=== PATIENT | female | born 1945 | race Caucasian/White ===

== ENCOUNTER 2016-03-16 20:15 | Observation (INO) ==
--- NOTE | 2016-03-16 20:50 | Emergency Department Note ---
Disposition Clinical Impression: Non-ST elevated myocardial infarction Disposition: Admitted As Inpatient Condition: Fair Referrals: Wesley Ortiz MD [Non-Partnered Physician] - Forms: ED Satisfaction Letter Chest Pain HPI - General Chief Complaint: ED Chest Pain Stated Complaint: chest heaviness, anxiety Time Seen by Provider: 03/16/16 20:27 Source: patient, EMS Limitations: no limitations Vital Signs Reviewed: Yes Nursing Notes Reviewed: Yes - History of Present Illness Pt complaint: chest pain Onset (ago): day(s) (1) Duration: now resolved Onset: during rest Severity: none Severity scale (1-10): 0 Quality: tightness Improves with: nothing Worsens with: nothing Associated symptoms: Denies: nausea, vomiting, diaphoresis - Related Data Home Medications Medication Instructions Recorded Confirmed Aspirin 325 mg PO DAILY 02/28/16 03/16/16 Carbidopa/Levodopa 25/100 [Sinemet 2 each PO TID 02/28/16 03/16/16 25/100] Carbidopa/Levodopa ER 50/200 1 each PO HS 02/28/16 03/16/16 [Sinemet ER 50-200 Tab] DiphenhydraMINE [Benadryl] 25 - 50 mg PO Q8H PRN 02/28/16 03/16/16 Docusate [Colace] 100 mg PO DAILY PRN 02/28/16 03/16/16 Donepezil [Aricept] 10 mg PO HS 02/28/16 03/16/16 Gabapentin [Neurontin] 100 mg PO TID PRN 02/28/16 03/16/16 HydrOXYzine Pamoate [Hydroxyzine 25 mg PO HS 02/28/16 03/16/16 Pamoate] Lactose-Reduced Food [Ensure 1 bottle PO 5XD 02/28/16 03/16/16 Liquid] Omeprazole [PriLOSEC] 40 mg PO DAILY 02/28/16 03/16/16 Previous Rx's Medication Instructions Recorded Oxycodone HCl 10 mg PO Q4HR PRN #30 tablet 03/03/16 Allergies Allergy/AdvReac Type Severity Reaction Status Date / Time fentanyl Allergy Vomiting Verified 10/31/14 09:49 ondansetron Allergy Headache Verified 10/31/14 09:49 [From Zofran (as hydrochloride)] Constitutional: Denies: fever, chills, weakness, weight change Eyes: Denies: eye pain, eye discharge, vision change ENT ED: Denies: ear pain, throat pain, dental pain, hearing loss, epistaxis, congestion, dysphagia Cardiovascular: Reports: as per HPI Respiratory: Denies: cough, dyspnea, wheezes, hemoptysis, stridor Gastrointestinal: Denies: abdominal pain, nausea, vomiting, diarrhea, constipation, hematemesis, melena, hematochezia Genitourinary: Denies: dysuria, frequency, hematuria, discharge Musculoskeletal: Denies: back pain, neck pain, arthralgia, myalgia Integumentary: Denies: rash, abrasion, lesions Neurological: Denies: headache, weakness, numbness, paresthesias, confusion, abnormal gait, vertigo Psychiatric: Denies: anxiety, depression, suicidal thoughts, homicidal thoughts , auditory hallucinations, visual hallucinations Endocrine: Denies: fatigue Hematological/Lymphatic: Denies: easy bleeding, easy bruising Chest Pain PMH - Past Medical History Medical history: Reports: CHF, dementia, other Surgical history: Reports: Psychiatric history: Reports: no psych history - Social History Smoking Status: Former smoker Alcohol use: Reports: none Drug use: Reports: none Physical Exam - General Limitations: no limitations General appearance: alert, in no apparent distress - Head Head exam: atraumatic, normocephalic, normal inspection - Eye Eye exam: Present: normal appearance, PERRL, EOMI - ENT ENT exam: normal exam, normal oropharynx, mucous membranes moist - Neck Neck exam: Present: normal inspection, full ROM, trachea midline - Chest Chest inspection: Present: normal inspection, symmetric chest wall rise - Respiratory Respiratory exam: Present: normal lung sounds bilaterally - Cardiovascular Cardiovascular exam: Present: regular rate, normal rhythm, normal heart sounds - Abdominal Exam Abdominal exam: Present: soft, Non-Tender. Absent: tenderness, distention, guarding, rebound, rigidity - Extremities Exam Extremities exam: Present: normal inspection, full ROM. Absent: tenderness, pedal edema - Expanded Lower Extremity Exam Lower leg exam: Absent: swelling, erythema, palpable cord, Homans' sign - Back Exam Back exam: Present: normal inspection, full ROM. Absent: tenderness - Neurological Exam Neurological exam: Present: alert, oriented X3 - Psychiatric Psychiatric exam: Present: normal affect, normal mood Course Course Narrative: Patient stable during ED course. Troponin positive so given lovenox. - Consultations Consultation #1: Discussed with Dr. Saldaña at 22:37 agree with treatment plans ASA/Lovenox admit. Consultation #2: Discussed with Dr. Champion at 22:20 accepts admit. Vital Signs Temperature 98 F 03/16/16 20:18 Pulse Rate 90 03/16/16 20:18 Respiratory Rate 20 03/16/16 20:18 Blood Pressure 112/88 03/16/16 20:18 O2 Sat by Pulse Oximetry 94 L 03/16/16 20:18 Temperature 98 F 03/16/16 20:18 Pulse Rate 71 03/16/16 22:05 Respiratory Rate 18 03/16/16 22:05 Blood Pressure 114/66 03/16/16 22:05 O2 Sat by Pulse Oximetry 94 L 03/16/16 22:05 Oxygen Delivery Oxygen Delivery Nasal Cannula Chest Pain - Medical Records Medical records reviewed: Yes I reviewed the patient's medical records. - Lab Data Lab results reviewed: Yes I reviewed the patient's lab results. Result diagrams: 03/16/16 21:14 03/16/16 21:14 Lab Results 03/16/16 03/16/16 03/16/16 Range/Units 21:14 21:14 21:14 WBC 9.8 (4.3-11.1) K/mcL RBC 3.61 L (3.82-4.97) M/mcL Hgb 10.4 L (11.5-15.4) g/dL Hct 32.9 L (35.3-44.9) % MCV 91.1 (83.0-100.0) fL MCH 28.8 (28.0-33.3) pg MCHC 31.6 (31.6-35.5) g/dL RDW 15.0 H (11.5-14.5) % Plt Count 506 H (140-400) K/mcL MPV 10.1 (9.4-12.4) fL Immature Gran % 0.3 (0-4) % Seg Neutrophils % 75.9 % Lymphocytes % 14.4 % Monocytes % 6.1 % Eosinophils % 2.6 % Basophils % 0.7 % Neutrophils # 7.4 (1.6-8.9) K/mcL Lymphocytes # 1.4 (0.6-4.6) K/mcL Monocytes # 0.6 (0.0-1.3) K/mcL Eosinophils # 0.3 (0.0-0.6) K/mcL Basophils # 0.1 (0.0-0.2) K/mcL PT 12.1 (9.4-12.1) Seconds INR 1.1 APTT 30.1 (26.0-36.0) Seconds Sodium (136-145) mEq/L Potassium (3.5-4.5) mEq/L Chloride (98-109) mEq/L Carbon Dioxide (19-29) mEq/L BUN (7-20) mg/dL Creatinine (0.57-1.11) mg/dL Est GFR ( Amer) (> 60) Est GFR (Non-Af Amer) (> 60) BUN/Creatinine Ratio (6-26) Glucose (70-99) mg/dL Calculated Osmolality (280-300) Calcium (8.6-10.8) mg/dL Troponin I (0-0.03) ng/mL B-Natriuretic Peptide 259 H (0-100) pg/mL 03/16/16 03/16/16 Range/Units 21:14 21:14 WBC (4.3-11.1) K/mcL RBC (3.82-4.97) M/mcL Hgb (11.5-15.4) g/dL Hct (35.3-44.9) % MCV (83.0-100.0) fL MCH (28.0-33.3) pg MCHC (31.6-35.5) g/dL RDW (11.5-14.5) % Plt Count (140-400) K/mcL MPV (9.4-12.4) fL Immature Gran % (0-4) % Seg Neutrophils % % Lymphocytes % % Monocytes % % Eosinophils % % Basophils % % Neutrophils # (1.6-8.9) K/mcL Lymphocytes # (0.6-4.6) K/mcL Monocytes # (0.0-1.3) K/mcL Eosinophils # (0.0-0.6) K/mcL Basophils # (0.0-0.2) K/mcL PT (9.4-12.1) Seconds INR APTT (26.0-36.0) Seconds Sodium 140 (136-145) mEq/L Potassium 4.1 (3.5-4.5) mEq/L Chloride 107 (98-109) mEq/L Carbon Dioxide 25 (19-29) mEq/L BUN 15 (7-20) mg/dL Creatinine 0.71 (0.57-1.11) mg/dL Est GFR ( Amer) > 60 (> 60) Est GFR (Non-Af Amer) > 60 (> 60) BUN/Creatinine Ratio 21 (6-26) Glucose 108 H (70-99) mg/dL Calculated Osmolality 291 (280-300) Calcium 8.6 (8.6-10.8) mg/dL Troponin I 0.20 H* (0-0.03) ng/mL B-Natriuretic Peptide (0-100) pg/mL - Radiology Data Radiology results reviewed: Yes I reviewed the patient's radiology results. - EKG Data EKG attestation: Yes I reviewed and interpreted this EKG. EKG shows normal: sinus rhythm Rate: normal Rhythm: NSR When compared to previous EKG there are: no significant changes
[2016-03-16 21:37] LABS: Basophils # 0.1 K/mcL (0.0-0.2); Basophils % 0.7 %; Eosinophils # 0.3 K/mcL (0.0-0.6); Eosinophils % 2.6 %; Hematocrit 32.9 % (35.3-44.9); Hemoglobin 10.4 g/dL (11.5-15.4); Immature Granulocytes % 0.3 % (0-4); Lymphocytes # 1.4 K/mcL (0.6-4.6); Lymphocytes % 14.4 %; Mean Corpuscular HGB Conc 31.6 g/dL (31.6-35.5); Mean Corpuscular Hemoglobin 28.8 pg (28.0-33.3); Mean Corpuscular Volume 91.1 fL (83.0-100.0); Mean Platelet Volume 10.1 fL (9.4-12.4); Monocytes # 0.6 K/mcL (0.0-1.3); Monocytes % 6.1 %; Neutrophils # 7.4 K/mcL (1.6-8.9); Platelet Count 506 K/mcL (140-400); Red Blood Count 3.61 M/mcL (3.82-4.97); Segmented Neutrophils % 75.9 %
[2016-03-16 21:43] LABS: INR 1.1; Prothrombin Time 12.1 Seconds (9.4-12.1)
[2016-03-16 21:46] LABS: Activated Partial Thrombo Time 30.1 Seconds (26.0-36.0)
[2016-03-16 21:49] LABS: BUN/Creatinine Ratio 21 (6-26); Blood Urea Nitrogen 15 mg/dL (7-20); Calcium 8.6 mg/dL (8.6-10.8); Carbon Dioxide 25 mEq/L (19-29); Chloride 107 mEq/L (98-109); Glucose 108 mg/dL (70-99); Osmolality,Calculated 291 (280-300); Potassium 4.1 mEq/L (3.5-4.5); Sodium 140 mEq/L (136-145); eGFR For African Americans > 60 (> 60); eGFR For Non-African Americans > 60 (> 60)
[2016-03-16] MEDS ORDERED: *HR* Enoxaparin 60 MG/0.6 ML SYRINGE SQ STA (22:04)
[2016-03-16] MEDS ORDERED: Aspirin 81 MG TAB.CHEW PO ONE (22:04)
[2016-03-16] MEDS ORDERED: *HR* Promethazine 25 MG/ML VIAL IVP PRN (23:57)
[2016-03-16] MEDS ORDERED: Naloxone 0.4 MG/ML INJ IVP PRN (23:57)
[2016-03-16] MEDS ORDERED: Nitroglycerin 0.4 MG TAB.SUBL SL PRN (23:57)
[2016-03-16] MEDS ORDERED: *HR* Morphine 2 MG/ML SYRINGE IVP PRN (23:57)
[2016-03-16] MEDS ORDERED: *HR* Metoprolol 5 MG/5 ML VIAL IVP PRN (23:57)
[2016-03-16] MEDS ORDERED: Acetaminophen 325 MG TABLET PO PRN (23:57)
[2016-03-16] MEDS ORDERED: *HR* OxyCODONE Immed Rel 5 MG TABLET PO PRN (23:57)
[2016-03-17] MEDS ORDERED: Gabapentin 100 MG CAPSULE PO PRN (00:08)
[2016-03-17] MEDS ORDERED: *HR* OxyCODONE Immed Rel 5 MG TABLET PO PRN ×4 (00:08→15:24)
[2016-03-17] MEDS ORDERED: Ipratropium/Albuterol Neb 3 ML IH PRN (00:10)
[2016-03-17 00:38] LABS: VBG HCO3 29.1 mEq/L (21-27); VBG PH 7.47 pH Units (7.32-7.42)
[2016-03-17 00:50] LABS: Hemoglobin A1C 4.6 %
[2016-03-17 00:55] LABS: Alanine Aminotransferase < 6 Units/L (0-55); Albumin/Globulin Ratio 0.8 (1.1-2.2); Alkaline Phosphatase 181 Units/L (38-126); Aspartate Amino Transferase 13 Units/L (5-34); BUN/Creatinine Ratio 20 (6-26); Bilirubin,Total 0.5 mg/dL (0.2-1.2); Blood Urea Nitrogen 14 mg/dL (7-20); Calcium 8.7 mg/dL (8.6-10.8); Carbon Dioxide 23 mEq/L (19-29); Chloride 107 mEq/L (98-109); Chol/HDL Ratio 2.8 (0-4.9); Cholesterol 165 mg/dL (< 200); Globulin 3.7 g/dL (2.4-3.5); Glucose 106 mg/dL (70-99); HDL Cholesterol 58 mg/dL (40-59); LDL Cholesterol,Calculated 95 mg/dL (0-99); Magnesium 1.8 mg/dL (1.6-2.6); Osmolality,Calculated 291 (280-300); Phosphorous 3.4 mg/dL (2.3-4.7); Sodium 140 mEq/L (136-145); Total Protein 6.7 g/dL (6.0-8.3); Triglycerides 61 mg/dL (< 150); eGFR For African Americans > 60 (> 60); eGFR For Non-African Americans > 60 (> 60)
[2016-03-17 01:15] LABS: Thyroid Stimulating Hormone 0.854 mcIU/mL (0.350-4.840)
[2016-03-17] MEDS: Carbidopa/Levodopa ER 50/200 TABLET PO SCH ×2 (03:15→20:54)
--- NOTE | 2016-03-17 03:44 | Internal Med History&Physical ---
Date of Encounter: 03/16/16 Time of Encounter: 23:30 Assessment and Plan (1) Acute chest wall pain Current visit: Yes Status: Acute . (2) Chest pain, rule out acute myocardial infarction Current visit: Yes Status: Acute . (3) Chest pain with low risk of acute coronary syndrome Current visit: Yes Status: Acute . (4) Anxiety disorder Current visit: Yes Status: Chronic . Qualifiers: Anxiety disorder type: generalized anxiety disorder Qualified Code(s): F41.1 - Generalized anxiety disorder (5) Demand ischemia of myocardium Current visit: Yes Status: Acute . (6) Ischemia due to increased oxygen demand Current visit: Yes Status: Acute . (7) Elevated troponin I measurement Current visit: Yes Status: Acute . (8) Obesity (BMI 30-39.9) Current visit: Yes Status: Chronic . (9) Anemia Current visit: Yes Status: Chronic . Qualifiers: Anemia type: unspecified type Qualified Code(s): D64.9 - Anemia, unspecified (10) Thrombocytosis Current visit: Yes Status: Acute . (11) Paroxysmal atrial fibrillation Current visit: Yes Status: Chronic . (12) Diastolic CHF Current visit: Yes Status: Chronic . Qualifiers: Congestive heart failure chronicity: chronic Qualified Code(s): I50.32 - Chronic diastolic (congestive) heart failure (13) Dementia arising in the senium and presenium Current visit: Yes Status: Chronic . (14) Non-ST elevated myocardial infarction Current visit: Yes Status: Acute . (15) Hypokalemia Current visit: Yes Status: Acute . (16) Parkinson disease Current visit: Yes Status: Chronic . Internal Medicine - H&P: HPI Chief complaint: Chest pain Admitted From: Emergency Dept Plans for Post Hospital Care: Home History of present illness: Ms. Hicks is a 70 year old female with history significant for Parkinson's disease, dementia unspecified, diastolic CHF, GERD, chronic musculoskeletal pain , rheumatoid arthritis, paroxysmal atrial fibrillation, gait instability/ mechanical falls, osteoarthritis, osteoporosis, obesity, former smoker. The patient was visited and interviewed and examined. Patient is admitted to [facility] via the emergency department when she presents with EMS services from home with complaints of chest pain. The patient reports 1 day of chest heaviness beginning while at rest. Nothing seemed to worsen nothing seemed to lessen feeling of chest tightness when present. Patient acknowledged simultaneous anxiety. Symptoms resolved spontaneously without intervention prior to arrival to the ED. However the chest pain at acute onset was severe and consuming enough to warrant presentation to the ED via EMS services for evaluation. Patient denies any previous episodes of similar discomfort.. Findings in the ED: Temperature 98 pulse 70-90 respirations 18-20 BP 110-114/66-88 O2 saturation 94% at 2 L per nasal cannula. WBC 9.8 hemoglobin 10.4 platelets 506,000. Differential normal. PT 12.1 INR 1.1 PTT 30.1. Troponin 0.2 BNP 259. Metabolic panel normal. BUN 15 creatinine 0.71. Glucose 108 osmolality 291. EKG normal sinus rhythm. No acute ischemic changes. Chest x-ray no acute or active cardiopulmonary process. Stable cardiomegaly. No focal consolidation pleural effusion or edema. No pneumothorax. Levoconvex thoracolumbar scoliosis. No acute osseous lesions noted. Preliminary impression suggests ACS/coronary syndrome with troponin elevation and BNP elevations tested for significant myocardial demand and ischemia. Beyond resting hypoxemia the remainder of the screening studies were relatively benign. Patient is status post recent fracture and done nailing procedure February 2016. Non-ST elevation myocardial infarction Type I versus type II demand ischemia of the further investigated. The patient does present risk for further acute clinical decline and morbidity given her advanced age, frailty, clinical findings at presentation and comorbidities. Workup and treatment will progress comprehensively. Cumulative laboratory and radiographic data base was reviewed, considered and discussed. Pertinent ancillary medical records including ECW and PCI documentation, when available, was reviewed and considered. Given the patient's presenting concerns, past medical history, clinical findings and symptoms, she is admitted at this time will undergo further evaluation and disposition. Orders were written as per the computerized physician eating disorder psychologist system.......................................................................... .................... Consultative opinions will be sought as clinical circumstances justify. Initial consultative opinion has been requested of cardiology. Pain management needs will be addressed. Laboratory and radiographic data base will be updated as appropriate. Studies include: trending of cardiac injury panel, BNP, ck, metabolic and hematologic panel, magnesium, phosphorus, ionized calcium, thyroid panel, lipid profile, A1c , C-peptide, CRP, sedimentation rate, respiratory infection profile, respiratory virus panel, blood gas, UA, amylase, lipase, coagulation profile, lactic acid, serologies, etc. Precautions: Aspiration, fall, delirium protocol/surveillance initiated. Telemetry with continuous hemodynamic monitoring and pulse oximetry initiated. Orthostatic vital signs. Special studies: CT chest, chest x-ray, telemetry, EKG, echocardiogram. Pulmonary toilet: Incentive spirometry. When necessary aerosol bronchodilator, mucolytic, antitussive. Supplemental oxygen. When necessary corticosteroid therapy. CPAP/BiPAP supplemental oxygen delivery when necessary. Aerosol Mucomyst therapy when necessary. Fluid and electrolyte repletion efforts will proceed. Careful attention to fluid balance and renal recovery will be emphasized. Avoidance of nephrotoxic exposure and adverse drug drug interaction in the setting of impaired renal function will be monitored closely. Acute coronary syndrome protocol/surveillance initiated. Including: Aspirin and statin, beta megan and SHIRLENE inhibitor. Therapeutic Lovenox. As needed nitrates. As needed morphine. Supplemental oxygen. DVT and PUD prophylaxis initiated: PPI therapy, intermittent pneumatic cuffs. Subcutaneous heparin/Lovenox. Early ambulation will be encouraged. Immunization updates recommended. Influenza and pneumococcal vaccinations as part of ongoing preventative healthcare recommendations strongly recommended. Smoking cessation counseling briefly addressed. Patient is a former smoker. Advanced care directive discussion briefly addressed. Patient does not declare any healthcare restrictions at this time. Cardiovascular risk appraisal and cardiovascular risk reduction efforts will be emphasized. Physical and occupational therapy may be consulted to evaluate/assess patient's functional capacity and progress mobility if circumstances permit. Outpatient medication schedules will be reviewed confirmed and facilitated as appropriate. Reconciliation of home treatments including adjustments, substitutions and reintroduction into the treatment regimen will address necessary maintenance therapies for chronic pre-existing medical conditions. Plan of care has been reviewed and discussed in detail with the patient. Questions addressed. Hospital course is dependent on collective clinical findings, treatment response and potential consultative interventions. Patient is at risk for further acute clinical decline and morbidity due to her advanced age, frailty, presenting chief complaints and comorbidities. Condition is serious. Prognosis is guarded. CODE STATUS is full. Past Med Surg Social Fam HX - Past Medical History Source: old records reviewed Medical history: arthritis, atrial fibrillation, CHF (Diastolic cardiomyopathy.) , COPD, dementia, GERD (Symptomatic hiatal hernia.), osteoporosis, RA, other ( Parkinson's disease. Frequent mechanical fall secondary discoloration of gait due to Parkinson's disease). Chronic musculoskeletal pain syndrome.) Psychiatric history: anxiety, panic disorder, other - Past Surgical History Surgical History: , orthopedic, other, other - Social History Smoking Status: Unknown if ever smoked Smokeless Tobacco Status: No Alcohol use: unknown Drug use: unknown Occupational status: other Current living situation: With Family Activity Level: Independent ambulation, Mostly sedentary Recent Out of Country Travel Within the Last 8 Weeks: No Exposure or Possible Exposure to Illness During Travel: No - Family History Son History Unknown: Yes Living Status: Still Living Hx Family Cardiac Disorders: No Hx Family Respiratory Disorders: No Hx Family Cancer: No Hx Family GI Disorders: Yes Hx Family Endocrine Disorder: No Internal Medicine - H&P: Meds Aspirin 325 mg PO DAILY 02/28/16 [History] Carbidopa/Levodopa 25/100 [Sinemet 25/100] 2 each PO TID 02/28/16 [History] Carbidopa/Levodopa ER 50/200 [Sinemet ER 50-200 Tab] 1 each PO HS 02/28/16 [ History] DiphenhydraMINE [Benadryl] 25 - 50 mg PO Q8H PRN 02/28/16 [History] Docusate [Colace] 100 mg PO DAILY PRN 02/28/16 [History] Donepezil [Aricept] 10 mg PO HS 02/28/16 [History] Gabapentin [Neurontin] 100 mg PO TID PRN 02/28/16 [History] HydrOXYzine Pamoate [Hydroxyzine Pamoate] 25 mg PO HS 02/28/16 [History] Lactose-Reduced Food [Ensure Liquid] 1 bottle PO 5XD 02/28/16 [History] Omeprazole [PriLOSEC] 40 mg PO DAILY 02/28/16 [History] Oxycodone HCl 10 mg PO Q4HR PRN #30 tablet 03/03/16 [Rx] Allergies fentanyl Allergy (Verified 10/31/14 09:49) Vomiting ondansetron [From Zofran (as hydrochloride)] Allergy (Verified 10/31/14 09:49) Headache All Systems PM: A 10-system review of systems was performed and is negative for pertinent findings except as documented above in the HPI. - Constitutional Constitutional: as per HPI, falls, malaise, no chills, no fever(s), no night sweats - EENT Eyes: as per HPI, no change in vision, no discharge, no pain, no photophobia Ears: as per HPI, no ear discharge, no ear pain, no tinnitus Nose, mouth and throat: as per HPI, no dysphagia, no nasal discharge, no neck pain, no sore throat - Cardiovascular Cardiovascular ROS IM: as per HPI, chest pain, no diaphoresis, no dyspnea, no lightheadedness, no palpitations, no syncope - Respiratory Respiratory: as per HPI, no cough, no dyspnea, no wheezing, no excessive phlegm production - Gastrointestinal Gastrointestinal: as per HPI, no abdominal pain, no diarrhea, no hematemesis, no hematochezia, no melena, no nausea, no vomiting - Genitourinary Genitourinary: as per HPI, no change in urinary stream, no dysuria, no flank pain, no hematuria - Musculoskeletal Musculoskeletal ROS IM: as per HPI, no numbness, no tingling - Integumentary Integumentary IM: as per HPI, no rash, no unusual bruising - Neurological Neurological ROS: as per HPI, abnormal gait, abnormal movements, frequent falls , lack of coordination, weakness, other, no confusion, no convulsions, no focal weakness, no numbness, no tingling, no tremor(s) - Psychiatric Psychiatric: as per HPI, anxiety, panic attacks, other - Endocrine Endocrine IM: as per HPI - Hematologic/Lymphatic Hematologic/Lymphatic: as per HPI, no easy bruising - Allergic/Immunologic Allergic/Immunologic: as per HPI - Constitutional Vitals: Temp Pulse Resp BP Pulse Ox 98.6 F 80 18 147/81 94 L 03/17/16 01:48 03/17/16 01:48 03/17/16 01:48 03/17/16 01:48 03/17/16 01:48 General appearance: Present: A&O X 2, mild distress, answers questions appropriately - Head Head exam: Present: atraumatic, normocephalic - Eye Eye exam: Present: EOMI, PERRL, conjuntiva pink, sclera anicteric Pupils: Present: normal accommodation, PERRL - ENT ENT exam: Present: mucous membranes moist, normal external ear exam, normal oropharynx - Neck Neck exam general surgery: Present: full ROM, supple, trachea midline. Absent: lymphadenopathy, tenderness, nuchal rigidity - Respiratory Respiratory exam: Present: chest wall tenderness, decreased breath sounds, CTAB. Absent: accessory muscle use, rales, rhonchi, wheezes - Cardiovascular Cardiovascular exam: Present: distant heart sounds, RRR, +S1, +S2. Absent: diastolic murmur, gallop, rubs, systolic murmur - GI/Abdominal GI/Abdominal exam: Present: diminished bowel sounds, soft, no peritoneal signs. Absent: distended, tenderness - Extremities Exam Extremities exam: Present: full ROM, warm, radial pulses palpable and symetrical. Absent: calf tenderness, cyanotic, pedal edema - Neurological Exam Neurological exam: Present: alert, altered, CN II-XII intact, oriented X3, no focal deficits. Absent: pronater drift, facial droop, speech deficit - Expanded Neurological Exam Neurological exam expanded: Present: inattentive, protecting the airway. Absent : ataxia, expressive aphasia, receptive aphasia Patient oriented to: Present: person, place. Absent: time Coma Scale Eye Opening: Spontaneous Coma Scale Motor Response: Obeys Commands Coma Scale Verbal Response: Confused Coma Scale Total: 14 - Psychiatric Psychiatric exam: Present: anxious, normal affect - Skin Skin exam: Present: dry, intact, warm. Absent: petechiae, rash, urticaria, vesicles Internal Med - H&P Results - Labs CBC & Chem 7: 03/16/16 21:14 03/17/16 00:27 Labs: BMP 03/17/16 00:27 Sodium 140 Potassium 4.0 Chloride 107 Carbon Dioxide 23 BUN 14 Creatinine 0.69 Glucose 106 H Calcium 8.7 Cardiac Enzymes 03/17/16 Range/Units 00:27 Troponin I 0.23 H* (0-0.03) ng/mL Liver Function 03/17/16 Range/Units 00:27 Total Bilirubin 0.5 (0.2-1.2) mg/dL AST 13 (5-34) Units/L ALT < 6 (0-55) Units/L Alkaline Phosphatase 181 H (38-126) Units/L Albumin 3.0 L (3.5-5.0) g/dL - ABG Interpretation ABG results: 03/17/16 00:27 VBG pH 7.47 H VBG pCO2 40 L VBG pO2 137 H VBG HCO3 29.1 H - Impressions Vital Signs Temp Pulse Resp BP Pulse Ox 03/17/16 01:48 98.6 F 80 18 147/81 94 L 03/17/16 00:29 18 114/79 03/16/16 23:52 76 18 114/66 94 L 03/16/16 22:05 71 18 114/66 94 L 03/16/16 20:18 98 F 90 20 112/88 94 L Intake and Output 03/16/16 03/16/16 03/17/16 15:59 23:59 07:59 Other: # Urine Diapers 1 Weight 47.627 kg 69 kg Patient Weight 03/17/16 23:59 Weight 69 kg Short CBC 03/16/16 Range/Units 21:14 WBC 9.8 (4.3-11.1) K/mcL Hgb 10.4 L (11.5-15.4) g/dL Hct 32.9 L (35.3-44.9) % Plt Count 506 H (140-400) K/mcL Neutrophils # 7.4 (1.6-8.9) K/mcL BMP 03/17/16 03/16/16 Range/Units 00:27 21:14 Sodium 140 140 (136-145) mEq/L Potassium 4.0 4.1 (3.5-4.5) mEq/L Chloride 107 107 (98-109) mEq/L Carbon Dioxide 23 25 (19-29) mEq/L BUN 14 15 (7-20) mg/dL Creatinine 0.69 0.71 (0.57-1.11) mg/dL Glucose 106 H 108 H (70-99) mg/dL Calcium 8.7 8.6 (8.6-10.8) mg/dL Cardiac Enzymes 03/17/16 03/16/16 Range/Units 00:27 21:14 Troponin I 0.23 H* 0.20 H* (0-0.03) ng/mL Liver Function 03/17/16 Range/Units 00:27 Total Bilirubin 0.5 (0.2-1.2) mg/dL AST 13 (5-34) Units/L ALT < 6 (0-55) Units/L Alkaline Phosphatase 181 H (38-126) Units/L Albumin 3.0 L (3.5-5.0) g/dL 03/17/16 00:27 VBG pH 7.47 H VBG pCO2 40 L VBG pO2 137 H VBG HCO3 29.1 H Abnormal lab results RBC 3.61 M/mcL (3.82-4.97) L 03/16/16 21:14 Hgb 10.4 g/dL (11.5-15.4) L 03/16/16 21:14 Hct 32.9 % (35.3-44.9) L 03/16/16 21:14 RDW 15.0 % (11.5-14.5) H 03/16/16 21:14 Plt Count 506 K/mcL (140-400) H 03/16/16 21:14 VBG pH 7.47 pH Units (7.32-7.42) H 03/17/16 00:27 VBG pCO2 40 mmHg (41-51) L 03/17/16 00:27 VBG pO2 137 mmHg (25-40) H 03/17/16 00:27 VBG HCO3 29.1 mEq/L (21-27) H 03/17/16 00:27 Glucose 106 mg/dL (70-99) H 03/17/16 00:27 Ionized Calcium 1.08 mmol/L (1.15-1.35) L 03/17/16 00:27 Alkaline Phosphatase 181 Units/L (38-126) H 03/17/16 00:27 Troponin I 0.23 ng/mL (0-0.03) H* 03/17/16 00:27 C-Reactive Protein 14 mg/L (Less than 5) H 03/17/16 00:27 B-Natriuretic Peptide 259 pg/mL (0-100) H 03/16/16 21:14 Albumin 3.0 g/dL (3.5-5.0) L 03/17/16 00:27 Globulin 3.7 g/dL (2.4-3.5) H 03/17/16 00:27 Albumin/Globulin Ratio 0.8 (1.1-2.2) L 03/17/16 00:27 Allergies Allergy/AdvReac Type Severity Reaction Status Date / Time fentanyl Allergy Vomiting Verified 10/31/14 09:49 ondansetron Allergy Headache Verified 10/31/14 09:49 [From Zofran (as hydrochloride)] Laboratory Results WBC 9.8 K/mcL (4.3-11.1) 03/16/16 21:14 RBC 3.61 M/mcL (3.82-4.97) L 03/16/16 21:14 Hgb 10.4 g/dL (11.5-15.4) L 03/16/16 21:14 Hct 32.9 % (35.3-44.9) L 03/16/16 21:14 MCV 91.1 fL (83.0-100.0) 03/16/16 21:14 MCH 28.8 pg (28.0-33.3) 03/16/16 21:14 MCHC 31.6 g/dL (31.6-35.5) 03/16/16 21:14 RDW 15.0 % (11.5-14.5) H 03/16/16 21:14 Plt Count 506 K/mcL (140-400) H 03/16/16 21:14 MPV 10.1 fL (9.4-12.4) 03/16/16 21:14 Immature Gran % 0.3 % (0-4) 03/16/16 21:14 Seg Neutrophils % 75.9 % 03/16/16 21:14 Lymphocytes % 14.4 % 03/16/16 21:14 Monocytes % 6.1 % 03/16/16 21:14 Eosinophils % 2.6 % 03/16/16 21:14 Basophils % 0.7 % 03/16/16 21:14 Neutrophils # 7.4 K/mcL (1.6-8.9) 03/16/16 21:14 Lymphocytes # 1.4 K/mcL (0.6-4.6) 03/16/16 21:14 Monocytes # 0.6 K/mcL (0.0-1.3) 03/16/16 21:14 Eosinophils # 0.3 K/mcL (0.0-0.6) 03/16/16 21:14 Basophils # 0.1 K/mcL (0.0-0.2) 03/16/16 21:14 PT 12.1 Seconds (9.4-12.1) 03/16/16 21:14 INR 1.1 03/16/16 21:14 APTT 30.1 Seconds (26.0-36.0) 03/16/16 21:14 VBG pH 7.47 pH Units (7.32-7.42) H 03/17/16 00: VBG pCO2 40 mmHg (41-51) L 03/17/16 00: VBG pO2 137 mmHg (25-40) H 03/17/16 00: VBG HCO3 29.1 mEq/L (21-27) H 03/17/16 00: Sodium 140 mEq/L (136-145) 03/17/16: Potassium 4.0 mEq/L (3.5-4.5) 03/17/16: Chloride 107 mEq/L (98-109) 03/17/16 00 Carbon Dioxide 23 mEq/L (19-29) 03/17/16 00 BUN 14 mg/dL (7-20) 03/17/16 00 Creatinine 0.69 mg/dL (0.57-1.11) 03/17/16 00 Est GFR ( Amer) > 60 (> 60) 03/17/16 Est GFR (Non-Af Amer) > 60 (> 60) 03/17/16 00 BUN/Creatinine Ratio 20 (6-26) 03/17/16 00 Glucose 106 mg/dL (70-99) H 03/17/16 00: Est Mean Plasma Glucose 85 mg/dl 03/17/16 00 Hemoglobin A1c 4.6 % (-5.6) 03/17/16 Calculated Osmolality 291 (280-300) 03/17/16 Calcium 8.7 mg/dL (8.6-10.8) 03/17/16 Ionized Calcium 1.08 mmol/L (1.15-1.35) L 03/17/16 Phosphorus 3.4 mg/dL (2.3-4.7) 03/17/16 Magnesium 1.8 mg/dL (1.6-2.6) 03/17/16 Total Bilirubin 0.5 mg/dL (0.2-1.2) 03/17/16 AST 13 Units/L (5-34) 01/10/17 00:27 ALT < 6 Units/L (0-55) 03/17/16 00:27 Alkaline Phosphatase 181 Units/L (38-126) H 03/17/16 00:27 Troponin I 0.23 ng/mL (0-0.03) H* 03/17/16 00:27 C-Reactive Protein 14 mg/L (Less than 5) H 03/17/16 00:27 B-Natriuretic Peptide 259 pg/mL (0-100) H 03/16/16 21:14 Serum Total Protein 6.7 g/dL (6.0-8.3) 03/17/16 00:27 Albumin 3.0 g/dL (3.5-5.0) L 03/17/16 00:27 Globulin 3.7 g/dL (2.4-3.5) H 03/17/16 00:27 Albumin/Globulin Ratio 0.8 (1.1-2.2) L 03/17/16 00:27 Triglycerides 61 mg/dL (< 150) 03/17/16 00:27 Cholesterol 165 mg/dL (< 200) 03/17/16 00:27 LDL Cholesterol, Calc 95 mg/dL (0-99) 03/17/16 00:27 VLDL Cholesterol, Calc 12 mg/dL (< 31) 03/17/16 00:27 HDL Cholesterol 58 mg/dL (40-59) 03/17/16 00:27 Cholesterol/HDL Ratio 2.8 (0-4.9) 03/17/16 00:27 TSH 0.854 mcIU/mL (0.350-4.840) 03/17/16 00:27 Blood Type A POSITIVE 03/17/16 00:27 Antibody Screen NEGATIVE 03/17/16 00:27 Impressions Chest X-Ray 03/16/16 20:30 IMPRESSION: 1. No acute cardiopulmonary process identified. 2. Stable cardiomegaly. D/ / 03/16/2016 21:05:17 Michael Zapata MD / william Interpreting Provider: Michael Zapata MD
[2016-03-17 04:45] LABS: Bilirubin,Urine Negative (Negative); Blood,Urine Negative (Negative); Clarity,Urine Clear (Clear); Color,Urine Yellow (Yellow); Glucose,Urine (UA) 250 mg/dL (Normal); Ketones,Urine Negative (Negative); Leukocyte Esterase,Urine Negative (Negative); Nitrite,Urine Negative (Negative); Protein,Urine Negative (Neg-Trace); Urobilinogen,Urine Normal (Normal)
[2016-03-17] MEDS: 0.9 % Sodium Chloride 1,000 ML IVC SCH (05:06)
[2016-03-17] MEDS ORDERED: Calcium Gluconate 1,000 MG in D5% in Water 100 ML IVPB ONE (07:03)
[2016-03-17] MEDS ORDERED: Famotidine 20 MG TABLET PO SCH (09:00)
[2016-03-17] MEDS: LACTOSE REDUCED FOOD PO SCH ×2 (09:22→12:35)
[2016-03-17] MEDS: Carbidopa/Levodopa 25/100 TABLET PO SCH ×3 (09:55→20:53)
[2016-03-17] MEDS: Aspirin 81 MG TAB.CHEW PO SCH (09:56)
--- NOTE | 2016-03-17 10:21 | Cardiology Consult Note ---
Date of Encounter: 03/17/16 Time of Encounter: 10:00 Assessment and Plan (1) Elevated troponin Current Visit: Yes Status: Acute Adynamic troponin elevation. NSTEMI type I vs. II; recent right hip nailing s/p fall with fracture on 02/29/16. Chest pain free upon exam, no ischemic ECG change noted. Recommend conservative medical management. Patient is not a candidate for cardiac rehab. Check echocardigram. Continue asa, statin, and betablocker. (2) Paroxysmal atrial fibrillation Current Visit: Yes Status: Chronic Reported hx of PAF. ECG shows SR, apical regular upon exam. No evidence of PAF noted per telemetry review. Continue betablocker. Has not been on AC due to frequent falls. (3) Parkinson disease Current Visit: Yes Status: Chronic Discussion w patient/family: The assessment and plan as outlined above was discussed with the patient and/or family members who expressed understanding and agreement. All questions were answered. Thank you for involving us in the care of your patient. Please call with any questions. The patient will be discussed and reviewed with Dr. Araujo; changes to be made accordingly. History of Present Illness Consult date: 03/17/16 Requesting physician: Moses Doe Consult reason: Elevated troponin Chief complaint: Chest heaviness History of present illness: Ms. Hicks is a 70 year old female with PMH significant for Parkinson's disease , PAF, dementia, and recent right hip fracture who presents to the ED with complaints of chest heaviness. She is noted to be a poor historian and has difficulty describing symptoms. She reports episodes of chest heaviness that have occurred for "years." Discomfort occurs at rest and resolves without intervention, can last hours or minutes with each episode. Family not at bedside during exam. Past Med Surg Social Fam HX - Past Medical History Medical history: arthritis, atrial fibrillation, COPD, dementia, GERD ( Symptomatic hiatal hernia.), osteoporosis, RA, other (Parkinson's disease) Psychiatric history: anxiety, panic disorder, other - Past Surgical History Surgical History: , orthopedic, other, other - Social History Smoking Status: Unknown if ever smoked Smokeless Tobacco Status: No Alcohol use: unknown Drug use: unknown - Family History Son History Unknown: Yes Living Status: Still Living Hx Family Cardiac Disorders: No Hx Family Respiratory Disorders: No Hx Family Cancer: No Hx Family GI Disorders: Yes Hx Family Endocrine Disorder: No Medications and Allergies Aspirin 325 mg PO DAILY 02/28/16 [History] Carbidopa/Levodopa 25/100 [Sinemet 25/100] 2 each PO TID 02/28/16 [History] Carbidopa/Levodopa ER 50/200 [Sinemet ER 50-200 Tab] 1 each PO HS 02/28/16 [ History] DiphenhydraMINE [Benadryl] 25 - 50 mg PO Q8H PRN 02/28/16 [History] Docusate [Colace] 100 mg PO DAILY PRN 02/28/16 [History] Donepezil [Aricept] 10 mg PO HS 02/28/16 [History] Gabapentin [Neurontin] 100 mg PO TID PRN 02/28/16 [History] HydrOXYzine Pamoate [Hydroxyzine Pamoate] 25 mg PO HS 02/28/16 [History] Lactose-Reduced Food [Ensure Liquid] 1 bottle PO 5XD 02/28/16 [History] Omeprazole [PriLOSEC] 40 mg PO DAILY 02/28/16 [History] Oxycodone HCl 10 mg PO Q4HR PRN #30 tablet 03/03/16 [Rx] Allergies fentanyl Allergy (Verified 10/31/14 09:49) Vomiting ondansetron [From Zofran (as hydrochloride)] Allergy (Verified 10/31/14 09:49) Headache All Systems Review: A 10-system review of systems was performed and is negative for pertinent findings except as documented above in the HPI. - Cardiovascular Cardiovascular: as per HPI Physical Examination Vital Signs, Last 4 Hours Temp Pulse Resp BP Pulse Ox 03/17/16 07:34 98.0 F 75 15 149/75 97 General: Conversant, No Apparent Distress, Other (alert to self only. ) Cardiac: Reg Rate and Rhythm, Normal S1 and S2 Lungs: Normal Breath Sounds Neuro: Alert and responsive Musculoskeletal: Other (generalized weakness, poor muscle tone. ) Extremities: No Edema, Normal Pulses Results 03/16/16 21:14 03/17/16 00:27 Lab Results 03/17/16 03/17/16 03/17/16 00:27 00:27 06:29 Sodium 140 Potassium 4.0 Chloride 107 Carbon Dioxide 23 BUN 14 Creatinine 0.69 Glucose 106 H Calcium 8.7 Magnesium 1.8 Total Bilirubin 0.5 AST 13 ALT < 6 Alkaline Phosphatase 181 H Troponin I 0.23 H* 0.23 H* TSH 0.854 Impressions Chest X-Ray 03/16/16 20:30 IMPRESSION: 1. No acute cardiopulmonary process identified. 2. Stable cardiomegaly. D/ / 03/16/2016 21:05:17 Michael Zapata MD / william Interpreting Provider: Michael Zapata MD Active Medications Acetaminophen (Tylenol) 650 mg PO Q6HR PRN PRN Reason: Mild Pain (1-3) Stop: 09/15/16 23:58 Albuterol/Ipratropium (Duoneb) 3 ml IH [id number] PRN; Protocol PRN Reason: Shortness Of Breath/Wheezing Stop: 09/16/16 00:11 Aspirin (Aspirin) 81 mg PO DAILY [facility] Stop: 09/16/16 09:01 Last Admin: 03/17/16 09:56 Dose: 81 mg Atorvastatin Calcium (Lipitor) 40 mg PO HS [facility] Stop: 09/16/16 21:01 Carbidopa/Levodopa (Sinemet) 2 each PO TID [facility] Stop: 09/16/16 09:01 Last Admin: 03/17/16 09:55 Dose: 2 each Carbidopa/Levodopa (Sinemet Er 50-200 Tab) 1 each PO HS [facility] Stop: 09/16/16 00:16 Last Admin: 03/17/16 03:15 Dose: Not Given Docusate Sodium (Colace) 100 mg PO DAILY PRN; Protocol PRN Reason: Constipation Stop: 09/16/16 00:09 Donepezil HCl (Aricept) 10 mg PO HS [facility] Stop: 09/16/16 21:01 Gabapentin (Neurontin) 100 mg PO TID PRN PRN Reason: Pain Stop: 09/16/16 00:09 Hydroxyzine Pamoate (Hydroxyzine Pamoate) 25 mg PO HS [facility] Stop: 09/16/16 21:01 Sodium Chloride (0.9 % Sodium Chloride) 1,000 mls @ 50 mls/hr IVC .Q20H [facility] Stop: 09/15/16 23:46 Last Admin: 03/17/16 05:06 Dose: 50 mls/hr Lisinopril (Zestril) 2.5 mg PO DAILY [facility] Stop: 09/16/16 09:01 Last Admin: 03/17/16 09:56 Dose: 2.5 mg Melatonin (Melatonin) 3 mg PO HS [facility] Stop: 09/16/16 21:01 Metoprolol Tartrate (Lopressor) 12.5 mg PO BID [facility] Stop: 09/15/16 23:46 Last Admin: 03/17/16 09:55 Dose: 12.5 mg Metoprolol Tartrate (Lopressor) 5 mg IVP Q6HR PRN PRN Reason: SEE COMMENTS Stop: 09/15/16 23:58 Morphine Sulfate (Morphine Sulfate) 2 mg IVP Q4HR PRN PRN Reason: Severe Pain (7-10) Stop: 09/15/16 23:58 Naloxone HCl (Narcan) 0.4 mg IVP Q2MIN PRN PRN Reason: Opioid Reversal Stop: 09/15/16 23:58 Nitroglycerin (Nitroglycerin) 0.4 mg SL Q5MIN PRN PRN Reason: Chest Pain Stop: 09/15/16 23:58 Omeprazole (Prilosec) 40 mg PO DAILY [facility] Stop: 09/16/16 09:01 Last Admin: 03/17/16 09:54 Dose: 40 mg Oxycodone HCl (Roxicodone) 10 mg PO Q4HR PRN PRN Reason: Moderate Pain Pharmacy Profile Note (Patient Taking Own Medication) 1 each PO 5XD [facility] Stop: 09/16/16 08:01 Last Admin: 03/17/16 09:22 Dose: Not Given Promethazine HCl (Phenergan) 12.5 mg IVP Q6HR PRN PRN Reason: Nausea And Vomiting Stop: 09/15/16 23:58 - Imaging and Cardiology Echo: pending Other Results: Tele: avg HR=60 SR. No signficant event noted. - EKG Interpretation EKG results cardiology: personally reviewed Consult Discharge Plan - Plan Referrals: Frances Reilly MD [Primary Care Provider] -
[2016-03-17] MEDS ORDERED: hydrOXYzine pamoate 25 MG CAPSULE PO PRN (12:24)
[2016-03-17] MEDS: hydrOXYzine pamoate 25 MG CAPSULE PO SCH ×2 (12:30→20:54)
--- NOTE | 2016-03-17 14:47 | Electrocardiograph Report ---
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
[2016-03-17] MEDS ORDERED: *HR* OxyCODONE Immed Rel 5 MG TABLET PO SCH (16:00)
--- NOTE | 2016-03-17 18:13 | Internal Med Progress Note ---
Date of Encounter: 03/17/16 Time of Encounter: 12:00 - Assessment and plan (1) Acute chest wall pain Current Visit: Yes Status: Acute Assessment and plan: We will treated symptomatically. (2) Elevated troponin Current Visit: Yes Status: Acute (3) Anxiety disorder Current Visit: Yes Status: Chronic Assessment and plan: Resume hydroxyzine. We will start IV Ativan for severe anxiety. Qualifiers: Anxiety disorder type: generalized anxiety disorder Qualified Code(s): F41.1 - Generalized anxiety disorder (4) Dementia arising in the senium and presenium Current Visit: Yes Status: Chronic Assessment and plan: Frequent reorientation. Avoid strong sedative medication. (5) Parkinson disease Current Visit: Yes Status: Chronic Assessment and plan: Continue Sinemet. (6) Non-ST elevated myocardial infarction Current Visit: Yes Status: Acute Assessment and plan: We will continue medical management with aspirin and statin beta megan and SHIRLENE inhibitor. Appreciate cardiology input. Awaiting echocardiogram report. - Subjective Interval history: History was limited by the patient's severe dementia and confusion. She was brought in for chest pain. Also associated with severe anxiety. She becomes combative and agitated at times during the day per the nursing staff. - Constitutional Vitals: Temp Pulse Resp BP Pulse Ox 98.2 F 58 16 144/72 95 03/17/16 11:51 03/17/16 11:51 03/17/16 11:51 03/17/16 11:51 03/17/16 11:51 General appearance: Present: A&O X 1 - Eye Eye exam: Present: PERRL, conjuntiva pink, sclera anicteric Pupils: Present: PERRL - Neck Neck exam general surgery: Present: supple, trachea midline. Absent: lymphadenopathy - Respiratory Respiratory exam: Present: CTAB. Absent: accessory muscle use, rales, rhonchi, wheezes - Cardiovascular Cardiovascular exam: Present: RRR, +S1, +S2. Absent: diastolic murmur, gallop, rubs, systolic murmur - GI/Abdominal GI/Abdominal exam: Present: normal bowel sounds, soft, no peritoneal signs. Absent: distended, tenderness Internal Medicine: Result - Labs CBC & Chem 7: 03/16/16 21:14 03/17/16 00:27 Labs: BMP 03/17/16 00:27 Sodium 140 Potassium 4.0 Chloride 107 Carbon Dioxide 23 BUN 14 Creatinine 0.69 Glucose 106 H Calcium 8.7 Cardiac Enzymes 03/17/16 03/17/16 Range/Units 00:27 06:29 Troponin I 0.23 H* 0.23 H* (0-0.03) ng/mL Liver Function 03/17/16 Range/Units 00:27 Total Bilirubin 0.5 (0.2-1.2) mg/dL AST 13 (5-34) Units/L ALT < 6 (0-55) Units/L Alkaline Phosphatase 181 H (38-126) Units/L Albumin 3.0 L (3.5-5.0) g/dL Urine 03/17/16 Range/Units 04:30 Urine Color Yellow (Yellow) Urine Clarity Clear (Clear) Urine pH 6.0 (5.0-8.0) pH Units Ur Specific Hart 1.010 (1.010-1.025) Urine Protein Negative (Neg-Trace) mg/dL Urine Glucose (UA) 250 H (Normal) mg/dL - ABG Interpretation ABG results: PT/INR, D-dimer PT 12.1 Seconds (9.4-12.1) 03/16/16 21:14 Consult Discharge Plan - Plan Referrals: Frances Reilly MD [Primary Care Provider] - ([facility] Patient..)
[2016-03-17] MEDS ORDERED: Melatonin 3 MG TABLET PO SCH (21:00)
[2016-03-18] MEDS: 0.9 % Sodium Chloride 1,000 ML IVC SCH (02:06)
[2016-03-18 07:36] VITALS: BP 158/71
--- NOTE | 2016-03-18 09:24 | ECHO - Doppler Report ---
Echocardiogram Name: Lexi Hicks Date of Study: 03/17/2016 Date: 1945 Ht: 59.0 in Medical Record#: [id number] Age: 70 Wt: 102.0 lb Gender: Female BSA: 1.39 Order #: [id number] Location: [facility] Room #: 2A33 Reading Physician: Julieth Mendoza DO Disaster Director: Nancy Merino Ordering Physician: Moses Doe MD Primary Physician: Frances Reilly MD Indications: Acute coronary syndrome Impressions: LVEF 60-65%. Normal left ventricular size and systolic function. There is evidence of mild diastolic dysfunction of the left ventricle. Normal right ventricular size and function. Mild mitral regurgitation. No pulmonary hypertension. Left Ventricular Wall Motion: Rest Echo Findings All wall segments showed normal motion. Findings: Study Quality * Technically adequate exam. ECG Findings * Normal sinus rhythm. Left Ventricle * LVEF 60-65%. * Normal LV chamber size, wall thickness and function. * Moderate left ventricular diastolic dysfunction. Aortic Valve * No aortic regurgitation. * Aortic valve not well visualized. * No aortic stenosis. Mitral Valve * Normal mitral valve structure. * No mitral stenosis. * Mild mitral regurgitation. Tricuspid Valve * Trace tricuspid regurgitation. * Normal tricuspid valve structure. * Estimated RA pressure is 3 mmHg. * Estimated RVSP is 25 mmHg. * No pulmonary hypertension. Pulmonic Valve * Pulmonic valve is not well visualized. * No pulmonic stenosis. * No pulmonic regurgitation. Pulmonary Artery * Pulmonary artery not well visualized. Right Ventricle * Normal right ventricular structure and function. Left Atrium * Severely dilated left atrium. Right Atrium * Normal right atrial size. Interatrial Septum * No evidence of PFO by color Doppler. IVC * Normal IVC dimensions and inspiratory collapse. Pericardium * There is no pericardial effusion present. Aorta * Not well visualized. History Family History of CAD History of CAD/PTCA 05/04/2013 a Previous Echo was performed. Measurements: BP: 144/ 72 2D Normal Values IVSd: .80 cm 0.6 - 1.0 cm LVIDd: 4.40 cm 3.7 - 5.6 cm LVPWd: .90 cm 0.6 - 1.1 cm LVIDs: 2.80 cm 1.5 - 3.6 cm AO: 2.20 cm < 4.0 cm LA: 3.40 cm 2.0 - 4.0cm %FS: 36.40 cm >25 % LA volume: 86 Mitral Valve Peak E:.75 m/sec Peak A:.52 m/sec E/A Ratio:1.4 Peak E' Lat Alf:11.8 cm/s Peak E' Med Alf:5.17 cm/s E/E' Lat Ratio:6.3 E/E' Med Ratio:14.4 Tricuspid Valve TV Regurg Peak Grad: 22.00mmHg TV Regurg Peak Alf: 2.35m/sec Updated by Julieth Mendoza on 03/18/2016 9:18:07 AM electronically signed on 03/18/2016 9:19:59 AM with status of Final Wall Motion Cage: 1=Normal, 2=Hypokinesis, 3=Akinesis, 4=Dyskinesis, 5=Aneurysmal, 6=Hyperkinetic, X=Not Visualized (Blank)=Missing
--- NOTE | 2016-03-18 09:38 | Discharge Summary ---
Date of Encounter: 03/18/16 Time of Encounter: 09:35 - Discharge Diagnosis (1) Acute chest wall pain Priority: Secondary Status: Acute (2) Elevated troponin Priority: Secondary Status: Acute (3) Anxiety disorder Priority: Secondary Status: Chronic Qualifiers: Anxiety disorder type: generalized anxiety disorder Qualified Code(s): F41.1 - Generalized anxiety disorder (4) Dementia arising in the senium and presenium Priority: Secondary Status: Chronic (5) Parkinson disease Priority: Secondary Status: Chronic (6) Non-ST elevated myocardial infarction Priority: Primary Status: Acute - Discharge Medications Prescriptions: OxyCODONE Immed Rel [Roxicodone 5 MG] 10 mg PO Q4HR PRN #30 tablet PRN Reason: Severe Pain Oxycodone HCl 10 mg PO Q4HR PRN #30 tablet PRN Reason: Moderate Pain HydrOXYzine Pamoate 25 mg PO TID PRN #30 capsule PRN Reason: Agitation Home Medications: Aspirin 325 mg PO DAILY 02/28/16 [History] Carbidopa/Levodopa 25/100 [Sinemet 25/100] 2 each PO TID 02/28/16 [History] Carbidopa/Levodopa ER 50/200 [Sinemet ER 50-200 Tab] 1 each PO HS 02/28/16 [ History] DiphenhydraMINE [Benadryl] 25 - 50 mg PO Q8H PRN 02/28/16 [History] Docusate [Colace] 100 mg PO DAILY PRN 02/28/16 [History] Donepezil [Aricept] 10 mg PO HS 02/28/16 [History] Gabapentin [Neurontin] 100 mg PO TID PRN 02/28/16 [History] HydrOXYzine Pamoate [Hydroxyzine Pamoate] 25 mg PO HS 02/28/16 [History] Lactose-Reduced Food [Ensure Liquid] 1 bottle PO 5XD 02/28/16 [History] Omeprazole [PriLOSEC] 40 mg PO DAILY 02/28/16 [History] Acetaminophen [Tylenol] 650 mg PO Q6HR PRN #0 tablet 03/18/16 [Rx] Atorvastatin [Lipitor] 40 mg PO HS tablet 03/18/16 [Rx] HydrOXYzine Pamoate 25 mg PO TID PRN #30 capsule 03/18/16 [Rx] Ipratropium/Albuterol Neb [Duoneb] 3 ml IH [id number] PRN #0 inhsol 03/18/16 [Rx] Lisinopril [Zestril] 2.5 mg PO DAILY tablet 03/18/16 [Rx] Metoprolol [Lopressor] 12.5 mg PO BID tablet 03/18/16 [Rx] Nitroglycerin 0.4 mg SL Q5MIN PRN #0 tab.subl 03/18/16 [Rx] OxyCODONE Immed Rel [Roxicodone 5 MG] 10 mg PO Q4HR PRN #30 tablet 03/18/16 [Rx] Oxycodone HCl 10 mg PO Q4HR PRN #30 tablet 03/18/16 [Rx] Allergies/Adverse Reactions: Allergies fentanyl Allergy (Verified 10/31/14 09:49) Vomiting ondansetron [From Zofran (as hydrochloride)] Allergy (Verified 10/31/14 09:49) Headache Date of admission: 03/17/16 00:26 Primary care physician: Frances Reilly - Patient Status Disposition: Transfer SNF Condition: Fair Functional capacity at discharge: independent ambulation Overall status at discharge: patient is back to baseline - Discharge Instructions Follow Up With: Frances Reilly MD [Primary Care Provider] - ([facility] Patient..) - Diet and Activity Activity: ambulate only with your walker Diet: low fat, low cholesterol, low salt diet Interval History: Patient has been chest pain-free for the last 24 hours. Troponin trend revealed a mildly elevated but flat curve. Hand Tool Lapper recommended medical management. Echocardiogram reveals normal ejection fraction with mild diastolic dysfunction. She is medically stable for discharge back to the long term. Hospital course: Ms. Hicks is a 70 year old female with past medical history significant for dementia and Parkinson's disease who was brought to the hospital for chest pain. Troponin was elevated at 0.20. EKG revealed nonspecific changes. She was treated with aspirin and nitroglycerin and admitted to the medical service. Follow-up troponin revealed flat stable elevation at 0.23. Cardiology was consulted and recommended medical management. She was started on Lipitor metoprolol lisinopril and continued with aspirin 325 mg daily. Her chest pain had resolved. Echocardiogram revealed normal ejection fraction. She will be discharged back to the long term. - Time Spent with Patient Total time spent providing and/or coordinating discharge services: - Constitutional Vitals: Temp Pulse Resp BP Pulse Ox 98.3 F 92 17 158/71 96 03/18/16 07:35 03/18/16 07:35 03/18/16 07:35 03/18/16 07:35 03/18/16 07:35 General appearance: Present: A&O X 2, mild distress, answers questions appropriately - Respiratory Respiratory exam: Present: CTAB. Absent: accessory muscle use, rales, rhonchi, wheezes - Cardiovascular Cardiovascular exam: Present: RRR, +S1, +S2, systolic murmur. Absent: diastolic murmur, gallop, rubs - GI/Abdominal GI/Abdominal exam: Present: normal bowel sounds, soft, no peritoneal signs. Absent: distended, tenderness - Extremities Exam Extremities exam: Present: warm, radial pulses palpable and symetrical. Absent : calf tenderness, cyanotic, pedal edema - Neurological Exam Neurological exam: Present: CN II-XII intact, no focal deficits. Absent: facial droop - VTE Documentation of Mechanical Device: Intermittent pneumatic compression device
--- NOTE | 2016-03-18 09:53 | Physician Discharge Referral ---
ExtendedCare Referral Info Transfer To: [facility] Provider in Charge after Transfer: PCP Institutional Level of Care: Skilled - Diagnosis (1) Acute chest wall pain Status: Acute (2) Elevated troponin Status: Acute (3) Anxiety disorder Status: Chronic (4) Dementia arising in the senium and presenium Status: Chronic (5) Parkinson disease Status: Chronic (6) Non-ST elevated myocardial infarction Status: Acute - Transfer Medications Prescriptions: OxyCODONE Immed Rel [Roxicodone 5 MG] 10 mg PO Q4HR PRN #30 tablet PRN Reason: Severe Pain Oxycodone HCl 10 mg PO Q4HR PRN #30 tablet PRN Reason: Moderate Pain HydrOXYzine Pamoate 25 mg PO TID PRN #30 capsule PRN Reason: Agitation Home Medications: Aspirin 325 mg PO DAILY 02/28/16 [History] Carbidopa/Levodopa 25/100 [Sinemet 25/100] 2 each PO TID 02/28/16 [History] Carbidopa/Levodopa ER 50/200 [Sinemet ER 50-200 Tab] 1 each PO HS 02/28/16 [ History] DiphenhydraMINE [Benadryl] 25 - 50 mg PO Q8H PRN 02/28/16 [History] Docusate [Colace] 100 mg PO DAILY PRN 02/28/16 [History] Donepezil [Aricept] 10 mg PO HS 02/28/16 [History] Gabapentin [Neurontin] 100 mg PO TID PRN 02/28/16 [History] HydrOXYzine Pamoate [Hydroxyzine Pamoate] 25 mg PO HS 02/28/16 [History] Lactose-Reduced Food [Ensure Liquid] 1 bottle PO 5XD 02/28/16 [History] Omeprazole [PriLOSEC] 40 mg PO DAILY 02/28/16 [History] Acetaminophen [Tylenol] 650 mg PO Q6HR PRN #0 tablet 03/18/16 [Rx] Atorvastatin [Lipitor] 40 mg PO HS tablet 03/18/16 [Rx] HydrOXYzine Pamoate 25 mg PO TID PRN #30 capsule 03/18/16 [Rx] Ipratropium/Albuterol Neb [Duoneb] 3 ml IH [id number] PRN #0 inhsol 03/18/16 [Rx] Lisinopril [Zestril] 2.5 mg PO DAILY tablet 03/18/16 [Rx] Metoprolol [Lopressor] 12.5 mg PO BID tablet 03/18/16 [Rx] Nitroglycerin 0.4 mg SL Q5MIN PRN #0 tab.subl 03/18/16 [Rx] OxyCODONE Immed Rel [Roxicodone 5 MG] 10 mg PO Q4HR PRN #30 tablet 03/18/16 [Rx] Oxycodone HCl 10 mg PO Q4HR PRN #30 tablet 03/18/16 [Rx] Allergies/Adverse Reactions: Allergies fentanyl Allergy (Verified 10/31/14 09:49) Vomiting ondansetron [From Zofran (as hydrochloride)] Allergy (Verified 10/31/14 09:49) Headache - Respiratory Orders Smoking Cessation: Smoking cessation has been advised. For more information, call the [place] Tobacco Quit Line at 5-969-KSXZ-NOW. - Advance Directives Power of Trim Master Operator: Yes Code Status: Full Code - Rehabiliation Orders Rehab Potential: Good Rehab Orders: Evaluation for Physical Therapy - Diet Orders No Added Salt (MANOJ), Cardiac CERTIFICATION: I certify that the transfer of the above named patient to an Extended Care Facility is necessary for the continuing treatment of the diagnosis listed. The above information is true and accurate reflection of patient's current condition. Confidential - Redisclosure prohibited without a patient's written consent.
[2016-03-18] MEDS: Carbidopa/Levodopa 25/100 TABLET PO SCH (10:12)
[2016-03-18] MEDS: Aspirin 81 MG TAB.CHEW PO SCH (10:12)
--- NOTE | 2016-03-18 10:23 | Cardiology Progress Note ---
Date of Encounter: 03/18/16 Time of Encounter: 10:00 Assessment and Plan (1) Elevated troponin Current Visit: Yes Status: Acute Adynamic troponin elevation. NSTEMI type I vs. II; recent right hip nailing s/p fall with fracture on 02/29/16. Do not suspect ACS. Chest pain free upon exam, no ischemic ECG change noted. Recommend conservative medical management. Patient is not a candidate for cardiac rehab. Echocardigram shows preserved LV function, 60-65%, normal wall motion, no significant valvular dysfunction. Continue asa, statin, and betablocker. (2) Paroxysmal atrial fibrillation Current Visit: Yes Status: Chronic Reported hx of PAF. ECG shows SR, apical regular upon exam. No evidence of PAF noted per telemetry review. Continue betablocker. Has not been on AC due to frequent falls. (3) Parkinson disease Current Visit: Yes Status: Chronic . Discussion w patient/family: The assessment and plan as outlined above was discussed with the patient and/or family members who expressed understanding and agreement. All questions were answered. Thank you for involving us in the care of your patient. Please call with any questions. The patient was discussed and reviewed with Dr. Araujo; Cardiology will sign-off. Patient discharged to SNF. Subjective Principal diagnosis: Elevated troponin Interval history: Seen and examined. Alert to self. Denies recurrent chest pain or discomfort. Objective Vital Signs, Last 4 Hours Temp Pulse Resp BP Pulse Ox 03/18/16 07:35 98.3 F 92 17 158/71 96 General: Conversant (confused, alert to self only. Thin, frail) Cardiac: Reg Rate and Rhythm, Normal S1 and S2 Lungs: Normal Breath Sounds Neuro: Alert and responsive Abdomen: Soft Skin: No rashes noted on visualized skin Musculoskeletal: No Chest Wall Tenderness Extremities: No Edema, Normal Pulses Results 03/16/16 21:14 03/17/16 00:27 - Imaging and Cardiology Echo: report reviewed - EKG Interpretation EKG results cardiology: personally reviewed - VTE Documentation of Mechanical Device: Intermittent pneumatic compression device Consult Discharge Plan - Plan Referrals: Frances Reilly MD [Primary Care Provider] - ([facility] Patient..) Prescriptions: OxyCODONE Immed Rel [Roxicodone 5 MG] 10 mg PO Q4HR PRN #30 tablet PRN Reason: Severe Pain Oxycodone HCl 10 mg PO Q4HR PRN #30 tablet PRN Reason: Moderate Pain HydrOXYzine Pamoate 25 mg PO TID PRN #30 capsule PRN Reason: Agitation
== END 2016-03-18 11:00 ==
LOC: 2ANU 20:15 → EMEROO 20:15 → SUATTDRO 03-17 00:26 → 2ANU 03-17 01:12
PROVIDERS: ADMIT Family Medicine; ATTEND Internal Medicine

== ENCOUNTER 2016-04-07 14:55 | Inpatient (IN) ==
--- NOTE | 2016-04-07 15:38 | Emergency Department Note ---
Disposition Clinical Impression: Femur fracture, right, Pneumonia Disposition: Admitted As Inpatient Condition: Good Referrals: Frances Reilly MD [Primary Care Provider] - Forms: ED Satisfaction Letter Fall HPI - General Chief Complaint: ED Fall Stated Complaint: Fall-Right Hip Pain Time Seen by Provider: 04/07/16 15:01 Source: patient, family, EMS Nursing Notes Reviewed: Yes Vital Signs Reviewed: Yes - History of Present Illness HPI Narrative: Patient presents with right hip pain status post fall. Per report patient will fell out of bed and complains of pain in the hip. Patient had a hip replacement and February 2016. Patient was seen on 03/31/2016 for similar symptoms. Patient is unable to ambulate due to the pain. EMS reports that affected limb a shorter and externally rotated. - Related Data Home Medications Medication Instructions Recorded Confirmed Aspirin 325 mg PO DAILY 02/28/16 04/07/16 Carbidopa/Levodopa 25/100 [Sinemet 2 each PO TID 02/28/16 04/07/16 25/100] Carbidopa/Levodopa ER 50/200 1 each PO HS 02/28/16 04/07/16 [Sinemet ER 50-200 Tab] DiphenhydraMINE [Benadryl] 25 - 50 mg PO Q8H PRN 02/28/16 04/07/16 Docusate [Colace] 100 mg PO DAILY PRN 02/28/16 04/07/16 Donepezil [Aricept] 10 mg PO HS 02/28/16 04/07/16 Gabapentin [Neurontin] 100 mg PO TID PRN 02/28/16 04/07/16 HydrOXYzine Pamoate [Hydroxyzine 25 mg PO HS 02/28/16 04/07/16 Pamoate] Lactose-Reduced Food [Ensure 1 bottle PO 5XD 02/28/16 04/07/16 Liquid] Omeprazole [PriLOSEC] 40 mg PO DAILY 02/28/16 04/07/16 Previous Rx's Medication Instructions Recorded Acetaminophen [Tylenol] 650 mg PO Q6HR PRN #0 tablet 03/18/16 Atorvastatin [Lipitor] 40 mg PO HS tablet 03/18/16 HydrOXYzine Pamoate 25 mg PO TID PRN #30 capsule 03/18/16 Ipratropium/Albuterol Neb [Duoneb] 3 ml IH [id number] PRN #0 inhsol 03/18/16 Lisinopril [Zestril] 2.5 mg PO DAILY tablet 03/18/16 Metoprolol [Lopressor] 12.5 mg PO BID tablet 03/18/16 Nitroglycerin 0.4 mg SL Q5MIN PRN #0 tab.subl 03/18/16 OxyCODONE Immed Rel [Roxicodone 5 10 mg PO Q4HR PRN #30 tablet 03/18/16 MG] Oxycodone HCl 10 mg PO Q4HR PRN #30 tablet 03/18/16 Allergies Allergy/AdvReac Type Severity Reaction Status Date / Time fentanyl Allergy Vomiting Verified 10/31/14 09:49 ondansetron Allergy Headache Verified 10/31/14 09:49 [From Zofran (as hydrochloride)] All systems ED: reviewed and negative except as stated. Fall PMH - Past Medical History Medical history: Reports: arthritis, atrial fibrillation, CHF, COPD, dementia, GERD, osteoporosis, RA, other Reports: Parkinson's Disease Surgical history: Reports: , orthopedic, other, other Psychiatric history: Reports: anxiety, panic disorder, other [employer] history: Reports: no HOT KN[employer]ING [employer] history - Social History Smoking Status: Never smoker Alcohol use: Reports: none Drug use: Reports: none Physical Exam - General Limitations: altered mental status General appearance: alert - Head Head exam: atraumatic, normocephalic, normal inspection - Eye Eye exam: Present: normal appearance, PERRL, EOMI - ENT ENT exam: normal exam, normal oropharynx, mucous membranes moist - Neck Neck exam: Present: normal inspection, full ROM. Absent: tenderness - Chest Chest inspection: Present: normal inspection, symmetric chest wall rise - Respiratory Respiratory exam: Present: normal lung sounds bilaterally - Cardiovascular Cardiovascular exam: Present: regular rate, normal rhythm, normal heart sounds - Abdominal Exam Abdominal exam: Present: soft, Non-Tender. Absent: tenderness, distention, guarding, rebound, rigidity - Extremities Exam Extremities exam: Present: other (Deformity of the right hip with external rotation the right lower extremity) - Back Exam Back exam: Absent: tenderness, vertebral tenderness - Neurological Exam Neurological exam: Present: other (Speech is unintelligible but patient able to follow commands. Per family this is patient's baseline) - Psychiatric Psychiatric exam: Present: other - Skin Skin exam: Present: other (Limited secondary to patient mental status) Course Vital Signs Temperature 98.9 F 04/07/16 15:01 Pulse Rate 59 04/07/16 15:01 Respiratory Rate 12 04/07/16 15:01 Blood Pressure 71/47 04/07/16 15:01 O2 Sat by Pulse Oximetry 92 L 04/07/16 15:01 Temperature 98.9 F 04/07/16 15:01 Pulse Rate 102 04/07/16 16:19 Respiratory Rate 14 04/07/16 16:19 Blood Pressure 110/70 04/07/16 16:19 O2 Sat by Pulse Oximetry 92 L 04/07/16 16:19 Oxygen Delivery Oxygen Delivery Room Air Fall - Differential Diagnosis Likely: syncope, traumatic injury - Medical Records Medical records reviewed: Yes I reviewed the patient's medical records. - Lab Data Lab results reviewed: Yes I reviewed the patient's lab results. Result diagrams: 04/07/16 16:26 04/07/16 16:26 Lab Results 04/07/16 04/07/16 04/07/16 Range/Units 16:26 16:26 16:26 WBC 12.4 H (4.3-11.1) K/mcL RBC 3.86 (3.82-4.97) M/mcL Hgb 11.1 L (11.5-15.4) g/dL Hct 35.6 (35.3-44.9) % MCV 92.2 (83.0-100.0) fL MCH 28.8 (28.0-33.3) pg MCHC 31.2 L (31.6-35.5) g/dL RDW 14.8 H (11.5-14.5) % Plt Count 324 (140-400) K/mcL MPV 11.0 (9.4-12.4) fL Immature Gran % 0.5 (0-4) % Seg Neutrophils % 81.9 % Lymphocytes % 10.6 % Monocytes % 4.9 % Eosinophils % 1.5 % Basophils % 0.6 % Neutrophils # 10.1 H (1.6-8.9) K/mcL Lymphocytes # 1.3 (0.6-4.6) K/mcL Monocytes # 0.6 (0.0-1.3) K/mcL Eosinophils # 0.2 (0.0-0.6) K/mcL Basophils # 0.1 (0.0-0.2) K/mcL PT 12.7 H (9.4-12.1) Seconds INR 1.2 Sodium 137 (136-145) mEq/L Potassium 4.3 (3.5-4.5) mEq/L Chloride 103 (98-109) mEq/L Carbon Dioxide 20 (19-29) mEq/L BUN 22 H (7-20) mg/dL Creatinine 1.07 (0.57-1.11) mg/dL Est GFR ( Amer) > 60 (> 60) Est GFR (Non-Af Amer) 50 L (> 60) BUN/Creatinine Ratio 21 (6-26) Glucose 127 H (70-99) mg/dL Calculated Osmolality 289 (280-300) Calcium 8.9 (8.6-10.8) mg/dL Total Bilirubin 0.4 (0.2-1.2) mg/dL AST 19 (5-34) Units/L ALT < 6 (0-55) Units/L Alkaline Phosphatase 164 H (38-126) Units/L Troponin I (0-0.03) ng/mL Serum Total Protein 6.8 (6.0-8.3) g/dL Albumin 3.3 L (3.5-5.0) g/dL Globulin 3.5 (2.4-3.5) g/dL Albumin/Globulin Ratio 0.9 L (1.1-2.2) 04/07/16 Range/Units 16:26 WBC (4.3-11.1) K/mcL RBC (3.82-4.97) M/mcL Hgb (11.5-15.4) g/dL Hct (35.3-44.9) % MCV (83.0-100.0) fL MCH (28.0-33.3) pg MCHC (31.6-35.5) g/dL RDW (11.5-14.5) % Plt Count (140-400) K/mcL MPV (9.4-12.4) fL Immature Gran % (0-4) % Seg Neutrophils % % Lymphocytes % % Monocytes % % Eosinophils % % Basophils % % Neutrophils # (1.6-8.9) K/mcL Lymphocytes # (0.6-4.6) K/mcL Monocytes # (0.0-1.3) K/mcL Eosinophils # (0.0-0.6) K/mcL Basophils # (0.0-0.2) K/mcL PT (9.4-12.1) Seconds INR Sodium (136-145) mEq/L Potassium (3.5-4.5) mEq/L Chloride (98-109) mEq/L Carbon Dioxide (19-29) mEq/L BUN (7-20) mg/dL Creatinine (0.57-1.11) mg/dL Est GFR ( Amer) (> 60) Est GFR (Non-Af Amer) (> 60) BUN/Creatinine Ratio (6-26) Glucose (70-99) mg/dL Calculated Osmolality (280-300) Calcium (8.6-10.8) mg/dL Total Bilirubin (0.2-1.2) mg/dL AST (5-34) Units/L ALT (0-55) Units/L Alkaline Phosphatase (38-126) Units/L Troponin I 0.03 (0-0.03) ng/mL Serum Total Protein (6.0-8.3) g/dL Albumin (3.5-5.0) g/dL Globulin (2.4-3.5) g/dL Albumin/Globulin Ratio (1.1-2.2) - Radiology Data Radiology results reviewed: Yes I reviewed the patient's radiology results. Chest X-Ray 04/07/16 15:09 IMPRESSION: Bibasilar opacities, pulmonary edema favored over pneumonia. D/ / Jose Shankar MD / Jose Shankar MD Interpreting Provider: Jose Shankar MD Pelvis X-Ray 04/07/16 15:09 IMPRESSION: Acute right femur fracture as described D/ / Nima Brady MD / Nima Brady MD Interpreting Provider: Nima Brady MD Femur X-Ray 04/07/16 15:39 IMPRESSION: Acute right femur fracture as described D/ / Nima Brady MD / Nima Brady MD Interpreting Provider: Nima Brady MD Critical Care Time Total Critical Care Time: 45 Attestation: Critical care performed: Time is exclusive of separately billable procedures. Time includes: direct patient care, patient reassessment, coordination of patient care, interpretation of data (laboratory data, radiology data, and respiratory data), review of patient's medical records, medical consultation and documentation of patient care. Procedures included in critical care time: Procedures excluded from critical care time:
[2016-04-07] MEDS ORDERED: *HR* HYDROmorphone (PF) 1 MG/ML SYRINGE IVP ONE ×3 (16:11→17:26)
[2016-04-07] MEDS ORDERED: 0.9 % Sodium Chloride 500 ML IV ONE (16:12)
[2016-04-07 16:40] LABS: Basophils # 0.1 K/mcL (0.0-0.2); Basophils % 0.6 %; Eosinophils # 0.2 K/mcL (0.0-0.6); Eosinophils % 1.5 %; Hematocrit 35.6 % (35.3-44.9); Hemoglobin 11.1 g/dL (11.5-15.4); Immature Granulocytes % 0.5 % (0-4); Lymphocytes # 1.3 K/mcL (0.6-4.6); Lymphocytes % 10.6 %; Mean Corpuscular HGB Conc 31.2 g/dL (31.6-35.5); Mean Corpuscular Hemoglobin 28.8 pg (28.0-33.3); Mean Corpuscular Volume 92.2 fL (83.0-100.0); Monocytes # 0.6 K/mcL (0.0-1.3); Monocytes % 4.9 %; Neutrophils # 10.1 K/mcL (1.6-8.9); Platelet Count 324 K/mcL (140-400); Red Blood Count 3.86 M/mcL (3.82-4.97); Red Cell Distribution Width 14.8 % (11.5-14.5); Segmented Neutrophils % 81.9 %
--- NOTE | 2016-04-07 16:44 | Orthopedic Consult Note ---
Date of Encounter: 04/08/16 Time of Encounter: 16:42 Assessment and Plan (1) Periprosthetic fracture of shaft of femur Current Visit: Yes Status: Acute Plan to admit to hospitalist for medical management. Discussed with . Planned surgery for a revision Right hip IM nailing with removal of hardware and conversion to long stem for . NPO after midnight. Continue pain control. Long knee immobilzer place. No knee ROM History of Present Illness Chief complaint: New Fall - Right Femur Gianna-prosthetic fracture HPI: Ms. Hicks is a 70 year old female, reported to the ED after she fell getting out of bed today. Reported increase in Right hip/leg pain, inability to ambulate secondary to pain. She has a history of dyskinesia and multiple falls. She is POW#5 Right hip IM nailing 02/29/16 with . XRAYS from ED show a closed, angulated, displaced gianna-prosthetic right femur fracture. Denies LOC, dizziness or RAMOS Past Med Surg Social Fam HX - Past Medical History Medical history: arthritis, atrial fibrillation, CHF, COPD, dementia, GERD, osteoporosis, RA, other Psychiatric history: anxiety, panic disorder, other - Past Surgical History Surgical History: , orthopedic, other, other - Social History Smoking Status: Never smoker Smokeless Tobacco Status: No Alcohol use: none Drug use: none - Family History Son Living Status: Still Living Hx Family Cardiac Disorders: No Hx Family Respiratory Disorders: No Hx Family Cancer: No Hx Family GI Disorders: Yes Hx Family Endocrine Disorder: No Medications and Allergies Aspirin 325 mg PO DAILY 02/28/16 [History] Carbidopa/Levodopa 25/100 [Sinemet 25/100] 2 each PO TID 02/28/16 [History] Carbidopa/Levodopa ER 50/200 [Sinemet ER 50-200 Tab] 1 each PO HS 02/28/16 [ History] DiphenhydraMINE [Benadryl] 25 - 50 mg PO Q8H PRN 02/28/16 [History] Docusate [Colace] 100 mg PO DAILY PRN 02/28/16 [History] Donepezil [Aricept] 10 mg PO HS 02/28/16 [History] Gabapentin [Neurontin] 100 mg PO TID PRN 02/28/16 [History] HydrOXYzine Pamoate [Hydroxyzine Pamoate] 25 mg PO HS 02/28/16 [History] Lactose-Reduced Food [Ensure Liquid] 1 bottle PO 5XD 02/28/16 [History] Omeprazole [PriLOSEC] 40 mg PO DAILY 02/28/16 [History] Acetaminophen [Tylenol] 650 mg PO Q6HR PRN #0 tablet 03/18/16 [Rx] Atorvastatin [Lipitor] 40 mg PO HS tablet 03/18/16 [Rx] HydrOXYzine Pamoate 25 mg PO TID PRN #30 capsule 03/18/16 [Rx] Ipratropium/Albuterol Neb [Duoneb] 3 ml IH [id number] PRN #0 inhsol 03/18/16 [Rx] Lisinopril [Zestril] 2.5 mg PO DAILY tablet 03/18/16 [Rx] Metoprolol [Lopressor] 12.5 mg PO BID tablet 03/18/16 [Rx] Nitroglycerin 0.4 mg SL Q5MIN PRN #0 tab.subl 03/18/16 [Rx] OxyCODONE Immed Rel [Roxicodone 5 MG] 10 mg PO Q4HR PRN #30 tablet 03/18/16 [Rx] Oxycodone HCl 10 mg PO Q4HR PRN #30 tablet 03/18/16 [Rx] Allergies fentanyl Allergy (Verified 10/31/14 09:49) Vomiting ondansetron [From Zofran (as hydrochloride)] Allergy (Verified 10/31/14 09:49) Headache All Systems Reviewed: A 10-system review of systems was performed and is negative for pertinent findings except as documented above in the HPI. Physical Exam - Constitutional Vitals: Temp Pulse Resp BP Pulse Ox 98.9 F 102 14 110/70 92 L 04/07/16 15:01 04/07/16 16:19 04/07/16 16:19 04/07/16 16:19 04/07/16 16:19 Results - Labs Result Diagrams: 04/08/16 05:52 04/08/16 05:52 Labs: Abnormal lab results WBC 12.4 K/mcL (4.3-11.1) H 04/07/16 16:26 Hgb 11.1 g/dL (11.5-15.4) L 04/07/16 16:26 MCHC 31.2 g/dL (31.6-35.5) L 04/07/16 16:26 RDW 14.8 % (11.5-14.5) H 04/07/16 16:26 Neutrophils # 10.1 K/mcL (1.6-8.9) H 04/07/16 16:26 H & H 04/07/16 Range/Units 16:26 Hgb 11.1 L (11.5-15.4) g/dL Hct 35.6 (35.3-44.9) % All other labs normal. Consult Discharge Plan - Plan Referrals: Frances Reilly MD [Primary Care Provider] -
[2016-04-07 16:50] LABS: INR 1.2; Prothrombin Time 12.7 Seconds (9.4-12.1)
[2016-04-07 16:54] LABS: Albumin 3.3 g/dL (3.5-5.0); Albumin/Globulin Ratio 0.9 (1.1-2.2); Alkaline Phosphatase 164 Units/L (38-126); Aspartate Amino Transferase 19 Units/L (5-34); BUN/Creatinine Ratio 21 (6-26); Bilirubin,Total 0.4 mg/dL (0.2-1.2); Blood Urea Nitrogen 22 mg/dL (7-20); Calcium 8.9 mg/dL (8.6-10.8); Carbon Dioxide 20 mEq/L (19-29); Chloride 103 mEq/L (98-109); Globulin 3.5 g/dL (2.4-3.5); Glucose 127 mg/dL (70-99); Osmolality,Calculated 289 (280-300); Potassium 4.3 mEq/L (3.5-4.5); Sodium 137 mEq/L (136-145); Total Protein 6.8 g/dL (6.0-8.3); eGFR For African Americans > 60 (> 60); eGFR For Non-African Americans 50 (> 60)
[2016-04-07 16:55] LABS: Alanine Aminotransferase < 6 Units/L (0-55)
[2016-04-07] MEDS ORDERED: Piperacillin/Tazobactam 3.375 GM in D5% in Water (Mini-Bag+) 100 ML IVPB ONE (17:06)
[2016-04-07] MEDS ORDERED: Vancomycin 750 MG in D5% in Water 250 ML IVPB ONE (17:06)
[2016-04-07] MEDS ORDERED: *HR* LORazepam 2 MG/ML VIAL IVP ONE (17:26)
[2016-04-07] MEDS ORDERED: Ondansetron 4 MG/2 ML VIAL IVP PRN (20:35)
[2016-04-07] MEDS ORDERED: Naloxone 0.4 MG/ML INJ IVP PRN (20:35)
[2016-04-07] MEDS ORDERED: Acetaminophen 325 MG TABLET PO PRN (20:40)
[2016-04-07] MEDS ORDERED: Gabapentin 100 MG CAPSULE PO PRN (20:40)
[2016-04-07] MEDS ORDERED: Ipratropium/Albuterol Neb 3 ML IH PRN (20:40)
[2016-04-07] MEDS ORDERED: Nitroglycerin 0.4 MG TAB.SUBL SL PRN (20:40)
[2016-04-07] MEDS ORDERED: hydrOXYzine pamoate 25 MG CAPSULE PO PRN (20:40)
[2016-04-07] MEDS ORDERED: 0.9 % Sodium Chloride 1,000 ML IVC SCH (20:45)
--- NOTE | 2016-04-07 20:57 | Internal Med History&Physical ---
Date of Encounter: 04/07/16 Time of Encounter: 20:30 Assessment and Plan (1) Periprosthetic fracture of shaft of femur Current visit: Yes Status: Acute -XRAy consistent with displaced gianna-prosthetic right femur fracture -Orthopedic eval appreciated -Dr. Salcedo to take patient to the OR on -continue supportive care/pain management (2) Sepsis Current visit: Yes Status: Acute -of unknown etiology -CXR prelim concerning for pneumonia -Will obtain UA -elevated Lactate -will repeat LA -gentle IV hydration -continue empiric abx therapy -f/u blood cultures -Will treat for concern for HCAP at this time Qualifiers: Sepsis type: sepsis due to unspecified organism Qualified Code(s): A41.9 - Sepsis, unspecified organism (3) CHF (congestive heart failure) Current visit: Yes Status: Chronic Not in acute exacerbation at this time Will continue home medications Qualifiers: Congestive heart failure type: unspecified congestive heart failure type Congestive heart failure chronicity: chronic Qualified Code(s): I50.9 - Heart failure, unspecified (4) COPD (chronic obstructive pulmonary disease) Current visit: Yes Status: Chronic Not in acute exacerbation will continue home medications Qualifiers: COPD type: unspecified COPD Qualified Code(s): J44.9 - Chronic obstructive pulmonary disease, unspecified (5) Parkinson disease Current visit: Yes Status: Chronic continue home medications (6) Atrial fibrillation Current visit: Yes Status: Acute Rate controlled with Metoprolol 12.5mg PO BID Holding Metoprolol at this time due to the hypotensive episodes noted during admission Please restart Metoprolol once hypotension resolves Not on anticoagulation due to history of multiple falls Qualifiers: Atrial fibrillation type: chronic Qualified Code(s): I48.2 - Chronic atrial fibrillation (7) DVT prophylaxis Current visit: Yes Status: Acute Lovenox SQ (8) Hypertension Current visit: Yes Status: Chronic Noted to be hypotensive in the ER BP within acceptable range at this time, however will hold oral antihypertensives (Lisinopril and Metoprolol) at this time Resume home meds as needed Qualifiers: Hypertension type: essential hypertension Qualified Code(s): I10 - Essential (primary) hypertension Internal Medicine - H&P: HPI Chief complaint: s/p fall Plans for Post Hospital Care: Transfer Shelter Facility History of present illness: Ms. Hicks is a 70 year old female with PMH of Parkison's disease, severe dementia, hypertension, afib (not on anticoagulation), recent right hip fx s/p surgery who is brought to the ER from SNF s/p fall. Patient was noted to have a fall from bed and due to severe painful distress she was brought to the ER. Patient is somnolent but arousable. As per family ( Hadley Hicks) patient only communicates with family and has been communicating less over the last few months. In the ER patient was noted to a displaced right femur fracture and orthopedic surgery was called by the ER physician. Patient was also noted to be septic and was started on empiric IV abx. At this time she is resting in bed, somnolent but opens eyes, she is not communicating, however as per , patient has intermittent episodes of such behaviour. I had a detailed discussion with patient's (Hadley Hicks) and as per patient's wishes, they want her to be Full code at this time, however they do not want any assisted life support. They also wish to chose a different rehab facility after discharge. Past Med Surg Social Fam HX - Past Medical History Medical history: arthritis, atrial fibrillation, CHF, COPD, dementia, GERD, osteoporosis, RA, other Psychiatric history: anxiety, panic disorder, other - Past Surgical History Surgical History: , orthopedic, other, other - Social History Smoking Status: Never smoker Smokeless Tobacco Status: No Alcohol use: none Drug use: none - Family History Son History Unknown: Yes Living Status: Still Living Hx Family Cardiac Disorders: No Hx Family Respiratory Disorders: No Hx Family Cancer: No Hx Family GI Disorders: Yes Hx Family Endocrine Disorder: No Internal Medicine - H&P: Meds Aspirin 325 mg PO DAILY 02/28/16 [History] Carbidopa/Levodopa 25/100 [Sinemet 25/100] 2 each PO TID 02/28/16 [History] Carbidopa/Levodopa ER 50/200 [Sinemet ER 50-200 Tab] 1 each PO HS 02/28/16 [ History] DiphenhydraMINE [Benadryl] 25 - 50 mg PO Q8H PRN 02/28/16 [History] Docusate [Colace] 100 mg PO DAILY PRN 02/28/16 [History] Donepezil [Aricept] 10 mg PO HS 02/28/16 [History] Gabapentin [Neurontin] 100 mg PO TID PRN 02/28/16 [History] HydrOXYzine Pamoate [Hydroxyzine Pamoate] 25 mg PO HS 02/28/16 [History] Lactose-Reduced Food [Ensure Liquid] 1 bottle PO 5XD 02/28/16 [History] Omeprazole [PriLOSEC] 40 mg PO DAILY 02/28/16 [History] Acetaminophen [Tylenol] 650 mg PO Q6HR PRN #0 tablet 03/18/16 [Rx] Atorvastatin [Lipitor] 40 mg PO HS tablet 03/18/16 [Rx] HydrOXYzine Pamoate 25 mg PO TID PRN #30 capsule 03/18/16 [Rx] Ipratropium/Albuterol Neb [Duoneb] 3 ml IH [id number] PRN #0 inhsol 03/18/16 [Rx] Lisinopril [Zestril] 2.5 mg PO DAILY tablet 03/18/16 [Rx] Metoprolol [Lopressor] 12.5 mg PO BID tablet 03/18/16 [Rx] Nitroglycerin 0.4 mg SL Q5MIN PRN #0 tab.subl 03/18/16 [Rx] OxyCODONE Immed Rel [Roxicodone 5 MG] 10 mg PO Q4HR PRN #30 tablet 03/18/16 [Rx] Oxycodone HCl 10 mg PO Q4HR PRN #30 tablet 03/18/16 [Rx] Allergies fentanyl Allergy (Verified 10/31/14 09:49) Vomiting ondansetron [From Zofran (as hydrochloride)] Allergy (Verified 10/31/14 09:49) Headache ROS unobtainable: due to mental status All Systems PM: A 10-system review of systems was performed and is negative for pertinent findings except as documented above in the HPI. - Constitutional Vitals: Temp Pulse Resp BP Pulse Ox 98.9 F 67 18 111/71 98 04/07/16 19:20 04/07/16 19:20 04/07/16 19:20 04/07/16 19:20 04/07/16 19:20 General appearance: Present: A&O X 0, no acute distress (cachetic), underweight. Absent: answers questions appropriately - Head Head exam: Present: atraumatic, normocephalic - Eye Eye exam: Present: normal appearance, conjuntiva pink, sclera anicteric - Respiratory Respiratory exam: Present: CTAB. Absent: respiratory distress, wheezes - Cardiovascular Cardiovascular exam: Present: RRR, +S1, +S2 - GI/Abdominal GI/Abdominal exam: Present: normal bowel sounds, soft. Absent: distended, tenderness - Extremities Exam Extremities exam: Present: tenderness (RLE wrapped in dressing), warm, radial pulses palpable and symetrical. Absent: calf tenderness, pedal edema - Neurological Exam Neurological exam: Present: alert (somnolent but arousable) Internal Med - H&P Results - Labs CBC & Chem 7: 04/07/16 16:26 04/07/16 16:26
[2016-04-07] MEDS ORDERED: Carbidopa/Levodopa 25/100 TABLET PO SCH (21:00)
[2016-04-07 21:36] LABS: Bilirubin,Urine Negative (Negative); Blood,Urine Negative (Negative); Clarity,Urine Cloudy (Clear); Color,Urine Yellow (Yellow); Glucose,Urine (UA) Normal (Normal); Ketones,Urine Negative (Negative); Leukocyte Esterase,Urine Moderate (Negative); Nitrite,Urine Negative (Negative); PH,Urine 5.5 pH Units (5.0-8.0); Protein,Urine Trace mg/dL (Neg-Trace); Specific Gravity,Urine 1.021 (1.010-1.025); Urobilinogen,Urine Normal (Normal)
[2016-04-07 21:38] LABS: Bacteria,Urine None Seen per hpf (None-Few); Hyaline Casts,Urine None Seen per lpf (None-Few); RBC,Urine 0-3 per hpf (0-3); Squamous Epithelial Cell,Urine Many per lpf (None-Few); WBC,Urine 50-100 per hpf (0-3)
[2016-04-07] MEDS: hydrOXYzine pamoate 25 MG CAPSULE PO SCH (22:17)
[2016-04-07] MEDS: Carbidopa/Levodopa ER 50/200 TABLET PO SCH (22:17)
[2016-04-08] MEDS ORDERED: NON-FORMULARY MEDICATION 1 EACH EACH (Lactose-Reduced Food [Ensure Liquid] 1 BOTTLE) PO SCH
[2016-04-08] MEDS: *HR* OxyCODONE Immed Rel 5 MG TABLET PO PRN ×2 (01:04→13:41)
[2016-04-08] MEDS: *HR* Morphine 2 MG/ML SYRINGE IVP PRN ×3 (01:57→16:53)
[2016-04-08] MEDS ORDERED: Vancomycin 1,000 MG in D5% in Water 250 ML IVPB SCH (06:00)
[2016-04-08 06:39] LABS: Basophils % 0.5 %; Eosinophils % 0.3 %; Hematocrit 29.6 % (35.3-44.9); Immature Granulocytes % 0.5 % (0-4); Lymphocytes # 1.1 K/mcL (0.6-4.6); Lymphocytes % 14.8 %; Mean Corpuscular HGB Conc 31.8 g/dL (31.6-35.5); Mean Corpuscular Hemoglobin 28.6 pg (28.0-33.3); Monocytes # 0.5 K/mcL (0.0-1.3); Monocytes % 6.5 %; Neutrophils # 5.8 K/mcL (1.6-8.9); Platelet Count 271 K/mcL (140-400); Red Blood Count 3.29 M/mcL (3.82-4.97); Red Cell Distribution Width 14.6 % (11.5-14.5); Segmented Neutrophils % 77.4 %
[2016-04-08 06:45] LABS: Hemoglobin 9.4 g/dL (11.5-15.4)
[2016-04-08 06:53] LABS: BUN/Creatinine Ratio 19 (6-26); Blood Urea Nitrogen 14 mg/dL (7-20); Calcium 8.2 mg/dL (8.6-10.8); Carbon Dioxide 23 mEq/L (19-29); Chloride 106 mEq/L (98-109); Glucose 109 mg/dL (70-99); Magnesium 1.2 mg/dL (1.6-2.6); Osmolality,Calculated 287 (280-300); Phosphorous 2.5 mg/dL (2.3-4.7); Sodium 138 mEq/L (136-145); eGFR For African Americans > 60 (> 60); eGFR For Non-African Americans > 60 (> 60)
[2016-04-08] MEDS: Piperacillin/Tazobactam 3.375 GM in D5% in Water (Mini-Bag+) 100 ML IVPB SCH ×4 (06:55→20:13)
[2016-04-08] MEDS ORDERED: *HR* Enoxaparin 30 MG/0.3 ML SYRINGE SQ SCH (07:00)
--- NOTE | 2016-04-08 08:42 | Orthopedics Progress Note ---
Date of Encounter: 04/08/16 Time of Encounter: 08:42 Subjective Interval history: Patient seen this morning for right femur fracture below intramedullary nail. Plan is for nail exchange with a longer nail. Surgery scheduled for tomorrow. Objective Vital signs: Vital Signs Temp Pulse Resp BP Pulse Ox 04/08/16 06:47 98.4 F 87 16 142/79 96 04/08/16 00:35 98.6 F 93 18 144/85 95 Intake and Output 04/07/16 04/08/16 04/08/16 23:59 07:59 15:59 Intake Total 0 / 0 Output Total 350 / 350 Balance -350 / -350 Intake: Oral 0 / 0 Output: Catheter 350 / 350 - Labs CBC & BMP: 04/08/16 05:52 04/08/16 05:52 Labs: Abnormal lab results RBC 3.29 M/mcL (3.82-4.97) L 04/08/16 05:52 Hgb 9.4 g/dL (11.5-15.4) L D 04/08/16 05:52 Hct 29.6 % (35.3-44.9) L 04/08/16 05:52 RDW 14.6 % (11.5-14.5) H 04/08/16 05:52 PT 12.7 Seconds (9.4-12.1) H 04/07/16 16:26 Glucose 109 mg/dL (70-99) H 04/08/16 05:52 Calcium 8.2 mg/dL (8.6-10.8) L 04/08/16 05:52 Magnesium 1.2 mg/dL (1.6-2.6) L 04/08/16 05:52 Alkaline Phosphatase 164 Units/L (38-126) H 04/07/16 16:26 Albumin 3.3 g/dL (3.5-5.0) L 04/07/16 16:26 Albumin/Globulin Ratio 0.9 (1.1-2.2) L 04/07/16 16:26 Urine Clarity Cloudy (Clear) A 04/07/16 21:25 Ur Leukocyte Esterase Moderate (Negative) H 04/07/16 21:25 Urine Microscopic WBC 50-100 per hpf (0-3) H 04/07/16 21:25 Ur Squamous Epith Cells Many per lpf (None-Few) H 04/07/16 21:25 Ur Culture Indicated? YES (NO) A 04/07/16 21:25 Consult Discharge Plan - Plan Referrals: Frances Reilly MD [Primary Care Provider] -
[2016-04-08] MEDS: Aspirin 325 MG TABLET PO SCH (09:20)
[2016-04-08] MEDS: Carbidopa/Levodopa 25/100 TABLET PO SCH ×2 (09:21→13:41)
[2016-04-08] MEDS ORDERED: Magnesium Sulfate 2 GM in D5% in Water 100 ML IVPB ONE (09:40)
--- NOTE | 2016-04-08 09:43 | Internal Med Progress Note ---
<Dawood Head - Last Filed: 04/08/16 16:07> Date of Encounter: 04/08/16 Time of Encounter: 09:42 - Assessment and plan (1) Hypomagnesemia Current Visit: No Status: Acute Assessment and plan: Patient's magnesium was 1.2 this morning. She has received 2 g IV this morning. Will receive 2 g more this evening, prior to orthopedic surgery in the morning. (2) Femur fracture, right Current Visit: Yes Status: Acute Assessment and plan: Ms. penn suffered atraumatic fall from her bed resulting in a fracture of her right femur femur. She is recent status post right total hip. She has been seen by Dr. Maldonado with plans for orthopedic intervention tomorrow morning. Patient has been seen and evaluated patient bedside she is medically optimized for her orthopedic intervention tomorrow morning. Plan: - Nothing by mouth after midnight - Hold Lovenox or other anticoagulation - Repeat CBC in a.m. Qualifiers: Qualified Code(s): S72.91XA - Unspecified fracture of right femur, initial encounter for closed fracture (3) Parkinson disease Current Visit: Yes Status: Chronic Assessment and plan: Patient has known Parkinson's disease. Plan: - Continue Sinemet and Aricept (4) Anemia Current Visit: No Status: Chronic Assessment and plan: Patient's hemoglobin 9.4 down from 11.1 last evening. Likely secondary to long bone fracture of the right femur. Patient is currently stable, vitals are stable. We will draw hemoglobin with a.m. labs for reevaluation. Qualifiers: Anemia type: unspecified type Qualified Code(s): D64.9 - Anemia, unspecified (5) UTI (urinary tract infection) Current Visit: Yes Status: Acute Assessment and plan: Urinalysis is concerning for urinary tract infection. Patient on Zosyn. Vancomycin was discontinued. White blood cell count dropped from 12.4-7.5 though this may be elevated secondary to traumatic fall. Qualifiers: Qualified Code(s): N39.0 - Urinary tract infection, site not specified (6) DVT prophylaxis Current Visit: Yes Status: Acute Assessment and plan: Patient is on 30 mg subcutaneous Lovenox every morning. If hemoglobin continues to fall this may need to be discontinued. - Subjective Interval history: Ms. Penn 70-year-old female seen and evaluated patient bedside this morning. She is alert and interacting well. She complains of right hip pain but currently tolerable. She has no other complaints and understands that she has surgery in the morning. She is currently stable with no complaints or concerns. She understands that she will be nothing by mouth after midnight. - Constitutional Vitals: Temp Pulse Resp BP Pulse Ox 98.4 F 87 16 142/79 96 04/08/16 06:47 04/08/16 06:47 04/08/16 06:47 04/08/16 06:47 04/08/16 06:47 General appearance: Present: A&O X 0, no acute distress (cachetic), underweight. Absent: answers questions appropriately - Head Head exam: Present: atraumatic, normocephalic - Eye Eye exam: Present: PERRL, conjuntiva pink, sclera anicteric Pupils: Present: PERRL - Neck Neck exam general surgery: Present: supple, trachea midline. Absent: lymphadenopathy - Respiratory Respiratory exam: Present: CTAB. Absent: accessory muscle use, rales, rhonchi, wheezes - Cardiovascular Cardiovascular exam: Present: RRR, +S1, +S2. Absent: diastolic murmur, gallop, rubs, systolic murmur - GI/Abdominal GI/Abdominal exam: Present: normal bowel sounds, soft, no peritoneal signs. Absent: distended, tenderness - Extremities Exam Additional comments: Right lower extremity is shorter than the left and rotated externally. Patient has tenderness to light palpation. Right lower extremity is wrapped. - Neurological Exam Neurological exam: Present: alert Additional comments: Patient has abnormal arm movements likely secondary to Parkinson's. - Skin Skin exam: Present: dry, intact Internal Medicine: Result - Labs CBC & Chem 7: 04/08/16 05:52 04/08/16 05:52 Labs: Short CBC 04/08/16 Range/Units 05:52 WBC 7.5 (4.3-11.1) K/mcL Hgb 9.4 L D (11.5-15.4) g/dL Hct 29.6 L (35.3-44.9) % Plt Count 271 (140-400) K/mcL Neutrophils # 5.8 (1.6-8.9) K/mcL BMP 04/08/16 05:52 Sodium 138 Potassium 4.0 Chloride 106 Carbon Dioxide 23 BUN 14 Creatinine 0.74 Glucose 109 H Calcium 8.2 L - ABG Interpretation ABG results: PT/INR, D-dimer PT 12.7 Seconds (9.4-12.1) H 04/07/16 16:26 Consult Discharge Plan - Plan Referrals: Frances Reilly MD [Primary Care Provider] - <Edin Douglass - Last Filed: 04/08/16 18:10> Date of Encounter: 04/08/16 - Constitutional Vitals: Temp Pulse Resp BP Pulse Ox 97.6 F 73 16 103/68 94 L 04/08/16 14:23 04/08/16 14:23 04/08/16 14:23 04/08/16 14:23 04/08/16 14:23 Internal Medicine: Result - Labs CBC & Chem 7: 04/08/16 05:52 04/08/16 05:52 Labs: Short CBC 04/08/16 Range/Units 05:52 WBC 7.5 (4.3-11.1) K/mcL Hgb 9.4 L D (11.5-15.4) g/dL Hct 29.6 L (35.3-44.9) % Plt Count 271 (140-400) K/mcL Neutrophils # 5.8 (1.6-8.9) K/mcL BMP 04/08/16 05:52 Sodium 138 Potassium 4.0 Chloride 106 Carbon Dioxide 23 BUN 14 Creatinine 0.74 Glucose 109 H Calcium 8.2 L - ABG Interpretation ABG results: PT/INR, D-dimer PT 12.7 Seconds (9.4-12.1) H 04/07/16 16:26 - Attending Attestation I examined this patient and my medical decision-making was reviewed with the UTILITY SYSTEMS REPAIRER OPERATOR/PA/Advanced Practice Nurse/Resident Physician. I agree with the documented findings, disposition and treatment plan as described except to the extent set forth below. Continue with zosyn reevaluate with culture results. NPO after midnight. Ortho input.
--- NOTE | 2016-04-08 10:32 | Electrocardiograph Report ---
[address] [address] Test Date: 2016-04-07 Pat Name: Lexi Hicks Department: 104 Room: [facility] Gender: F Keysmith: : 1945 Requested By: Bobo Berumen Order Number: [id number] Reading MD: Jose G Araujo MD Measurements Intervals [place] Rate: 79 P: 91 VT: 195 QRS: 15 QRSD: 85 T: 47 QT: 387 QTc: 421 Interpretive Statements SINUS RHYTHM WITH OCCASIONAL VENTRICULAR PREMATURE COMPLEXES WITH OCCASIONAL SUPRAVENTRICULAR PREMATURE COMPLEXES Electronically Signed On 04-08-2016 10:31:29 EST by Jose G Araujo MD
[2016-04-08] MEDS ORDERED: Haloperidol Lactate 5 MG/ML VIAL IM ONE (17:11)
[2016-04-08] MEDS ORDERED: Vancomycin 750 MG in D5% in Water 250 ML IVPB SCH (18:00)
[2016-04-08] MEDS ORDERED: *HR* Enoxaparin 40 MG/0.4 ML SYRINGE SQ SCH (21:15)
[2016-04-08] MEDS: Carbidopa/Levodopa ER 50/200 TABLET PO SCH (22:33)
[2016-04-08] MEDS: hydrOXYzine pamoate 25 MG CAPSULE PO SCH (22:33)
[2016-04-09] MEDS: Carbidopa/Levodopa 25/100 TABLET PO SCH ×4 (01:07→18:58)
[2016-04-09] MEDS: *HR* Morphine 2 MG/ML SYRINGE IVP PRN (01:10)
[2016-04-09] MEDS: Piperacillin/Tazobactam 3.375 GM in D5% in Water (Mini-Bag+) 100 ML IVPB SCH ×3 (01:21→16:06)
--- NOTE | 2016-04-09 01:31 | Anesthesia Evaluation PreOp ---
<Danette Bob Sera - Last Filed: 04/09/16 01:29> Date of Encounter: 04/09/16 - Past History Planned Operation: R-femur hardware removal re:displaced fx Cardiac History: Denies any Significant Hx, CHF, HTN (maintained on Metoprolol, Lisinopril), Hyperlipidemia (maintained on Lipitor), Arrhythmia (AFib - not curently Anticoagulated), Other (ECHO 03/17/16 - LVEF 60-65%, mild diastolic dysfx. NO PulmHtn. 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 Severe Dementia. Anxiety/Depression/Panic disorder - maintaine don GAbapentin) Other Medical History: GERD (symptomatic Hiatal Hernia - maintained on Omeprazole), Other (Sepsis, RA) Anesthesia History: Past Anesthesia (, Orthopedic) Alcohol Use: none Drug use: none Medications and Allergies Aspirin 325 mg PO DAILY 02/28/16 [History] Carbidopa/Levodopa 25/100 [Sinemet 25/100] 2 each PO TID 02/28/16 [History] Carbidopa/Levodopa ER 50/200 [Sinemet ER 50-200 Tab] 1 each PO HS 02/28/16 [ History] DiphenhydraMINE [Benadryl] 25 - 50 mg PO Q8H PRN 02/28/16 [History] Docusate [Colace] 100 mg PO DAILY PRN 02/28/16 [History] Donepezil [Aricept] 10 mg PO HS 02/28/16 [History] Gabapentin [Neurontin] 100 mg PO TID PRN 02/28/16 [History] HydrOXYzine Pamoate [Hydroxyzine Pamoate] 25 mg PO HS 02/28/16 [History] Lactose-Reduced Food [Ensure Liquid] 1 bottle PO 5XD 02/28/16 [History] Omeprazole [PriLOSEC] 40 mg PO DAILY 02/28/16 [History] Acetaminophen [Tylenol] 650 mg PO Q6HR PRN #0 tablet 03/18/16 [Rx] Atorvastatin [Lipitor] 40 mg PO HS tablet 03/18/16 [Rx] HydrOXYzine Pamoate 25 mg PO TID PRN #30 capsule 03/18/16 [Rx] Ipratropium/Albuterol Neb [Duoneb] 3 ml IH [id number] PRN #0 inhsol 03/18/16 [Rx] Lisinopril [Zestril] 2.5 mg PO DAILY tablet 03/18/16 [Rx] Metoprolol [Lopressor] 12.5 mg PO BID tablet 03/18/16 [Rx] Nitroglycerin 0.4 mg SL Q5MIN PRN #0 tab.subl 03/18/16 [Rx] OxyCODONE Immed Rel [Roxicodone 5 MG] 10 mg PO Q4HR PRN #30 tablet 03/18/16 [Rx] Oxycodone HCl 10 mg PO Q4HR PRN #30 tablet 03/18/16 [Rx] Allergies fentanyl Allergy (Verified 10/31/14 09:49) Vomiting ondansetron [From Zofran (as hydrochloride)] Allergy (Verified 10/31/14 09:49) Headache - Meds/Allergy Pre-op Review Medications Reviewed: Yes Allergies Reviewed: Yes Beta Blockers on Current Med List: No Anesthesia Results - Labs 04/08/16 18:53 04/08/16 05:52 Vital Signs/O2 Sat/Glucose, Most Current Temp Pulse Resp BP Pulse Ox 04/09/16 00:00 98.5 F 92 19 157/79 95 - Imaging EKG: image reviewed (63bpm, SR) Anesthesia Exam Vital Signs Temp Pulse Resp BP Pulse Ox 04/09/16 00:00 98.5 F 92 19 157/79 95 04/08/16 20:00 98.4 F 95 18 163/81 94 L 04/08/16 14:23 97.6 F 73 16 103/68 94 L 04/08/16 10:51 97.9 F 70 14 98/64 95 04/08/16 06:47 98.4 F 87 16 142/79 96 Intake and Output 04/08/16 04/08/16 04/09/16 15:59 23:59 07:59 Intake Total 204 / 204 200 / 200 Output Total 650 / 650 400 / 400 Balance -446 / -446 -200 / -200 Intake: IV Fluids 204 / 204 100 / 100 Magnesium Sulfate 2 GM In 104 / 104 Dextrose 5% 100 ML @ 100 mls/hr IVPB ONCE ONE Rx# :[id number] Zosyn 3.375 GM In 100 / 100 100 / 100 Dextrose 5% (Minibag+) 100 ML 100 ML @ 25 mls/hr IVPB Q8HR COUNTS INCLUDE 234 BEDS AT THE [facility] Rx#: [id number] Oral 100 / 100 Output: Catheter 650 / 650 400 / 400 Anesthesia Assess/Plan ASA Score: 3 Modified [place] Scale for Level of Consciousness: Cooperative, oriented, and tranquil Anesthetic Plan: General Monitoring Plan: Standard Monitors Recovery Plan: PACU <Ivan Boyd - Last Filed: 04/09/16 15:12> Date of Encounter: 04/09/16 Time of Encounter: 15:09 - Past History : No Anesthesia Results - Labs 04/09/16 13:24 04/09/16 13:24 Anesthesia Exam Vital Signs/O2 Sat, Most Current Temp Pulse Resp BP Pulse Ox 98.4 F 98 18 119/57 94 L 04/09/16 13:13 04/09/16 13:13 04/09/16 11:02 04/09/16 13:13 04/09/16 11:02 Height: 4'10'' Weight: 96# NPO (# of Hours): > 8 hrs Pain Scale: 0 Pain Scale Used: Numeric (1 - 10) - HEENT Pupil (Motor): Pupils equal, EOMI Mallampati: II Teeth: Poor dentition Oral Opening: Greater than 3 - MATHEMATICS EDUCATION PROFESSOR LOC: Confused, Disoriented 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
--- NOTE | 2016-04-09 06:24 | Orthopedics Progress Note ---
Date of Encounter: 04/09/16 Time of Encounter: 06:23 Subjective Interval history: Patient seen this morning for right femur fracture below intramedullary nail. Plan is for nail exchange with a longer nail. Surgery scheduled for day. Patient diagnosed with DVT will consult JENI robertson prior to surgery. Patient has dementia will discuss with family. Objective Vital signs: Vital Signs Temp Pulse Resp BP Pulse Ox 04/09/16 00:00 98.5 F 92 19 157/79 95 04/08/16 20:00 98.4 F 95 18 163/81 94 L 04/08/16 14:23 97.6 F 73 16 103/68 94 L 04/08/16 10:51 97.9 F 70 14 98/64 95 04/08/16 06:47 98.4 F 87 16 142/79 96 Intake and Output 04/08/16 04/08/16 04/09/16 15:59 23:59 07:59 Intake Total 204 / 204 200 / 200 Output Total 650 / 650 400 / 400 Balance -446 / -446 -200 / -200 Intake: IV Fluids 204 / 204 100 / 100 Magnesium Sulfate 2 GM In 104 / 104 Dextrose 5% 100 ML @ 100 mls/hr IVPB ONCE ONE Rx# :[id number] Zosyn 3.375 GM In 100 / 100 100 / 100 Dextrose 5% (Minibag+) 100 ML 100 ML @ 25 mls/hr IVPB Q8HR [facility] Rx#: [id number] Oral 100 / 100 Output: Catheter 650 / 650 400 / 400 - Labs CBC & BMP: 04/08/16 18:53 04/08/16 05:52 Labs: Abnormal lab results RBC 3.29 M/mcL (3.82-4.97) L 04/08/16 05:52 Hgb 10.0 g/dL (11.5-15.4) L 04/08/16 18:53 Hct 31.0 % (35.3-44.9) L 04/08/16 18:53 RDW 14.6 % (11.5-14.5) H 04/08/16 05:52 PT 12.7 Seconds (9.4-12.1) H 04/07/16 16:26 Glucose 109 mg/dL (70-99) H 04/08/16 05:52 Calcium 8.2 mg/dL (8.6-10.8) L 04/08/16 05:52 Magnesium 1.2 mg/dL (1.6-2.6) L 04/08/16 05:52 Alkaline Phosphatase 164 Units/L (38-126) H 04/07/16 16:26 Albumin 3.3 g/dL (3.5-5.0) L 04/07/16 16:26 Albumin/Globulin Ratio 0.9 (1.1-2.2) L 04/07/16 16:26 Urine Clarity Cloudy (Clear) A 04/07/16 21:25 Ur Leukocyte Esterase Moderate (Negative) H 04/07/16 21:25 Urine Microscopic WBC 50-100 per hpf (0-3) H 04/07/16 21:25 Ur Squamous Epith Cells Many per lpf (None-Few) H 04/07/16 21:25 Ur Culture Indicated? YES (NO) A 04/07/16 21:25 Consult Discharge Plan - Plan Referrals: Frances Reilly MD [Primary Care Provider] -
[2016-04-09 06:30] LABS: Basophils % 0.6 %; Eosinophils # 0.1 K/mcL (0.0-0.6); Hematocrit 29.1 % (35.3-44.9); Hemoglobin 9.5 g/dL (11.5-15.4); Immature Granulocytes % 0.4 % (0-4); Lymphocytes # 1.4 K/mcL (0.6-4.6); Lymphocytes % 20.5 %; Mean Corpuscular HGB Conc 32.6 g/dL (31.6-35.5); Mean Corpuscular Hemoglobin 29.2 pg (28.0-33.3); Mean Corpuscular Volume 89.5 fL (83.0-100.0); Mean Platelet Volume 11.1 fL (9.4-12.4); Monocytes # 0.6 K/mcL (0.0-1.3); Monocytes % 8.9 %; Neutrophils # 4.7 K/mcL (1.6-8.9); Platelet Count 282 K/mcL (140-400); Red Blood Count 3.25 M/mcL (3.82-4.97); Red Cell Distribution Width 14.7 % (11.5-14.5); Segmented Neutrophils % 68.6 %
[2016-04-09] MEDS ORDERED: *HR* Metoprolol 5 MG/5 ML VIAL IVP PRN ×2 (07:54→18:44)
[2016-04-09] MEDS: Aspirin 325 MG TABLET PO SCH (08:57)
[2016-04-09] MEDS ORDERED: Magnesium Sulfate 2 GM in D5% in Water 100 ML IVPB ONE (09:32)
--- NOTE | 2016-04-09 11:16 | Vascular/Endovasc Consult Note ---
Date of Encounter: 04/09/16 Time of Encounter: 08:15 Assessment and Plan (1) DVT (deep venous thrombosis) Current Visit: Yes Status: Acute Acute DVT of right superficial femoral vein. Poor imaging of popliteal and tibial system. Due to the fact that the patient needs surgical revision of the right femur fracture later today I agree that she is an appropriate candidate for placement of an IVC filter. I discussed this briefly with the patient. I called the patient's son Francisco. I discussed with him the indications for the IVC filter placement. I also discussed with them the potential for IVC filter removal in the future ago in light of his mother's overall health this is unlikely. He agrees to proceed with the IVC filter placement today prior to the revision right hip surgery. He will provide consent for the IVC filter placement. Qualifiers: DVT location: lower extremity Affected thrombotic vein of extremity: femoral Laterality: right Chronicity: acute Qualified Code(s): I82.411 - Acute embolism and thrombosis of right femoral vein - History of Present Illness Consult date: 04/09/16 Requesting physician: Venkatesh Salcedo Consult reason: Acute right lower extremity deep venous thrombosis/pending right hip surg Chief complaint: Right leg pain History of present illness: Ms. Hicks is a 70 year old female Admitted via the emergency room on April 07. The patient had fallen at home. She had significant pain and swelling of the right thigh. She had undergone hip surgery on February 28. The patient has reinjured her femur and she is scheduled for right hip and femur surgery today. As part of her preoperative evaluation a venous duplex scan was performed late last night. This demonstrates an acute deep venous thrombosis of the right superficial femoral vein. The popliteal and tibial veins are not well seen. Vascular surgery was asked to see the patient to place an IVC filter in anticipation of surgery later today as anticoagulation is contraindicated. Past Med Surg Social Fam HX - Past Medical History Medical history: arthritis, atrial fibrillation, CHF, COPD, dementia, GERD, osteoporosis, RA, other Psychiatric history: anxiety, panic disorder, other - Past Surgical History Surgical History: , orthopedic, other, other - Social History Smoking Status: Never smoker Smokeless Tobacco Status: No Alcohol use: none Drug use: none - Family History Son History Unknown: Yes Living Status: Still Living Hx Family Cardiac Disorders: No Hx Family Respiratory Disorders: No Hx Family Cancer: No Hx Family GI Disorders: Yes Hx Family Endocrine Disorder: No Medications and Allergies Aspirin 325 mg PO DAILY 02/28/16 [History] Carbidopa/Levodopa 25/100 [Sinemet 25/100] 2 each PO TID 02/28/16 [History] Carbidopa/Levodopa ER 50/200 [Sinemet ER 50-200 Tab] 1 each PO HS 02/28/16 [ History] DiphenhydraMINE [Benadryl] 25 - 50 mg PO Q8H PRN 02/28/16 [History] Docusate [Colace] 100 mg PO DAILY PRN 02/28/16 [History] Donepezil [Aricept] 10 mg PO HS 02/28/16 [History] Gabapentin [Neurontin] 100 mg PO TID PRN 02/28/16 [History] HydrOXYzine Pamoate [Hydroxyzine Pamoate] 25 mg PO HS 02/28/16 [History] Lactose-Reduced Food [Ensure Liquid] 1 bottle PO 5XD 02/28/16 [History] Omeprazole [PriLOSEC] 40 mg PO DAILY 02/28/16 [History] Acetaminophen [Tylenol] 650 mg PO Q6HR PRN #0 tablet 03/18/16 [Rx] Atorvastatin [Lipitor] 40 mg PO HS tablet 03/18/16 [Rx] HydrOXYzine Pamoate 25 mg PO TID PRN #30 capsule 03/18/16 [Rx] Ipratropium/Albuterol Neb [Duoneb] 3 ml IH [id number] PRN #0 inhsol 03/18/16 [Rx] Lisinopril [Zestril] 2.5 mg PO DAILY tablet 03/18/16 [Rx] Metoprolol [Lopressor] 12.5 mg PO BID tablet 03/18/16 [Rx] Nitroglycerin 0.4 mg SL Q5MIN PRN #0 tab.subl 03/18/16 [Rx] OxyCODONE Immed Rel [Roxicodone 5 MG] 10 mg PO Q4HR PRN #30 tablet 03/18/16 [Rx] Oxycodone HCl 10 mg PO Q4HR PRN #30 tablet 03/18/16 [Rx] Allergies fentanyl Allergy (Verified 10/31/14 09:49) Vomiting ondansetron [From Zofran (as hydrochloride)] Allergy (Verified 10/31/14 09:49) Headache All Systems Review: A 10-system review of systems was performed and is negative for pertinent findings except as documented above in the HPI. - Neurological Neurological: other (The patient has Parkinson's disease and dementia. She has decreased overall functional capacity.) Exam Vital Signs, Last 4 Hours Temp Pulse Resp BP Pulse Ox 04/09/16 11:02 100.0 F H 80 18 107/67 94 L General: Present: Other (The patient is an elderly white female who looks older than her stated age. She is in a flexed position in bed. She offers little in regards to speech or spontaneous conversation.) HEENT: Present: Atraumatic, Normocephaly, Trachea midline Neck: Absent: Midline deformity, Tracheal deviation Cardiac: Present: Reg Rate and Rhythm, Normal S1 and S2 Lungs: Present: Normal Breath Sounds Neuro: Present: Other (Decreased mentation with lethargy of movement and speech) Abdomen: Present: Soft, Non-tender. Absent: Masses Vascular: Present: Edema (Swelling of right thigh. The patient has a long posterior splint and a full vascular examination of the right lower extremity is not possible. The left lower extremity demonstrates no edema or tenderness. The femoral pulse on the left is normal.) Consult Discharge Plan - Plan Referrals: Frances Reilly MD [Primary Care Provider] -
[2016-04-09] MEDS ORDERED: Acetaminophen IV 1,000 MG/100 ML INFUS..BTL IVPB PRN ×2 (11:26→18:44)
[2016-04-09] MEDS ORDERED: 0.9 % Sodium Chloride 1,000 ML IVC ONE (13:14)
[2016-04-09] MEDS ORDERED: 0.9 % Sodium Chloride 1,000 ML IVC SCH ×2 (13:15→18:44)
[2016-04-09] MEDS ORDERED: 0.9 % Sodium Chloride 2,000 ML ONE (13:16)
--- NOTE | 2016-04-09 13:23 | Internal Med Progress Note ---
<Dawood Head - Last Filed: 04/09/16 15:55> Date of Encounter: 04/09/16 Time of Encounter: 08:30 - Assessment and plan (1) Hypomagnesemia Current Visit: No Status: Acute Assessment and plan: Patient's magnesium from 1.2 to 1.6 after she received 2 g IV yesterday. Will receive 2 g more this evening, prior to orthopedic surgery. (2) Femur fracture, right Current Visit: Yes Status: Acute Assessment and plan: Ms. Hicks suffered a traumatic fall from her bed resulting in a fracture of her right femur. She is recent status post right total hip. She has been seen by Dr. Maldonado with plans for orthopedic intervention 04/09/2016. Patient has been seen and evaluated patient bedside she is medically optimized for her orthopedic intervention 04/09/2016. Plan: - Nothing by mouth after midnight - Hold Lovenox or other anticoagulation - Repeat CBC in a.m. Qualifiers: Qualified Code(s): S72.91XA - Unspecified fracture of right femur, initial encounter for closed fracture (3) Parkinson disease Current Visit: Yes Status: Chronic Assessment and plan: Patient has known Parkinson's disease. Plan: - Continue Sinemet and Aricept (4) Anemia Current Visit: No Status: Chronic Assessment and plan: Patient's hemoglobin has decreased secondary to right hip fracture and recent right hip repair. She was found to have right thigh intramuscular hemorrhage last evening. Hgb dropped slightly last evening. Repeat H&H this afternoon. Monitor renal function, H&H, BP and heart rate. Patient to have surgery today with Dr. Maldonado. Qualifiers: Anemia type: unspecified type Qualified Code(s): D64.9 - Anemia, unspecified (5) UTI (urinary tract infection) Current Visit: Yes Status: Acute Assessment and plan: Urinalysis is concerning for urinary tract infection. Patient on Zosyn. Vancomycin was discontinued. White blood cell count improved, though this may be elevated secondary to traumatic fall. Qualifiers: Qualified Code(s): N39.0 - Urinary tract infection, site not specified (6) DVT prophylaxis Current Visit: Yes Status: Acute Assessment and plan: Patient is on 30 mg subcutaneous Lovenox every morning. Held for orthopedic intervention. (7) DVT (deep venous thrombosis) Current Visit: Yes Status: Acute Assessment and plan: Patient was found to have a right superfical femoral thrombosis. She will require theraputic Lovenox for DVT coverage post operation. Qualifiers: DVT location: lower extremity Affected thrombotic vein of extremity: femoral Laterality: right Chronicity: acute Qualified Code(s): I82.411 - Acute embolism and thrombosis of right femoral vein - Subjective Interval history: Ms. Hicks 70-year-old female seen and evaluated patient bedside this morning. She is alert and interacting well. She has some discomfort in her right thigh but denies any concerns at this time. She has been NPO overnight and denies any CP, chest pressure, palpitations, SOB. Her son was at bedside and the current situation and plan were discussed. - Constitutional Vitals: Temp Pulse Resp BP Pulse Ox 98.4 F 98 18 119/57 94 L 04/09/16 13:13 04/09/16 13:13 04/09/16 11:02 04/09/16 13:13 04/09/16 11:02 General appearance: Present: A&O X 0, no acute distress (cachetic), underweight. Absent: answers questions appropriately - Head Head exam: Present: atraumatic, normocephalic - Neck Neck exam general surgery: Present: supple, trachea midline. Absent: lymphadenopathy - Respiratory Respiratory exam: Present: CTAB. Absent: accessory muscle use, rales, rhonchi, wheezes - Cardiovascular Cardiovascular exam: Present: RRR, +S1, +S2. Absent: diastolic murmur, gallop, rubs, systolic murmur - GI/Abdominal GI/Abdominal exam: Present: normal bowel sounds, soft, no peritoneal signs. Absent: distended, tenderness - Extremities Exam Additional comments: right thigh is swollen and tender to palpation. Skin is warm and pink, The majority of her leg is in an hernando-bandage. Her toes are warm, pink and skin is blanchable. She is able to wiggle her toes. Left leg is without acute findings. - Neurological Exam Neurological exam: Present: alert, no focal deficits. Absent: pronater drift, facial droop, speech deficit - Skin Skin exam: Present: dry, intact Internal Medicine: Result - Labs CBC & Chem 7: 04/09/16 13:24 04/09/16 13:24 Labs: Short CBC 04/08/16 04/09/16 Range/Units 18:53 05:35 WBC 6.9 (4.3-11.1) K/mcL Hgb 10.0 L 9.5 L (11.5-15.4) g/dL Hct 31.0 L 29.1 L (35.3-44.9) % Plt Count 282 (140-400) K/mcL Neutrophils # 4.7 (1.6-8.9) K/mcL - ABG Interpretation ABG results: PT/INR, D-dimer PT 12.7 Seconds (9.4-12.1) H 04/07/16 16:26 - Impressions Impressions Lower Extremity CT 04/08/16 18:35 IMPRESSION: 1. Redemonstration of an acute displaced angulated periprosthetic fracture adjacent to the tip of the right femoral intramedullary nail in the mid diaphysis. 2. Heterogeneously enlarged musculature of the right thigh compatible with edema and intramuscular hemorrhage. No well-defined drainable fluid collection. 3. Status post intramedullary nail fixation of a chronic ununited right intertrochanteric femoral fracture. D/ / Isaiah Guillory MD / Isaiah Guillory MD Interpreting Provider: Isaiah Guillory MD Consult Discharge Plan - Plan Referrals: Frances Reilly MD [Primary Care Provider] - <DouglassEdin R - Last Filed: 04/09/16 17:10> - Constitutional Vitals: Temp Pulse Resp BP Pulse Ox 98.4 F 98 18 119/57 94 L 04/09/16 13:13 04/09/16 13:13 04/09/16 11:02 04/09/16 13:13 04/09/16 11:02 Internal Medicine: Result - Labs CBC & Chem 7: 04/09/16 13:24 04/09/16 13:24 Labs: Short CBC 04/08/16 04/09/16 04/09/16 Range/Units 18:53 05:35 13:24 WBC 6.9 (4.3-11.1) K/mcL Hgb 10.0 L 9.5 L 9.6 L (11.5-15.4) g/dL Hct 31.0 L 29.1 L 29.9 L (35.3-44.9) % Plt Count 282 (140-400) K/mcL Neutrophils # 4.7 (1.6-8.9) K/mcL BMP 04/09/16 13:24 Sodium 137 Potassium 3.4 L Chloride 106 Carbon Dioxide 23 BUN 10 Creatinine 0.80 Glucose 117 H Calcium 8.0 L Liver Function 04/09/16 Range/Units 13:24 Total Bilirubin 0.6 (0.2-1.2) mg/dL AST 23 (5-34) Units/L ALT 10 (0-55) Units/L Alkaline Phosphatase 122 (38-126) Units/L Albumin 2.6 L D (3.5-5.0) g/dL - ABG Interpretation ABG results: PT/INR, D-dimer PT 12.7 Seconds (9.4-12.1) H 04/07/16 16:26 - Impressions Impressions Lower Extremity CT 04/08/16 18:35 IMPRESSION: 1. Redemonstration of an acute displaced angulated periprosthetic fracture adjacent to the tip of the right femoral intramedullary nail in the mid diaphysis. 2. Heterogeneously enlarged musculature of the right thigh compatible with edema and intramuscular hemorrhage. No well-defined drainable fluid collection. 3. Status post intramedullary nail fixation of a chronic ununited right intertrochanteric femoral fracture. D/ / Isaiah Guillory MD / Isaiah Guillory MD Interpreting Provider: Isaiah Guillory MD - Attending Attestation I examined this patient and my medical decision-making was reviewed with the [employer] SUPERVISOR/PA/Advanced Practice Nurse/Resident Physician. I agree with the documented findings, disposition and treatment plan as described except to the extent set forth below. DVT, for ivc filter placement today. Ortho following and for OR today. Continue with antibiotics.
[2016-04-09 13:45] LABS: Hematocrit 29.9 % (35.3-44.9); Hemoglobin 9.6 g/dL (11.5-15.4)
[2016-04-09 14:01] LABS: Alanine Aminotransferase 10 Units/L (0-55); Albumin/Globulin Ratio 0.8 (1.1-2.2); Alkaline Phosphatase 122 Units/L (38-126); Aspartate Amino Transferase 23 Units/L (5-34); BUN/Creatinine Ratio 13 (6-26); Bilirubin,Total 0.6 mg/dL (0.2-1.2); Blood Urea Nitrogen 10 mg/dL (7-20); Carbon Dioxide 23 mEq/L (19-29); Chloride 106 mEq/L (98-109); Globulin 3.2 g/dL (2.4-3.5); Glucose 117 mg/dL (70-99); Osmolality,Calculated 284 (280-300); Potassium 3.4 mEq/L (3.5-4.5); Sodium 137 mEq/L (136-145); Total Protein 5.8 g/dL (6.0-8.3); eGFR For African Americans > 60 (> 60); eGFR For Non-African Americans > 60 (> 60)
[2016-04-09 14:02] LABS: Albumin 2.6 g/dL (3.5-5.0)
[2016-04-09] MEDS ORDERED: *HR* Heparin 10,000 UNIT/10 ML VIAL ONE (14:28)
[2016-04-09] MEDS ORDERED: Heparin 1,000 UNITS/500 mL NS 500 ML ONE (14:28)
[2016-04-09] MEDS ORDERED: 0.9 % Sodium Chloride 1,000 ML ONE (14:28)
[2016-04-09] MEDS ORDERED: *HR* Midazolam HCl 2 MG/2 ML VIAL ONE (14:58)
--- NOTE | 2016-04-09 15:29 | Procedure Note ---
Date of procedure: 04/09/16 Pre-op diagnosis: dvt/left femur fracture Post-op diagnosis: same Procedure: inferior vena cavogram IVC filter placement(Cook Celect ) Anesthesia: MAC Surgeon: Garrick Rivera Condition: stable Disposition: other (patient to holding area for surgery)
--- NOTE | 2016-04-09 15:56 | Invasive Diagnostic Lab Proc ---
Name: Lexi Hicks Date of Study: 04/09/2016 Date: 1945 Ht: 147.0 in Medical Record#: [id number] Age: 70 Wt: 43 lb Gender: Female BSA: 1.32 Order #: [id number] BMI: 19.9 Physicians Performing MD: Garrick Rievra MD, FACS Referring MD: Referring MD: Staff Name Position Time In Shari Tomlinson RN Monitor [facility], Angela RT (R) RT Shari Tomlinson RN Senior Facilities Manager CanAngela RT (R) Scrub Indications DVT, Bilateral Procedures Performed IVC FILTER PLACEMENT Pre-Procedure Checklist Informed consent is complete signed and on chart. H\\T\\P is on chart. ID band is on and ID verified with patient. Patient NPO for procedure The procedure was described for the patient and questions were answered. Blood Pressure: 154/73 ECG is on chart. Rhythm: NSR Plan of Care Patient will tolerate the procedure without complications. Adequate level of comfort will be maintained. Hemodynamics will remain stable Patient will recover from procedure without complications. Respiratory function will be maintained. Cardiac rhythm will remain stable. Patient temperature will be maintained. Patient and/or family have verbalized understanding of the procedure. Patient Education Chief Complaint/Reason for Test: IVC filter Developmental Category: Geriatric (65+ years) Learning Barriers: None Education Needs: Procedure Education Method: Verbal Information Taught: IVC filter Educational Evaluation: Able to repeat information Intravenous Access Time IV Size Location DC'd Fluid/Drip Rate Units RN 13:52 20g 1 1/4" Patent On Arrival Lt Arm 0.9NaCl 25 ml/hr Shari Tomlinson RN Allergies fentanyl Zofran Procedure Medications Time Medication Dose Units Method Route 03:02 PM Oxygen 2 L/min nasal cannula 03:02 PM Versed 0.5 mg Intravenous 03:06 PM Lidocaine 2% 6 ml Subcutaneous 03:13 PM Lidocaine 2% 4 ml Subcutaneous ASA Classification: CLASS II- Mild systemic disease (i.e. well-controlled diabetes, hypertension, asthma, cigarette smoking) Dinah Score Preprocedure Postprocedure Activity 2- Moves 4 extremities sustained head lift Activity 2- Moves 4 extremities sustained head lift Circulation 2- SBP +/= 20 points of pre-anesthetic level Circulation 2- SBP +/= 20 points of pre-anesthetic level Consciousness 2- Awake and alert oriented x 3 Consciousness 2- Awake and alert oriented x 3 O2 Saturation 2- Able to maintain O2 satruation of 92% on room air O2 Saturation 2- Able to maintain O2 satruation of 92% on room air Respiratory 2- Able to deep breathe and cough well Respiratory 2- Able to deep breathe and cough well Total Score 10 Total Score 10 Contrast: Isovue 370- 200ml Contrast Amount: 9 ml Fluoro Dose: 1 mGy Procedure Log Time Note Entered By 02:50 PM 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 well-controlled diabetes, hypertension, asthma, cigarette smoking) ejohnson 02:51 PM Meet and greet completed ejohnson 02:51 PM Sign in performed according to hospital policy. ejohnson 02:51 PM Procedure start 15:01 ejohnson 03:04 PM Time out perfomed ejohnson 03:02 PM 15:02 Oxygen at 2 L/min per nasal cannula by Shari Tomlinson RN ejohnson 03:02 PM 15:02 Versed 0.5 mg Intravenous Given by Cherelle Ariza RN ejohnson 03:02 PM Cherelle Ariza RN Position: Monitor Time in: 15:02 ejohnson 03:02 PM Angela Brice RT (R) Position: RT Time in: 15:02 ejohnson 03:02 PM Shari Tomlinson RN Position: Senior Facilities Manager Time in: 15:02 ejohnson 03:02 PM Angela North RT (R) Position: Scrub Time in: 15:02 ejohnson 02:52 PM Patient brought down from [facility] for IVC filter insertion. ejohnson 03:08 PM 15:06 6 ml Lidocaine 2% to right groin Subcutaneous Given By Garrick Rivera MD, FACS ejohnson 03:10 PM Patient Charges- Cook Celect IVC Filter,Tray Pack and Pulse Oximetry. ejohnson 03:10 PM Access obtain and IVC Filter sheath inserted Rt Femoral vein. ejohnson 03:10 PM Inferiorvenacavagram performed.4cc of contrast ejohnson 03:14 PM 15:13 4 ml Lidocaine 2% to right groin Subcutaneous Given By Garrick Rivera MD, FACS ejohnson 03:17 PM IVC Filter inserted into the inferior vena cava ejohnson 03:18 PM IVC Filter deployed into the inferior vena cava ejohnson 03:18 PM 5cc of contrast injected into the ivc ejohnson 03:22 PM Procedure completed at 15:22 ejohnson 03:22 PM Sign Out completed: Radiation Dose 0.9 mGy Fluoro Time: 25.2 minutes. Isovue 370- 200ml contrast 9 ml given by Garrick Rivera MD, FACS. Complications:none . Confirmed administered medications:yes ejohnson 03:23 PM Venous sheath pulled using manual compression and 2X2 for 12 minutes by Shari Tomlinson RN ejohnson 03:23 PM Post Blood Pressure: 132/64 ejohnson 03:23 PM Post EKG: NSR ejohnson 03:24 PM 15:23 Post Pulses: Rt DP and PT 1+. ejohnson 03:24 PM Information taught: IVC filter ejohnson 03:24 PM Education needs: Procedure, Plan of Care, and Responsibilities of Patient in Care ejohnson 03:25 PM Learning barriers: Sedated and Cognitive ejohnson 03:25 PM Education methods: Verbal ejohnson 03:27 PM Education evaluation: Not ready to learn d/t sedation and dementia. Nurses and family will be educated ejohnson 03:27 PM Patient pain level 0/10 ejohnson 03:27 PM Delay to floor: No ejohnson 03:27 PM Pt taken to Surgery holding area Room# 1 ejohnson 03:27 PM will call the patients son and give an update ejohnson 03:28 PM Complications: None ejohnson 03:28 PM Fluoro Time: 0.9 minutes ejohnson 03:28 PM Isovue 370- 200ml contrast 9 ml given by Garrick Rivera MD, FACS ejohnson 03:29 PM Site status No bleeding/hematoma - Rt Groin as reported by Shari Tomlinson RN at 15:29 ejohnson 03:32 PM is speaking with the patients son on the telephone at this time ejohnson 03:34 PM Report given to Radha HAYWARD. Pt taken to [facility], Room # 15:34 ejohnson 03:34 PM patient will leave the cathlab and be taken to surgery department for femur surgery ejohnson 03:37 PM Report given to Giovanna the OR nurse [email or web address] 03:37 PM Patient out of room 15:37, patient taken to surgery holding area ejohnson Post Procedure Information Blood Pressure: 132/64 mmHg Rhythm: NSR Post procedure instructions given Report Given To: Yobani Site Checks Time Location Status Staff Sheath In? Note 3:29:00 PM Rt Groin No bleeding/ No Hematoma Shari Tomlinson RN Pulses Time Site Pre Procedure Post Procedure Note Lt DPand PT 2+ Rt DPand PT 1+ 3:23:00 PM Rt DP and PT 1+ Updated by Shari Tomlinson RN on 04/09/2016 3:43:26 PM Shari Tomlinson RN electronically signed on 04/09/2016 3:52:04 PM with status of Final
[2016-04-09] MEDS ORDERED: Lidocaine -MPF 2% 2 ML VIAL ONE (16:06)
[2016-04-09] MEDS ORDERED: *HR* FentaNYL (PF) 100 MCG/2 ML VIAL ONE (16:06)
[2016-04-09] MEDS ORDERED: Lidocaine -MPF 4% 5 ML AMPUL ONE (16:06)
[2016-04-09] MEDS ORDERED: *HR* Propofol 200 MG/20 ML VIAL IVP ONE (16:06)
--- NOTE | 2016-04-09 16:12 | Invasive Diagnostic Lab ---
Name: Lexi Hicks Date of Study: 04/09/2016 Date: 1945 Ht: 147.0 in Medical Record#: [id number] Age: 70 Wt: 43 lb Gender: Female BSA: 1.32 Order #: [id number] Fluoro: 1 mGy BMI: 19.9 Performing MD: Garrick Rivera MD, FACS Referring MD: Venkatesh Salcedo MD Referring MD: Frances Reilly MD Procedures Performed: IVC FILTER PLACEMENT Indications: DVT, Unilateral Impressions: The renal veins at the L1-L2 interspace and inferior vena cava was patent. There was no extravasation of contrast and no intraluminal filling defects. Implantation of an IVC filter with no adverse events. Recommendations: Patient will return for a follow-up visit p.r.n. History/ Risk Factors: Chronic Lung Disease DVT Hx CHF Technique After obtaining fully informed consent the patient was brought to the catheterization laboratory in the fasting state. The patient was prepped in the usual sterile fashion. Local anesthetic was infused subcutaneously in the right groin. The right femoral vein was punctured under ultrasound guidance. The vein was cannulated with an 18 gauge needle. A wire was advanced through the needle and the needle was exchanged for the filter sheath. The sheath was placed in the right Femoral vein. An inferior venocavogram was then performed. The filter sheath was then advanced to the L2-L3 interspace and the filter was deployed. A completion cavogram was then performed which revealed no extravasation of contrast, adequate infrarenal placement of the filter and no intraluminal filling defects. The sheath was removed. Manual pressure was applied to aid in hemostasis. The patient was then taken to the recovery room in stable condition. Total Contrast: Isovue 370- 200ml 9mls . Updated by Garrick Rivera MD, FACS on 04/09/2016 4:07:16 PM Garrick Rivera MD electronically signed on 04/09/2016 4:08:20 PM with status of Final
--- NOTE | 2016-04-09 16:16 | Invasive Diagnostic Lab Proc ---
Name: Lexi Hicks Date of Study: 04/09/2016 Date: 1945 Ht: 147.0 in Medical Record#: [id number] Age: 70 Wt: 43 lb Gender: Female BSA: 1.32 Order #: [id number] BMI: 19.9 Physicians Performing MD: Garrick Rivera MD, FACS Referring MD: Venkatesh Salcedo MD Referring MD: Frances Reilly MD Staff Name Position Time In Shari Tomlinson RN Monitor [facility], Angela RT (R) RT Shari Tomlinson RN Geographic Information System Surveyor CanAngela RT (R) Scrub Indications DVT, Unilateral Procedures Performed IVC FILTER PLACEMENT Pre-Procedure Checklist Informed consent is complete signed and on chart. H\\T\\P is on chart. ID band is on and ID verified with patient. Patient NPO for procedure The procedure was described for the patient and questions were answered. Blood Pressure: 154/73 ECG is on chart. Rhythm: NSR Plan of Care Patient will tolerate the procedure without complications. Adequate level of comfort will be maintained. Hemodynamics will remain stable Patient will recover from procedure without complications. Respiratory function will be maintained. Cardiac rhythm will remain stable. Patient temperature will be maintained. Patient and/or family have verbalized understanding of the procedure. Patient Education Chief Complaint/Reason for Test: IVC filter Developmental Category: Geriatric (65+ years) Learning Barriers: None Education Needs: Procedure Education Method: Verbal Information Taught: IVC filter Educational Evaluation: Able to repeat information Intravenous Access Time IV Size Location DC'd Fluid/Drip Rate Units RN 13:52 20g 1 /" Patent On Arrival Lt Arm 0.9NaCl 25 ml/hr Shari Tomlinson RN Allergies fentanyl Zofran Vital Signs Time BP Systolic BP Diastolic HR O2 Sats ASA 03:01 PM 137 68 76 100 03:06 PM 125 56 65 100 03:11 PM 123 53 62 100 03:16 PM 98 53 65 100 03:18 PM 135 58 62 100 03:21 PM 132 64 64 100 03:26 PM 125 64 63 100 03:31 PM 124 59 Procedure Medications Time Medication Dose Units Method Route 03:02 PM Oxygen 2 L/min nasal cannula 03:02 PM Versed 0.5 mg Intravenous 03:06 PM Lidocaine 2% 6 ml Subcutaneous 03:13 PM Lidocaine 2% 4 ml Subcutaneous ASA Classification: CLASS II- Mild systemic disease (i.e. well-controlled diabetes, hypertension, asthma, cigarette smoking) Dinah Score Preprocedure Postprocedure Activity 2- Moves 4 extremities sustained head lift Activity 2- Moves 4 extremities sustained head lift Circulation 2- SBP +/= 20 points of pre-anesthetic level Circulation 2- SBP +/= 20 points of pre-anesthetic level Consciousness 2- Awake and alert oriented x 3 Consciousness 2- Awake and alert oriented x 3 O2 Saturation 2- Able to maintain O2 satruation of 92% on room air O2 Saturation 2- Able to maintain O2 satruation of 92% on room air Respiratory 2- Able to deep breathe and cough well Respiratory 2- Able to deep breathe and cough well Total Score 10 Total Score 10 Contrast: Isovue 370- 200ml Contrast Amount: 9 ml Fluoro Dose: 1 mGy Procedure Log Time Note Entered By 02:50 PM 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 well-controlled diabetes, hypertension, asthma, cigarette smoking) ejohnson 02:51 PM Meet and greet completed ejohnson 02:51 PM Sign in performed according to hospital policy. ejohnson 02:51 PM Procedure start 15:01 ejohnson 03:04 PM Time out perfomed ejohnson 03:02 PM 15:02 Oxygen at 2 L/min per nasal cannula by Shari Tomlinson RN ejohnson 03:02 PM 15:02 Versed 0.5 mg Intravenous Given by Cherelle Ariza RN ejohnson 03:02 PM Cherelle Ariza RN Position: Monitor Time in: 15:02 ejohnson 03:02 PM Angela Brice RT (R) Position: RT Time in: 15:02 ejohnson 03:02 PM Shari Tomlinson RN Position: Geographic Information System Surveyor Time in: 15:02 ejohnson 03:02 PM Angela North RT (R) Position: Scrub Time in: 15:02 ejohnson 02:52 PM Patient brought down from [facility] for IVC filter insertion. ejohnson 03:08 PM 15:06 6 ml Lidocaine 2% to right groin Subcutaneous Given By Garrick Rivera MD, FACS ejohnson 03:10 PM Patient Charges- Cook Celect IVC Filter,Tray Pack and Pulse Oximetry. ejohnson 03:10 PM Access obtain and IVC Filter sheath inserted Rt Femoral vein. ejohnson 03:10 PM Inferiorvenacavagram performed.4cc of contrast ejohnson 03:14 PM 15:13 4 ml Lidocaine 2% to right groin Subcutaneous Given By Garrick Rivera MD, FACS ejohnson 03:17 PM IVC Filter inserted into the inferior vena cava ejohnson 03:18 PM IVC Filter deployed into the inferior vena cava ejohnson 03:18 PM 5cc of contrast injected into the ivc ejohnson 03:22 PM Procedure completed at 15:22 ejohnson 03:22 PM Sign Out completed: Radiation Dose 0.9 mGy Fluoro Time: 25.2 minutes. Isovue 370- 200ml contrast 9 ml given by Garrick Rivera MD, FACS. Complications:none . Confirmed administered medications:yes ejohnson 03:23 PM Venous sheath pulled using manual compression and 2X2 for 12 minutes by Shari Tomlinson RN ejohnson 03:23 PM Post Blood Pressure: 132/64 ejohnson 03:23 PM Post EKG: NSR ejohnson 03:24 PM 15:23 Post Pulses: Rt DP and PT 1+. ejohnson 03:24 PM Information taught: IVC filter ejohnson 03:24 PM Education needs: Procedure, Plan of Care, and Responsibilities of Patient in Care ejohnson 03:25 PM Learning barriers: Sedated and Cognitive ejohnson 03:25 PM Education methods: Verbal ejohnson 03:27 PM Education evaluation: Not ready to learn d/t sedation and dementia. Nurses and family will be educated ejohnson 03:27 PM Patient pain level 0/10 ejohnson 03:27 PM Delay to floor: No ejohnson 03:27 PM Pt taken to Surgery holding area Room# 1 ejohnson 03:27 PM will call the patients son and give an update ejohnson 03:28 PM Complications: None ejohnson 03:28 PM Fluoro Time: 0.9 minutes ejohnson 03:28 PM Isovue 370- 200ml contrast 9 ml given by Garrick Rivera MD, FACS ejohnson 03:29 PM Site status No bleeding/hematoma - Rt Groin as reported by Shari Tomlinson RN at 15:29 ejohnson 03:32 PM is speaking with the patients son on the telephone at this time ejohnson 03:34 PM Report given to Radha HAYWARD. Pt taken to [facility], Room # 15:34 ejohnson 03:34 PM patient will leave the cathlab and be taken to surgery department for femur surgery ejohnson 03:37 PM Report given to Giovanna the OR nurse ejohnson 03:37 PM Patient out of room 15:37, patient taken to surgery holding area ejohnson 03:00 PM Vitals capture started with the following parameters, Patient=Adult, Interval=5 min, Initial Jonyvdmz=840 mmHg, Deflation Rate=5 mmHg, Cuff placed on Left Leg 03:01 PM HR=76 bpm, IZEN=666/68 mmhg, StZ5=818.0 %, Resp=22 B/min, Comment=nsr 03:06 PM HR=65 bpm, PTIX=391/56 mmhg, GmE8=771.0 %, Resp=12 B/min, Comment=nsr 03:11 PM HR=62 bpm, IWMX=172/53 mmhg, IuE4=474.0 %, Resp=13 B/min, Comment=nsr 03:16 PM HR=65 bpm, NIBP=98/53 mmhg, UbN1=568.0 %, Resp=19 B/min 03:17 PM NIBP STAT measurement started. 03:18 PM HR=62 bpm, LBZL=465/58 mmhg, TlG4=347 %, Resp=18 B/min 03:21 PM HR=64 bpm, OKDR=601/64 mmhg, JsV2=764 %, Resp=17 B/min 03:26 PM HR=63 bpm, ZTLE=662/64 mmhg, CeN5=845 %, Resp=14 B/min 03:31 PM OWMK=231/59 mmhg 04:10 PM PVIStat Post Procedure Information Blood Pressure: 132/64 mmHg Rhythm: NSR Post procedure instructions given Report Given To: Yobani Site Checks Time Location Status Staff Sheath In? Note 3:29:00 PM Rt Groin No bleeding/ No Hematoma Shari Tomlinson RN Pulses Time Site Pre Procedure Post Procedure Note Lt DPand PT 2+ Rt DPand PT 1+ 3:23:00 PM Rt DP and PT 1+ Updated by Cherelle Hatch RN on 04/09/2016 4:11:44 PM electronically signed on 04/09/2016 4:12:30 PM with status of Final
[2016-04-09] MEDS ORDERED: Dexamethasone 4 MG/ML VIAL ONE (16:46)
--- NOTE | 2016-04-09 17:32 | Orthopedic Operative Note ---
Date of procedure: 04/09/16 Pre-op diagnosis: Right femoral shaft fracture below intramedullary trochanteric femoral nail Post-op diagnosis: same Procedure: Procedure: Right femur removal of hardware open reduction intramedullary nail fixation femoral shaft fracture Estimated blood loss: 100 mL Hardware: Synthes 12 x 340 1 helical blade 1 distal locking bolt 1 trochanteric femoral nail Procedure dictation: Patient brought to the operating room. After general anesthesia was administered the patient was placed on the fracture table. Left leg was placed in the well leg streeter right leg was placed in the leg streeter the right lower extremity was prepped and draped in sterile surgical fashion patient she divan box first incision. A standard approach is made through the old incision to the right greater trochanter incision made through skin subcutaneous tissue hemostasis was obtained using Bovie cautery using careful blunt dissection the fascia was identified and incised. The gluteus medius was split the nail was identified. The entry hole was cleaned of debris the proximal locking bolt was backed out. Attention was then turned to removal of the helical blade to the lateral incision the incision was made through skin and subcutaneous tissue hemostasis was obtained with Bovie cautery the vastus lateralis was split the helical blade was palpated and removed. The nail was removed. A guidepin was placed through the entry hole across the fracture site into the distal fragment of the femur. It was measured and a 12 x 340 mm Synthes trochanteric femoral nail was placed. Position of hardware as well as fracture reduction was found to be acceptable in the AP and lateral planes. Through the previous lateral incision the helical blade was placed through the nail over the guidewire into the femoral head was locked in place with the proximal locking bolt. Distal locking bolt was placed through a distal lateral incision utilizing fluoroscopic assistance from lateral to medial through the nail. Fluoroscopy confirmed position of hardware as well as fracture reduction. Wounds were irrigated fashion was closed with #1 PDS suture superficially with 0 PDS suture skin was closed with skin melissa patient was placed in sterile dressing postoperative brace extubated transferred to recovery in stable condition. Anesthesia: GETA Surgeon: Venkatesh Salcedo Condition: stable Disposition: PACU
[2016-04-09] MEDS ORDERED: Vancomycin 750 MG in D5% in Water 250 ML IVPB SCH ×2 (18:00→18:13)
[2016-04-09 18:03] LABS: Hematocrit 33.4 % (35.3-44.9); Hemoglobin 9.8 g/dL (11.5-15.4)
--- NOTE | 2016-04-09 18:35 | Anesthesia Evaluation Post Op ---
Date of Encounter: 04/09/16 Time of Encounter: 18:34 - Vital Signs Vital Signs: Vital Signs/O2 Sat, Most Current Temp Pulse Resp BP Pulse Ox 97.7 F 64 16 140/61 92 L 04/09/16 18:00 04/09/16 18:20 04/09/16 18:20 04/09/16 18:20 04/09/16 18:20 - Lungs Lungs: Clear Ascult./Percussion - Airway Airway: Non-obstructed - Cardiovascular Regular Rate - Mental Status Mental Status: Alert & Oriented, Answers Appropriately - Pain Pain Scale: 0 Pain Scale used: Numeric (1 - 10) - Nausea Vomiting Nausea Vomiting: Not Present - Hydration Hydration: NPO, Miller catheter - Discharge PostOp Status: Transfer Patient to floor
[2016-04-09] MEDS ORDERED: hydrOXYzine pamoate 25 MG CAPSULE PO PRN (18:44)
[2016-04-09] MEDS ORDERED: Ipratropium/Albuterol Neb 3 ML IH PRN (18:44)
[2016-04-09] MEDS ORDERED: *HR* OxyCODONE Immed Rel 5 MG TABLET PO PRN (18:44)
[2016-04-09] MEDS ORDERED: Nitroglycerin 0.4 MG TAB.SUBL SL PRN (18:44)
[2016-04-09] MEDS ORDERED: Naloxone 0.4 MG/ML INJ IVP PRN (18:44)
[2016-04-09] MEDS ORDERED: *HR* HYDROmorphone (PF) 1 MG/ML SYRINGE IVP PRN (18:44)
[2016-04-09] MEDS ORDERED: *HR* Morphine 2 MG/ML SYRINGE IVP PRN (18:44)
[2016-04-09] MEDS ORDERED: Ondansetron 4 MG/2 ML VIAL IVP PRN (18:44)
[2016-04-09] MEDS ORDERED: Acetaminophen 325 MG TABLET PO PRN (18:44)
[2016-04-09] MEDS ORDERED: Albuterol Neb 1.25 MG/3 ML VIAL IH ONE (18:44)
[2016-04-09] MEDS ORDERED: Potassium Chloride 20 MEQ, Lidocaine 1% 2 ML in D5% in Water 250 ML IVPB ONE (20:43)
[2016-04-09] MEDS: hydrOXYzine pamoate 25 MG CAPSULE PO SCH (23:15)
[2016-04-09] MEDS: Aspirin Enteric Coated 325 MG Tablet PO SCH (23:17)
[2016-04-09] MEDS: Carbidopa/Levodopa ER 50/200 TABLET PO SCH (23:17)
[2016-04-09] MEDS: ceFAZolin 2,000 MG in D5% in Water 100 ML IVPB SCH (23:33)
[2016-04-10] MEDS: Piperacillin/Tazobactam 3.375 GM in D5% in Water (Mini-Bag+) 100 ML IVPB SCH ×3 (00:14→16:21)
[2016-04-10 06:14] LABS: Hematocrit 27.3 % (35.3-44.9); Hemoglobin 8.8 g/dL (11.5-15.4)
[2016-04-10] MEDS: Carbidopa/Levodopa 25/100 TABLET PO SCH ×3 (06:23→21:27)
--- NOTE | 2016-04-10 06:43 | Orthopedics Progress Note ---
Date of Encounter: 04/10/16 Time of Encounter: 06:42 Subjective Interval history: Patient was seen this morning doing well without complaints. Afebrile vital signs stable. Operative extremity: Neurovascularly intact Dressing clean dry and intact Calves nontender Assessment and plan: Continue with postoperative care Hematocrit 27 transfuse 1 unit knee immobilizer right lower extremity nonweightbearing right lower extremity orthopedically stable for discharge in a.m. Objective Vital signs: Vital Signs Temp Pulse Resp BP Pulse Ox 04/10/16 06:29 98.1 F 82 18 121/70 96 04/10/16 04:00 99.2 F 84 18 148/66 96 04/10/16 00:00 99.9 F H 72 15 147/70 97 04/09/16 22:00 99.1 F 60 18 157/68 99 04/09/16 21:00 98.6 F 65 16 160/70 98 04/09/16 20:31 14 98 04/09/16 19:58 98.1 F 56 16 131/52 98 04/09/16 19:30 98.5 F 55 16 112/65 99 04/09/16 18:54 98.3 F 64 16 143/56 99 04/09/16 18:30 97.8 F 80 16 140/67 97 04/09/16 18:20 64 16 140/61 92 L 04/09/16 18:10 81 16 142/83 95 04/09/16 18:00 97.7 F 82 16 126/101 97 04/09/16 17:50 83 16 221/194 97 04/09/16 17:40 85 16 141/75 97 04/09/16 17:30 97.2 F L 80 18 143/72 100 04/09/16 13:13 98.4 F 98 119/57 04/09/16 11:02 100.0 F H 80 18 107/67 94 L Intake and Output 04/09/16 04/09/16 04/10/16 15:59 23:59 07:59 Intake Total 1300 / 1300 20 / 20 300 / 300 Output Total 550 / 550 400 / 400 Balance 1300 / 1300 -530 / -530 -100 / -100 Intake: IV Fluids 1300 / 1300 100 / 100 0.9 % Sodium Chloride 1, 1000 / 1000 000 ML @ 3750 mls/hr IVC .Q16M ONE Rx#:[id number] Ofirmev 1,000 mg In 100 100 / 100 ml @ 400 mls/hr IVPB Q6HR PRN Rx#:[id number] Ancef 2,000 MG In 100 / 100 Dextrose 5% 100 ML @ 200 mls/hr IVPB Q8HR [facility] Rx#: [id number] Zosyn 3.375 GM In 200 / 200 Dextrose 5% (Minibag+) 100 ML 100 ML @ 25 mls/hr IVPB Q8HR [facility] Rx#: [id number] Oral 20 / 20 200 / 200 Output: Estimated Blood Loss 200 / 200 Catheter 350 / 350 400 / 400 - Labs CBC & BMP: 04/10/16 05:11 04/09/16 13:24 Labs: Abnormal lab results RBC 3.25 M/mcL (3.82-4.97) L 04/09/16 05:35 Hgb 8.8 g/dL (11.5-15.4) L 04/10/16 05:11 Hct 27.3 % (35.3-44.9) L 04/10/16 05:11 RDW 14.7 % (11.5-14.5) H 04/09/16 05:35 PT 12.7 Seconds (9.4-12.1) H 04/07/16 16:26 Potassium 3.4 mEq/L (3.5-4.5) L 04/09/16 13:24 Glucose 117 mg/dL (70-99) H 04/09/16 13:24 Calcium 8.0 mg/dL (8.6-10.8) L 04/09/16 13:24 Serum Total Protein 5.8 g/dL (6.0-8.3) L 04/09/16 13:24 Albumin 2.6 g/dL (3.5-5.0) L D 04/09/16 13:24 Albumin/Globulin Ratio 0.8 (1.1-2.2) L 04/09/16 13:24 Urine Clarity Cloudy (Clear) A 04/07/16 21:25 Ur Leukocyte Esterase Moderate (Negative) H 04/07/16 21:25 Urine Microscopic WBC 50-100 per hpf (0-3) H 04/07/16 21:25 Ur Squamous Epith Cells Many per lpf (None-Few) H 04/07/16 21:25 Ur Culture Indicated? YES (NO) A 04/07/16 21:25 - VTE Documentation of Mechanical Device: Venous foot pump, device Consult Discharge Plan - Plan Referrals: Frances Reilly MD [Primary Care Provider] -
[2016-04-10] MEDS ORDERED: Furosemide 20 MG/2 ML VIAL IVP PRN (06:45)
[2016-04-10] MEDS ORDERED: 0.9 % Sodium Chloride 250 ML IVC PRN (06:45)
--- NOTE | 2016-04-10 06:53 | Venous Imaging Report ---
LE Venous Duplex Patient Name:Lexi Hicks Order Number:[id number] Procedure Date:04/08/2016 Date:4Age:70 yrs Gender:Female Location:[facility] Room #: 3NE18 Voice Over Artist:Adilene Curry RDCS Referring MD:Velasquez Tiwari DO collarette separator:Frances Reilly MD Reading MD:Walter Villegas MD Primary Indications:Swelling of limb Secondary Indications: Risk Factors Yes/No Hx of DVT Unknown Impressions: Lower extremity abnormal deep exam: right superficial femoral vein demonstrates acute thrombosis. Recommendations: Test completed on 04/08/2016 at 8:55:00 pm. Critical findings reported to YESY Wood in person at 8:56:00 pm on 04/08/2016 by Adilene Curry RDCS. Findings Venous Duplex Results: Right: Venous imaging of the lower extremity reveals full patency and normal vessel compressibility of the right distal iliac, right common femoral, right popliteal and right great saphenous. Doppler signals in the evaluated veins were normal. There is an acute partially occlusive thrombus seen in the right proximal superficial femoral. It demonstrates a partially compressible vein. Flow was phasic and it did augment. The right popliteal and right lesser saphenous veins were not well visualized. The right posterior tibial and right peroneal veins were not assessed. Prior Study: No prior study available for comparison. Lower Extremity Venous Duplex Side Vein Compress Spontaneous Flow Augment Diameter (cm) Depth (cm) Right Distal Iliac Normal yes Phasic yes Right Common Femoral Normal yes Phasic yes Right Superficial Femoral Partial yes Phasic yes Right Popliteal Normal yes Phasic yes Right Posterior Tibial Right Peroneal Right Great Saphenous Normal yes Phasic yes Right Lesser Saphenous Updated by Walter Villegas MD on 04/10/2016 6:47:43 AM electronically signed on 04/10/2016 6:47:57 AM with status of Final
[2016-04-10 08:45] LABS: Basophils % 0.1 %; Hematocrit 27.5 % (35.3-44.9); Hemoglobin 8.7 g/dL (11.5-15.4); Immature Granulocytes % 0.3 % (0-4); Lymphocytes # 0.6 K/mcL (0.6-4.6); Lymphocytes % 6.8 %; Mean Corpuscular HGB Conc 31.6 g/dL (31.6-35.5); Mean Corpuscular Hemoglobin 28.8 pg (28.0-33.3); Mean Corpuscular Volume 91.1 fL (83.0-100.0); Monocytes # 0.5 K/mcL (0.0-1.3); Monocytes % 5.3 %; Neutrophils # 8.2 K/mcL (1.6-8.9); Platelet Count 321 K/mcL (140-400); Red Blood Count 3.02 M/mcL (3.82-4.97); Red Cell Distribution Width 15.1 % (11.5-14.5); Segmented Neutrophils % 87.5 %
[2016-04-10 08:53] LABS: BUN/Creatinine Ratio 14 (6-26); Blood Urea Nitrogen 11 mg/dL (7-20); Calcium 7.9 mg/dL (8.6-10.8); Carbon Dioxide 21 mEq/L (19-29); Chloride 109 mEq/L (98-109); Glucose 127 mg/dL (70-99); Magnesium 1.6 mg/dL (1.6-2.6); Osmolality,Calculated 287 (280-300); Potassium 4.1 mEq/L (3.5-4.5); Sodium 138 mEq/L (136-145); eGFR For African Americans > 60 (> 60); eGFR For Non-African Americans > 60 (> 60)
[2016-04-10] MEDS ORDERED: Aspirin 325 MG TABLET PO SCH (09:00)
[2016-04-10] MEDS: Aspirin Enteric Coated 325 MG Tablet PO SCH ×2 (10:41→21:14)
[2016-04-10] MEDS: ceFAZolin 2,000 MG in D5% in Water 100 ML IVPB SCH (10:50)
--- NOTE | 2016-04-10 13:56 | Internal Med Progress Note ---
<Dawood Head - Last Filed: 04/10/16 13:51> Date of Encounter: 04/10/16 Time of Encounter: 08:30 - Assessment and plan (1) Hypomagnesemia Current Visit: No Status: Acute Assessment and plan: Patient's magnesium from 1.2 to 1.6 after she received 2 g IV yesterday. Will receive 2 g more this afternoon. (2) Femur fracture, right Current Visit: Yes Status: Acute Assessment and plan: Ms. Hicks suffered a traumatic fall from her bed resulting in a fracture of her right femur. She is recent status post right total hip. She underwent right hip repair on 04/09/2016. Patient is stable post right hip intervention. Pain controlled, lower extremities neurovascularly intact. Hemoglobin 8.7 after surgery and intramuscular hemorrhage. Plan: - Continue to hold Lovenox until hemoglobin stable. - Continue pain control per orthopedic recommendations. - Post surgical management per orthopedic service. Qualifiers: Qualified Code(s): S72.91XA - Unspecified fracture of right femur, initial encounter for closed fracture (3) Parkinson disease Current Visit: Yes Status: Chronic Assessment and plan: Patient has known Parkinson's disease. Plan: - Continue Sinemet and Aricept (4) Anemia Current Visit: No Status: Chronic Assessment and plan: Patient demonstrates anemia likely secondary to recent total hip surgery, current right hip fracture with secondary intramuscular hemorrhage, and now status post right femur repair. Patient is receiving a unit of PRBCs. Plan: - Monitor hemoglobin with labs this evening. - Repeat H&H with a.m. labs. - 1 labs are stable plan to restart Lovenox. Qualifiers: Anemia type: unspecified type Qualified Code(s): D64.9 - Anemia, unspecified (5) UTI (urinary tract infection) Current Visit: Yes Status: Acute Assessment and plan: Urinalysis is concerning for urinary tract infection. Urine culture demonstrates gram-positive cocci. Plan: -Continue Zosyn and vancomycin. Qualifiers: Qualified Code(s): N39.0 - Urinary tract infection, site not specified (6) DVT (deep venous thrombosis) Current Visit: Yes Status: Acute Assessment and plan: Patient was found to have a right superfical femoral thrombosis. She will require theraputic Lovenox for DVT coverage post operation. Qualifiers: DVT location: lower extremity Affected thrombotic vein of extremity: femoral Laterality: right Chronicity: acute Qualified Code(s): I82.411 - Acute embolism and thrombosis of right femoral vein (7) DVT prophylaxis Current Visit: Yes Status: Acute Assessment and plan: Patient is on 30 mg subcutaneous Lovenox every morning. Held with anemia secondary to blood loss. - Subjective Interval history: Ms. Hicks 70-year-old female seen and evaluated patient bedside this morning. She is alert and interacting well. She is sitting up at bedside in her chair with her feet up eating breakfast. She said that she is not a complainer but does have some discomfort in her right thigh. She said she tolerated her procedure well yesterday. She denies any bowel movements or gas today. She denies any chest pain, shortness of breath, chest pressure or palpitations during this visit. - Constitutional Vitals: Temp Pulse Resp BP Pulse Ox 97.8 F 62 16 94/54 100 04/10/16 12:03 04/10/16 12:03 04/10/16 12:03 04/10/16 12:03 04/10/16 12:03 General appearance: Present: A&O X 0, no acute distress (cachetic), underweight. Absent: answers questions appropriately - Head Head exam: Present: atraumatic, normocephalic - Eye Eye exam: Present: PERRL, conjuntiva pink, sclera anicteric Pupils: Present: PERRL - Neck Neck exam general surgery: Present: supple, trachea midline. Absent: lymphadenopathy - Cardiovascular Cardiovascular exam: Present: RRR, +S1, +S2. Absent: diastolic murmur, gallop, rubs, systolic murmur - GI/Abdominal Additional comments: Abdomen slightly distended, nontender to palpation, positive bowel sounds. - Extremities Exam Additional comments: Right lower extremity thigh is soft compared to yesterday postsurgical site is clean and nondraining. Lower extremities are symmetric bilateral, appropriate capillary refill in the toes bilaterally. Patient is able to wiggle her toes and feel touch to her toes bilaterally. Upper extremities she is moving spontaneously. - Neurological Exam Neurological exam: Present: alert - Psychiatric Psychiatric exam: Present: flat affect Internal Medicine: Result - Labs CBC & Chem 7: 04/10/16 07:37 04/10/16 07:37 Labs: Short CBC 0204/10/16 04/10/16 Range/Units 17:00 05:11 07:37 WBC 9.4 (4.3-11.1) K/mcL Hgb 9.8 L 8.8 L 8.7 L (11.5-15.4) g/dL Hct 33.4 L 27.3 L 27.5 L (35.3-44.9) % Plt Count 321 (140-400) K/mcL Neutrophils # 8.2 (1.6-8.9) K/mcL BMP 04/09/16 04/10/16 13:24 07:37 Sodium 137 138 Potassium 3.4 L 4.1 Chloride 106 109 Carbon Dioxide 23 21 BUN 10 11 Creatinine 0.80 0.76 Glucose 117 H 127 H Calcium 8.0 L 7.9 L Liver Function 04/09/16 Range/Units 13:24 Total Bilirubin 0.6 (0.2-1.2) mg/dL AST 23 (5-34) Units/L ALT 10 (0-55) Units/L Alkaline Phosphatase 122 (38-126) Units/L Albumin 2.6 L D (3.5-5.0) g/dL - ABG Interpretation ABG results: PT/INR, D-dimer PT 12.7 Seconds (9.4-12.1) H 04/07/16 16:26 - Impressions Impressions Femur X-Ray 04/09/16 16:09 IMPRESSION: Status post revision of right femur intramedullary nail. There is improved alignment of the periprosthetic fracture. D/ / Christopher Santos MD / Christopher Santos MD Interpreting Provider: Christopher Santos MD Fluoroscopy 04/09/16 16:28 IMPRESSION: Intraprocedural fluoroscopic spot images as above. See separate procedure report for more information. D/ / Nima Brady MD / Nima Brady MD Interpreting Provider: Nima Brady MD - VTE Documentation of Mechanical Device: Venous foot pump, device Consult Discharge Plan - Plan Referrals: Frances Reilly MD [Primary Care Provider] - <Edin Douglass - Last Filed: 04/10/16 15:00> - Constitutional Vitals: Temp Pulse Resp BP Pulse Ox 97.8 F 62 16 94/54 100 04/10/16 12:03 04/10/16 12:03 04/10/16 12:03 04/10/16 12:03 04/10/16 12:03 Internal Medicine: Result - Labs CBC & Chem 7: 04/10/16 07:37 04/10/16 07:37 Labs: Short CBC 04/09/16 04/10/16 04/10/16 Range/Units 17:00 05:11 07:37 WBC 9.4 (4.3-11.1) K/mcL Hgb 9.8 L 8.8 L 8.7 L (11.5-15.4) g/dL Hct 33.4 L 27.3 L 27.5 L (35.3-44.9) % Plt Count 321 (140-400) K/mcL Neutrophils # 8.2 (1.6-8.9) K/mcL BMP 04/10/16 07:37 Sodium 138 Potassium 4.1 Chloride 109 Carbon Dioxide 21 BUN 11 Creatinine 0.76 Glucose 127 H Calcium 7.9 L - ABG Interpretation ABG results: PT/INR, D-dimer PT 12.7 Seconds (9.4-12.1) H 04/07/16 16:26 - Impressions Impressions Femur X-Ray 04/09/16 16:09 IMPRESSION: Status post revision of right femur intramedullary nail. There is improved alignment of the periprosthetic fracture. D/ / Christopher Santos MD / Christopher Santos MD Interpreting Provider: Christopher Santos MD Fluoroscopy 04/09/16 16:28 IMPRESSION: Intraprocedural fluoroscopic spot images as above. See separate procedure report for more information. D/ / Nima Brady MD / Nima Brady MD Interpreting Provider: Nima Brady MD - Attending Attestation I examined this patient and my medical decision-making was reviewed with the TRAIN PLANNER/PA/Advanced Practice Nurse/Resident Physician. I agree with the documented findings, disposition and treatment plan as described except to the extent set forth below. Monitor HB tomorrow in am. Remove solis today.
--- NOTE | 2016-04-10 14:51 | Electrocardiograph Report ---
[place] [address] Test Date: 2016-04-10 Pat Name: Lexi Hicks Department: 114 Room: [facility] Gender: F Pc Support Specialist: : 1945 Requested By: Edin Douglass Order Number: [id number] Reading MD: Claudia Saldaña Measurements Intervals [place] Rate: 69 P: 67 WV: 186 QRS: 27 QRSD: 82 T: 30 QT: 404 QTc: 423 Interpretive Statements SINUS RHYTHM Electronically Signed On 04-10-2016 14:49:34 EST by Claudia Saldaña
[2016-04-10] MEDS ORDERED: Magnesium Sulfate 2 GM in D5% in Water 100 ML IVPB ONE (14:59)
[2016-04-10] MEDS ORDERED: Vancomycin 750 MG in D5% in Water 250 ML IVPB SCH (15:00)
--- NOTE | 2016-04-10 18:15 | Vascular/Endovas Progress Note ---
Date of Encounter: 04/10/16 Time of Encounter: 18:13 - Assessment and plan (1) DVT (deep venous thrombosis) Current Visit: Yes Status: Acute Acute right superficial femoral vein DVT. Patient had successful femur surgery yesterday. No complications associated with placement of IVC filter. The patient is invited to return to see me on a when necessary basis. The IVC filter is retrievable but due to her overall physical condition I suspect she is not an appropriate candidate for IVC filter removal. Qualifiers: DVT location: lower extremity Affected thrombotic vein of extremity: femoral Laterality: right Chronicity: acute Qualified Code(s): I82.411 - Acute embolism and thrombosis of right femoral vein - Subjective Interval history: The patient is a 70-year-old white female who is status post placement of an IVC filter yesterday prior to her right femur surgery. She has dementia and Parkinson's disease. She cannot give me an appropriate history. She has no obvious complaints. She appears to be in no distress. Vital Signs, Last 4 Hours Temp Pulse Resp BP Pulse Ox 04/10/16 15:39 99.1 F 100 16 100/65 100 Exam: On exam today the patient is in bed on [address] She is awake. She is eating. Evaluation of the right groin puncture site is without ecchymosis or hematoma. The dressing is still intact. The edema of the right thigh is diminished. The calf is soft and nontender and nonedematous. The abdomen is soft and nontender. - VTE Documentation of Mechanical Device: Venous foot pump, device Results 04/10/16 07:37 04/10/16 07:37 Lab Results, Last 24 hours 04/10/16 04/10/16 04/10/16 05:11 07:37 07:37 WBC 9.4 Hgb 8.8 L 8.7 L Hct 27.3 L 27.5 L Plt Count 321 Sodium 138 Potassium 4.1 Chloride 109 Carbon Dioxide 21 BUN 11 Creatinine 0.76 Glucose 127 H Calcium 7.9 L Magnesium 1.6 Consult Discharge Plan - Plan Referrals: Frances Reilly MD [Primary Care Provider] -
[2016-04-10] MEDS: hydrOXYzine pamoate 25 MG CAPSULE PO SCH (21:14)
[2016-04-10] MEDS: Carbidopa/Levodopa ER 50/200 TABLET PO SCH (21:14)
[2016-04-11] MEDS: Piperacillin/Tazobactam 3.375 GM in D5% in Water (Mini-Bag+) 100 ML IVPB SCH (01:10)
[2016-04-11 03:28] LABS: Basophils % 0.2 %; Eosinophils % 0.3 %; Hematocrit 32.3 % (35.3-44.9); Immature Granulocytes % 0.5 % (0-4); Lymphocytes # 1.3 K/mcL (0.6-4.6); Lymphocytes % 10.9 %; Mean Corpuscular HGB Conc 32.2 g/dL (31.6-35.5); Mean Corpuscular Hemoglobin 28.7 pg (28.0-33.3); Mean Platelet Volume 10.6 fL (9.4-12.4); Monocytes # 0.5 K/mcL (0.0-1.3); Monocytes % 4.3 %; Neutrophils # 10.2 K/mcL (1.6-8.9); Platelet Count 328 K/mcL (140-400); Red Blood Count 3.63 M/mcL (3.82-4.97); Red Cell Distribution Width 14.8 % (11.5-14.5); Segmented Neutrophils % 83.8 %
[2016-04-11 03:39] LABS: Hemoglobin 10.4 g/dL (11.5-15.4)
[2016-04-11 03:43] LABS: Albumin 2.6 g/dL (3.5-5.0); Albumin/Globulin Ratio 0.7 (1.1-2.2); Alkaline Phosphatase 108 Units/L (38-126); Aspartate Amino Transferase 24 Units/L (5-34); BUN/Creatinine Ratio 16 (6-26); Bilirubin,Total 0.8 mg/dL (0.2-1.2); Blood Urea Nitrogen 12 mg/dL (7-20); Calcium 8.3 mg/dL (8.6-10.8); Carbon Dioxide 20 mEq/L (19-29); Chloride 112 mEq/L (98-109); Globulin 3.6 g/dL (2.4-3.5); Glucose 111 mg/dL (70-99); Osmolality,Calculated 296 (280-300); Potassium 3.5 mEq/L (3.5-4.5); Sodium 143 mEq/L (136-145); Total Protein 6.2 g/dL (6.0-8.3); eGFR For African Americans > 60 (> 60); eGFR For Non-African Americans > 60 (> 60)
[2016-04-11 03:47] LABS: Alanine Aminotransferase < 6 Units/L (0-55)
--- NOTE | 2016-04-11 06:38 | Orthopedics Progress Note ---
Date of Encounter: 04/11/16 Time of Encounter: 06:38 Subjective Interval history: Patient was seen this morning doing well without complaints. Afebrile vital signs stable. Operative extremity: Neurovascularly intact Dressing clean dry and intact Calves nontender Assessment and plan: Continue with postoperative care Orthopedically stable for discharge today Objective Vital signs: Vital Signs Temp Pulse Resp BP Pulse Ox 04/11/16 04:38 98.9 F 71 21 117/73 95 04/11/16 00:28 98.0 F 73 26 129/65 98 04/10/16 21:57 117/68 04/10/16 19:56 98.2 F 79 19 79/49 97 04/10/16 15:39 99.1 F 100 16 100/65 100 04/10/16 12:03 97.8 F 62 16 94/54 100 04/10/16 11:48 97.8 F 68 16 102/59 88 L Intake and Output 04/10/16 04/10/16 04/11/16 15:59 23:59 07:59 Intake Total 300 / 300 2019 100 / 100 Output Total 900 / 900 Balance -600 / -600 2019 100 / 100 Intake: IV Fluids 2019 100 / 100 0.9 % Sodium Chloride 1, 1000 / 1000 000 ML @ 75 mls/hr IVC . [id number] [facility] Rx#: [id number] Ancef 2,000 MG In 100 / 100 Dextrose 5% 100 ML @ 200 mls/hr IVPB Q8HR [facility] Rx#: [id number] Magnesium Sulfate 2 GM In 208 / 208 Dextrose 5% 100 ML @ 100 mls/hr IVPB ONCE ONE Rx# :[id number] Zosyn 3.375 GM In 200 / 200 100 / 100 Dextrose 5% (Minibag+) 100 ML 100 ML @ 25 mls/hr IVPB Q8HR [facility] Rx#: [id number] KCl 20 MEQ Xylocaine 2 ML 262 / 262 In Dextrose 5% 250 ML @ 131 mls/hr IVPB ONCE ONE Rx#:[id number] Vancocin 750 MG In 250 / 250 Dextrose 5% 250 ML @ 167 mls/hr IVPB Q24H [facility] Rx#: [id number] Blood Product 300 / 300 Rbcs Leuko Poor As-1 300 / 300 Unit [id number] Output: Catheter 900 / 900 Other: Stool Size Small Small Stool Consistency formed soft Stool Color Brown Brown # Bowel Movements 1 - Labs CBC & BMP: 04/11/16 02:57 04/11/16 02:57 Labs: Abnormal lab results WBC 12.2 K/mcL (4.3-11.1) H 04/11/16 02:57 RBC 3.63 M/mcL (3.82-4.97) L 04/11/16 02:57 Hgb 10.4 g/dL (11.5-15.4) L D 04/11/16 02:57 Hct 32.3 % (35.3-44.9) L 04/11/16 02:57 RDW 14.8 % (11.5-14.5) H 04/11/16 02:57 Neutrophils # 10.2 K/mcL (1.6-8.9) H 04/11/16 02:57 PT 12.7 Seconds (9.4-12.1) H 04/07/16 16:26 Chloride 112 mEq/L (98-109) H 04/11/16 02:57 Glucose 111 mg/dL (70-99) H 04/11/16 02:57 Calcium 8.3 mg/dL (8.6-10.8) L 04/11/16 02:57 Albumin 2.6 g/dL (3.5-5.0) L 04/11/16 02:57 Globulin 3.6 g/dL (2.4-3.5) H 04/11/16 02:57 Albumin/Globulin Ratio 0.7 (1.1-2.2) L 04/11/16 02:57 Urine Clarity Cloudy (Clear) A 04/07/16 21:25 Ur Leukocyte Esterase Moderate (Negative) H 04/07/16 21:25 Urine Microscopic WBC 50-100 per hpf (0-3) H 04/07/16 21:25 Ur Squamous Epith Cells Many per lpf (None-Few) H 04/07/16 21:25 Ur Culture Indicated? YES (NO) A 04/07/16 21:25 - VTE Documentation of Mechanical Device: Venous foot pump, device Consult Discharge Plan - Plan Referrals: Frances Reilly MD [Primary Care Provider] -
[2016-04-11 06:40] VITALS: BP 138/92
--- NOTE | 2016-04-11 08:40 | Discharge Summary ---
Date of Encounter: 04/11/16 Time of Encounter: 08:38 - Discharge Diagnosis (1) Femur fracture, right Priority: Primary Status: Acute Qualifiers: Qualified Code(s): S72.91XA - Unspecified fracture of right femur, initial encounter for closed fracture (2) DVT (deep venous thrombosis) Priority: Secondary Status: Acute Qualifiers: DVT location: lower extremity Affected thrombotic vein of extremity: femoral Laterality: right Chronicity: acute Qualified Code(s): I82.411 - Acute embolism and thrombosis of right femoral vein (3) UTI (urinary tract infection) Priority: Secondary Status: Acute Qualifiers: Qualified Code(s): N39.0 - Urinary tract infection, site not specified (4) Atrial fibrillation Priority: Secondary Status: Acute Qualifiers: Atrial fibrillation type: chronic Qualified Code(s): I48.2 - Chronic atrial fibrillation (5) Parkinson disease Priority: Secondary Status: Chronic - Discharge Medications Prescriptions: Nitrofurantoin (BID) [Macrobid] 100 mg PO BID 10 Days OxyCODONE Immed Rel [Roxicodone 5 MG] 10 mg PO Q4HR PRN #30 tablet PRN Reason: Severe Pain Home Medications: Aspirin 325 mg PO DAILY 02/28/16 [History] Carbidopa/Levodopa 25/100 [Sinemet 25/100] 2 each PO TID 02/28/16 [History] Carbidopa/Levodopa ER 50/200 [Sinemet ER 50-200 Tab] 1 each PO HS 02/28/16 [ History] Docusate [Colace] 100 mg PO DAILY PRN 02/28/16 [History] Donepezil [Aricept] 10 mg PO HS 02/28/16 [History] Gabapentin [Neurontin] 100 mg PO TID PRN 02/28/16 [History] HydrOXYzine Pamoate [Hydroxyzine Pamoate] 25 mg PO HS 02/28/16 [History] Lactose-Reduced Food [Ensure Liquid] 1 bottle PO 5XD 02/28/16 [History] Omeprazole [PriLOSEC] 40 mg PO DAILY 02/28/16 [History] Acetaminophen [Tylenol] 650 mg PO Q6HR PRN #0 tablet 03/18/16 [Rx] Atorvastatin [Lipitor] 40 mg PO HS tablet 03/18/16 [Rx] HydrOXYzine Pamoate 25 mg PO TID PRN #30 capsule 03/18/16 [Rx] Ipratropium/Albuterol Neb [Duoneb] 3 ml IH [id number] PRN #0 inhsol 03/18/16 [Rx] Lisinopril [Zestril] 2.5 mg PO DAILY tablet 03/18/16 [Rx] Metoprolol [Lopressor] 12.5 mg PO BID tablet 03/18/16 [Rx] Nitroglycerin 0.4 mg SL Q5MIN PRN #0 tab.subl 03/18/16 [Rx] Oxycodone HCl 10 mg PO Q4HR PRN #30 tablet 03/18/16 [Rx] Nitrofurantoin (BID) [Macrobid] 100 mg PO BID 10 Days 04/11/16 [Rx] OxyCODONE Immed Rel [Roxicodone 5 MG] 10 mg PO Q4HR PRN #30 tablet 04/11/16 [Rx] Allergies/Adverse Reactions: Allergies fentanyl Allergy (Verified 10/31/14 09:49) Vomiting ondansetron [From Zofran (as hydrochloride)] Allergy (Verified 10/31/14 09:49) Headache Procedures/tests Complete & Pending: Procedures Performed prior 72 hours Category Date Time Status CT LE RT wo con [CT] Stat Cat Scan 04/08/16 18:35 Completed CL IVC Filter [CL] Routine Internal Affairs Commander 04/09/16 11:10 Completed ECG 12 lead ECG [ECG] Routine Y 04/10/16 11:46 Completed Venous Doppler [EV venous imaging LE RT] Routine Y 04/08/16 18:36 Completed Date of admission: 04/07/16 23:19 Primary care physician: Frances Reilly Consults: 04/09/16 18:44 Consult to Occupational Therapy [CONS] Routine Comment: Evaluate, develop and implement POC Consult to Orthopedic Navigator [CONS] [CONS] Routine Consult to Physical Therapy [CONS] Routine Comment: Nonweightbearing right lower extremity RT Post Op Consult [CONS] Routine Discharging clinician: Edin Douglass Anticipated date of discharge: 04/11/16 - Patient Status Disposition: Transfer SNF Condition: Fair Functional capacity at discharge: bed bound Overall status at discharge: patient is not back to baseline - Discharge Instructions Follow Up With: Frances Reilly MD [Primary Care Provider] - - Diet and Activity Activity: as per physical therapy Diet: advance to your usual diet Interval History: Ms. Hicks is a 70 year old female with PMH of Parkison's disease, severe dementia, hypertension, afib (not on anticoagulation), recent right hip fx s/p surgery who is brought to the ER from SNF s/p fall. Patient was noted to have a fall from bed and due to severe painful distress she was brought to the ER. Patient is somnolent but arousable. As per family ( Hadley Hicks) patient only communicates with family and has been communicating less over the last few months. In the ER patient was noted to a displaced right femur fracture and orthopedic surgery was called by the ER physician. Patient was also noted to be septic and was started on empiric IV abx. At this time she is resting in bed, somnolent but opens eyes, she is not communicating, however as per , patient has intermittent episodes of such behaviour. I had a detailed discussion with patient's (Hadley Hicks) and as per patient's wishes, they want her to be Full code at this time, however they do not want any materials engineering technician life support. They also wish to chose a different rehab facility after discharge. Hospital course: Ms. Hicks is a 70 year old female admitted status post fall. She has a history of Parkinson disease, dementia, hypertension, atrial fibrillation (she was not on anticoagulation). Upon evaluation she had evidence of right femoral shaft fracture. She went to the operating room on April 09. However, prior to the surgery she was found to have right lower extremity swelling and a venous duplex was obtained which was consistent with a deep venous thrombosis. Additionally, she had a CT of the lower extremity which revealed a large musculature of the right thigh consistent with edema and intramuscular hemorrhage. The patient in light of bleeding and deep venous thrombosis and underwent IVC filter placement by vascular surgery. Afterwards she went to the operating room. Operative report is shown below. Date of procedure: 04/09/16 Pre-op diagnosis: Right femoral shaft fracture below intramedullary trochanteric femoral nail Post-op diagnosis: same Procedure: Procedure: Right femur removal of hardware open reduction intramedullary nail fixation femoral shaft fracture Estimated blood loss: 100 mL Hardware: Synthes 12 x 340 1 helical blade 1 distal locking bolt 1 trochanteric femoral nail Procedure dictation: Patient brought to the operating room. After general anesthesia was administered the patient was placed on the fracture table. Left leg was placed in the well leg streeter right leg was placed in the leg streeter the right lower extremity was prepped and draped in sterile surgical fashion patient she divan box first incision. A standard approach is made through the old incision to the right greater trochanter incision made through skin subcutaneous tissue hemostasis was obtained using Bovie cautery using careful blunt dissection the fascia was identified and incised. The gluteus medius was split the nail was identified. The entry hole was cleaned of debris the proximal locking bolt was backed out. Attention was then turned to removal of the helical blade to the lateral incision the incision was made through skin and subcutaneous tissue hemostasis was obtained with Bovie cautery the vastus lateralis was split the helical blade was palpated and removed. The nail was removed. A guidepin was placed through the entry hole across the fracture site into the distal fragment of the femur. It was measured and a 12 x 340 mm Synthes trochanteric femoral nail was placed. Position of hardware as well as fracture reduction was found to be acceptable in the AP and lateral planes. Through the previous lateral incision the helical blade was placed through the nail over the guidewire into the femoral head was locked in place with the proximal locking bolt. Distal locking bolt was placed through a distal lateral incision utilizing fluoroscopic assistance from lateral to medial through the nail. Fluoroscopy confirmed position of hardware as well as fracture reduction. Wounds were irrigated fashion was closed with #1 PDS suture superficially with 0 PDS suture skin was closed with skin melissa patient was placed in sterile dressing postoperative brace extubated transferred to recovery in stable condition. Anesthesia: GETA Surgeon: Venkatesh Salcedo Condition: stable Disposition: PACU The patient did not present fever during the admission, however there was evidence of a positive urine culture for gram positive bacteria. Final result was consistent with a staph epidermidis. We will continue therapy with Macrobid. The patient does not complain of any symptoms however she has history of dementia. So we will treat accordingly. Magnesium levels were low, magnesium was supplemented accordingly and hypomagnesemia was fixed. At this point in in light of history of recent bleeding in patient with low hemoglobin will not start anticoagulation. The patient has an IVC filter which at this point is indicated and will provide prevention for possible pulmonary embolisms. Initial hemoglobin was 11.1, after the surgery the patient's hemoglobin went down to 8.7. She received 1 unit of PRBC. We will continue with pain control. She was evaluated by the orthopedic surgeon and she was considered stable for discharge. The patient will continue her outpatient inpatient rehabilitation facility. We will provide pain medications accordingly. - Time Spent with Patient Total time spent providing and/or coordinating discharge services: Greater than 30 minutes - Constitutional Vitals: Temp Pulse Resp BP Pulse Ox 98.8 F 87 18 138/92 100 04/11/16 06:37 04/11/16 06:37 04/11/16 06:37 04/11/16 06:37 04/11/16 06:37 General appearance: Present: A&O X 0, no acute distress (cachetic), underweight. Absent: answers questions appropriately Exam: dementia - Head Head exam: Present: atraumatic, normocephalic - Eye Eye exam: Present: PERRL, conjuntiva pink, sclera anicteric Pupils: Present: PERRL - Neck Neck exam general surgery: Present: supple, trachea midline. Absent: lymphadenopathy - Respiratory Respiratory exam: Present: CTAB. Absent: accessory muscle use, rales, rhonchi, wheezes - Cardiovascular Cardiovascular exam: Present: RRR, +S1, +S2. Absent: diastolic murmur, gallop, rubs, systolic murmur - GI/Abdominal GI/Abdominal exam: Present: normal bowel sounds, soft, no peritoneal signs. Absent: distended, tenderness - Extremities Exam Extremities exam: Present: warm, radial pulses palpable and symetrical. Absent : calf tenderness, cyanotic, pedal edema Additional comments: right thigh swelling, non erythematous. - Neurological Exam Neurological exam: Present: CN II-XII intact, oriented X3, no focal deficits. Absent: pronater drift, facial droop, speech deficit - Skin Skin exam: Present: dry, intact - VTE Documentation of Mechanical Device: Venous foot pump, device
--- NOTE | 2016-04-11 08:50 | Physician Discharge Referral ---
ExtendedCare Referral Info Transfer To: SNF Provider in Charge after Transfer: PCP Institutional Level of Care: Skilled - Diagnosis (1) Femur fracture, right Status: Acute (2) DVT (deep venous thrombosis) Status: Acute (3) UTI (urinary tract infection) Status: Acute (4) Atrial fibrillation Status: Acute (5) Parkinson disease Status: Chronic - Transfer Medications Prescriptions: Nitrofurantoin (BID) [Macrobid] 100 mg PO BID 10 Days OxyCODONE Immed Rel [Roxicodone 5 MG] 10 mg PO Q4HR PRN #30 tablet PRN Reason: Severe Pain Home Medications: Aspirin 325 mg PO DAILY 02/28/16 [History] Carbidopa/Levodopa 25/100 [Sinemet 25/100] 2 each PO TID 02/28/16 [History] Carbidopa/Levodopa ER 50/200 [Sinemet ER 50-200 Tab] 1 each PO HS 02/28/16 [ History] Docusate [Colace] 100 mg PO DAILY PRN 02/28/16 [History] Donepezil [Aricept] 10 mg PO HS 02/28/16 [History] Gabapentin [Neurontin] 100 mg PO TID PRN 02/28/16 [History] HydrOXYzine Pamoate [Hydroxyzine Pamoate] 25 mg PO HS 02/28/16 [History] Lactose-Reduced Food [Ensure Liquid] 1 bottle PO 5XD 02/28/16 [History] Omeprazole [PriLOSEC] 40 mg PO DAILY 02/28/16 [History] Acetaminophen [Tylenol] 650 mg PO Q6HR PRN #0 tablet 03/18/16 [Rx] Atorvastatin [Lipitor] 40 mg PO HS tablet 03/18/16 [Rx] HydrOXYzine Pamoate 25 mg PO TID PRN #30 capsule 03/18/16 [Rx] Ipratropium/Albuterol Neb [Duoneb] 3 ml IH [id number] PRN #0 inhsol 03/18/16 [Rx] Lisinopril [Zestril] 2.5 mg PO DAILY tablet 03/18/16 [Rx] Metoprolol [Lopressor] 12.5 mg PO BID tablet 03/18/16 [Rx] Nitroglycerin 0.4 mg SL Q5MIN PRN #0 tab.subl 03/18/16 [Rx] Oxycodone HCl 10 mg PO Q4HR PRN #30 tablet 03/18/16 [Rx] Nitrofurantoin (BID) [Macrobid] 100 mg PO BID 10 Days 04/11/16 [Rx] OxyCODONE Immed Rel [Roxicodone 5 MG] 10 mg PO Q4HR PRN #30 tablet 04/11/16 [Rx] Allergies/Adverse Reactions: Allergies fentanyl Allergy (Verified 10/31/14 09:49) Vomiting ondansetron [From Zofran (as hydrochloride)] Allergy (Verified 10/31/14 09:49) Headache - Respiratory Orders Smoking Cessation: Smoking cessation has been advised. For more information, call the [place] Tobacco Quit Line at 0-421-[facility]-NOW. - Advance Directives Code Status: Full Code - Mobility Orders Other ( per PT) - Rehabiliation Orders Rehab Potential: Fair Rehab Orders: ROM Exercises, Evaluation for Physical Therapy, Evaluation for Occupational Therapy - Diet Orders Regular CERTIFICATION: I certify that the transfer of the above named patient to an Extended Care Facility is necessary for the continuing treatment of the diagnosis listed. The above information is true and accurate reflection of patient's current condition. Confidential - Redisclosure prohibited without a patient's written consent.
[2016-04-11] MEDS: Aspirin Enteric Coated 325 MG Tablet PO SCH (09:21)
[2016-04-11] MEDS: Carbidopa/Levodopa 25/100 TABLET PO SCH (09:21)
[2016-04-11] MEDS ORDERED: Aminoglycoside Consult 1 EACH MC ONE (10:39)
[2016-04-11] MEDS ORDERED: Nitrofurantoin (BID) 100 MG CAPSULE PO SCH (17:00)
== END 2016-04-11 10:40 | DRG 308 ==
LOC: 3NENU 14:55 → EMEROO 14:55 → 3NENU 18:49
PROVIDERS: ADMIT Internal Medicine; ATTEND Internal Medicine

== ENCOUNTER 2016-08-23 21:24 | Inpatient (IN) ==
[2016-08-23 21:47] LABS: Bilirubin,Urine Negative (Negative); Blood,Urine Negative (Negative); Clarity,Urine Cloudy (Clear); Color,Urine Dark Yellow (Yellow); Glucose,Urine (UA) Normal (Normal); Ketones,Urine Trace mg/dL (Negative); Leukocyte Esterase,Urine Moderate (Negative); Nitrite,Urine Negative (Negative); PH,Urine 5.5 pH Units (5.0-8.0); Protein,Urine 30 mg/dL (Neg-Trace); Specific Gravity,Urine 1.018 (1.010-1.025); Urobilinogen,Urine Normal (Normal)
[2016-08-23 21:49] LABS: Bacteria,Urine Many per hpf (None-Few); Hyaline Casts,Urine Few per lpf (None-Few); RBC,Urine 0-3 per hpf (0-3); Squamous Epithelial Cell,Urine Many per lpf (None-Few); WBC,Urine 15-30 per hpf (0-3)
[2016-08-23 21:53] LABS: Amphetamine Screen,Urine Negative ng/mL (Cutoff=1000); Barbiturate Screen,Urine Negative ng/mL (Cutoff=200); Benzodiazepines Screen,Urine Negative ng/mL (Cutoff=200); Cannabinoid Screen,Urine Negative ng/mL (Cutoff = 50); Cocaine Screen,Urine Negative ng/mL (Cutoff= 300); Opiate Screen,Urine Positive ng/mL (Cutoff=300); Phencyclidine Screen,Urine Negative ng/mL (Cutoff=25)
[2016-08-23 21:54] LABS: Basophils # 0.1 K/mcL (0.0-0.2); Basophils % 0.6 %; Eosinophils # 0.3 K/mcL (0.0-0.6); Eosinophils % 3.7 %; Hematocrit 34.7 % (35.3-44.9); Hemoglobin 11.2 g/dL (11.5-15.4); Immature Granulocytes % 0.5 % (0-4); Lymphocytes # 1.5 K/mcL (0.6-4.6); Lymphocytes % 18.4 %; Mean Corpuscular HGB Conc 32.3 g/dL (31.6-35.5); Mean Corpuscular Hemoglobin 27.9 pg (28.0-33.3); Mean Corpuscular Volume 86.5 fL (83.0-100.0); Mean Platelet Volume 10.2 fL (9.4-12.4); Monocytes # 0.5 K/mcL (0.0-1.3); Monocytes % 6.2 %; Neutrophils # 5.6 K/mcL (1.6-8.9); Platelet Count 241 K/mcL (140-400); Red Blood Count 4.01 M/mcL (3.82-4.97); Red Cell Distribution Width 15.7 % (11.5-14.5); Segmented Neutrophils % 70.6 %
--- NOTE | 2016-08-23 22:03 | Emergency Department Note ---
Disposition Clinical Impression: Septic shock, Elevated troponin I level, SOL (acute kidney injury), Multifocal pneumonia, Hypokalemia, Hypomagnesemia Altered mental status Qualifiers: Altered mental status type: somnolence Qualified Code(s): R40.0 - Somnolence Disposition: Admitted As Inpatient Condition: Critical Time of Disposition: 23:15 Altered Mental Status HPI - General Chief Complaint: ED Altered Mental Status Stated Complaint: AMS/low BP Time Seen by Provider: 08/23/16 21:26 Source: patient, EMS Mode of arrival: EMS Limitations: altered mental status Nursing Notes Reviewed: Yes Vital Signs Reviewed: Yes - History of Present Illness HPI Narrative: Patient is a 71-year-old female who presents to [facility] ED via EMS from [facility]. EMS was called there for concern for altered mental status as well as low blood pressures. She was found to have blood pressure 70s over 40s. Patient's past medical history significant for her disease, atrial fibrillation, CHF, HTN, RA, COPD. upon arriving to the emergency department, patient is able to answer some questions. I spoke with the half-way facility nurse who states patient is normally able to converse and have a fluid conversation though she is demented. She is able to walk with assistance. Was initially at [facility] with a hip fracture and multiple falls. 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 Timing confirmed by: caregiver - Related Data Home Medications Medication Instructions Recorded Confirmed Aspirin 325 mg PO DAILY 02/28/16 04/07/16 Carbidopa/Levodopa 25/100 [Sinemet 2 each PO TID 02/28/16 04/07/16 25/100] Carbidopa/Levodopa ER 50/200 1 each PO HS 02/28/16 04/07/16 [Sinemet ER 50-200 Tab] Docusate [Colace] 100 mg PO DAILY PRN 02/28/16 04/07/16 Donepezil [Aricept] 10 mg PO HS 02/28/16 04/07/16 Gabapentin [Neurontin] 100 mg PO TID PRN 02/28/16 04/07/16 Lactose-Reduced Food [Ensure 1 bottle PO 5XD 02/28/16 04/07/16 Liquid] Omeprazole [PriLOSEC] 40 mg PO DAILY 02/28/16 04/07/16 hydrOXYzine pamoate [Hydroxyzine 25 mg PO HS 02/28/16 04/07/16 Pamoate] Previous Rx's Medication Instructions Recorded Acetaminophen [Tylenol] 650 mg PO Q6HR PRN #0 tablet 03/18/16 Atorvastatin [Lipitor] 40 mg PO HS tablet 03/18/16 Ipratropium/Albuterol Neb [Duoneb] 3 ml IH [id number] PRN #0 inhsol 03/18/16 Lisinopril [Zestril] 2.5 mg PO DAILY tablet 03/18/16 Metoprolol [Lopressor] 12.5 mg PO BID tablet 03/18/16 Nitroglycerin 0.4 mg SL Q5MIN PRN #0 tab.subl 03/18/16 Oxycodone HCl 10 mg PO Q4HR PRN #30 tablet 03/18/16 hydrOXYzine pamoate [HydrOXYzine 25 mg PO TID PRN #30 capsule 03/18/16 Pamoate] Nitrofurantoin (BID) [Macrobid] 100 mg PO BID 10 Days 04/11/16 OxyCODONE Immed Rel [Roxicodone 5 10 mg PO Q4HR PRN #30 tablet 04/11/16 MG] Allergies Allergy/AdvReac Type Severity Reaction Status Date / Time fentanyl Allergy Vomiting Verified 10/31/14 09:49 ondansetron Allergy Headache Verified 10/31/14 09:49 [From Zofran (as hydrochloride)] Limitations: ROS unobtainable due to patients medical condition Past Medical History - Past Medical History Source: old records reviewed, nursing notes reviewed Medical history: Reports: arthritis, atrial fibrillation, CHF, COPD, DVT, dementia, GERD, hypertension, osteoporosis, RA, other Surgical history: Reports: , orthopedic, other, other Psychiatric history: Reports: anxiety, panic disorder, other COMM[employer]CIAL M[employer]AGE [employer]ER history: Reports: 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 - Social History Smoking Status: Never smoker Smokeless Tobacco Status: No Alcohol use: Reports: none Drug use: Reports: none Physical Exam - General Limitations: altered mental status General appearance: alert, in no apparent distress, cachectic - Head Head exam: atraumatic, normocephalic, normal inspection - Eye Eye exam: Present: normal appearance, PERRL, EOMI - ENT ENT exam: normal exam, normal oropharynx, mucous membranes moist - Neck Neck exam: Present: normal inspection, full ROM, trachea midline - Chest Chest inspection: Present: normal inspection, symmetric chest wall rise - Respiratory Respiratory exam: Present: normal lung sounds bilaterally - Cardiovascular Cardiovascular exam: Present: normal rhythm, bradycardia - Abdominal Exam Abdominal exam: Present: soft, Non-Tender. Absent: tenderness, distention, guarding, rebound, rigidity - Extremities Exam Extremities exam: Present: normal inspection, full ROM. Absent: tenderness, pedal edema - Back Exam Back exam: Present: normal inspection, full ROM. Absent: tenderness - Skin Skin exam: Present: warm, dry, intact, normal color Course Course Narrative: Patient seen and examined. Altered mental status with low blood pressures 70s/ 40s. Concern for sepsis. ED sepsis workup was initiated. - Reevaluation(s) Reevaluation #1: Chest x-ray shows multifocal pneumonia. 3 L fluid bolus was ordered. Broad- spectrum HCAP Pneumonia antibiotics were initiated. Since patient did not have any response to fluid resuscitation, the decision was made to place a central line. Central line placed in the right internal jugular vein without any complications. Levophed initiated. Patient also has a troponin of 0.07. Suspect this is secondary to demand ischemia. Also has signs of acute kidney injury. Patient's electrolytes including potassium and magnesium were both low. These were replaced with 40 mEq of potassium and 1 g of magnesium. Decision made admit to ICU. I spoke with hospitalist Dr. Bocanegra who has accepted patient for admission. Time: 23:37 Vital Signs Temperature 98.4 F 08/23/16 21:26 Pulse Rate 58 08/23/16 21:26 Respiratory Rate 16 08/23/16 21:26 Blood Pressure 76/48 08/23/16 21:26 O2 Sat by Pulse Oximetry 93 08/23/16 21:26 Temperature 98.4 F 08/23/16 21:26 Pulse Rate 58 08/24/16 00:30 Respiratory Rate 18 08/24/16 00:30 Blood Pressure 164/91 08/24/16 00:30 O2 Sat by Pulse Oximetry 96 08/24/16 00:30 Oxygen Delivery Oxygen Delivery Nasal Cannula Procedures - Central Line Placement Right IJ Central Line Inserted*: Yes Central Line Insertion: emergent Consent Obtained: verbal consent Procedural Pause: verify patient name and date of , timeout performed per policy, roni and assess the site, assemble equipment and verify supplies, perform hand hygiene Patient Placed on Monitor/Pulse Ox: Yes During the Procedure: clinician is wearing sterile gloves, cap, mask,& gown during insertion, sterile field and sterile technique are maintained, patient's face is covered with drape or mask and wearing a cap, everyone in room is wearing a mask Central Line Prep: Chlorhexidine scrub Prep the Procedure Site: apply chloraprep to the skin using a back and forth scrubbing motion, allow prep to dry, drape the patient with a full body drape Local Anesthetic: lidocaine 1% Amount of anesthesia used (mL): 3 Ultrasound Used for Placement: Yes Central Line Lumen Inserted: triple Post Procedure: sutured in place, good blood return, all ports aspirated, flushed, capped, sterile dressing applied, guide wire removed and visualized Post Procedure X-Ray: tip of catheter in good position, no pneumothorax seen Patient Tolerated Procedure: well Complications: none Name of Clinician Inserting Central Line: Jordyn Mcallister DO PGY3 Date: 08/23/16 Time: 10:50 Altered Mental Status - Medical Records Medical records reviewed: Yes I reviewed the patient's medical records. - Lab Data Lab results reviewed: Yes I reviewed the patient's lab results. Result diagrams: 08/23/16 21:45 08/23/16 21:45 Lab Results 08/23/16 08/23/16 08/23/16 Range/Units 21:40 21:40 21:45 WBC 7.9 (4.3-11.1) K/mcL RBC 4.01 (3.82-4.97) M/mcL Hgb 11.2 L (11.5-15.4) g/dL Hct 34.7 L (35.3-44.9) % MCV 86.5 (83.0-100.0) fL MCH 27.9 L (28.0-33.3) pg MCHC 32.3 (31.6-35.5) g/dL RDW 15.7 H (11.5-14.5) % Plt Count 241 (140-400) K/mcL MPV 10.2 (9.4-12.4) fL Immature Gran % 0.5 (0-4) % Seg Neutrophils % 70.6 % Lymphocytes % 18.4 % Monocytes % 6.2 % Eosinophils % 3.7 % Basophils % 0.6 % Neutrophils # 5.6 (1.6-8.9) K/mcL Lymphocytes # 1.5 (0.6-4.6) K/mcL Monocytes # 0.5 (0.0-1.3) K/mcL Eosinophils # 0.3 (0.0-0.6) K/mcL Basophils # 0.1 (0.0-0.2) K/mcL Sodium (136-145) mEq/L Potassium (3.5-4.5) mEq/L Chloride (98-109) mEq/L Carbon Dioxide (19-29) mEq/L BUN (7-20) mg/dL Creatinine (0.57-1.11) mg/dL Est GFR ( Amer) (> 60) Est GFR (Non-Af Amer) (> 60) BUN/Creatinine Ratio (6-26) Glucose (70-99) mg/dL Calculated Osmolality (280-300) Lactic Acid (0.5-2.2) mmol/L Calcium (8.6-10.8) mg/dL Phosphorus (2.3-4.7) mg/dL Magnesium (1.6-2.6) mg/dL Total Bilirubin (0.2-1.2) mg/dL Direct Bilirubin (0.0-0.5) mg/dL Indirect Bilirubin (0.0-1.2) mg/dL AST (5-34) Units/L ALT (0-55) Units/L Alkaline Phosphatase (38-126) Units/L Troponin I (0-0.03) ng/mL Serum Total Protein (6.0-8.3) g/dL Albumin (3.5-5.0) g/dL Globulin (2.4-3.5) g/dL Albumin/Globulin Ratio (1.1-2.2) Ur Specimen Adequacy See below A Urine Color Dark Yellow (Yellow) Urine Clarity Cloudy A (Clear) Urine pH 5.5 (5.0-8.0) pH Units Ur Specific [place] 1.018 (1.010-1.025) Urine Protein 30 H (Neg-Trace) mg/dL Urine Glucose (UA) Normal (Normal) mg/dL Urine Ketones Trace H (Negative) mg/dL Urine Blood Negative (Negative) Urine Nitrite Negative (Negative) Urine Bilirubin Negative (Negative) Urine Urobilinogen Normal (Normal) mg/dL Ur Leukocyte Esterase Moderate H (Negative) Urine Microscopic RBC 0-3 (0-3) per hpf Urine Microscopic WBC 15-30 H (0-3) per hpf Ur Squamous Epith Cells Many H (None-Few) per lpf Urine Bacteria Many H (None-Few) per hpf Hyaline Casts Few (None-Few) per lpf Ur Culture Indicated? YES A (NO) Urine Opiates Screen Positive H (Ljxaxg=687) ng/mL Ur Barbiturates Screen Negative (Pkhcpy=084) ng/mL Ur Phencyclidine Scrn Negative (Cutoff=25) ng/mL Ur Amphetamines Screen Negative (Bpobng=5204) ng/mL U Benzodiazepines Scrn Negative (Aiyktb=241) ng/mL Urine Cocaine Screen Negative (Cutoff= 300) ng/mL U Marijuana (THC) Screen Negative (Cutoff = 50) ng/mL 08/23/16 08/23/16 08/23/16 Range/Units 21:45 21:45 21:45 WBC (4.3-11.1) K/mcL RBC (3.82-4.97) M/mcL Hgb (11.5-15.4) g/dL Hct (35.3-44.9) % MCV (83.0-100.0) fL MCH (28.0-33.3) pg MCHC (31.6-35.5) g/dL RDW (11.5-14.5) % Plt Count (140-400) K/mcL MPV (9.4-12.4) fL Immature Gran % (0-4) % Seg Neutrophils % % Lymphocytes % % Monocytes % % Eosinophils % % Basophils % % Neutrophils # (1.6-8.9) K/mcL Lymphocytes # (0.6-4.6) K/mcL Monocytes # (0.0-1.3) K/mcL Eosinophils # (0.0-0.6) K/mcL Basophils # (0.0-0.2) K/mcL Sodium 139 (136-145) mEq/L Potassium 2.1 L* (3.5-4.5) mEq/L Chloride 101 (98-109) mEq/L Carbon Dioxide 26 (19-29) mEq/L BUN 22 H (7-20) mg/dL Creatinine 1.28 H (0.57-1.11) mg/dL Est GFR ( Amer) 50 L (> 60) Est GFR (Non-Af Amer) 41 L (> 60) BUN/Creatinine Ratio 17 (6-26) Glucose 90 (70-99) mg/dL Calculated Osmolality 291 (280-300) Lactic Acid 0.7 (0.5-2.2) mmol/L Calcium 8.8 (8.6-10.8) mg/dL Phosphorus 4.3 (2.3-4.7) mg/dL Magnesium 1.2 L (1.6-2.6) mg/dL Total Bilirubin 1.2 (0.2-1.2) mg/dL Direct Bilirubin 0.7 H (0.0-0.5) mg/dL Indirect Bilirubin 0.5 (0.0-1.2) mg/dL AST 50 H (5-34) Units/L ALT 48 (0-55) Units/L Alkaline Phosphatase 271 H (38-126) Units/L Troponin I 0.07 H* (0-0.03) ng/mL Serum Total Protein 6.6 (6.0-8.3) g/dL Albumin 2.9 L (3.5-5.0) g/dL Globulin 3.7 H (2.4-3.5) g/dL Albumin/Globulin Ratio 0.8 L (1.1-2.2) Ur Specimen Adequacy Urine Color (Yellow) Urine Clarity (Clear) Urine pH (5.0-8.0) pH Units Ur Specific [place] (1.010-1.025) Urine Protein (Neg-Trace) mg/dL Urine Glucose (UA) (Normal) mg/dL Urine Ketones (Negative) mg/dL Urine Blood (Negative) Urine Nitrite (Negative) Urine Bilirubin (Negative) Urine Urobilinogen (Normal) mg/dL Ur Leukocyte Esterase (Negative) Urine Microscopic RBC (0-3) per hpf Urine Microscopic WBC (0-3) per hpf Ur Squamous Epith Cells (None-Few) per lpf Urine Bacteria (None-Few) per hpf Hyaline Casts (None-Few) per lpf Ur Culture Indicated? (NO) Urine Opiates Screen (Ntysud=471) ng/mL Ur Barbiturates Screen (Gjiuln=256) ng/mL Ur Phencyclidine Scrn (Cutoff=25) ng/mL Ur Amphetamines Screen (Kivkmg=4777) ng/mL U Benzodiazepines Scrn (Jjflwp=885) ng/mL Urine Cocaine Screen (Cutoff= 300) ng/mL U Marijuana (THC) Screen (Cutoff = 50) ng/mL 08/24/16 Range/Units 00:16 WBC (4.3-11.1) K/mcL RBC (3.82-4.97) M/mcL Hgb (11.5-15.4) g/dL Hct (35.3-44.9) % MCV (83.0-100.0) fL MCH (28.0-33.3) pg MCHC (31.6-35.5) g/dL RDW (11.5-14.5) % Plt Count (140-400) K/mcL MPV (9.4-12.4) fL Immature Gran % (0-4) % Seg Neutrophils % % Lymphocytes % % Monocytes % % Eosinophils % % Basophils % % Neutrophils # (1.6-8.9) K/mcL Lymphocytes # (0.6-4.6) K/mcL Monocytes # (0.0-1.3) K/mcL Eosinophils # (0.0-0.6) K/mcL Basophils # (0.0-0.2) K/mcL Sodium (136-145) mEq/L Potassium (3.5-4.5) mEq/L Chloride (98-109) mEq/L Carbon Dioxide (19-29) mEq/L BUN (7-20) mg/dL Creatinine (0.57-1.11) mg/dL Est GFR ( Amer) (> 60) Est GFR (Non-Af Amer) (> 60) BUN/Creatinine Ratio (6-26) Glucose (70-99) mg/dL Calculated Osmolality (280-300) Lactic Acid 1.1 (0.5-2.2) mmol/L Calcium (8.6-10.8) mg/dL Phosphorus (2.3-4.7) mg/dL Magnesium (1.6-2.6) mg/dL Total Bilirubin (0.2-1.2) mg/dL Direct Bilirubin (0.0-0.5) mg/dL Indirect Bilirubin (0.0-1.2) mg/dL AST (5-34) Units/L ALT (0-55) Units/L Alkaline Phosphatase (38-126) Units/L Troponin I (0-0.03) ng/mL Serum Total Protein (6.0-8.3) g/dL Albumin (3.5-5.0) g/dL Globulin (2.4-3.5) g/dL Albumin/Globulin Ratio (1.1-2.2) Ur Specimen Adequacy Urine Color (Yellow) Urine Clarity (Clear) Urine pH (5.0-8.0) pH Units Ur Specific [place] (1.010-1.025) Urine Protein (Neg-Trace) mg/dL Urine Glucose (UA) (Normal) mg/dL Urine Ketones (Negative) mg/dL Urine Blood (Negative) Urine Nitrite (Negative) Urine Bilirubin (Negative) Urine Urobilinogen (Normal) mg/dL Ur Leukocyte Esterase (Negative) Urine Microscopic RBC (0-3) per hpf Urine Microscopic WBC (0-3) per hpf Ur Squamous Epith Cells (None-Few) per lpf Urine Bacteria (None-Few) per hpf Hyaline Casts (None-Few) per lpf Ur Culture Indicated? (NO) Urine Opiates Screen (Ncswzb=019) ng/mL Ur Barbiturates Screen (Jtexhe=995) ng/mL Ur Phencyclidine Scrn (Cutoff=25) ng/mL Ur Amphetamines Screen (Pwyglh=1663) ng/mL U Benzodiazepines Scrn (Trhdxn=679) ng/mL Urine Cocaine Screen (Cutoff= 300) ng/mL U Marijuana (THC) Screen (Cutoff = 50) ng/mL - Radiology Data Radiology results reviewed: Yes I reviewed the patient's radiology results. Chest X-Ray 08/23/16 21:27 IMPRESSION: Dense left lower lobe airspace consolidation with mild patchy right lower lobe airspace consolidation new since prior examination suggesting multifocal pneumonia. D/ / Jayme Leiva MD / Jayme Leiva MD Interpreting Provider: Jayme Leiva MD - EKG Data EKG attestation: Yes I reviewed and interpreted this EKG. EKG results narrative: EKG done at 2128 shows normal sinus rhythm with a rate of [address] elevation or depression. Normal axis. Findings are unchanged from prior EKG done 04/10/2016. TPA Checklist - LKW: 3-4.5 hrs Add. Warnings/Precautions Patient/family understanding: The patient/family members have been counseled and understood the risk, benefit , and alternatives of treatment. Critical Care Time Critical Care Time: Yes Total Critical Care Time: 45 Attestation: Patient presented for hypertension. Found to have pneumonia. Potassium markedly low. Antibiotics for healthcare associated pneumonia initiated. Potassium supplemented. Pressors considered due to hypotension despite IV fluid resuscitation Attestation Statement - Attestation Attestation: I examined this patient and my medical decision-making was reviewed with the SKEIN DYER/PA/Advanced Practice Nurse/Resident Physician. I agree with the documented findings, disposition and treatment plan as described except to the extent set forth below. [id number] time provided Patient sent from the extended care facility due to altered mental status from baseline and hypotension. Patient is hypotensive at presentation. Sepsis pathway undertaken. She remains hypotensive despite IV fluid resuscitation. She is also hypokalemic requiring IV replacement. I did obtain consent from the patient's power of trial attorney, Hadley, by phone. He consented for central line placement 23:00: Right internal jugular central venous catheter placed by the resident physician under my supervision.
[2016-08-23 22:08] LABS: Albumin 2.9 g/dL (3.5-5.0); Albumin/Globulin Ratio 0.8 (1.1-2.2); Bilirubin,Direct 0.7 mg/dL (0.0-0.5); Bilirubin,Indirect 0.5 mg/dL (0.0-1.2); Bilirubin,Total 1.2 mg/dL (0.2-1.2); Calcium 8.8 mg/dL (8.6-10.8); Globulin 3.7 g/dL (2.4-3.5); Total Protein 6.6 g/dL (6.0-8.3)
[2016-08-23 22:12] LABS: Potassium 2.1 mEq/L (3.5-4.5)
[2016-08-23] MEDS ORDERED: Piperacillin/Tazobactam 3.375 GM in D5% in Water (Mini-Bag+) 100 ML IVPB ONE (22:12)
[2016-08-23] MEDS ORDERED: Levofloxacin 750 MG/150 ML 750 MG/150 ML BAG IVPB ONE (22:12)
[2016-08-23] MEDS ORDERED: Vancomycin 750 MG in D5% in Water 250 ML IVPB ONE (22:12)
[2016-08-23] MEDS: 0.9 % Sodium Chloride 1,000 ML IVC SCH ×2 (22:24→23:33)
[2016-08-23 22:28] LABS: Magnesium 1.2 mg/dL (1.6-2.6); Phosphorous 4.3 mg/dL (2.3-4.7)
[2016-08-23] MEDS ORDERED: Norepinephrine 4 MG in D5% in Water 250 ML IVC SCH (22:30)
[2016-08-23] MEDS ORDERED: Magnesium Sulfate 1 GM in D5% in Water 100 ML IVPB ONE (22:40)
[2016-08-24] MEDS ORDERED: Naloxone 0.4 MG/ML INJ IVP ONE (01:36)
[2016-08-24] MEDS ORDERED: Magnesium Sulfate 1 GM in D5% in Water 100 ML IVPB ONE (01:40)
[2016-08-24] MEDS ORDERED: Ipratropium/Albuterol Neb 3 ML IH PRN ×2 (01:53→13:16)
--- NOTE | 2016-08-24 01:57 | Internal Med History&Physical ---
Date of Encounter: 08/24/16 Time of Encounter: 01:52 Assessment and Plan (1) HCAP (healthcare-associated pneumonia) Current visit: Yes Status: Acute Vancomycin and Zosyn. Sputum and blood cultures. (2) Toxic metabolic encephalopathy Current visit: Yes Status: Acute Due to pneumonia. Patient is also stupors due to ineffective opiates. She has pinpoint pupils during my exam. She is hypoventilating with slow shallow breathing. I will get an arterial blood gas. Narcan 0.4 mg will be given. (3) SOL (acute kidney injury) Current visit: Yes Status: Acute Due to sepsis and hypotension. hydrate. (4) NSTEMI (non-ST elevated myocardial infarction) Current visit: Yes Status: Acute Likely non-stemi type 2 due to demand ischemia (5) Septic shock Current visit: Yes Status: Acute Patient is currently on levofed. However during my interview systolic blood pressure is 140. I have advised the nurses to start weaning levofed. (6) Full code status Current visit: Yes Status: Acute Patient is full Code. Internal Medicine - H&P: HPI Chief complaint: AMS History of present illness: Ms. Hicks is a 71 year old female who presents for emergency room after she was found to be stuporous in the long term and hypotensive. Patient daughter 's is at bedside providing history. She mentioned that she was in her usual state of health and the long term yesterday but today patient has been lethargic then stupors. She is on arousal during my interview with verbal stimuli. She was also found to be hypotensive and the long term. No further history could be obtained. Work up in the emergency room showed evidence of pneumonia. She had received fluids 30 ml/kg and remained hypotensive so ER started the patient on levofed through a central line. During my interview patient stills stuporous with pinpoint pupils. She is on oxycodone 10 mg Q4 hours for pain related to recent hip surgeries. Past Med Surg Social Fam HX - Past Medical History Medical history: arthritis, atrial fibrillation, CHF, COPD, DVT, dementia, GERD , hypertension, osteoporosis, RA, other Psychiatric history: anxiety, panic disorder, other - Past Surgical History Surgical History: , orthopedic, other, other - Social History Smoking Status: Never smoker Smokeless Tobacco Status: No Alcohol use: none Drug use: none - Family History Son Living Status: Still Living Hx Family Cardiac Disorders: No Hx Family Respiratory Disorders: No Hx Family Cancer: No Hx Family GI Disorders: Yes Hx Family Endocrine Disorder: No Internal Medicine - H&P: Meds Aspirin 325 mg PO DAILY 02/28/16 [History] Carbidopa/Levodopa 25/100 [Sinemet 25/100] 2 each PO TID 02/28/16 [History] Carbidopa/Levodopa ER 50/200 [Sinemet ER 50-200 Tab] 1 each PO HS 02/28/16 [ History] Docusate [Colace] 100 mg PO DAILY PRN 02/28/16 [History] Donepezil [Aricept] 10 mg PO HS 02/28/16 [History] Gabapentin [Neurontin] 100 mg PO TID PRN 02/28/16 [History] Lactose-Reduced Food [Ensure Liquid] 1 bottle PO 5XD 02/28/16 [History] Omeprazole [PriLOSEC] 40 mg PO DAILY 02/28/16 [History] hydrOXYzine pamoate [Hydroxyzine Pamoate] 25 mg PO HS 02/28/16 [History] Acetaminophen [Tylenol] 650 mg PO Q6HR PRN #0 tablet 03/18/16 [Rx] Atorvastatin [Lipitor] 40 mg PO HS tablet 03/18/16 [Rx] Ipratropium/Albuterol Neb [Duoneb] 3 ml IH [id number] PRN #0 inhsol 03/18/16 [Rx] Lisinopril [Zestril] 2.5 mg PO DAILY tablet 03/18/16 [Rx] Metoprolol [Lopressor] 12.5 mg PO BID tablet 03/18/16 [Rx] Nitroglycerin 0.4 mg SL Q5MIN PRN #0 tab.subl 03/18/16 [Rx] Oxycodone HCl 10 mg PO Q4HR PRN #30 tablet 03/18/16 [Rx] hydrOXYzine pamoate [HydrOXYzine Pamoate] 25 mg PO TID PRN #30 capsule 03/18/16 [Rx] Nitrofurantoin (BID) [Macrobid] 100 mg PO BID 10 Days 04/11/16 [Rx] OxyCODONE Immed Rel [Roxicodone 5 MG] 10 mg PO Q4HR PRN #30 tablet 04/11/16 [Rx] Allergies fentanyl Allergy (Verified 10/31/14 09:49) Vomiting ondansetron [From Zofran (as hydrochloride)] Allergy (Verified 10/31/14 09:49) Headache All Systems PM: A 10-system review of systems was performed and is negative for pertinent findings except as documented above in the HPI. Review of systems: Full review systems could not be obtained given patient mental status. - Constitutional Vitals: Temp Pulse Resp BP Pulse Ox 98.4 F 57 0 0/0 95 08/23/16 21:26 08/24/16 00:58 08/24/16 01:35 08/24/16 01:35 08/24/16 00:58 Exam: Gen.: patient is stuporous cardiac: normal S1 S2 no additional sounds or murmurs chest: crackles in bases abdomen soft nontender nondistended normal bowel sounds lower extremity no swelling. Neuro: no new focal deficits Internal Med - H&P Results - Labs CBC & Chem 7: 08/23/16 21:45 08/23/16 21:45
[2016-08-24] MEDS ORDERED: 0.9 % Sodium Chloride 1,000 ML IVC SCH (02:00)
[2016-08-24] MEDS ORDERED: Vancomycin 500 MG in D5% in Water 250 ML IVPB SCH (02:00)
[2016-08-24] MEDS: 0.9 % Sodium Chloride 1,000 ML IVC SCH (02:06)
[2016-08-24 02:43] LABS: ABG Base Excess -2.1 mEq/L (-2.0 to 3.0); ABG HCO3 23.2 mEQ/L (21-27); ABG Oxygen Saturation 99 % (95-98); ABG PCO2 41 mmHg (35-45); ABG PH 7.36 pH Units (7.32-7.45); ABG PO2 125 mmHg (85-104); ABG TCO2 24.5 mEq/L (20-26)
[2016-08-24 02:44] LABS: Blood Gas FiO2 28 %
[2016-08-24 04:42] LABS: VBG HCO3 23.7 mEq/L (21-27); VBG PH 7.33 pH Units (7.32-7.42)
[2016-08-24 04:44] LABS: Basophils % 0.4 %; Eosinophils # 0.3 K/mcL (0.0-0.6); Eosinophils % 3.6 %; Hematocrit 30.4 % (35.3-44.9); Hemoglobin 9.9 g/dL (11.5-15.4); Immature Granulocytes % 0.4 % (0-4); Lymphocytes % 11.8 %; Mean Corpuscular HGB Conc 32.6 g/dL (31.6-35.5); Mean Corpuscular Hemoglobin 28.8 pg (28.0-33.3); Mean Corpuscular Volume 88.4 fL (83.0-100.0); Mean Platelet Volume 11.1 fL (9.4-12.4); Monocytes # 0.6 K/mcL (0.0-1.3); Monocytes % 6.8 %; Neutrophils # 6.2 K/mcL (1.6-8.9); Platelet Count 217 K/mcL (140-400); Red Blood Count 3.44 M/mcL (3.82-4.97); Red Cell Distribution Width 15.7 % (11.5-14.5)
[2016-08-24 04:55] LABS: BUN/Creatinine Ratio 18 (6-26); Blood Urea Nitrogen 15 mg/dL (7-20); C-Reactive Protein 29 mg/L (Less than 5); Calcium 7.6 mg/dL (8.6-10.8); Carbon Dioxide 22 mEq/L (19-29); Chloride 113 mEq/L (98-109); Glucose 91 mg/dL (70-99); Magnesium 1.3 mg/dL (1.6-2.6); Osmolality,Calculated 292 (280-300); Potassium 2.6 mEq/L (3.5-4.5); Sodium 141 mEq/L (136-145); eGFR For African Americans > 60 (> 60); eGFR For Non-African Americans > 60 (> 60)
[2016-08-24] MEDS ORDERED: Magnesium Sulfate 2 GM in D5% in Water 100 ML IVPB ONE (05:29)
[2016-08-24] MEDS: *HR* Heparin 5,000 UNIT/ML VIAL SQ SCH ×4 (05:36→20:49)
[2016-08-24] MEDS ORDERED: Piperacillin/Tazobactam 3.375 GM in D5% in Water (Mini-Bag+) 100 ML IVPB SCH (08:00)
--- NOTE | 2016-08-24 08:51 | Pulmonology Consult Note ---
Date of Encounter: 08/24/16 Time of Encounter: 08:49 Assessment and Plan (1) Altered mental status Current Visit: Yes Status: Resolved 71 y/o f pmh PD, severe dementia, CHF, COPD, afib presents from [facility] with AMS/ somnolence and hypotensive. She required 3L fluid bolus and levophed. Pressures stabilized and levophed has been stopped. Patient's AMS resolved with narcan and fluids. Suspect AMS/somnolence secondary to the patient being overmedicated on oxycodone and hydroxyzine. Will replete electrolytes per protocol, stop fluids, stop levophed, swallow eval and advance diet as tolerated. Will transfer to after electrolytes replaced. 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 She was given 0.4mg narcan after arrival to the ICU. Patient alert and oriented to person and place, not time. Right foot drop and b/l LE weakness on exam that is her baseline per nursing staff at [facility]. She takes oxycodone 10mg q4hr prn, was given a dose at 1400 yesterday and sleeping in her chair at 1600. Suspect that the patient is over medicated as she is a 71 y/o female with baseline dementia and PD who has a BMI of 17 on hydroxyzine and oxycodone 10mg. Recommend evaluating her medications at discharge and decreasing her sedating medications. The patient has also had multiple falls in the last 6 months and this medication may be contributing to that. Pulmonary: CXR suggests possible multifocal pna. Patient afebrile, no leukocytosis, denies SOB or productive cough. No evidence of infection. Pt has COPD, does not seem to be an exacerbation. Will stop abx coverage, will continue duonebs. Cardiovascular: Hx of afib. Currently NSR. BP 110 systolic, MAPs in the 80s. Will stop levophed. GI: Nutrition: Swallow eval, advance diet as tolerated GI Prophylaxis Protonix Renal:SOL resolved, UOP 2200, positive 862; Hypokalemia, hypomagnesemia: will replace with K and Mg with electrolyte protocol ID:No leukocytosis, afebrile, no productive cough. No evidence of infection or sepsis. Will discontinue abx Heme/Onc: Chronic anemia, stable DVT Prophylaxis Heparin SQ Endocrine: BS stable Lines: all lines checked and no evidence of infections: Right IJ CVC, solis, peripheral IV Left AC Skin: skin care to prevent pressure ulcers per nursing routine care. CODE STATUS: FULL CODE (2) Hypotension Current Visit: Yes Status: Acute Qualifiers: Hypotension type: hypotension due to drug Qualified Code(s): I95.2 - Hypotension due to drugs (3) Hypokalemia Current Visit: Yes Status: Acute (4) Hypomagnesemia Current Visit: Yes Status: Acute (5) SOL (acute kidney injury) Current Visit: Yes Status: Resolved (6) Dementia Current Visit: Yes Status: Chronic Qualifiers: Dementia type: Parkinson's disease Dementia behavioral disturbance: without behavioral disturbance Qualified Code(s): G20 - Parkinson's disease; F02.80 - Dementia in other diseases classified elsewhere without behavioral disturbance (7) Parkinson disease Current Visit: No Status: Chronic (8) Atrial fibrillation Current Visit: No Status: Chronic Qualifiers: Atrial fibrillation type: paroxysmal Qualified Code(s): I48.0 - Paroxysmal atrial fibrillation (9) CHF (congestive heart failure) Current Visit: No Status: Chronic Qualifiers: Congestive heart failure type: unspecified congestive heart failure type Congestive heart failure chronicity: chronic Qualified Code(s): I50.9 - Heart failure, unspecified (10) Anemia Current Visit: Yes Status: Chronic Qualifiers: Anemia type: unspecified type Qualified Code(s): D64.9 - Anemia, unspecified (11) DVT prophylaxis Current Visit: Yes Status: Acute History of Present Illness Consult date: 08/24/16 Requesting physician: Sylvia Benjamin Reason for consult: pneumonia, other (septic shock) Chief complaint: AMS, septic shock History of present illness: Patient is a 71-year-old female with a PMH of dementia, PD, CHF, afib, hip fx, HTN, COPD, RA who presented to the ED via EMS from [facility]. EMS was called there for concern for altered mental status as well as low blood pressures. She was found to have blood pressure 70s over 40s. Upon arriving to the emergency department, patient was able to answer some questions. The ED provider spoke with the intermediate facility nurse who stated that the patient is normally able to converse and have a fluid conversation though she is demented, is able to walk with assistance. She was initially at [facility]. with a hip fracture and multiple falls. CXR showed multifocal pneumonia. He was started on vancomycin and Zosyn, sputum, urine and blood cultures have been obtained. The patient was given a 3 L fluid bolus, she did not have any response to fluid resuscitation and a central line was placed in the right IJ and levophed was started. She had an elevated troponin at 0.07 that was most likely secondary to demand ischemia, signs of SOL, hypokalemia and hypomagnesemia. She had 40 mEq of potassium and 1 g of magnesium replaced. During the patient's interview for admission she remained stuporous with pinpoint pupils. It was noted that she is on oxycodone 10 mg every 4 hours for pain and was given a dose of Narcan. She currently is alert and oriented to person and place, she is not oriented to time. She does have weakness in the bilateral lower extremities, right is worse than the left. I called [facility] this morning, she is still listed as full code. She has a chronic right foot drop. She does ambulate, but has been more difficult time following her fracture in March. She had a pain pill at 1400, prior to that she was up and active during the day. The patient states that she does have pain and burning with urination and has had a cough. She denies any other complaints or feeling ill prior to this admission. Past Med Surg Social Fam HX - Past Medical History Medical history: arthritis, atrial fibrillation, CHF, COPD, DVT, dementia, GERD , hypertension, osteoporosis, RA, other Psychiatric history: anxiety, panic disorder, other - Past Surgical History Surgical History: , orthopedic, other, other - Social History Smoking Status: Never smoker Smokeless Tobacco Status: No Alcohol use: none Drug use: none - Family History Son Living Status: Still Living Hx Family Cardiac Disorders: No Hx Family Respiratory Disorders: No Hx Family Cancer: No Hx Family GI Disorders: Yes Hx Family Endocrine Disorder: No Medications and Allergies Aspirin 325 mg PO DAILY 02/28/16 [History] Carbidopa/Levodopa 25/100 [Sinemet 25/100] 2 each PO TID 02/28/16 [History] Carbidopa/Levodopa ER 50/200 [Sinemet ER 50-200 Tab] 1 each PO HS 02/28/16 [ History] Docusate [Colace] 100 mg PO DAILY PRN 02/28/16 [History] Donepezil [Aricept] 10 mg PO HS 02/28/16 [History] Gabapentin [Neurontin] 100 mg PO TID PRN 02/28/16 [History] Lactose-Reduced Food [Ensure Liquid] 1 bottle PO 5XD 02/28/16 [History] Omeprazole [PriLOSEC] 40 mg PO DAILY 02/28/16 [History] hydrOXYzine pamoate [Hydroxyzine Pamoate] 25 mg PO HS 02/28/16 [History] Acetaminophen [Tylenol] 650 mg PO Q6HR PRN #0 tablet 03/18/16 [Rx] Atorvastatin [Lipitor] 40 mg PO HS tablet 03/18/16 [Rx] Ipratropium/Albuterol Neb [Duoneb] 3 ml IH [id number] PRN #0 inhsol 03/18/16 [Rx] Lisinopril [Zestril] 2.5 mg PO DAILY tablet 03/18/16 [Rx] Metoprolol [Lopressor] 12.5 mg PO BID tablet 03/18/16 [Rx] Nitroglycerin 0.4 mg SL Q5MIN PRN #0 tab.subl 03/18/16 [Rx] Oxycodone HCl 10 mg PO Q4HR PRN #30 tablet 03/18/16 [Rx] hydrOXYzine pamoate [HydrOXYzine Pamoate] 25 mg PO TID PRN #30 capsule 03/18/16 [Rx] Nitrofurantoin (BID) [Macrobid] 100 mg PO BID 10 Days 04/11/16 [Rx] OxyCODONE Immed Rel [Roxicodone 5 MG] 10 mg PO Q4HR PRN #30 tablet 04/11/16 [Rx] Allergies fentanyl Allergy (Verified 10/31/14 09:49) Vomiting ondansetron [From Zofran (as hydrochloride)] Allergy (Verified 10/31/14 09:49) Headache All Systems: A 10-system review of systems was performed and is negative for pertinent findings except as documented above in the HPI. - Constitutional Constitutional: no chills, no daytime sleepiness, no fatigue, no fever(s), no headache(s) - EENT Eyes: no loss of vision Nose, mouth and throat: no dizziness, no nasal congestion, no post-nasal drip, no sore throat - Cardiovascular Cardiovascular: no chest pain, no diaphoresis, no edema, no irregular heart rhythm, no lightheadedness - Respiratory Respiratory: cough, no dyspnea, no wheezing, no excessive phlegm production - Gastrointestinal Gastrointestinal: no abdominal pain, no cramping, no diarrhea, no heartburn, no nausea, no vomiting - Genitourinary Genitourinary: dysuria - Musculoskeletal Musculoskeletal: no myalgias - Neurological Neurological: no headache(s) - Psychiatric Psychiatric: no anxiety - Endocrine Endocrine: no palpitations Physical Examination Vital Signs: Vital Signs, Last 4 Hours Temp Pulse Resp BP Pulse Ox 08/24/16 08:24 68 08/24/16 08:00 68 16 104/67 97 08/24/16 07:40 98.8 F 08/24/16 07:00 57 16 104/63 96 08/24/16 06:10 58 13 75/51 97 08/24/16 06:00 56 08/24/16 05:10 61 12 121/74 94 General appearance: no acute distress, alert, appears uncomfortable Eyes: nonicteric ENT: oropharynx moist Neck: supple, no lymphadenopathy, no JVD Effort: normal Auscultation: bilateral: wheezes Cardiovascular: regular rate and rhythm Gastrointestinal: normoactive bowel sounds, soft, non-tender, non-distended Integumentary: normal Extremities: no cyanosis, no edema, no clubbing, pink and warm, pulses normal Musculoskeletal: no deformities pupils equal and round, CN II-XII normal, other (oriented to person and place, not oriented to time; decreased strength in b/l LE R worse than left; sensation WNL b/l UE/LE.) Results - Laboratory Findings CBC and BMP: 08/24/16 11:30 08/24/16 11:30 ABG ABG pH 7.36 pH Units (7.32-7.45) 08/24/16 02:33 ABG pCO2 41 mmHg (35-45) 08/24/16 02:33 ABG pO2 125 mmHg (85-104) H 08/24/16 02:33 ABG O2 Saturation 99 % (95-98) H 08/24/16 02:33 Abnormal lab findings: Abnormal lab results RBC 3.44 M/mcL (3.82-4.97) L 08/24/16 04:23 Hgb 9.9 g/dL (11.5-15.4) L 08/24/16 04:23 Hct 30.4 % (35.3-44.9) L 08/24/16 04:23 RDW 15.7 % (11.5-14.5) H 08/24/16 04:23 ABG pO2 125 mmHg (85-104) H 08/24/16 02:33 ABG O2 Saturation 99 % (95-98) H 08/24/16 02:33 ABG Base Excess -2.1 mEq/L (-2.0 to 3.0) L 08/24/16 02:33 VBG pO2 78 mmHg (25-40) H 08/24/16 04:23 Potassium 2.6 mEq/L (3.5-4.5) L 08/24/16 04:23 Chloride 113 mEq/L (98-109) H 08/24/16 04:23 POC Glucose 179 (58-89) H 08/24/16 01:41 Calcium 7.6 mg/dL (8.6-10.8) L 08/24/16 04:23 Magnesium 1.3 mg/dL (1.6-2.6) L 08/24/16 04:23 Direct Bilirubin 0.7 mg/dL (0.0-0.5) H 08/23/16 21:45 AST 50 Units/L (5-34) H 08/23/16 21:45 Alkaline Phosphatase 271 Units/L (38-126) H 08/23/16 21:45 Troponin I 0.17 ng/mL (0-0.03) H* 08/24/16 04:23 C-Reactive Protein 29 mg/L (Less than 5) H 08/24/16 04:23 Albumin 2.9 g/dL (3.5-5.0) L 08/23/16 21:45 Globulin 3.7 g/dL (2.4-3.5) H 08/23/16 21:45 Albumin/Globulin Ratio 0.8 (1.1-2.2) L 08/23/16 21:45 Ur Specimen Adequacy See below A 08/23/16 21:40 Urine Clarity Cloudy (Clear) A 08/23/16 21:40 Urine Protein 30 mg/dL (Neg-Trace) H 08/23/16 21:40 Urine Ketones Trace mg/dL (Negative) H 08/23/16 21:40 Ur Leukocyte Esterase Moderate (Negative) H 08/23/16 21:40 Urine Microscopic WBC 15-30 per hpf (0-3) H 08/23/16 21:40 Ur Squamous Epith Cells Many per lpf (None-Few) H 08/23/16 21:40 Urine Bacteria Many per hpf (None-Few) H 08/23/16 21:40 Ur Culture Indicated? YES (NO) A 08/23/16 21:40 Urine Opiates Screen Positive ng/mL (Qgjiae=[id number]) H 08/23/16 21:40 - Diagnostic Findings Chest x-ray: report reviewed, image reviewed Additional studies: Chest XR/XR chest 1V portable 08/23/162126 IMPRESSION: Dense left lower lobe airspace consolidation with mild patchy right lower lobe airspace consolidation new since prior examination suggesting multifocal pneumonia. D/ / Jayme Leiva MD / Jayme Leiva MD Interpreting Provider: Jayme Leiva MD Chest X-Ray 08/23/16 23:00 IMPRESSION: Right IJ catheter terminates in the superior right atrium. No pneumothorax. D/ / Christopher Santos MD / Christopher Santos MD Interpreting Provider: Christopher Santos MD - Clinical Findings Intake & Output: Intake & Output 08/23/16 08/24/16 08/24/16 23:59 07:59 15:59 Intake Total 1000 / 1000 3062.4 / 3062.4 Output Total 2200 / 2200 Balance 1000 / 1000 862.4 / 862.4 Consult Discharge Plan - Plan Referrals: Wesley Ortiz MD [Primary Care Provider] -
[2016-08-24] MEDS ORDERED: Pantoprazole 40 MG VIAL IVP SCH (09:00)
[2016-08-24] MEDS ORDERED: Calcium Gluconate 1,000 MG in D5% in Water 100 ML IVPB PRN ×2 (10:24→13:16)
[2016-08-24] MEDS ORDERED: Potassium Phosphate 44 MEQ in 0.9 % Sodium Chloride 250 ML IVPB PRN ×2 (10:24→13:16)
[2016-08-24] MEDS ORDERED: Potassium Chloride 40 MEQ/200 ML BAG IVPB PRN (10:24)
[2016-08-24] MEDS ORDERED: Magnesium Sulfate 2 GM in D5% in Water 100 ML IVPB PRN (10:24)
[2016-08-24 12:08] LABS: BUN/Creatinine Ratio 15 (6-26); Blood Urea Nitrogen 12 mg/dL (7-20); Carbon Dioxide 22 mEq/L (19-29); Chloride 113 mEq/L (98-109); Glucose 87 mg/dL (70-99); Osmolality,Calculated 297 (280-300); Potassium 2.6 mEq/L (3.5-4.5); Sodium 144 mEq/L (136-145); eGFR For African Americans > 60 (> 60); eGFR For Non-African Americans > 60 (> 60)
[2016-08-24 12:13] LABS: Basophils # 0.1 K/mcL (0.0-0.2); Basophils % 0.8 %; Eosinophils # 0.2 K/mcL (0.0-0.6); Eosinophils % 3.7 %; Hematocrit 31.5 % (35.3-44.9); Hemoglobin 10.1 g/dL (11.5-15.4); Immature Granulocytes % 0.5 % (0-4); Lymphocytes % 15.1 %; Mean Corpuscular HGB Conc 32.1 g/dL (31.6-35.5); Mean Corpuscular Hemoglobin 28.1 pg (28.0-33.3); Mean Corpuscular Volume 87.5 fL (83.0-100.0); Mean Platelet Volume 11.2 fL (9.4-12.4); Monocytes # 0.4 K/mcL (0.0-1.3); Monocytes % 6.2 %; Neutrophils # 4.7 K/mcL (1.6-8.9); Platelet Count 232 K/mcL (140-400); Red Cell Distribution Width 15.8 % (11.5-14.5); Segmented Neutrophils % 73.7 %
[2016-08-24 12:22] LABS: Magnesium 1.8 mg/dL (1.6-2.6)
[2016-08-24] MEDS ORDERED: Potassium Chloride Elixir 20 MEQ/15 ML UDC PO ONE (12:35)
[2016-08-24] MEDS ORDERED: NON-FORMULARY MEDICATION 1 EACH EACH (Lactose-Reduced Food [Ensure Liquid] 1 BOTTLE) PO SCH (13:16)
[2016-08-24] MEDS: Magnesium Sulfate 2 GM in D5% in Water 100 ML IVPB PRN (13:48)
[2016-08-24] MEDS: Carbidopa/Levodopa 25/100 TABLET PO SCH ×2 (13:52→20:49)
--- NOTE | 2016-08-24 18:00 | Electrocardiograph Report ---
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
[2016-08-24 18:52] LABS: Potassium 3.1 mEq/L (3.5-4.5)
[2016-08-24] MEDS: Potassium Chloride 40 MEQ/200 ML BAG IVPB PRN (20:08)
[2016-08-24] MEDS: Carbidopa/Levodopa ER 50/200 TABLET PO SCH (20:41)
[2016-08-25] MEDS ORDERED: Haloperidol Lactate 5 MG/ML VIAL IVP ONE (00:54)
[2016-08-25 03:58] LABS: Basophils % 0.7 %; Eosinophils # 0.3 K/mcL (0.0-0.6); Eosinophils % 5.7 %; Hematocrit 29.1 % (35.3-44.9); Hemoglobin 9.7 g/dL (11.5-15.4); Immature Granulocytes % 0.4 % (0-4); Lymphocytes # 1.4 K/mcL (0.6-4.6); Lymphocytes % 26.5 %; Mean Corpuscular HGB Conc 33.3 g/dL (31.6-35.5); Mean Corpuscular Hemoglobin 28.9 pg (28.0-33.3); Mean Corpuscular Volume 86.6 fL (83.0-100.0); Mean Platelet Volume 10.9 fL (9.4-12.4); Monocytes # 0.4 K/mcL (0.0-1.3); Monocytes % 7.6 %; Neutrophils # 3.2 K/mcL (1.6-8.9); Platelet Count 214 K/mcL (140-400); Red Blood Count 3.36 M/mcL (3.82-4.97); Red Cell Distribution Width 15.9 % (11.5-14.5); Segmented Neutrophils % 59.1 %
[2016-08-25 04:11] LABS: BUN/Creatinine Ratio 10 (6-26); Blood Urea Nitrogen 7 mg/dL (7-20); Calcium 8.1 mg/dL (8.6-10.8); Carbon Dioxide 22 mEq/L (19-29); Chloride 112 mEq/L (98-109); Glucose 92 mg/dL (70-99); Magnesium 1.5 mg/dL (1.6-2.6); Osmolality,Calculated 290 (280-300); Phosphorous 2.6 mg/dL (2.3-4.7); Potassium 2.9 mEq/L (3.5-4.5); Sodium 141 mEq/L (136-145); eGFR For African Americans > 60 (> 60); eGFR For Non-African Americans > 60 (> 60)
[2016-08-25] MEDS: *HR* Heparin 5,000 UNIT/ML VIAL SQ SCH ×3 (04:48→21:01)
[2016-08-25] MEDS: Potassium Chloride 40 MEQ/200 ML BAG IVPB PRN (04:48)
[2016-08-25] MEDS: Magnesium Sulfate 2 GM in D5% in Water 100 ML IVPB PRN ×3 (05:37→20:37)
[2016-08-25] MEDS: Aspirin 325 MG TABLET PO SCH (08:13)
[2016-08-25] MEDS: Carbidopa/Levodopa 25/100 TABLET PO SCH ×3 (08:13→16:35)
[2016-08-25 11:26] LABS: Magnesium 1.8 mg/dL (1.6-2.6)
[2016-08-25 11:31] LABS: Potassium 4.5 mEq/L (3.5-4.5)
[2016-08-25] MEDS ORDERED: Vancomycin 750 MG in D5% in Water 250 ML IVPB ONE (12:00)
--- NOTE | 2016-08-25 12:11 | Internal Med Progress Note ---
Date of Encounter: 08/25/16 Time of Encounter: 12:09 - Assessment and plan (1) Electrolyte abnormality Current Visit: Yes Status: Acute Assessment and plan: Hypokalemia and Hypomagnesemia K and Mg supplemented continue to monitor electrolytes and replace as needed (2) SOL (acute kidney injury) Current Visit: Yes Status: Resolved Assessment and plan: Renal function at baseline continue to monitor (3) Altered mental status Current Visit: Yes Status: Resolved Assessment and plan: Mental status improved Pt noted to be taking opioids for recent hip surgery. Currently not in any pain , continue to hold narcotics at this time Qualifiers: Altered mental status type: somnolence Qualified Code(s): R40.0 - Somnolence (4) DVT prophylaxis Current Visit: Yes Status: Acute Assessment and plan: Heparin SQ (5) Elevated troponin Current Visit: No Status: Acute Assessment and plan: likely demand ischemia no acute chest pain reported at this time (6) Hypertension Current Visit: No Status: Chronic Assessment and plan: Hypotension resolved BP within acceptable range despite holding the antihypertensives will closely monitor and restart as needed Qualifiers: Hypertension type: essential hypertension Qualified Code(s): I10 - Essential (primary) hypertension (7) Multifocal pneumonia Current Visit: Yes Status: Acute Assessment and plan: CXR findings consistent with multifocal PNA will continue Vancomycin and Zosyn at this time f/u blood cultures (8) Septic shock Current Visit: Yes Status: Resolved Assessment and plan: Off pressors for the last 24 hours Resolved continue management for HCAP as listed above (9) UTI (urinary tract infection) Current Visit: No Status: Acute Assessment and plan: awaiting final urine cultures continue empiric abx Qualifiers: Urinary tract infection type: site unspecified Hematuria presence: without hematuria Qualified Code(s): N39.0 - Urinary tract infection, site not specified - Subjective Interval history: Patient seen and examined at bedside. Resting in bed and reports of feeling better compared to previous day. Admitted for AMS, septic shock secondary to HCAP. Septic shock resolved. Off pressor support. Mental status improving. currently alert and orient to self and place, which is improved from previous day as per nursing staff. - Constitutional Vitals: Temp Pulse Resp BP Pulse Ox 97.4 F L 72 16 130/76 99 08/25/16 07:20 08/25/16 11:00 08/25/16 11:00 08/25/16 11:00 08/25/16 11:00 General appearance: Present: A&O X 2, no acute distress, underweight - Head Head exam: Present: atraumatic, normocephalic - Eye Eye exam: Present: normal appearance, conjuntiva pink, sclera anicteric - Respiratory Respiratory exam: Absent: respiratory distress, wheezes (coarse breath sounds bilaterally) - Cardiovascular Cardiovascular exam: Present: RRR, +S1, +S2 - GI/Abdominal GI/Abdominal exam: Present: normal bowel sounds, soft. Absent: distended, tenderness - Extremities Exam Extremities exam: Present: warm, radial pulses palpable and symetrical. Absent : calf tenderness - Neurological Exam Neurological exam: Present: alert - Psychiatric Psychiatric exam: Present: normal affect, normal mood Internal Medicine: Result - Labs CBC & Chem 7: 08/25/16 03:47 08/25/16 11:09 Labs: Short CBC 08/24/16 08/25/16 Range/Units 11:30 03:47 WBC 6.4 5.4 (4.3-11.1) K/mcL Hgb 10.1 L 9.7 L (11.5-15.4) g/dL Hct 31.5 L 29.1 L (35.3-44.9) % Plt Count 232 214 (140-400) K/mcL Neutrophils # 4.7 3.2 (1.6-8.9) K/mcL BMP 08/24/16 08/24/16 08/25/16 11:30 18:35 03:47 Sodium 144 141 Potassium 2.6 L 3.1 L 2.9 L Chloride 113 H 112 H Carbon Dioxide 22 22 BUN 12 7 Creatinine 0.81 0.71 Glucose 87 92 Calcium 8.0 L 8.1 L 08/25/16 11:09 Sodium Potassium 4.5 D Chloride Carbon Dioxide BUN Creatinine Glucose Calcium Cardiac Enzymes 08/24/16 Range/Units 11:30 Troponin I 0.15 H* (0-0.03) ng/mL - ABG Interpretation ABG results: ABG ABG pH 7.36 pH Units (7.32-7.45) 08/24/16 02:33 ABG pCO2 41 mmHg (35-45) 08/24/16 02:33 ABG pO2 125 mmHg (85-104) H 08/24/16 02:33 ABG O2 Saturation 99 % (95-98) H 08/24/16 02:33 - VTE Documentation of Mechanical Device: Intermittent pneumatic compression device Consult Discharge Plan - Plan Referrals: Wesley Ortiz MD [Primary Care Provider] -
[2016-08-25] MEDS: Piperacillin/Tazobactam 3.375 GM in D5% in Water (Mini-Bag+) 100 ML IVPB SCH ×2 (12:33→20:30)
[2016-08-25 13:47] LABS: BUN/Creatinine Ratio 8 (6-26); Blood Urea Nitrogen 6 mg/dL (7-20); Calcium 8.2 mg/dL (8.6-10.8); Carbon Dioxide 23 mEq/L (19-29); Chloride 112 mEq/L (98-109); Glucose 108 mg/dL (70-99); Osmolality,Calculated 290 (280-300); Sodium 141 mEq/L (136-145); eGFR For African Americans > 60 (> 60); eGFR For Non-African Americans > 60 (> 60)
[2016-08-25] MEDS ORDERED: Ondansetron 4 MG/2 ML VIAL IVP PRN (20:35)
[2016-08-25] MEDS: Carbidopa/Levodopa ER 50/200 TABLET PO SCH (21:01)
[2016-08-26] MEDS ORDERED: Vancomycin 500 MG in D5% in Water (Mini-Bag+) 100 ML IVPB SCH (02:00)
[2016-08-26] MEDS: Piperacillin/Tazobactam 3.375 GM in D5% in Water (Mini-Bag+) 100 ML IVPB SCH ×3 (04:23→20:14)
[2016-08-26 04:57] LABS: Basophils % 0.7 %; Eosinophils # 0.3 K/mcL (0.0-0.6); Eosinophils % 4.7 %; Hematocrit 31.8 % (35.3-44.9); Hemoglobin 10.5 g/dL (11.5-15.4); Immature Granulocytes % 0.3 % (0-4); Mean Corpuscular Hemoglobin 28.6 pg (28.0-33.3); Mean Corpuscular Volume 86.6 fL (83.0-100.0); Mean Platelet Volume 11.1 fL (9.4-12.4); Monocytes # 0.3 K/mcL (0.0-1.3); Monocytes % 5.2 %; Neutrophils # 4.1 K/mcL (1.6-8.9); Platelet Count 279 K/mcL (140-400); Red Blood Count 3.67 M/mcL (3.82-4.97); Red Cell Distribution Width 15.9 % (11.5-14.5); Segmented Neutrophils % 71.1 %
[2016-08-26 05:24] LABS: BUN/Creatinine Ratio 6 (6-26); Calcium 8.2 mg/dL (8.6-10.8); Carbon Dioxide 22 mEq/L (19-29); Chloride 109 mEq/L (98-109); Glucose 114 mg/dL (70-99); Magnesium 2.2 mg/dL (1.6-2.6); Osmolality,Calculated 288 (280-300); Phosphorous 3.7 mg/dL (2.3-4.7); Sodium 140 mEq/L (136-145); eGFR For African Americans > 60 (> 60); eGFR For Non-African Americans > 60 (> 60)
[2016-08-26 05:26] LABS: Blood Urea Nitrogen 5 mg/dL (7-20); Potassium 3.4 mEq/L (3.5-4.5)
[2016-08-26] MEDS: *HR* Heparin 5,000 UNIT/ML VIAL SQ SCH ×3 (05:29→21:47)
[2016-08-26] MEDS: Aspirin 325 MG TABLET PO SCH (09:11)
[2016-08-26] MEDS: Carbidopa/Levodopa 25/100 TABLET PO SCH ×3 (09:47→16:41)
[2016-08-26] MEDS: Acetaminophen 325 MG TABLET PO PRN ×2 (09:47→20:37)
--- NOTE | 2016-08-26 09:53 | Internal Med Progress Note ---
Date of Encounter: 08/26/16 Time of Encounter: 08:50 - Assessment and plan (1) Multifocal pneumonia Current Visit: Yes Status: Acute Assessment and plan: CXR findings consistent with multifocal PNA will continue Vancomycin and Zosyn at this time f/u blood cultures de-escalate therapy as per culture report Pharmacist to dose Vancomycin and monitor trough (2) Electrolyte abnormality Current Visit: Yes Status: Acute Assessment and plan: Hypokalemia K supplemented continue to monitor electrolytes and replace as needed (3) SOL (acute kidney injury) Current Visit: Yes Status: Resolved Assessment and plan: Renal function at baseline continue to monitor (4) Altered mental status Current Visit: Yes Status: Resolved Assessment and plan: Mental status improved Pt noted to be taking opioids for recent hip surgery. Currently not in any pain , continue to hold narcotics at this time Qualifiers: Altered mental status type: somnolence Qualified Code(s): R40.0 - Somnolence (5) DVT prophylaxis Current Visit: Yes Status: Acute Assessment and plan: Heparin SQ (6) Elevated troponin Current Visit: No Status: Acute Assessment and plan: likely demand ischemia no acute chest pain reported at this time (7) Hypertension Current Visit: No Status: Chronic Assessment and plan: Hypotension resolved BP within acceptable range despite holding the antihypertensives will closely monitor and restart as needed Qualifiers: Hypertension type: essential hypertension Qualified Code(s): I10 - Essential (primary) hypertension (8) Septic shock Current Visit: Yes Status: Resolved Assessment and plan: Pt initially required small dose of vasopressor support which have been discontinued since 08/24/16 morning. Septic shock Resolved continue management for HCAP as listed above clinically improving (9) UTI (urinary tract infection) Current Visit: No Status: Acute Assessment and plan: urine culture positive for E.coli will continue empiric abx at this time and de-escalate therapy as per culture report and clinical response. Qualifiers: Urinary tract infection type: site unspecified Hematuria presence: without hematuria Qualified Code(s): N39.0 - Urinary tract infection, site not specified - Subjective Interval history: Pt is a 71y/o female admitted for AMS, septic shock secondary to HCAP. Septic shock resolved. Off pressor support. Will be transferred out of the ICU. Awaiting tele bed. Patient seen and examined at bedside. Sitting in bed eating breakfast. Reports of feeling better compared to previous day. Mental status improving, alert and oriented to self and place, however not time. Unclear of patient's baseline mental status PT eval recommended ECF/SNF, will consult nursing home social worker for placement - Constitutional Vitals: Temp Pulse Resp BP Pulse Ox 97.8 F 105 22 131/92 96 08/26/16 07:54 08/26/16 09:23 08/26/16 09:23 08/26/16 09:23 08/26/16 09:23 General appearance: Present: A&O X 2, no acute distress, underweight - Head Head exam: Present: atraumatic, normocephalic - Eye Eye exam: Present: conjuntiva pink, sclera anicteric - Respiratory Respiratory exam: Present: CTAB. Absent: accessory muscle use, rales, rhonchi, wheezes - Cardiovascular Cardiovascular exam: Present: RRR, +S1, +S2. Absent: diastolic murmur, gallop, rubs, systolic murmur - GI/Abdominal GI/Abdominal exam: Present: normal bowel sounds, soft. Absent: distended, tenderness - Extremities Exam Extremities exam: Present: warm, radial pulses palpable and symetrical (b/l heel ulcers-wrapped in dressing ). Absent: pedal edema - Neurological Exam Neurological exam: Present: alert - Psychiatric Psychiatric exam: Present: normal affect, normal mood Internal Medicine: Result - Labs CBC & Chem 7: 08/26/16 04:38 08/26/16 04:38 Labs: Short CBC 08/26/16 Range/Units 04:38 WBC 5.7 (4.3-11.1) K/mcL Hgb 10.5 L (11.5-15.4) g/dL Hct 31.8 L (35.3-44.9) % Plt Count 279 (140-400) K/mcL Neutrophils # 4.1 (1.6-8.9) K/mcL BMP 08/25/16 08/26/16 11:09 04:38 Sodium 141 140 Potassium 4.5 D 3.4 L D Chloride 112 H 109 Carbon Dioxide 23 22 BUN 6 L 5 L Creatinine 0.71 0.79 Glucose 108 H 114 H Calcium 8.2 L 8.2 L - ABG Interpretation ABG results: ABG ABG pH 7.36 pH Units (7.32-7.45) 08/24/16 02:33 ABG pCO2 41 mmHg (35-45) 08/24/16 02:33 ABG pO2 125 mmHg (85-104) H 08/24/16 02:33 ABG O2 Saturation 99 % (95-98) H 08/24/16 02:33 - VTE Documentation of Mechanical Device: Intermittent pneumatic compression device Consult Discharge Plan - Plan Referrals: Wesley Ortiz MD [Primary Care Provider] -
[2016-08-26 10:39] LABS: BUN/Creatinine Ratio 4 (6-26); Blood Urea Nitrogen 3 mg/dL (7-20); Calcium 8.3 mg/dL (8.6-10.8); Carbon Dioxide 26 mEq/L (19-29); Chloride 108 mEq/L (98-109); Glucose 100 mg/dL (70-99); Osmolality,Calculated 293 (280-300); Potassium 3.4 mEq/L (3.5-4.5); Sodium 143 mEq/L (136-145); eGFR For African Americans > 60 (> 60); eGFR For Non-African Americans > 60 (> 60)
[2016-08-26] MEDS ORDERED: Aminoglycoside Consult 1 EACH MC ONE (15:04)
[2016-08-26] MEDS ORDERED: Haloperidol Lactate 5 MG/ML VIAL IM PRN (16:37)
[2016-08-26 18:22] LABS: CK-BB (CK isoenzymes) 0 % (0-0); CK-MB (CK isoenzymes) 0 % (0-4); CK-MM (CK-isoenzymes) 100 % (96-100)
[2016-08-26] MEDS: Carbidopa/Levodopa ER 50/200 TABLET PO SCH (20:13)
[2016-08-27] MEDS: *HR* Heparin 5,000 UNIT/ML VIAL SQ SCH (05:04)
[2016-08-27 05:29] LABS: Basophils # 0.1 K/mcL (0.0-0.2); Basophils % 0.8 %; Eosinophils # 0.3 K/mcL (0.0-0.6); Eosinophils % 4.3 %; Hematocrit 34.7 % (35.3-44.9); Hemoglobin 11.2 g/dL (11.5-15.4); Immature Granulocytes % 0.3 % (0-4); Lymphocytes # 1.3 K/mcL (0.6-4.6); Lymphocytes % 21.1 %; Mean Corpuscular HGB Conc 32.3 g/dL (31.6-35.5); Mean Corpuscular Hemoglobin 28.4 pg (28.0-33.3); Mean Corpuscular Volume 87.8 fL (83.0-100.0); Mean Platelet Volume 10.6 fL (9.4-12.4); Monocytes # 0.4 K/mcL (0.0-1.3); Monocytes % 5.8 %; Neutrophils # 4.3 K/mcL (1.6-8.9); Platelet Count 354 K/mcL (140-400); Red Blood Count 3.95 M/mcL (3.82-4.97); Red Cell Distribution Width 15.9 % (11.5-14.5); Segmented Neutrophils % 67.7 %
[2016-08-27 05:43] LABS: BUN/Creatinine Ratio 11 (6-26); Blood Urea Nitrogen 8 mg/dL (7-20); Calcium 8.8 mg/dL (8.6-10.8); Carbon Dioxide 29 mEq/L (19-29); Chloride 107 mEq/L (98-109); Glucose 85 mg/dL (70-99); Osmolality,Calculated 296 (280-300); Phosphorous 3.5 mg/dL (2.3-4.7); Potassium 3.8 mEq/L (3.5-4.5); Sodium 144 mEq/L (136-145); eGFR For African Americans > 60 (> 60); eGFR For Non-African Americans > 60 (> 60)
[2016-08-27] MEDS ORDERED: LEVOFLOXACIN 750 MG/150 ML IVPB SCH (09:00)
[2016-08-27] MEDS: Aspirin 325 MG TABLET PO SCH (09:57)
[2016-08-27] MEDS: Acetaminophen 325 MG TABLET PO PRN (09:57)
[2016-08-27] MEDS: Carbidopa/Levodopa 25/100 TABLET PO SCH ×2 (10:08→12:04)
[2016-08-27 11:14] VITALS: BP 107/65
[2016-08-27 11:14] LABS: CK Total (Ck Isoenzymes) 114 U/L (20-180)
[2016-08-27] MEDS ORDERED: levoFLOXacin 750 MG TABLET PO SCH (12:45)
--- NOTE | 2016-08-27 13:26 | Discharge Summary ---
<Abhishek Pan - Last Filed: 08/27/16 13:24> Date of Encounter: 08/27/16 Time of Encounter: 13:24 - Discharge Diagnosis (1) Septic shock Priority: Primary Status: Resolved (2) Multifocal pneumonia Priority: Primary Status: Acute (3) SOL (acute kidney injury) Priority: Primary Status: Resolved (4) Elevated troponin I level Priority: Secondary Status: Resolved (5) Hypokalemia Priority: Secondary Status: Resolved (6) Hypertension Priority: Secondary Status: Chronic Qualifiers: Hypertension type: essential hypertension Qualified Code(s): I10 - Essential (primary) hypertension - Discharge Medications Prescriptions: Oxycodone HCl 10 mg PO Q4HR PRN #30 tablet PRN Reason: Moderate Pain Home Medications: Aspirin 325 mg PO QAM 02/28/16 [History] Carbidopa/Levodopa 25/100 [Sinemet 25/100] 2 each PO TID 02/28/16 [History] Carbidopa/Levodopa ER 50/200 [Sinemet ER 50-200 Tab] 1 each PO HS 02/28/16 [ History] Docusate [Colace] 100 mg PO BID PRN 02/28/16 [History] Donepezil [Aricept] 10 mg PO HS 02/28/16 [History] Gabapentin [Neurontin] 100 mg PO TID PRN 02/28/16 [History] Omeprazole [PriLOSEC] 40 mg PO DAILY 02/28/16 [History] Acetaminophen [Tylenol] 650 mg PO Q6HR PRN #0 tablet 03/18/16 [Rx] Atorvastatin [Lipitor] 40 mg PO HS tablet 03/18/16 [Rx] Ipratropium/Albuterol Neb [Duoneb] 3 ml IH [id number] PRN #0 inhsol 03/18/16 [Rx] Lisinopril [Zestril] 2.5 mg PO DAILY tablet 03/18/16 [Rx] Nitroglycerin 0.4 mg SL Q5MIN PRN #0 tab.subl 03/18/16 [Rx] hydrOXYzine pamoate [HydrOXYzine Pamoate] 25 mg PO TID PRN #30 capsule 03/18/16 [Rx] DiphenhydraMINE [Benadryl] 50 mg PO Q8HR PRN 08/24/16 [History] Donepezil HCl [Aricept] 10 mg PO HS 08/24/16 [History] Escitalopram [Lexapro] 10 mg PO DAILY 08/24/16 [History] Zolpidem [Ambien] 5 mg PO HS PRN 08/24/16 [History] Oxycodone HCl 10 mg PO Q4HR PRN #30 tablet 08/27/16 [Rx] levoFLOXacin [Levaquin] 750 mg PO Q48H #0 tablet 08/27/16 [Rx] Allergies/Adverse Reactions: Allergies fentanyl Allergy (Verified 10/31/14 09:49) Vomiting ondansetron [From Zofran (as hydrochloride)] Allergy (Verified 10/31/14 09:49) Headache Date of admission: 08/23/16 23:25 Primary care physician: Wesley Ortiz MD Consults: 08/25/16 12:11 Consult to Nutrition [CONS] Routine Comment: Consulting Provider: NUTRITION Reason for Dietary Consult: PO Supplementation 08/26/16 09:55 Consult to Managing Partner [CONS] Routine Reason for SW Consult: needs ECF placement Discharging clinician: Abhishek Pan Anticipated date of discharge: 08/27/16 - Patient Status Disposition: Transfer SNF Condition: Fair Functional capacity at discharge: wheelchair bound Overall status at discharge: patient is progressing back to baseline - Discharge Instructions Follow Up With: Wesley Ortiz MD [Primary Care Provider] - Additional Instructions: Please resume your home medications. Please complete your antibiotic as directed. Please follow up with your primary care physician within one week. Please return for any new or worsening symptoms. - Diet and Activity Activity: increase activity as tolerated Interval History: Patient seen and examined at bedside. Patient appears pleasantly confused. Patient has no complaints today. Patient states she is breathing good. Patient denies coughing. Hospital course: Ms. Hicks is a 71 year old female with history of COPD, dementia, atrial fibrillation presented with altered mental status and hypotension. Patient was found to be in septic shock due to multifocal pneumonia and required pressor support for short amount of time. Pressors were successfully weaned and the patient was initiated on broad-spectrum antibiotic coverage. The patient responded well and was transferred out of the ICU. Blood cultures were negative but a urine culture did reveal pansensitive Escherichia coli. The patient was continued on Levaquin 750 mg every other day. Patient will be discharged back to the extended care facility in stable condition. - Time Spent with Patient Total time spent providing and/or coordinating discharge services: - Constitutional Vitals: Temp Pulse Resp BP Pulse Ox 99 F 73 16 107/65 95 08/27/16 11:11 08/27/16 11:11 08/27/16 11:11 08/27/16 11:11 08/27/16 11:11 General appearance: Present: A&O X 2, no acute distress, underweight - Respiratory Respiratory exam: Present: CTAB. Absent: rales, rhonchi, wheezes - Cardiovascular Cardiovascular exam: Present: RRR. Absent: gallop, rubs, systolic murmur - GI/Abdominal GI/Abdominal exam: Present: normal bowel sounds, soft. Absent: distended, tenderness - Extremities Exam Extremities exam: Present: warm. Absent: pedal edema, tenderness - Neurological Exam Neurological exam: Present: alert, altered, CN II-XII intact, no focal deficits. Absent: oriented X3 - VTE Documentation of Mechanical Device: Intermittent pneumatic compression device <Dylan Bedolla P - Last Filed: 08/27/16 17:15> Date of Encounter: 08/27/16 Date of admission: 08/23/16 23:25 Primary care physician: Wesley Ortiz MD Consults: 08/25/16 12:11 Consult to Nutrition [CONS] Routine Comment: Consulting Provider: NUTRITION Reason for Dietary Consult: PO Supplementation 08/26/16 09:55 Consult to Managing Partner [CONS] Routine Reason for SW Consult: needs ECF placement Hospital course: Ms. Hicks is a 71 year old female - Time Spent with Patient Total time spent providing and/or coordinating discharge services: - Constitutional Vitals: Temp Pulse Resp BP Pulse Ox 99 F 73 16 107/65 95 08/27/16 11:11 08/27/16 11:11 08/27/16 11:11 08/27/16 11:11 08/27/16 11:11 - Attending Attestation I examined this patient and my medical decision-making was reviewed with the TILE SHADER/PA/Advanced Practice Nurse/Resident Physician. I agree with the documented findings, disposition and treatment plan as described except to the extent set forth below.
--- NOTE | 2016-08-27 13:38 | Physician Discharge Referral ---
<Abihshek Pan - Last Filed: 08/27/16 13:36> ExtendedCare Referral Info Transfer To: [facility] Provider in Charge after Transfer: PCP Institutional Level of Care: Skilled - Diagnosis (1) Septic shock Priority: Primary Status: Resolved (2) Multifocal pneumonia Priority: Primary Status: Acute (3) SOL (acute kidney injury) Priority: Secondary Status: Resolved (4) Elevated troponin I level Priority: Secondary Status: Resolved (5) Hypokalemia Priority: Secondary Status: Resolved (6) Hypertension Priority: Secondary Status: Chronic (7) Dementia Priority: Secondary Status: Chronic - Transfer Medications Prescriptions: Oxycodone HCl 10 mg PO Q4HR PRN #30 tablet PRN Reason: Moderate Pain Home Medications: Aspirin 325 mg PO QAM 02/28/16 [History] Carbidopa/Levodopa 25/100 [Sinemet 25/100] 2 each PO TID 02/28/16 [History] Carbidopa/Levodopa ER 50/200 [Sinemet ER 50-200 Tab] 1 each PO HS 02/28/16 [ History] Docusate [Colace] 100 mg PO BID PRN 02/28/16 [History] Donepezil [Aricept] 10 mg PO HS 02/28/16 [History] Gabapentin [Neurontin] 100 mg PO TID PRN 02/28/16 [History] Omeprazole [PriLOSEC] 40 mg PO DAILY 02/28/16 [History] Acetaminophen [Tylenol] 650 mg PO Q6HR PRN #0 tablet 03/18/16 [Rx] Atorvastatin [Lipitor] 40 mg PO HS tablet 03/18/16 [Rx] Ipratropium/Albuterol Neb [Duoneb] 3 ml IH [id number] PRN #0 inhsol 03/18/16 [Rx] Lisinopril [Zestril] 2.5 mg PO DAILY tablet 03/18/16 [Rx] Nitroglycerin 0.4 mg SL Q5MIN PRN #0 tab.subl 03/18/16 [Rx] hydrOXYzine pamoate [HydrOXYzine Pamoate] 25 mg PO TID PRN #30 capsule 03/18/16 [Rx] DiphenhydraMINE [Benadryl] 50 mg PO Q8HR PRN 08/24/16 [History] Donepezil HCl [Aricept] 10 mg PO HS 08/24/16 [History] Escitalopram [Lexapro] 10 mg PO DAILY 08/24/16 [History] Zolpidem [Ambien] 5 mg PO HS PRN 08/24/16 [History] Oxycodone HCl 10 mg PO Q4HR PRN #30 tablet 08/27/16 [Rx] levoFLOXacin [Levaquin] 750 mg PO Q48H #0 tablet 08/27/16 [Rx] Allergies/Adverse Reactions: Allergies fentanyl Allergy (Verified 10/31/14 09:49) Vomiting ondansetron [From Zofran (as hydrochloride)] Allergy (Verified 10/31/14 09:49) Headache - Respiratory Orders None Smoking Cessation: Smoking cessation has been advised. For more information, call the [employer] Quit Line at 1-017-GIAJ-NOW. - Ancillary Orders May use pressure relief devices daily prn - Advance Directives Code Status: Full Code - Mobility Orders Other (with assist) - Rehabiliation Orders Rehab Potential: Fair Rehab Orders: Evaluation for Physical Therapy, Evaluation for Occupational Therapy - Treatments Skin tear care topically daily PRN per policy - Diet Orders Mechanical Soft, Cardiac CERTIFICATION: I certify that the transfer of the above named patient to an Extended Care Facility is necessary for the continuing treatment of the diagnosis listed. The above information is true and accurate reflection of patient's current condition. Confidential - Redisclosure prohibited without a patient's written consent. <Dylan Bedolla P - Last Filed: 08/27/16 17:16> - Respiratory Orders Smoking Cessation: Smoking cessation has been advised. For more information, call the [employer] Quit Line at 1-168-FVAH-NOW. CERTIFICATION: I certify that the transfer of the above named patient to an Extended Care Facility is necessary for the continuing treatment of the diagnosis listed. The above information is true and accurate reflection of patient's current condition. Confidential - Redisclosure prohibited without a patient's written consent.
== END 2016-08-27 15:05 | DRG 720 ==
LOC: EMEROO 21:24 → SUATTDRO 23:25 → ICNU 23:25 → 2NENU 08-26 15:27
PROVIDERS: ADMIT Hospitalist; ATTEND Internal Medicine

== ENCOUNTER 2017-03-24 16:05 | Inpatient (IN) ==
[2017-03-24] MEDS ORDERED: 0.9 % Sodium Chloride 1,000 ML IVC ONE (16:37)
--- NOTE | 2017-03-24 16:37 | Emergency Department Note ---
Disposition Clinical Impression: Elevated troponin, Confusion UTI (urinary tract infection) Qualifiers: Urinary tract infection type: site unspecified Hematuria presence: without hematuria Qualified Code(s): N39.0 - Urinary tract infection, site not specified Disposition: Admitted As Inpatient Condition: Fair Time of Disposition: 20:09 General Adult HPI - General Chief complaint: ED General Medical Stated complaint: Sleeping more than usual Time Seen by Provider: 03/24/17 16:07 Source: EMS Limitations: age - History of Present Illness HPI Narrative: Mrs. Hicks, a 71yo female, presents from home with caregiver bedside for evaluation of 2 day history of decreased fatigue and myalgia. Today at 15:00, patient would arouse only to painful stimulus. Also intermittent vomiting (non- bloody, non-bilious). Decreased PO intake - minimal fluids in 48hrs. Recent medicine changes: changes in antidepressant not able to be clearly defined by family bedside. Patient's daughter at bedside notes last time patient behaved in this way she had pneumonia. Computer Networking Instructor Adjunct bedside notes that her urine is foul-smelling consistent with her prior and recent UTI. PMH: parkinsons, depression, hx UTI Pain Scale: 0 - Related Data Home Medications Medication Instructions Recorded Confirmed Carbidopa/Levodopa 25/100 [Sinemet 2 each PO TID 02/28/16 03/24/17 25/100] Carbidopa/Levodopa ER 50/200 1 each PO HS 02/28/16 03/24/17 [Sinemet ER 50-200 Tab] Docusate [Colace] 100 mg PO BID PRN 02/28/16 03/24/17 Donepezil [Aricept] 10 mg PO HS 02/28/16 03/24/17 DiphenhydraMINE [Benadryl] 50 mg PO Q8HR PRN 08/24/16 03/24/17 Escitalopram [Lexapro] 10 mg PO DAILY 08/24/16 03/24/17 Aspirin Enteric Coated [Aspirin EC] 325 mg PO DAILY 03/24/17 03/24/17 Omeprazole [PriLOSEC] 20 mg PO BIDAC 03/24/17 03/24/17 OxyCODONE Immed Rel [Roxicodone 10 15 mg PO Q4HR PRN 03/24/17 03/24/17 MG] hydrOXYzine HCl [Hydroxyzine HCl] 25 mg PO TID PRN 03/24/17 03/24/17 Previous Rx's Medication Instructions Recorded Atorvastatin [Lipitor] 40 mg PO HS tablet 03/18/16 Nitroglycerin 0.4 mg SL Q5MIN PRN #0 tab.subl 03/18/16 Allergies Allergy/AdvReac Type Severity Reaction Status Date / Time fentanyl Allergy Vomiting Verified 10/31/14 09:49 ondansetron Allergy Headache Verified 10/31/14 09:49 [From Zofran (as hydrochloride)] All systems ED: reviewed and negative except as stated. Review of Systems: As Per HPI Past Medical History - Past Medical History Medical history: Reports: arthritis, atrial fibrillation, CHF, COPD, DVT, dementia, GERD, hypertension, osteoporosis, RA, other Surgical history: Reports: , orthopedic, other, other Psychiatric history: Reports: anxiety, panic disorder, other BEHAVIORAL SCIENCES INSTRUCTOR history: Reports: no BEHAVIORAL SCIENCES INSTRUCTOR history - Social History Smoking Status: Never smoker Smokeless Tobacco Status: No Alcohol use: Reports: none Drug use: Reports: none Physical Exam Vital Signs Reviewed General: Patient laying quietly in bed with her head turned away for the wall. Patient feels frail. HEENT: No facial asymmetry. Head is normocephalic and atraumatic. Oral mucosa dry. Cardiovascular: Heart regular rate and rhythm without clicks, rubs, gallops, or murmurs. No JVD. PMI nondisplaced. Respiratory: Symmetric chest rise with poor respiratory effort. Bilateral breath sounds are clear without wheezing, crackles, or rhonchi. Abdomen: Scaphoid. Bowel sounds present normoactive x-4 quadrants. Abdomen is soft, nondistended, and nontender. No organomegaly noted. Musculoskeletal: Spontaneously moves upper extremities in response to painful stimuli. Neuro: Patient grimaces and moans in response to light sternal rub. When asked to open her eyes, she will actively squint them shut. Psych: Patient's affect is appropriate for situation. - General Limitations: age Course Course Narrative: In reviewing patient's medications, she finished her Levaquin approximately one week ago. In comparing her medication list in the system to the prescription bottles brought by the family, she no longer takes Ambien, no longer takes gabapentin. Medications she does take: Hydroxyzine pamoate 25 mg by mouth 3 times a day Roxicodone 10 mg by mouth every 4 hours when necessary pain Prilosec Nitroglycerin SL every 5 when necessary Lexapro 10 mg by mouth daily Aricept 10 mg by mouth daily at bedtime Benadryl 50 mg by mouth every 8 when necessary hypertension typically takes this at night Carbidopa/levodopa ER 50/200 one tablet by mouth daily at bedtime Carbidopa/levodopa 25/102 tablets by mouth 3 times a day Lipitor 40 mg by mouth daily at bedtime Aspirin 325 mg by mouth every morning Patient is accompanied by her daughter who recently moved to the area and is not intimately familiar with the patient's medical history. She is also accompanied by home health nurse who does not manage the patient's medication administration. Patient self manages her own medication menstruation. They are unsure as to what she took or when she took it. Clinically, I am suspecting accidental overmedication. Patient's chest x-ray is not consistent with pneumonia or other acute pulmonary infection. CT head is unremarkable per radiology read. Patient's urine, though contaminated, does show trace blood, white blood cells, and is cloudy. We empirocally treat given her clinical presentation. Patient has elevated troponin of 0.04. Aspirin given. She has a history of elevated troponin. EKG does not show acute ischemic changes and her creatinine is within normal limits. Will admit the patient for altered mental status, suspected overmedication, and UTI. Chest X-Ray 03/24/17 16:38 IMPRESSION: Indeterminate nodular opacity over the left upper lobe, new from previous exams. Consider further evaluation with CT imaging. D/ / Pastor Traylor MD / Pastor Traylor MD Interpreting Provider: Pastor Traylor MD Head CT 03/24/17 16:39 IMPRESSION: No acute intracranial abnormality. D/ / Tyler Holm MD / Tyler Holm MD Interpreting Provider: Tyler Holm MD Vital Signs Temperature 97.6 F 03/24/17 16:07 Pulse Rate 79 03/24/17 16:07 Respiratory Rate 16 03/24/17 16:07 Blood Pressure 99/63 03/24/17 16:07 O2 Sat by Pulse Oximetry 93 03/24/17 16:07 Temperature 100.3 F H 03/26/17 10:41 Pulse Rate 108 03/26/17 10:41 Respiratory Rate 20 03/26/17 10:41 Blood Pressure 144/76 03/26/17 10:41 O2 Sat by Pulse Oximetry 94 03/26/17 10:41 Oxygen Delivery Oxygen Delivery Room Air Medical Decision Making - Medical Records Medical records reviewed: Yes I reviewed the patient's medical records. - Lab Data Lab results reviewed: Yes I reviewed the patient's lab results. Result diagrams: 03/26/17 04:47 03/26/17 04:47 Lab Results 03/24/17 03/24/17 03/24/17 Range/Units 17:05 17:05 17:05 WBC 11.4 H (4.3-11.1) K/mcL RBC 4.48 (3.82-4.97) M/mcL Hgb 12.9 (11.5-15.4) g/dL Hct 39.8 (35.3-44.9) % MCV 88.8 (83.0-100.0) fL MCH 28.8 (28.0-33.3) pg MCHC 32.4 (31.6-35.5) g/dL RDW 13.7 (11.5-14.5) % Plt Count 301 (140-400) K/mcL MPV 10.5 (9.4-12.4) fL Immature Gran % 0.5 (0-4) % Seg Neutrophils % 79.0 % Lymphocytes % 10.9 % Monocytes % 6.6 % Eosinophils % 2.5 % Basophils % 0.5 % Neutrophils # 9.0 H (1.6-8.9) K/mcL Lymphocytes # 1.3 (0.6-4.6) K/mcL Monocytes # 0.8 (0.0-1.3) K/mcL Eosinophils # 0.3 (0.0-0.6) K/mcL Basophils # 0.1 (0.0-0.2) K/mcL ABG pH (7.32-7.45) pH Units ABG pCO2 (35-45) mmHg ABG pO2 (85-104) mmHg ABG HCO3 (21-27) mEq/L ABG Total CO2 (20-26) mEq/L ABG O2 Saturation (95-98) % ABG Base Excess (-2 to 3) mEq/L Sodium 140 (136-145) mEq/L Potassium 3.2 L (3.5-5.1) mEq/L Chloride 105 (98-107) mEq/L Carbon Dioxide 29 (23-29) mEq/L BUN 24 H (8-23) mg/dL Creatinine 1.03 (0.60-1.20) mg/dL Est GFR ( Amer) > 60 (> 60) Est GFR (Non-Af Amer) 53 L (> 60) BUN/Creatinine Ratio 23 (6-26) Glucose 96 (70-105) mg/dL Calculated Osmolality 294 (280-300) Lactic Acid 1.2 (0.5-2.2) mmol/L Calcium 12.2 H (8.6-10.3) mg/dL Magnesium 1.9 (1.6-2.6) mg/dL Troponin I (< 0.04) ng/mL PTH Intact (10.0-65.0) pg/ml Urine Color (Yellow) Urine Clarity (Clear) Urine pH (5.0-8.0) pH Units Ur Specific [place] (1.010-1.025) Urine Protein (Neg-Trace) mg/dL Urine Glucose (UA) (Normal) mg/dL Urine Ketones (Negative) mg/dL Urine Blood (Negative) Urine Nitrite (Negative) Urine Bilirubin (Negative) Urine Urobilinogen (Normal) mg/dL Ur Leukocyte Esterase (Negative) Urine Microscopic RBC (0-3) per hpf Urine Microscopic WBC (0-3) per hpf Ur Squamous Epith Cells (None-Few) per lpf Urine Bacteria (None-Few) per hpf Hyaline Casts (None-Few) per lpf Ur Culture Indicated? (NO) 03/24/17 03/24/17 03/24/17 Range/Units 17:05 17:28 19:42 WBC (4.3-11.1) K/mcL RBC (3.82-4.97) M/mcL Hgb (11.5-15.4) g/dL Hct (35.3-44.9) % MCV (83.0-100.0) fL MCH (28.0-33.3) pg MCHC (31.6-35.5) g/dL RDW (11.5-14.5) % Plt Count (140-400) K/mcL MPV (9.4-12.4) fL Immature Gran % (0-4) % Seg Neutrophils % % Lymphocytes % % Monocytes % % Eosinophils % % Basophils % % Neutrophils # (1.6-8.9) K/mcL Lymphocytes # (0.6-4.6) K/mcL Monocytes # (0.0-1.3) K/mcL Eosinophils # (0.0-0.6) K/mcL Basophils # (0.0-0.2) K/mcL ABG pH 7.41 (7.32-7.45) pH Units ABG pCO2 44 (35-45) mmHg ABG pO2 73 L (85-104) mmHg ABG HCO3 28 H (21-27) mEq/L ABG Total CO2 29 H (20-26) mEq/L ABG O2 Saturation 95 (95-98) % ABG Base Excess 2 (-2 to 3) mEq/L Sodium (136-145) mEq/L Potassium (3.5-5.1) mEq/L Chloride (98-107) mEq/L Carbon Dioxide (23-29) mEq/L BUN (8-23) mg/dL Creatinine (0.60-1.20) mg/dL Est GFR ( Amer) (> 60) Est GFR (Non-Af Amer) (> 60) BUN/Creatinine Ratio (6-26) Glucose (70-105) mg/dL Calculated Osmolality (280-300) Lactic Acid (0.5-2.2) mmol/L Calcium (8.6-10.3) mg/dL Magnesium (1.6-2.6) mg/dL Troponin I 0.04 H* (< 0.04) ng/mL PTH Intact (10.0-65.0) pg/ml Urine Color Yellow (Yellow) Urine Clarity Cloudy A (Clear) Urine pH 6.0 (5.0-8.0) pH Units Ur Specific [place] 1.023 (1.010-1.025) Urine Protein Negative (Neg-Trace) mg/dL Urine Glucose (UA) Normal (Normal) mg/dL Urine Ketones Negative (Negative) mg/dL Urine Blood Trace H (Negative) Urine Nitrite Negative (Negative) Urine Bilirubin Negative (Negative) Urine Urobilinogen Normal (Normal) mg/dL Ur Leukocyte Esterase Negative (Negative) Urine Microscopic RBC 0-3 (0-3) per hpf Urine Microscopic WBC 5-15 H (0-3) per hpf Ur Squamous Epith Cells Many H (None-Few) per lpf Urine Bacteria Many H (None-Few) per hpf Hyaline Casts None Seen (None-Few) per lpf Ur Culture Indicated? NO (NO) 03/25/17 03/25/17 03/25/17 Range/Units 00:52 00:52 00:52 WBC 11.0 (4.3-11.1) K/mcL RBC 4.19 (3.82-4.97) M/mcL Hgb 12.0 (11.5-15.4) g/dL Hct 37.8 (35.3-44.9) % MCV 90.2 (83.0-100.0) fL MCH 28.6 (28.0-33.3) pg MCHC 31.7 (31.6-35.5) g/dL RDW 13.8 (11.5-14.5) % Plt Count 279 (140-400) K/mcL MPV 10.8 (9.4-12.4) fL Immature Gran % 0.5 (0-4) % Seg Neutrophils % 82.4 % Lymphocytes % 9.6 % Monocytes % 5.8 % Eosinophils % 1.1 % Basophils % 0.6 % Neutrophils # 9.0 H (1.6-8.9) K/mcL Lymphocytes # 1.1 (0.6-4.6) K/mcL Monocytes # 0.6 (0.0-1.3) K/mcL Eosinophils # 0.1 (0.0-0.6) K/mcL Basophils # 0.1 (0.0-0.2) K/mcL ABG pH (7.32-7.45) pH Units ABG pCO2 (35-45) mmHg ABG pO2 (85-104) mmHg ABG HCO3 (21-27) mEq/L ABG Total CO2 (20-26) mEq/L ABG O2 Saturation (95-98) % ABG Base Excess (-2 to 3) mEq/L Sodium 142 (136-145) mEq/L Potassium 3.4 L (3.5-5.1) mEq/L Chloride 109 H (98-107) mEq/L Carbon Dioxide 27 (23-29) mEq/L BUN 23 (8-23) mg/dL Creatinine 1.01 (0.60-1.20) mg/dL Est GFR ( Amer) > 60 (> 60) Est GFR (Non-Af Amer) 54 L (> 60) BUN/Creatinine Ratio 23 (6-26) Glucose 108 H (70-105) mg/dL Calculated Osmolality 298 (280-300) Lactic Acid (0.5-2.2) mmol/L Calcium 11.9 H (8.6-10.3) mg/dL Magnesium (1.6-2.6) mg/dL Troponin I (< 0.04) ng/mL PTH Intact 9.4 L (10.0-65.0) pg/ml Urine Color (Yellow) Urine Clarity (Clear) Urine pH (5.0-8.0) pH Units Ur Specific [place] (1.010-1.025) Urine Protein (Neg-Trace) mg/dL Urine Glucose (UA) (Normal) mg/dL Urine Ketones (Negative) mg/dL Urine Blood (Negative) Urine Nitrite (Negative) Urine Bilirubin (Negative) Urine Urobilinogen (Normal) mg/dL Ur Leukocyte Esterase (Negative) Urine Microscopic RBC (0-3) per hpf Urine Microscopic WBC (0-3) per hpf Ur Squamous Epith Cells (None-Few) per lpf Urine Bacteria (None-Few) per hpf Hyaline Casts (None-Few) per lpf Ur Culture Indicated? (NO) 03/25/17 Range/Units 00:52 WBC (4.3-11.1) K/mcL RBC (3.82-4.97) M/mcL Hgb (11.5-15.4) g/dL Hct (35.3-44.9) % MCV (83.0-100.0) fL MCH (28.0-33.3) pg MCHC (31.6-35.5) g/dL RDW (11.5-14.5) % Plt Count (140-400) K/mcL MPV (9.4-12.4) fL Immature Gran % (0-4) % Seg Neutrophils % % Lymphocytes % % Monocytes % % Eosinophils % % Basophils % % Neutrophils # (1.6-8.9) K/mcL Lymphocytes # (0.6-4.6) K/mcL Monocytes # (0.0-1.3) K/mcL Eosinophils # (0.0-0.6) K/mcL Basophils # (0.0-0.2) K/mcL ABG pH (7.32-7.45) pH Units ABG pCO2 (35-45) mmHg ABG pO2 (85-104) mmHg ABG HCO3 (21-27) mEq/L ABG Total CO2 (20-26) mEq/L ABG O2 Saturation (95-98) % ABG Base Excess (-2 to 3) mEq/L Sodium (136-145) mEq/L Potassium (3.5-5.1) mEq/L Chloride (98-107) mEq/L Carbon Dioxide (23-29) mEq/L BUN (8-23) mg/dL Creatinine (0.60-1.20) mg/dL Est GFR ( Amer) (> 60) Est GFR (Non-Af Amer) (> 60) BUN/Creatinine Ratio (6-26) Glucose (70-105) mg/dL Calculated Osmolality (280-300) Lactic Acid (0.5-2.2) mmol/L Calcium (8.6-10.3) mg/dL Magnesium (1.6-2.6) mg/dL Troponin I 0.05 H* (< 0.04) ng/mL PTH Intact (10.0-65.0) pg/ml Urine Color (Yellow) Urine Clarity (Clear) Urine pH (5.0-8.0) pH Units Ur Specific [place] (1.010-1.025) Urine Protein (Neg-Trace) mg/dL Urine Glucose (UA) (Normal) mg/dL Urine Ketones (Negative) mg/dL Urine Blood (Negative) Urine Nitrite (Negative) Urine Bilirubin (Negative) Urine Urobilinogen (Normal) mg/dL Ur Leukocyte Esterase (Negative) Urine Microscopic RBC (0-3) per hpf Urine Microscopic WBC (0-3) per hpf Ur Squamous Epith Cells (None-Few) per lpf Urine Bacteria (None-Few) per hpf Hyaline Casts (None-Few) per lpf Ur Culture Indicated? (NO) - Radiology Data Radiology results reviewed: Yes I reviewed the patient's radiology results. - EKG Data EKG #1 EKG attestation: Yes I reviewed and interpreted this EKG. EKG results narrative: EKG dated 03/24/17 at 16:16 interpreted as sinus rhythm with a rate of 76. Normal intervals. Normal axis. Rare PVC. Nonspecific ST-T changes. Compared to previous dated 08/23/2016 showing no acute ischemic changes comparison. Attestation Statement - Attestation Attestation: I examined this patient and my medical decision-making was reviewed with the Resident Physician. I agree with the documented findings, disposition and treatment plan as described except to the extent set forth below. Patient to the ED with a chief complaint is sleeping more. Family states she has been more tired today. Difficult to arouse. Patient resting on exam. Arouses to painful stimuli. Handling her secretions. Plan. Altered mental status workup. Patient reevaluated. Refuses open her eyes. Patient clenches them shut when you ask her to open her eyes. She does mumble to painful stimulus. Afebrile. Will admit.
[2017-03-24 17:14] LABS: Basophils # 0.1 K/mcL (0.0-0.2); Basophils % 0.5 %; Eosinophils # 0.3 K/mcL (0.0-0.6); Eosinophils % 2.5 %; Hematocrit 39.8 % (35.3-44.9); Hemoglobin 12.9 g/dL (11.5-15.4); Immature Granulocytes % 0.5 % (0-4); Lymphocytes # 1.3 K/mcL (0.6-4.6); Lymphocytes % 10.9 %; Mean Corpuscular HGB Conc 32.4 g/dL (31.6-35.5); Mean Corpuscular Hemoglobin 28.8 pg (28.0-33.3); Mean Corpuscular Volume 88.8 fL (83.0-100.0); Mean Platelet Volume 10.5 fL (9.4-12.4); Monocytes # 0.8 K/mcL (0.0-1.3); Monocytes % 6.6 %; Platelet Count 301 K/mcL (140-400); Red Blood Count 4.48 M/mcL (3.82-4.97); Red Cell Distribution Width 13.7 % (11.5-14.5)
[2017-03-24 17:28] LABS: BUN/Creatinine Ratio 23 (6-26); Blood Urea Nitrogen 24 mg/dL (8-23); Calcium 12.2 mg/dL (8.6-10.3); Carbon Dioxide 29 mEq/L (23-29); Chloride 105 mEq/L (98-107); Glucose 96 mg/dL (70-105); Magnesium 1.9 mg/dL (1.6-2.6); Osmolality,Calculated 294 (280-300); Potassium 3.2 mEq/L (3.5-5.1); Sodium 140 mEq/L (136-145); eGFR For African Americans > 60 (> 60); eGFR For Non-African Americans 53 (> 60)
[2017-03-24 17:38] LABS: Bilirubin,Urine Negative (Negative); Blood,Urine Trace (Negative); Clarity,Urine Cloudy (Clear); Color,Urine Yellow (Yellow); Glucose,Urine (UA) Normal (Normal); Ketones,Urine Negative (Negative); Leukocyte Esterase,Urine Negative (Negative); Nitrite,Urine Negative (Negative); Protein,Urine Negative (Neg-Trace); Specific Gravity,Urine 1.023 (1.010-1.025); Urobilinogen,Urine Normal (Normal)
[2017-03-24 17:41] LABS: Bacteria,Urine Many per hpf (None-Few); Hyaline Casts,Urine None Seen per lpf (None-Few); RBC,Urine 0-3 per hpf (0-3); Squamous Epithelial Cell,Urine Many per lpf (None-Few)
[2017-03-24 19:47] LABS: ABG Base Excess 2 mEq/L (-2 to 3); ABG HCO3 28 mEq/L (21-27); ABG Oxygen Saturation 95 % (95-98); ABG PCO2 44 mmHg (35-45); ABG PH 7.41 pH Units (7.32-7.45); ABG PO2 73 mmHg (85-104); ABG TCO2 29 mEq/L (20-26)
[2017-03-24] MEDS ORDERED: cefTRIAXone 1,000 MG in Water for inj. (sterile) 20 ML 10 ML IVP ONE (20:19)
[2017-03-24] MEDS ORDERED: Naloxone 0.4 MG/ML INJ IVP PRN (22:38)
--- NOTE | 2017-03-24 22:43 | Internal Med History&Physical ---
<Abhishek Medellin - Last Filed: 03/25/17 00:35> Date of Encounter: 03/25/17 Time of Encounter: 22:43 Assessment and Plan (1) Pneumonia Current visit: Yes Status: Acute CXR shows new opacity in left upper lobe Patient has mild leukocytosis at 11.4 Appears round in nature, could represent new mass Patient has Ca 12.2, which could be consistent with mass appearance on CXR I will start the patient on Ceftriaxone + Azithromycin empirically for TB Blood cultures are pending Workup other causes of hypercalcemia Qualifiers: Pneumonia type: due to unspecified organism Laterality: left Lung location: upper lobe of lung Qualified Code(s): J18.1 - Lobar pneumonia, unspecified organism (2) Altered mental status Current visit: Yes Status: Acute Altered mental status, unknown cause Patient has questionable UTI, and possible PNA in [place] on CXR Mild elevation in troponin which appears to be below chronic baseline Polypharmacy remains one possible cause Got 1L IV fluids and 1g rocephin Head CT negative for intracranial process Qualifiers: Altered mental status type: somnolence Qualified Code(s): R40.0 - Somnolence (3) Parkinson disease Current visit: No Status: Chronic Patient has long standing parkinsons which is apparently controlled on home meds (4) Elevated troponin Current visit: Yes Status: Acute Troponin 0.04 in ED, appears to be chronically elevated EKG shows sinus rhythm, vitals remain stable Patient got rectal aspirin in ED Will repeat troponin (5) Hypokalemia Current visit: Yes Status: Acute K+ 3.2 on admission 20mEq IV potassium over 2 hours NS with 20mEQ maintenance (6) DVT prophylaxis Current visit: Yes Status: Acute SQ Heparin Internal Medicine - H&P: HPI Chief complaint: Altered mental status Admitted From: Emergency Dept Plans for Post Hospital Care: Home History of present illness: Ms. Hicks is a 71 year old female with history of parkinsons, dementia, A. fib , CHF, COPD, since the ED with 2 day history of increased fatigue and myalgias and one-day history of to arouse. The patient is unable to supply history, this is mostly taken from provider and nursing notes as family is not present in the room and not accessible by phone. The patient apparently has a baseline dementia, however she is alert to self and time generally. Apparently 2 days ago she began to increase and fatigue as well as myalgias, and also decreased her oral intake. Her family says that this is unusual for her. Then as of today, the patient apparently did have lethargy and was difficult to wake up. Her social services coordinator did mention that she apparently has had foul-smelling urine for the past several days and was concerned about a urinary tract infection. The patient was apparently treated with Levaquin recently and the medication was stopped approximately one week ago. There are no other obvious complaints at this time. Specialized Developer apparently said that she has been afebrile. There apparently also some questionable changes in medications that I was unable to obtain details about. Past Med Surg Social Fam HX - Past Medical History Medical history: arthritis, atrial fibrillation, CHF, COPD, DVT, dementia, GERD , hypertension, osteoporosis, RA, other Psychiatric history: anxiety, panic disorder, other - Past Surgical History Surgical History: , orthopedic, other, other - Social History Smoking Status: Former smoker Smokeless Tobacco Status: No Alcohol use: none Drug use: none - Family History Son Living Status: Still Living Hx Family Cardiac Disorders: No Hx Family Respiratory Disorders: No Hx Family Cancer: No Hx Family GI Disorders: Yes Hx Family Endocrine Disorder: No Internal Medicine - H&P: Meds Carbidopa/Levodopa 25/100 [Sinemet 25/100] 2 each PO TID 02/28/16 [History] Carbidopa/Levodopa ER 50/200 [Sinemet ER 50-200 Tab] 1 each PO HS 02/28/16 [ History] Docusate [Colace] 100 mg PO BID PRN 02/28/16 [History] Donepezil [Aricept] 10 mg PO HS 02/28/16 [History] Atorvastatin [Lipitor] 40 mg PO HS tablet 03/18/16 [Rx] Nitroglycerin 0.4 mg SL Q5MIN PRN #0 tab.subl 03/18/16 [Rx] DiphenhydraMINE [Benadryl] 50 mg PO Q8HR PRN 08/24/16 [History] Escitalopram [Lexapro] 10 mg PO DAILY 08/24/16 [History] Aspirin Enteric Coated [Aspirin EC] 325 mg PO DAILY 03/24/17 [History] Omeprazole [PriLOSEC] 20 mg PO BIDAC 03/24/17 [History] OxyCODONE Immed Rel [Roxicodone 10 MG] 15 mg PO Q4HR PRN 03/24/17 [History] hydrOXYzine HCl [Hydroxyzine HCl] 25 mg PO TID PRN 03/24/17 [History] 3 Allergy/AdvReac Type Severity Reaction Status Date / Time fentanyl Allergy Vomiting Verified 10/31/14 09:49 ondansetron Allergy Headache Verified 10/31/14 09:49 [From Zofran (as hydrochloride)] ROS unobtainable: due to mental status All Systems PM: A 10-system review of systems was performed and is negative for pertinent findings except as documented above in the HPI. - Constitutional Vitals: Temp Pulse Resp BP Pulse Ox 98.1 F 74 15 133/71 94 03/24/17 22:26 03/24/17 22:26 03/24/17 22:26 03/24/17 22:26 03/24/17 22:26 Exam: Gen.: Vitals noted. Arousable only on painful stimuli HEENT: PERRL, oropharynx clear, Normocephalic, atraumatic Neck: Supple. No adenopathy. No obvious JVD Cardiac: RRR, no murmur, +S1/S2 Pulmonary: CTA bilaterally, no wheezes, rales or rhonchi, equal chest expansion however exam was technically difficult because patient is not responsive nor cooperative with exam Abdomen: soft, nontender, BS noted, no guarding, but patient did become mildly agitated on palpation of abdomen Back: Stage 2 sacral decubitus ulcer present on admission Extremities: no BLE edema, no cyanosis or clubbing Neuro: Arousable only to painful stimuli and she immediately becomes somnolent and goes back to sleep without following commands Internal Med - H&P Results - Labs CBC & Chem 7: 03/24/17 17:05 03/24/17 17:05 <Simón Hastings - Last Filed: 03/25/17 03:50> Date of Encounter: 03/25/17 Time of Encounter: 03:05 ROS unobtainable: due to mental status - Constitutional Vitals: Temp Pulse Resp BP Pulse Ox 98.0 F 90 16 101/66 92 03/25/17 03:20 03/25/17 03:20 03/25/17 03:20 03/25/17 03:20 03/25/17 03:20 Exam: patient appears dehydrated; responds only to painful stimuli and loud verbal command - Head Head exam: Present: atraumatic - Eye Eye exam: Present: EOMI. Absent: scleral icterus - ENT ENT exam: Present: mucous membranes dry - Neck Neck exam general surgery: Present: full ROM, supple. Absent: lymphadenopathy, tenderness - Respiratory Respiratory exam: Present: CTAB. Absent: chest wall tenderness, rales, respiratory distress, rhonchi, wheezes Additional comments: do not appreciate any focal lung pathology on auscultation - Cardiovascular Cardiovascular exam: Present: RRR, +S1, +S2 - GI/Abdominal GI/Abdominal exam: Present: soft. Absent: hepatomegaly, mass, splenomegaly, tenderness - Extremities Exam Extremities exam: Present: warm, radial pulses palpable and symmetrical. Absent : calf tenderness, pedal edema - Neurological Exam Additional comments: somnolent; arousable to painful stimuli - Skin Skin exam: Present: dry, warm. Absent: rash Internal Med - H&P Results - Labs CBC & Chem 7: 03/25/17 00:52 03/25/17 00:52 Labs: Short CBC 03/25/17 Range/Units 00:52 WBC 11.0 (4.3-11.1) K/mcL Hgb 12.0 (11.5-15.4) g/dL Hct 37.8 (35.3-44.9) % Plt Count 279 (140-400) K/mcL Neutrophils # 9.0 H (1.6-8.9) K/mcL BMP 03/25/17 00:52 Sodium 142 Potassium 3.4 L Chloride 109 H Carbon Dioxide 27 BUN 23 Creatinine 1.01 Glucose 108 H Calcium 11.9 H Cardiac Enzymes 03/25/17 Range/Units 00:52 Troponin I 0.05 H* (< 0.04) ng/mL - Diagnostic Studies Chest x-ray Status: image reviewed by me ([place] nodular lesions concerning for malignancy) - Attending Attestation I discussed the patient [place], PMH, ROS, lab data, and exam findings with Dr. Medellin. I then saw and examined patient independently as well. Patient does not provide any history and no family members are present. Patient is hypercalcemic as noted by Dr. Medellin. I can not gather any history of bone pain, constipation, or kidney disease. She has AMS and is dehydrated, however. We will order CT chest to evaluate lung lesion, which is rather concerning for malignancy. Additionally, we will order SPEP and UPEP as she might have multiple myeloma. She will need oncology consultation and follow up labs in the morning. She may also benefit from bisphosphanates for treatment of hypercalcemia of malignancy. For now, we will hydrate her with IVF, minimize mind altering medications, and purse work-up as detailed above and per Dr. Abdalla. Other than my comments above and noted exam findings, I agree with Dr. Medellin' s assessment and plan.
[2017-03-25] MEDS ORDERED: *HR* OxyCODONE Immed Rel 15 MG TABLET PO PRN (00:07)
[2017-03-25] MEDS ORDERED: Azithromycin 500 MG in D5% in Water 250 ML IVPB ONE (00:22)
[2017-03-25] MEDS: 0.9 % Sodium Chloride w KCl 20 MEQ/1,000 ML MLS IVC SCH ×4 (00:52→23:56)
[2017-03-25 01:09] LABS: Basophils # 0.1 K/mcL (0.0-0.2); Basophils % 0.6 %; Eosinophils # 0.1 K/mcL (0.0-0.6); Eosinophils % 1.1 %; Hematocrit 37.8 % (35.3-44.9); Immature Granulocytes % 0.5 % (0-4); Lymphocytes # 1.1 K/mcL (0.6-4.6); Lymphocytes % 9.6 %; Mean Corpuscular HGB Conc 31.7 g/dL (31.6-35.5); Mean Corpuscular Hemoglobin 28.6 pg (28.0-33.3); Mean Corpuscular Volume 90.2 fL (83.0-100.0); Mean Platelet Volume 10.8 fL (9.4-12.4); Monocytes # 0.6 K/mcL (0.0-1.3); Monocytes % 5.8 %; Platelet Count 279 K/mcL (140-400); Red Blood Count 4.19 M/mcL (3.82-4.97); Red Cell Distribution Width 13.8 % (11.5-14.5); Segmented Neutrophils % 82.4 %
[2017-03-25 01:41] LABS: BUN/Creatinine Ratio 23 (6-26); Blood Urea Nitrogen 23 mg/dL (8-23); Calcium 11.9 mg/dL (8.6-10.3); Carbon Dioxide 27 mEq/L (23-29); Chloride 109 mEq/L (98-107); Glucose 108 mg/dL (70-105); Osmolality,Calculated 298 (280-300); Potassium 3.4 mEq/L (3.5-5.1); Sodium 142 mEq/L (136-145); eGFR For African Americans > 60 (> 60); eGFR For Non-African Americans 54 (> 60)
[2017-03-25] MEDS: *HR* Heparin 5,000 UNIT/ML VIAL SQ SCH ×2 (04:45→17:43)
[2017-03-25] MEDS: Aspirin Enteric Coated 325 MG Tablet PO SCH (09:04)
[2017-03-25] MEDS: Carbidopa/Levodopa 25/100 TABLET PO SCH ×3 (09:04→21:32)
--- NOTE | 2017-03-25 09:54 | Internal Med Progress Note ---
<Ross Vasquez - Last Filed: 03/25/17 14:37> Date of Encounter: 03/25/17 Time of Encounter: 09:00 - Assessment and plan (1) Altered mental status Current Visit: Yes Status: Acute Assessment and plan: Patient continues to be altered and nonresponsive to verbal command. GCS 10. Cause of altered mental status still unknown, r/o infection etiology vs chronic illness vs pulmonary tumor. She also has history of Parkinson's dementia. CXR shows opacity in left upper lobe with CT chest confirmation of scattered bilateral pulmonary nodules concerning for metastatic disease or primary tumor. CT head was negative. Antibiotics discontinued as patients has no signs or symptoms of pulmonary infection. Continue with solis catheter, cardiac monitoring, supplemental oxygen with goal >92%, measure I/Os. Follow-up blood culture, urine culture, immunofixation, protein electrophoresis. Patient has not had BM since admission, C. dif toxin screen discontinued. Palliative and social services assistant consulted. Follow-up with daughter in regards to code status. Patient has overall poor prognosis. Qualifiers: Altered mental status type: somnolence Qualified Code(s): R40.0 - Somnolence (2) Abnormal CT scan, chest Current Visit: Yes Status: Acute Assessment and plan: CT chest demonstrates scattered bilateral pulmonary nodules concerning for metastatic disease vs primary pulmonary tumor. Will speak to patient's family in regards to code status and possible treatment options. (3) Parkinson disease Current Visit: No Status: Chronic Assessment and plan: Continue home medication (4) Elevated troponin I measurement Current Visit: Yes Status: Acute Assessment and plan: Demand ischemia from critical illness and worsening prognosis. No cardiac intervention necessary at this time. Continue cardiac monitoring. (5) DVT prophylaxis Current Visit: Yes Status: Acute Assessment and plan: Continue Heparin 5000 unit SQ BID for DVT prophylaxis. - Time Spent With Patient less than 15 minutes - Subjective Interval history: PMHx Parkinson's, A.fib, CHF, COPD admitted for aMS, fatigue and myalgia suspicious for PNA. Patient does not respond to verbal stimulus, does not follow verbal commands, but does respond to tactile stimulus. Eyes open to pain , inappropriate words, moves to localized pain, GCS 10. Per nurse, no overnight events. Called patient's , but no response. Daughter reported that she will be here later today. Patient has no code status. Per nurse, no BM since admission. Poor urine output. . - Constitutional Vitals: Temp Pulse Resp BP Pulse Ox 99.6 F 102 16 124/53 92 03/25/17 07:42 03/25/17 07:42 03/25/17 07:42 03/25/17 07:42 03/25/17 07:42 General appearance: Present: cachectic, A&O X 0, no acute distress, underweight Exam: malnourished and unresponsive to verbal commands. - Head Head exam: Present: atraumatic, normocephalic - Eye Eye exam: Present: normal appearance - ENT ENT exam: Present: mucous membranes dry - Neck Neck exam general surgery: Present: supple, trachea midline. Absent: lymphadenopathy - Respiratory Respiratory exam: Present: CTAB. Absent: accessory muscle use, rales, rhonchi, wheezes - Cardiovascular Cardiovascular exam: Present: distant heart sounds, +S1, +S2. Absent: rubs - GI/Abdominal GI/Abdominal exam: Present: bruit, hypoactive bowel sounds, soft. Absent: guarding, hepatomegaly, rebound, splenomegaly, no peritoneal signs Additional comments: left abdominal bruit noted. - Neurological Exam Neurological exam: Absent: alert - Skin Skin exam: Present: dry, intact, petechiae Internal Medicine: Result - Labs CBC & Chem 7: 03/25/17 00:52 03/25/17 00:52 Labs: Cardiac Enzymes 03/25/17 Range/Units 06:44 Troponin I 0.05 H* (< 0.04) ng/mL - ABG Interpretation ABG results: ABG ABG pH 7.41 pH Units (7.32-7.45) 03/24/17 19:42 ABG pCO2 44 mmHg (35-45) 03/24/17 19:42 ABG pO2 73 mmHg (85-104) L 03/24/17 19:42 ABG O2 Saturation 95 % (95-98) 03/24/17 19:42 - Impressions Impressions Chest CT 03/25/17 08:00 IMPRESSION: 1. Scattered bilateral pulmonary nodules concerning for metastatic disease. 2. Multiple lytic skeletal lesions within the lumbar and thoracic spine. Correlate whole-body bone scan. 3. Emphysema with bibasilar atelectasis. 4. Cardiomegaly with ascending aortic tortuosity. D/ / 03/25/2017 09:05:36 Gonzalo Garcia MD / noemi Interpreting Provider: Gonzalo Garcia MD Consult Discharge Plan - Plan Referrals: Frances Reilly MD [Primary Care Provider] - <Young Patel - Last Filed: 03/25/17 19:05> Date of Encounter: 03/25/17 - Constitutional Vitals: Temp Pulse Resp BP Pulse Ox 98.8 F 100 16 151/80 92 03/25/17 16:21 03/25/17 16:21 03/25/17 16:21 03/25/17 16:21 03/25/17 16:21 Internal Medicine: Result - Labs CBC & Chem 7: 03/25/17 00:52 03/25/17 00:52 Labs: Cardiac Enzymes 03/25/17 Range/Units 06:44 Troponin I 0.05 H* (< 0.04) ng/mL - ABG Interpretation ABG results: ABG ABG pH 7.41 pH Units (7.32-7.45) 03/24/17 19:42 ABG pCO2 44 mmHg (35-45) 03/24/17 19:42 ABG pO2 73 mmHg (85-104) L 03/24/17 19:42 ABG O2 Saturation 95 % (95-98) 03/24/17 19:42 - Impressions Impressions Chest CT 03/25/17 08:00 IMPRESSION: 1. Scattered bilateral pulmonary nodules concerning for metastatic disease. 2. Multiple lytic skeletal lesions within the lumbar and thoracic spine. Correlate whole-body bone scan. 3. Emphysema with bibasilar atelectasis. 4. Cardiomegaly with ascending aortic tortuosity. D/ / 03/25/2017 09:05:36 Gonzalo Garcia MD / noemi Interpreting Provider: Gonzalo Garcia MD - Attending Attestation I conducted a face to face diagnostic evaluation of this patient and my medical decision-making was reviewed with the Resident Physician. I agree with the documented findings, disposition and treatment plan as described except to the extent set forth below: Patient is obtunded and cannot provide history. On exam she is malnourished and moaning but nonverbal. Plan: Palliative care consult. Family meeting regarding her findings consistent with advanced metastatic cancer. Young Patel MD
[2017-03-25 10:11] LABS: VBG Ionized Calcium 1.58 mmol/L (1.15-1.35)
[2017-03-25] MEDS: Carbidopa/Levodopa ER 50/200 TABLET PO SCH (21:32)
[2017-03-26] MEDS: *HR* Heparin 5,000 UNIT/ML VIAL SQ SCH ×2 (06:38→16:52)
[2017-03-26 06:40] LABS: Basophils # 0.1 K/mcL (0.0-0.2); Basophils % 0.4 %; Hematocrit 39.4 % (35.3-44.9); Immature Granulocytes % 0.7 % (0-4); Lymphocytes # 1.1 K/mcL (0.6-4.6); Lymphocytes % 9.3 %; Mean Corpuscular Hemoglobin 29.4 pg (28.0-33.3); Mean Corpuscular Volume 89.1 fL (83.0-100.0); Mean Platelet Volume 11.4 fL (9.4-12.4); Monocytes # 0.5 K/mcL (0.0-1.3); Monocytes % 4.3 %; Neutrophils # 10.5 K/mcL (1.6-8.9); Platelet Count 321 K/mcL (140-400); Red Blood Count 4.42 M/mcL (3.82-4.97); Red Cell Distribution Width 13.6 % (11.5-14.5); Segmented Neutrophils % 85.3 %
[2017-03-26 07:23] LABS: BUN/Creatinine Ratio 23 (6-26); Blood Urea Nitrogen 19 mg/dL (8-23); Calcium 11.6 mg/dL (8.6-10.3); Carbon Dioxide 25 mEq/L (23-29); Chloride 111 mEq/L (98-107); Glucose 82 mg/dL (70-105); Osmolality,Calculated 301 (280-300); Potassium 3.7 mEq/L (3.5-5.1); Sodium 145 mEq/L (136-145); eGFR For African Americans > 60 (> 60); eGFR For Non-African Americans > 60 (> 60)
--- NOTE | 2017-03-26 08:06 | Pulmonology Consult Note ---
Date of Encounter: 03/26/17 Time of Encounter: 07:30 History of Present Illness History of present illness: Mrs. Hicks is a 71 y/o F with a past medical history of parkinsons, dementia, A.Fib, CHF, and COPD who was admitted to [place] for altered mental status and pneumonia. Chest xray shows opacity in left upper lobe with CT chest confirmation of scattered bilateral pulmonary nodules concerning for metastatic disease or primary tumor. Palliative team was consulted to discuss goals of care and code status. History was unable to be obtained from the patient due to her altered mental status. Cause of her altered mental status is still unknown currently. Patient is nonresponsive to verbal commands, but she does respond to tactile stimulus and her airway is currently protected. Per report from the nurse, there were no overnight events. The nurse spoke with patient's son, Dread, and was provided three phone numbers to contact him. Also, the daughter is Amber and is supposedly the person of contact to discuss code status per patient's son, Dread. Past Med Surg Social Fam HX - Past Medical History Medical history: arthritis, atrial fibrillation, CHF, COPD, DVT, dementia, GERD , hypertension, osteoporosis, RA, other Psychiatric history: anxiety, panic disorder, other - Past Surgical History Surgical History: , orthopedic, other, other - Social History Smoking Status: Former smoker Smokeless Tobacco Status: No Alcohol use: none Drug use: none - Family History Son Living Status: Still Living Hx Family Cardiac Disorders: No Hx Family Respiratory Disorders: No Hx Family Cancer: No Hx Family GI Disorders: Yes Hx Family Endocrine Disorder: No Medications and Allergies Carbidopa/Levodopa 25/100 [Sinemet 25/100] 2 each PO TID 02/28/16 [History] Carbidopa/Levodopa ER 50/200 [Sinemet ER 50-200 Tab] 1 each PO HS 02/28/16 [ History] Docusate [Colace] 100 mg PO BID PRN 02/28/16 [History] Donepezil [Aricept] 10 mg PO HS 02/28/16 [History] Atorvastatin [Lipitor] 40 mg PO HS tablet 03/18/16 [Rx] Nitroglycerin 0.4 mg SL Q5MIN PRN #0 tab.subl 03/18/16 [Rx] DiphenhydraMINE [Benadryl] 50 mg PO Q8HR PRN 08/24/16 [History] Escitalopram [Lexapro] 10 mg PO DAILY 08/24/16 [History] Aspirin Enteric Coated [Aspirin EC] 325 mg PO DAILY 03/24/17 [History] Omeprazole [PriLOSEC] 20 mg PO BIDAC 03/24/17 [History] OxyCODONE Immed Rel [Roxicodone 10 MG] 15 mg PO Q4HR PRN 03/24/17 [History] hydrOXYzine HCl [Hydroxyzine HCl] 25 mg PO TID PRN 03/24/17 [History] 3 Allergy/AdvReac Type Severity Reaction Status Date / Time fentanyl Allergy Vomiting Verified 10/31/14 09:49 ondansetron Allergy Headache Verified 10/31/14 09:49 [From Zofran (as hydrochloride)] ROS unobtainable: due to mental status All Systems: A 10-system review of systems was performed and is negative for pertinent findings except as documented above in the HPI. Physical Examination Vital Signs: Vital Signs, Last 4 Hours Temp Pulse Resp BP Pulse Ox 03/26/17 07:32 99.4 F 112 20 136/53 93 General appearance: no acute distress, other (Patient is not alert or oriented. Patient is nonresponsive to verbal commands, but she responds to tactile stiumuls. ) Results - Laboratory Findings CBC and BMP: 03/26/17 04:47 03/26/17 04:47 ABG ABG pH 7.41 pH Units (7.32-7.45) 03/24/17 19:42 ABG pCO2 44 mmHg (35-45) 03/24/17 19:42 ABG pO2 73 mmHg (85-104) L 03/24/17 19:42 ABG O2 Saturation 95 % (95-98) 03/24/17 19:42 Abnormal lab findings: Abnormal lab results WBC 12.3 K/mcL (4.3-11.1) H 03/26/17 04:47 Neutrophils # 10.5 K/mcL (1.6-8.9) H 03/26/17 04:47 ABG pO2 73 mmHg (85-104) L 03/24/17 19:42 ABG HCO3 28 mEq/L (21-27) H 03/24/17 19:42 ABG Total CO2 29 mEq/L (20-26) H 03/24/17 19:42 Chloride 111 mEq/L (98-107) H 03/26/17 04:47 Calculated Osmolality 301 (280-300) H 03/26/17 04:47 Calcium 11.6 mg/dL (8.6-10.3) H 03/26/17 04:47 Venous Ioniz Calcium 1.58 mmol/L (1.15-1.35) H 03/25/17 10:08 Troponin I 0.05 ng/mL (< 0.04) H* 03/25/17 06:44 PTH Intact 9.4 pg/ml (10.0-65.0) L 03/25/17 00:52 Urine Clarity Cloudy (Clear) A 03/24/17 17:28 Urine Blood Trace (Negative) H 03/24/17 17:28 Urine Microscopic WBC 5-15 per hpf (0-3) H 03/24/17 17:28 Ur Squamous Epith Cells Many per lpf (None-Few) H 03/24/17 17:28 Urine Bacteria Many per hpf (None-Few) H 03/24/17 17:28 - Clinical Findings Intake & Output: Intake & Output 03/25/17 03/26/17 03/26/17 23:59 07:59 15:59 Intake Total 1000 / 1000 Balance 1000 / 1000 Weight 39.1 kg Consult Discharge Plan - Plan Referrals: Frances Reilly MD [Primary Care Provider] -
--- NOTE | 2017-03-26 08:43 | Palliative - Consult Note ---
<Jahaira Hannah-Cyndi - Last Filed: 03/26/17 08:40> Date of Encounter: 03/26/17 Time of Encounter: 07:30 - Assessment and Plan (1) Goals of care, counseling/discussion Current Visit: Yes Status: Acute Assessment and plan: Patient appears comfortable and in no acute distress. Patient is afebrile. Patient is nonresponsive to verbal commands, but she responds to tactile stimulus. She is not alert or oriented. Chest xray shows opacity in left upper lobe with CT chest confirmation of scattered bilateral pulmonary nodules concerning for metastatic disease or primary tumor. I spoke with the patient's who informed me to discuss goals of care and code status with their oldest son, Hadley, who is supposedly the patient's POA. The informed me that both Hadley and Amber (the patient's daughter) will be on their way to the hospital soon to further discuss goals of care and code status. Will wait for the family to arrive to further discuss goals of care and code status. (2) Altered mental status Current Visit: Yes Status: Acute Assessment and plan: Patient is still not alert or oriented. Patient is nonresponsive to verbal commands, but she responds to tactile stimulus. Continue to monitor the patient closely. Plan is per hospitalist team. Qualifiers: Altered mental status type: somnolence Qualified Code(s): R40.0 - Somnolence (3) Pneumonia Current Visit: Yes Status: Acute Qualifiers: Pneumonia type: due to unspecified organism Laterality: left Lung location: upper lobe of lung Qualified Code(s): J18.1 - Lobar pneumonia, unspecified organism (4) Dementia Current Visit: No Status: Chronic Qualifiers: Dementia type: Parkinson's disease Dementia behavioral disturbance: without behavioral disturbance Qualified Code(s): G20 - Parkinson's disease; F02.80 - Dementia in other diseases classified elsewhere without behavioral disturbance Palliative-CN HPI - Data of Consult Requesting Physician: Young Patel MD Primary Care Provider: Frances Reilly - Consult Narrative History of present illness: Ms. Hicks is a 71 year old female with a past medical history of parkinsons, dementia, A.Fib, CHF, and COPD who was admitted to [place] for altered mental status and pneumonia. Chest xray shows opacity in left upper lobe with CT chest confirmation of scattered bilateral pulmonary nodules concerning for metastatic disease or primary tumor. Palliative team was consulted to discuss goals of care and code status. History was unable to be obtained from the patient due to her altered mental status. Cause of her altered mental status is still unknown currently. Patient is nonresponsive to verbal commands, but she does respond to tactile stimulus and her airway is currently protected. Per report from the nurse, there were no overnight events. The nurse spoke with patient's son, Dread, and was provided three phone numbers to contact him. Also , the daughter is Amber and is supposedly the person of contact to discuss code status. However, the informed me that his oldest son, Hadley, is the POA. CC: Young Patel MD Past Med Surg Social Fam HX - Past Medical History Medical history: arthritis, atrial fibrillation, CHF, COPD, DVT, dementia, GERD , hypertension, osteoporosis, RA, other Psychiatric history: anxiety, panic disorder, other - Past Surgical History Surgical History: , orthopedic, other, other - Social History Smoking Status: Former smoker Smokeless Tobacco Status: No Alcohol use: none Drug use: none - Family History Son Living Status: Still Living Hx Family Cardiac Disorders: No Hx Family Respiratory Disorders: No Hx Family Cancer: No Hx Family GI Disorders: Yes Hx Family Endocrine Disorder: No Medications and Allergies Carbidopa/Levodopa 25/100 [Sinemet 25/100] 2 each PO TID 02/28/16 [History] Carbidopa/Levodopa ER 50/200 [Sinemet ER 50-200 Tab] 1 each PO HS 02/28/16 [ History] Docusate [Colace] 100 mg PO BID PRN 02/28/16 [History] Donepezil [Aricept] 10 mg PO HS 02/28/16 [History] Atorvastatin [Lipitor] 40 mg PO HS tablet 03/18/16 [Rx] Nitroglycerin 0.4 mg SL Q5MIN PRN #0 tab.subl 03/18/16 [Rx] DiphenhydraMINE [Benadryl] 50 mg PO Q8HR PRN 08/24/16 [History] Escitalopram [Lexapro] 10 mg PO DAILY 08/24/16 [History] Aspirin Enteric Coated [Aspirin EC] 325 mg PO DAILY 03/24/17 [History] Omeprazole [PriLOSEC] 20 mg PO BIDAC 03/24/17 [History] OxyCODONE Immed Rel [Roxicodone 10 MG] 15 mg PO Q4HR PRN 03/24/17 [History] hydrOXYzine HCl [Hydroxyzine HCl] 25 mg PO TID PRN 03/24/17 [History] 3 Allergy/AdvReac Type Severity Reaction Status Date / Time fentanyl Allergy Vomiting Verified 10/31/14 09:49 ondansetron Allergy Headache Verified 10/31/14 09:49 [From Zofran (as hydrochloride)] ROS unobtainable: due to mental status Palliative Care-Exam - Constitutional Vitals: Temp Pulse Resp BP Pulse Ox 99.4 F 112 20 136/53 93 03/26/17 07:32 03/26/17 07:32 03/26/17 07:32 03/26/17 07:32 03/26/17 07:32 General appearance: Present: no acute distress, thin Exam: Patient is not alert or oriented. She is nonresponsive to verbal commands, but she responds to tactile stimulus. - Head Head Exam: Present: atraumatic - Eye Eye exam: Present: normal appearance, PERRL - ENT ENT exam: Present: mucous membranes moist - Neck Neck exam: Present: normal inspection. Absent: lymphadenopathy, tenderness - Respiratory Respiratory exam: Present: CTAB. Absent: rales, respiratory distress, wheezes - Cardiovascular Cardiovascular exam: Present: +S1, +S2, tachycardia (Heart rate was 114 bpm on exam). Absent: gallop, rubs - GI/Abdominal Exam GI/Abdominal exam: Present: soft. Absent: distended, guarding, tenderness - Extremities Exam Extremities exam: Absent: calf tenderness, joint swelling, pedal edema, tenderness - Back Exam Back exam: Absent: CVA tenderness (L), CVA tenderness (R) - Neurological Exam Neurological exam: Present: altered. Absent: alert, oriented X3, facial droop Internal Medicine - CN: Reslt - Labs CBC & Chem 7: 03/26/17 04:47 03/26/17 04:47 Labs: Short CBC 03/26/17 Range/Units 04:47 WBC 12.3 H (4.3-11.1) K/mcL Hgb 13.0 (11.5-15.4) g/dL Hct 39.4 (35.3-44.9) % Plt Count 321 (140-400) K/mcL Neutrophils # 10.5 H (1.6-8.9) K/mcL BMP 03/26/17 04:47 Sodium 145 Potassium 3.7 Chloride 111 H Carbon Dioxide 25 BUN 19 Creatinine 0.82 Glucose 82 Calcium 11.6 H - ABG Interpretation ABG results: ABG ABG pH 7.41 pH Units (7.32-7.45) 03/24/17 19:42 ABG pCO2 44 mmHg (35-45) 03/24/17 19:42 ABG pO2 73 mmHg (85-104) L 03/24/17 19:42 ABG O2 Saturation 95 % (95-98) 03/24/17 19:42 - Impressions Impressions Chest CT 03/25/17 08:00 IMPRESSION: 1. Scattered bilateral pulmonary nodules concerning for metastatic disease. 2. Multiple lytic skeletal lesions within the lumbar and thoracic spine. Correlate whole-body bone scan. 3. Emphysema with bibasilar atelectasis. 4. Cardiomegaly with ascending aortic tortuosity. D/ / 03/25/2017 09:05:36 Gonzalo Garcia MD / earnold Interpreting Provider: Gonzalo Garcia MD Consult Discharge Plan - Plan Referrals: Frances Reilly MD [Primary Care Provider] - Palliative Quality Palliative Quality: Screen for Code Status: Yes, Screen for Goals of Care: Yes, Screen for Pain: Yes, If Pain Regimen Started, Initiate Bowel Regimen: NA, Screen for Nausea/Vomitting: Yes <Aidan Hankins - Last Filed: 03/26/17 11:58> Date of Encounter: 03/26/17 Palliative-CN HPI - Data of Consult Requesting Physician: Young Patel MD Primary Care Provider: Frances Reilly - Consult Narrative History of present illness: Ms. Hicks is a 71 year old female CC: Young Patel MD Palliative Care-Exam - Constitutional Vitals: Temp Pulse Resp BP Pulse Ox 100.3 F H 108 20 144/76 94 03/26/17 10:41 03/26/17 10:41 03/26/17 10:41 03/26/17 10:41 03/26/17 10:41 Internal Medicine - CN: Reslt - Labs CBC & Chem 7: 03/26/17 04:47 03/26/17 04:47 Labs: Short CBC 03/26/17 Range/Units 04:47 WBC 12.3 H (4.3-11.1) K/mcL Hgb 13.0 (11.5-15.4) g/dL Hct 39.4 (35.3-44.9) % Plt Count 321 (140-400) K/mcL Neutrophils # 10.5 H (1.6-8.9) K/mcL BMP 03/26/17 04:47 Sodium 145 Potassium 3.7 Chloride 111 H Carbon Dioxide 25 BUN 19 Creatinine 0.82 Glucose 82 Calcium 11.6 H - ABG Interpretation ABG results: ABG ABG pH 7.41 pH Units (7.32-7.45) 03/24/17 19:42 ABG pCO2 44 mmHg (35-45) 03/24/17 19:42 ABG pO2 73 mmHg (85-104) L 03/24/17 19:42 ABG O2 Saturation 95 % (95-98) 03/24/17 19:42 - Impressions Impressions Chest CT 03/25/17 08:00 IMPRESSION: 1. Scattered bilateral pulmonary nodules concerning for metastatic disease. 2. Multiple lytic skeletal lesions within the lumbar and thoracic spine. Correlate whole-body bone scan. 3. Emphysema with bibasilar atelectasis. 4. Cardiomegaly with ascending aortic tortuosity. D/ / 03/25/2017 09:05:36 Gonzalo Garcia MD / earnold Interpreting Provider: Gonzalo Garcia MD - Attending Attestation I examined this patient and my medical decision-making was reviewed with the Resident Physician. I agree with the documented findings, disposition and treatment plan as described except to the extent set forth below. Discussed case at length with patient's son medical power of state attorney [place] as well as the patient's daughter Amber [phone] they do not wish the patient be put through a cardiac resuscitation, however short-term intubation as long as it was not resultant trach and PEG would be okay. Recognized that the possibility the patient making it through chemotherapy and her radiation therapy is very low, however they would like to know if the patient does have cancer and what the overall prognosis is. In addition they would like to know why the patient has an altered mental status. This workup is still ongoing. I have discussed this at length with the treatment team and they are aware of the fact the family is here, and what their wishes are with regards to knowing what is going on with the patient. CODE STATUS has been changed. Palliative we will continue to follow Palliative Quality Code Status: 03/26/17 10:07 CODE [Resuscitation Status: Active] [RES] Routine Comment: short term intubatin is ok, no trach no peg Resuscitation Status: DNR-Comfort Care-Arrest
[2017-03-26] MEDS: Aspirin Enteric Coated 325 MG Tablet PO SCH (08:48)
[2017-03-26] MEDS: Carbidopa/Levodopa 25/100 TABLET PO SCH ×3 (08:48→20:53)
[2017-03-26] MEDS: 0.9 % Sodium Chloride w KCl 20 MEQ/1,000 ML MLS IVC SCH ×2 (08:50→16:52)
[2017-03-26] MEDS ORDERED: Acetaminophen 650 MG RECTAL SUPP RC ONE (10:48)
--- NOTE | 2017-03-26 11:37 | Pulmonology Consult Note ---
Date of Encounter: 03/26/17 Time of Encounter: 10:55 Assessment and Plan (1) Abnormal CT scan, chest Current Visit: Yes Status: Acute This result was discussed with the family at the bedside and this is very suspicious for malignancies, however due to patient's altered comorbidities as well as her general condition I suspect will be poor candidate for any chemotherapy or radiation for that reason in my opinion invasive testing is not appropriate since the outcome is very poor and it will not change. Family has had some questions about definitive answer and I explained to them biopsy would be definitive, however oncology consultation can be done to answer their questions. I doubt this is infection especially with the distribution and also with the bone lesions. We have discussed less invasive testing such as PET scan , however even that probably would be an excessive testing and hospice is very appropriate in my opinion. This is discussed with the primary team and thank you for consultation is called for any questions. (2) Dementia Current Visit: No Status: Chronic Qualifiers: Dementia type: Parkinson's disease Dementia behavioral disturbance: without behavioral disturbance Qualified Code(s): G20 - Parkinson's disease; F02.80 - Dementia in other diseases classified elsewhere without behavioral disturbance (3) Altered mental status Current Visit: Yes Status: Acute Qualifiers: Altered mental status type: somnolence Qualified Code(s): R40.0 - Somnolence (4) Former smoker, stopped smoking many years ago Current Visit: Yes Status: Resolved (5) Emphysema of lung Current Visit: Yes Status: Chronic Qualifiers: Emphysema type: unspecified Qualified Code(s): J43.9 - Emphysema, unspecified (6) Lung nodule, multiple Current Visit: Yes Status: Acute History of Present Illness Consult date: 03/26/17 Requesting physician: Young Patel Reason for consult: lung mass Chief complaint: Altered mental status History of present illness: This is a 71-year-old female with multiple medical problems and dementia that cannot give history and his history is taken from the primary team, chart and the family at the bedside. Patient was found to have multiple lung lesions and pulmonary is consulted for evaluation and possible biopsy. Patient is a former smoker and she has history of COPD. She also has history of Parkinson's disease and dementia. She also has cardiovascular disease his CHF and atrial fibrillation. Patient was found to have a history of increased fatigue and mild she has and she was brought to the hospital. 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 There is no history of hemoptysis and patient is not having great intake and she has lost weight. Past Med Surg Social Fam HX - Past Medical History Medical history: arthritis, atrial fibrillation, CHF, COPD, DVT, dementia, GERD , hypertension, osteoporosis, RA, other Psychiatric history: anxiety, panic disorder, other - Past Surgical History Surgical History: , orthopedic, other, other - Social History Smoking Status: Former smoker Smokeless Tobacco Status: No Alcohol use: none Drug use: none - Family History Son Living Status: Still Living Hx Family Cardiac Disorders: No Hx Family Respiratory Disorders: No Hx Family Cancer: No Hx Family GI Disorders: Yes Hx Family Endocrine Disorder: No Medications and Allergies Carbidopa/Levodopa 25/100 [Sinemet 25/100] 2 each PO TID 02/28/16 [History] Carbidopa/Levodopa ER 50/200 [Sinemet ER 50-200 Tab] 1 each PO HS 02/28/16 [ History] Docusate [Colace] 100 mg PO BID PRN 02/28/16 [History] Donepezil [Aricept] 10 mg PO HS 02/28/16 [History] Atorvastatin [Lipitor] 40 mg PO HS tablet 03/18/16 [Rx] Nitroglycerin 0.4 mg SL Q5MIN PRN #0 tab.subl 03/18/16 [Rx] DiphenhydraMINE [Benadryl] 50 mg PO Q8HR PRN 08/24/16 [History] Escitalopram [Lexapro] 10 mg PO DAILY 08/24/16 [History] Aspirin Enteric Coated [Aspirin EC] 325 mg PO DAILY 03/24/17 [History] Omeprazole [PriLOSEC] 20 mg PO BIDAC 03/24/17 [History] OxyCODONE Immed Rel [Roxicodone 10 MG] 15 mg PO Q4HR PRN 03/24/17 [History] hydrOXYzine HCl [Hydroxyzine HCl] 25 mg PO TID PRN 03/24/17 [History] 3 Allergy/AdvReac Type Severity Reaction Status Date / Time fentanyl Allergy Vomiting Verified 10/31/14 09:49 ondansetron Allergy Headache Verified 10/31/14 09:49 [From Zofran (as hydrochloride)] ROS unobtainable: due to mental status All Systems: A 10-system review of systems was performed and is negative for pertinent findings except as documented above in the HPI. Physical Examination Vital Signs: Vital Signs, Last 4 Hours Temp Pulse Resp BP Pulse Ox 03/26/17 10:41 100.3 F H 108 20 144/76 94 General appearance: lethargic Eyes: other (Patient does not open her eyes) ENT: oropharynx dry Neck: supple Effort: normal Inspection: kyphosis Auscultation: bilateral: diminished breath sounds Percussion: bilateral: not dull Cardiovascular: irregular rhythm Gastrointestinal: normoactive bowel sounds, non-distended Extremities: no cyanosis unable to assess due to mental status Results - Laboratory Findings CBC and BMP: 03/26/17 04:47 03/26/17 04:47 ABG ABG pH 7.41 pH Units (7.32-7.45) 03/24/17 19:42 ABG pCO2 44 mmHg (35-45) 03/24/17 19:42 ABG pO2 73 mmHg (85-104) L 03/24/17 19:42 ABG O2 Saturation 95 % (95-98) 03/24/17 19:42 Abnormal lab findings: Abnormal lab results WBC 12.3 K/mcL (4.3-11.1) H 03/26/17 04:47 Neutrophils # 10.5 K/mcL (1.6-8.9) H 03/26/17 04:47 ABG pO2 73 mmHg (85-104) L 03/24/17 19:42 ABG HCO3 28 mEq/L (21-27) H 03/24/17 19:42 ABG Total CO2 29 mEq/L (20-26) H 03/24/17 19:42 Chloride 111 mEq/L (98-107) H 03/26/17 04:47 Calculated Osmolality 301 (280-300) H 03/26/17 04:47 Calcium 11.6 mg/dL (8.6-10.3) H 03/26/17 04:47 Venous Ioniz Calcium 1.58 mmol/L (1.15-1.35) H 03/25/17 10:08 Troponin I 0.05 ng/mL (< 0.04) H* 03/25/17 06:44 PTH Intact 9.4 pg/ml (10.0-65.0) L 03/25/17 00:52 Urine Clarity Cloudy (Clear) A 03/24/17 17:28 Urine Blood Trace (Negative) H 03/24/17 17:28 Urine Microscopic WBC 5-15 per hpf (0-3) H 03/24/17 17:28 Ur Squamous Epith Cells Many per lpf (None-Few) H 03/24/17 17:28 Urine Bacteria Many per hpf (None-Few) H 03/24/17 17:28 - Diagnostic Findings CT scan - chest: report reviewed, image reviewed - Clinical Findings Intake & Output: Intake & Output 03/25/17 03/26/17 03/26/17 23:59 07:59 15:59 Intake Total 1000 / 1000 1000 / 1000 Balance 1000 / 1000 1000 / 1000 Weight 39.1 kg Consult Discharge Plan - Plan Referrals: Frances Reilly MD [Primary Care Provider] -
[2017-03-26] MEDS ORDERED: Zoledronic Acid (Zometa) 4 MG in 0.9 % Sodium Chloride 100 ML IV ONE (11:48)
--- NOTE | 2017-03-26 11:59 | Event Note ---
Date of Encounter: 03/26/17 Time of Encounter: 11:58 Discussed case at length with patient's son medical power of patent prosecution attorney Francisco [phone] as well as the patient's daughter Amber [phone] they do not wish the patient be put through a cardiac resuscitation, however short-term intubation as long as it was not resultant trach and PEG would be okay. Recognized that the possibility the patient making it through chemotherapy and her radiation therapy is very low, however they would like to know if the patient does have cancer and what the overall prognosis is. In addition they would like to know why the patient has an altered mental status. This workup is still ongoing. I have discussed this at length with the treatment team and they are aware of the fact the family is here, and what their wishes are with regards to knowing what is going on with the patient. CODE STATUS has been changed. Palliative we will continue to follow
--- NOTE | 2017-03-26 13:25 | Internal Med Progress Note ---
<Ross Vasquez - Last Filed: 03/26/17 18:32> Date of Encounter: 03/26/17 Time of Encounter: 10:45 - Assessment and plan (1) Abnormal CT scan, chest Current Visit: Yes Status: Acute Assessment and plan: Patient is GCS11. Dr. Ornelas consulted for possible brochoscopy with biopsy due to CT findings of scattered bilateral pulmonary nodules concerning for metastatic disease vs primary tumor. Dr. Ornelas and I spoke with family (POA is son Jaret) in regards to possible treatment options if bronchoscopy and biopsy confirms metastatic disease. Patient would most likely not qualify for radiation and chemotherapy therapy due to her poor health. The family would appreciate to have oncology on board to discuss treatment options. I spoke with Ms. Juliann Adams CNP, from oncology who will see patient later today. Treatment plan based on oncology recommendation. (2) Altered mental status Current Visit: Yes Status: Acute Assessment and plan: Patient continues to be altered and nonresponsive to verbal command. GCS 11. Cause of altered mental status still unknown, infection vs metastatic disease. Palliative is on board to discuss goals of care. Patient also has history of Parkinson's dementia. CT head was negative. After extensive discussion with patient's family, her code status is changed to DNR-CCA. Continue with solis catheter, cardiac monitoring, supplemental oxygen with goal >92%, measure I/Os. Follow-up blood culture, urine culture, immunofixation, protein electrophoresis , MRI of head/brain. Continue with IVF. Qualifiers: Altered mental status type: somnolence Qualified Code(s): R40.0 - Somnolence (3) Parkinson disease Current Visit: No Status: Chronic Assessment and plan: Continue home medication (4) Elevated troponin I measurement Current Visit: Yes Status: Acute Assessment and plan: Demand ischemia from critical illness and worsening prognosis. No cardiac intervention necessary at this time. Continue cardiac monitoring. (5) DVT prophylaxis Current Visit: Yes Status: Acute Assessment and plan: Continue Heparin 5000 unit SQ BID for DVT prophylaxis. (6) Inadequate oral nutritional intake Current Visit: Yes Status: Acute Assessment and plan: Patient is very malnourished and has no PO intake. Dermatology Nurse recommends consideration for tube feeding with close monitoring of electrolytes. Labs reviewed and NGT not urgent at this time. I will input formal nutrition consult and start the patient on D5 0.45% at 75ml/hour and continue to monitor I/Os. Will consider NGT if patient does not improve. - Subjective Interval history: PMHx Parkinson's, A.fib, CHF, COPD admitted for aMS, fatigue and myalgia suspicious for PNA. Patient's eyes open to speech, communicates with inappropriate words, moves to localized pain, GCS 11. Per nurse, no overnight events. Patient's son, Jaret is at bedside and is her POA. He reports that family have discussed in regards to patient's code status and would like to change it to DNR-CCA. Per nurse, the patient continues to have no PO intake, no BM since admission. Poor urine output. - Constitutional Vitals: Temp Pulse Resp BP Pulse Ox 100.3 F H 108 20 144/76 94 03/26/17 10:41 03/26/17 10:41 03/26/17 10:41 03/26/17 10:41 03/26/17 10:41 General appearance: Present: cachectic, A&O X 0, no acute distress, underweight - Head Head exam: Present: atraumatic, normocephalic - Eye Eye exam: Present: normal appearance - ENT ENT exam: Present: mucous membranes dry - Neck Neck exam general surgery: Present: full ROM, normal inspection, supple, trachea midline - Respiratory Respiratory exam: Present: decreased breath sounds, CTAB. Absent: accessory muscle use, rales, wheezes, tachypnea - Cardiovascular Cardiovascular exam: Present: +S1, +S2, tachycardia - GI/Abdominal GI/Abdominal exam: Present: hypoactive bowel sounds, soft, no peritoneal signs. Absent: guarding - Extremities Exam Extremities exam: Present: full ROM, warm, radial pulses palpable and symmetrical. Absent: pedal edema - Neurological Exam Neurological exam: Present: CN II-XII intact. Absent: altered, oriented X3 - Skin Skin exam: Present: dry, intact, warm Internal Medicine: Result - Labs CBC & Chem 7: 03/26/17 04:47 03/26/17 04:47 Labs: Short CBC 03/26/17 Range/Units 04:47 WBC 12.3 H (4.3-11.1) K/mcL Hgb 13.0 (11.5-15.4) g/dL Hct 39.4 (35.3-44.9) % Plt Count 321 (140-400) K/mcL Neutrophils # 10.5 H (1.6-8.9) K/mcL BMP 03/26/17 04:47 Sodium 145 Potassium 3.7 Chloride 111 H Carbon Dioxide 25 BUN 19 Creatinine 0.82 Glucose 82 Calcium 11.6 H - ABG Interpretation ABG results: ABG ABG pH 7.41 pH Units (7.32-7.45) 03/24/17 19:42 ABG pCO2 44 mmHg (35-45) 03/24/17 19:42 ABG pO2 73 mmHg (85-104) L 03/24/17 19:42 ABG O2 Saturation 95 % (95-98) 03/24/17 19:42 Consult Discharge Plan - Plan Referrals: Frances Reilly MD [Primary Care Provider] - <Young Patel - Last Filed: 03/27/17 16:34> Date of Encounter: 03/26/17 - Constitutional Vitals: Temp Pulse Resp BP Pulse Ox 99.0 F 103 17 130/86 92 03/27/17 15:47 03/27/17 15:47 03/27/17 15:47 03/27/17 15:47 03/27/17 15:47 Internal Medicine: Result - Labs CBC & Chem 7: 03/27/17 03:54 03/27/17 03:54 Labs: Short CBC 03/27/17 Range/Units 03:54 WBC 13.2 H (4.3-11.1) K/mcL Hgb 13.3 (11.5-15.4) g/dL Hct 40.0 (35.3-44.9) % Plt Count 325 (140-400) K/mcL Neutrophils # 11.3 H (1.6-8.9) K/mcL BMP 03/27/17 03:54 Sodium 145 Potassium 3.3 L Chloride 112 H Carbon Dioxide 24 BUN 23 Creatinine 0.88 Glucose 136 H Calcium 11.5 H - ABG Interpretation ABG results: ABG ABG pH 7.41 pH Units (7.32-7.45) 03/24/17 19:42 ABG pCO2 44 mmHg (35-45) 03/24/17 19:42 ABG pO2 73 mmHg (85-104) L 03/24/17 19:42 ABG O2 Saturation 95 % (95-98) 03/24/17 19:42 - Impressions Impressions Brain MRI 03/26/17 15:40 IMPRESSION: No acute abnormality or metastasis on motion degraded MRI. D/ / Demertio Kendrick MD / Demetrio Kendrick MD Interpreting Provider: Demetrio Kendrick MD - Attending Attestation I conducted a face to face diagnostic evaluation of this patient and my medical decision-making was reviewed with the Resident Physician. I agree with the documented findings, disposition and treatment plan as described except to the extent set forth below: Patient is unresponsive, in no acute distress. Heart is regular, lungs sounds are diminished. Abdomen as soft, nontender. I have discussed the case with palliative care. Patient's CODE STATUS is DNR CCA. Family and POA is okay with short-term intubation. The family wants to proceed with workup of possible malignancy. Young Patel MD
--- NOTE | 2017-03-26 18:31 | Oncology Inp Consult Note ---
Date of Encounter: 03/29/17 Time of Encounter: 18:29 Assessment and Plan (1) Bone metastases Status: Acute Assessment and plan: 1. Metastatic carcinoma/sarcoma. Decreased level of consciousness/altered mental status likely metabolic encephalopathy. MRI brain negative for metastasis I discussed with her daughter over the phone. She agreed to proceed with CT abdomen and pelvis with IV contrast which on 03/27/2017 showed large mass in front of the sacrum 7 x 7 cm. Does not appear to invade the bladder. But there was bilateral hydronephrosis This could be the primary. Also small subcutaneous metastasis left intra- abdominal wall Multiple lung nodules largest 2 cm and multiple lytic bone lesions If necessary would consider biopsying the large sacral mass. It may not alter the overall care much given the information below Patient's general condition is very poor. She may not be a candidate for aggressive treatment. She should be a candidate for hospice If possible may consider quick palliative radiation to the large sacral mass Also discussed with the daughter that the prognosis is poor and she understands - Data of Consult Requesting Physician: Young Patel MD Primary Care Provider: Frances Reilly - Consult Narrative Reason for consult: Possible metastatic lung nodules and lytic bone lesions History of present illness: Ms. Hicks is a 71 year old female admitted with altered mental status. She has multiple medical problems including parkinsons, dementia, A. fib, CHF, COPD, CT chest with contrast on 03/25/2017 showed bilateral multiple lung nodules. Largest in the left upper lobe anteriorly and by 2.2 cm. Right upper lobe 1.5 x 2.1 cm. Also multiple lytic lesion largest on the L1 1 0.9 x 1.5 cm. Another one T7. Emphysema. CT chest on 03/24/2017 negative The unremarkable. Calcium mildly elevated 11.6 creatinine normal. Discussed with daughter over the phone. Patient quit smoking 8 years ago. Serum protein elected versus negative 03/25/2017 for myeloma Past Med Surg Social Fam HX - Past Medical History Medical history: arthritis, atrial fibrillation, CHF, COPD, DVT, dementia, GERD , hypertension, osteoporosis, RA, other Psychiatric history: anxiety, panic disorder, other - Past Surgical History Surgical History: , orthopedic, other, other - Social History Smoking Status: Never smoker Smokeless Tobacco Status: No Alcohol use: none Drug use: none - Family History Son Living Status: Still Living Hx Family Cardiac Disorders: No Hx Family Respiratory Disorders: No Hx Family Cancer: No Hx Family GI Disorders: Yes Hx Family Endocrine Disorder: No Medications and Allergies Carbidopa/Levodopa 25/100 [Sinemet 25/100] 2 each PO TID 02/28/16 [History] Carbidopa/Levodopa ER 50/200 [Sinemet ER 50-200 Tab] 1 each PO HS 02/28/16 [ History] Docusate [Colace] 100 mg PO BID PRN 02/28/16 [History] Donepezil [Aricept] 10 mg PO HS 02/28/16 [History] Atorvastatin [Lipitor] 40 mg PO HS tablet 03/18/16 [Rx] Nitroglycerin 0.4 mg SL Q5MIN PRN #0 tab.subl 03/18/16 [Rx] DiphenhydraMINE [Benadryl] 50 mg PO Q8HR PRN 08/24/16 [History] Escitalopram [Lexapro] 10 mg PO DAILY 08/24/16 [History] Aspirin Enteric Coated [Aspirin EC] 325 mg PO DAILY 03/24/17 [History] Omeprazole [PriLOSEC] 20 mg PO BIDAC 03/24/17 [History] OxyCODONE Immed Rel [Roxicodone 10 MG] 15 mg PO Q4HR PRN 03/24/17 [History] hydrOXYzine HCl [Hydroxyzine HCl] 25 mg PO TID PRN 03/24/17 [History] 3 Allergy/AdvReac Type Severity Reaction Status Date / Time fentanyl Allergy Vomiting Verified 10/31/14 09:49 ondansetron Allergy Headache Verified 10/31/14 09:49 [From Zofran (as hydrochloride)] Review of systems: Not be up time because of patient's general condition and decreased level of consciousness. I did talk to the daughter over the phone Oncology - Exam - Constitutional Vitals: Temp Pulse Resp BP Pulse Ox 100.5 F H 102 18 139/89 93 03/26/17 15:31 03/26/17 15:31 03/26/17 15:31 03/26/17 15:31 03/26/17 15:31 Exam: GENERAL: Decreased level of consciousness. Limited exam. Mental Status: Patient drowsy HEENT: Non-cooperative because of decreased level of consciousness Skin: No rashes or petechiae. No evidence of skin malignancy Lymph nodes: No cervical, supraclavicular, axillary, or inguinal adenopathy. Lungs: Air entry decreased at bases . No rhonchi or wheezing Cardiovascular: Regular rate and rhythm. No skipped beats Abdomen: Soft, nontender; no organomegaly or masses palpable. Extremities: No edema. No calf swelling or tenderness. No joint deformity. Neurologic: Alert, cranial nerves II-XII intact; normal gait; no focal weakness or sensory abnormalities Very limited breast exam no obvious masses Oncology - Results Labs: Short CBC 03/26/17 Range/Units 04:47 WBC 12.3 H (4.3-11.1) K/mcL Hgb 13.0 (11.5-15.4) g/dL Hct 39.4 (35.3-44.9) % Plt Count 321 (140-400) K/mcL Neutrophils # 10.5 H (1.6-8.9) K/mcL BMP 03/26/17 04:47 Sodium 145 Potassium 3.7 Chloride 111 H Carbon Dioxide 25 BUN 19 Creatinine 0.82 Glucose 82 Calcium 11.6 H Consult Discharge Plan - Plan Referrals: Frances Reilly MD [Primary Care Provider] -
[2017-03-26] MEDS ORDERED: D5% in 0.45% NACL 1,000 ML IVC SCH (18:45)
[2017-03-26] MEDS: Carbidopa/Levodopa ER 50/200 TABLET PO SCH (20:53)
[2017-03-27] MEDS: 0.9 % Sodium Chloride w KCl 20 MEQ/1,000 ML MLS IVC SCH (01:34)
[2017-03-27 04:02] LABS: Basophils % 0.2 %; Hemoglobin 13.3 g/dL (11.5-15.4); Lymphocytes # 1.1 K/mcL (0.6-4.6); Mean Corpuscular HGB Conc 33.3 g/dL (31.6-35.5); Mean Corpuscular Hemoglobin 29.2 pg (28.0-33.3); Mean Corpuscular Volume 87.7 fL (83.0-100.0); Mean Platelet Volume 10.1 fL (9.4-12.4); Monocytes # 0.7 K/mcL (0.0-1.3); Monocytes % 5.1 %; Neutrophils # 11.3 K/mcL (1.6-8.9); Platelet Count 325 K/mcL (140-400); Red Blood Count 4.56 M/mcL (3.82-4.97); Red Cell Distribution Width 13.9 % (11.5-14.5); Segmented Neutrophils % 85.7 %
[2017-03-27] MEDS: cefTRIAXone 1,000 MG in Water for inj. (sterile) 10 ML IVP SCH ×2 (04:02→17:38)
[2017-03-27] MEDS: Acetaminophen 650 MG RECTAL SUPP RC PRN (04:02)
[2017-03-27 04:17] LABS: BUN/Creatinine Ratio 26 (6-26); Blood Urea Nitrogen 23 mg/dL (8-23); Calcium 11.5 mg/dL (8.6-10.3); Carbon Dioxide 24 mEq/L (23-29); Chloride 112 mEq/L (98-107); Glucose 136 mg/dL (70-105); Osmolality,Calculated 306 (280-300); Potassium 3.3 mEq/L (3.5-5.1); Sodium 145 mEq/L (136-145); eGFR For African Americans > 60 (> 60); eGFR For Non-African Americans > 60 (> 60)
[2017-03-27 05:00] LABS: Beta Globulin (PEP) 0.83 g/dL (0.48-1.10)
[2017-03-27] MEDS: *HR* Heparin 5,000 UNIT/ML VIAL SQ SCH ×2 (05:27→17:38)
[2017-03-27] MEDS: D5% in 0.45% NACL 1,000 ML IVC SCH (06:40)
--- NOTE | 2017-03-27 06:43 | Electrocardiograph Report ---
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
[2017-03-27] MEDS: Carbidopa/Levodopa 25/100 TABLET PO SCH ×3 (07:38→22:36)
[2017-03-27] MEDS: Aspirin Enteric Coated 325 MG Tablet PO SCH (07:38)
--- NOTE | 2017-03-27 07:52 | Palliative Progress Note ---
<Jahaira Hannah-My - Last Filed: 03/27/17 07:47> Date of Encounter: 03/27/17 Time of Encounter: 07:35 - Assessment and plan (1) Goals of care, counseling/discussion Current Visit: Yes Status: Acute Assessment and plan: Dr. Hankins discussed case at length with patient's son medical power of privacy attorney , Francisco, as well as the patient's daughter Amber. They do not wish the patient be put through a cardiac resuscitation, but they agree to short-term intubation as long as it does not result in a trach. Family still wants to figure out the cause of the patient's altered mental status. This workup is still ongoing. Per nurse, the patient would like to discuss case with oncologist. Oncology has been consulted. CODE STATUS is DNR-CCA. Palliative we will continue to follow. (2) Altered mental status Current Visit: Yes Status: Acute Qualifiers: Altered mental status type: somnolence Qualified Code(s): R40.0 - Somnolence (3) Pneumonia Current Visit: Yes Status: Acute Qualifiers: Pneumonia type: due to unspecified organism Laterality: left Lung location: upper lobe of lung Qualified Code(s): J18.1 - Lobar pneumonia, unspecified organism (4) Dementia Current Visit: No Status: Chronic Qualifiers: Dementia type: Parkinson's disease Dementia behavioral disturbance: without behavioral disturbance Qualified Code(s): G20 - Parkinson's disease; F02.80 - Dementia in other diseases classified elsewhere without behavioral disturbance - Time Spent With Patient Total time spent is greater than 50% in coordination of care (as documented) at patient's floor/unit and/or counseling patient: less than 15 minutes - Subjective Interval history: I examined Ms. Hicks at bedside. No family at bedside at this time. Ms. Hicks was still altered on my exam today. She remains unresponsive to verbal commands and communicates with inappropiate words. Per nurse, patient was altered and unresponsive to verbal commands all throughout the night. Also, per nurse, the patient was tachycardic and febrile overnight. The patient received rectal Tyelnol. Patient last temperature was 100.4. Patient was not tachycardic on my exam. - Constitutional Vitals: Abnormal lab results WBC 13.2 K/mcL (4.3-11.1) H 03/27/17 03:54 Neutrophils # 11.3 K/mcL (1.6-8.9) H 03/27/17 03:54 ABG pO2 73 mmHg (85-104) L 03/24/17 19:42 ABG HCO3 28 mEq/L (21-27) H 03/24/17 19:42 ABG Total CO2 29 mEq/L (20-26) H 03/24/17 19:42 Potassium 3.3 mEq/L (3.5-5.1) L 03/27/17 03:54 Chloride 112 mEq/L (98-107) H 03/27/17 03:54 Glucose 136 mg/dL (70-105) H 03/27/17 03:54 Calculated Osmolality 306 (280-300) H 03/27/17 03:54 Calcium 11.5 mg/dL (8.6-10.3) H 03/27/17 03:54 Venous Ioniz Calcium 1.58 mmol/L (1.15-1.35) H 03/25/17 10:08 Troponin I 0.05 ng/mL (< 0.04) H* 03/25/17 06:44 PTH Intact 9.4 pg/ml (10.0-65.0) L 03/25/17 00:52 Urine Clarity Cloudy (Clear) A 03/24/17 17:28 Urine Blood Trace (Negative) H 03/24/17 17:28 Urine Microscopic WBC 5-15 per hpf (0-3) H 03/24/17 17:28 Ur Squamous Epith Cells Many per lpf (None-Few) H 03/24/17 17:28 Urine Bacteria Many per hpf (None-Few) H 03/24/17 17:28 General appearance: Present: thin. Absent: cooperative, no acute distress Exam: Patient continues to appear altered and is communicating with inappropiate words. - Head Head exam: Present: atraumatic - Eye Eye exam: Present: PERRL. Absent: conjunctival injection, periorbital swelling - Neck Neck exam: Present: normal inspection. Absent: lymphadenopathy, tenderness - Respiratory Respiratory exam: Present: CTAB. Absent: rales, respiratory distress, wheezes - Cardiovascular Cardiovascular exam: Present: +S1, +S2. Absent: diastolic murmur, gallop, tachycardia - GI/Abdominal GI/Abdominal exam: Present: soft. Absent: distended, tenderness - Neurological Exam Neurological exam: Present: altered. Absent: alert, oriented X3, facial droop Additional comments: Unresponsive to verbal commands. Communicates with inappropiate words. Palliative Quality Palliative Quality: Screen for Code Status: Yes, Screen for Goals of Care: Yes, Screen for Pain: Yes, If Pain Regimen Started, Initiate Bowel Regimen: NA, Screen for Nausea/Vomitting: Yes Code Status: 03/26/17 10:07 CODE [Resuscitation Status: Active] [RES] Routine Comment: short term intubatin is ok, no trach no peg Resuscitation Status: DNR-Comfort Care-Arrest - Labs CBC & Chem 7: 03/27/17 03:54 03/27/17 03:54 Labs: Laboratory Results - last 24 hr 03/27/17 03/27/17 03/27/17 03:54 03:54 03:54 WBC 13.2 H RBC 4.56 Hgb 13.3 Hct 40.0 MCV 87.7 MCH 29.2 MCHC 33.3 RDW 13.9 Plt Count 325 MPV 10.1 Immature Gran % 1.0 Seg Neutrophils % 85.7 Lymphocytes % 8.0 Monocytes % 5.1 Eosinophils % 0.0 Basophils % 0.2 Neutrophils # 11.3 H Lymphocytes # 1.1 Monocytes # 0.7 Eosinophils # 0.0 Basophils # 0.0 Sodium 145 Potassium 3.3 L Chloride 112 H Carbon Dioxide 24 BUN 23 Creatinine 0.88 Est GFR ( Amer) > 60 Est GFR (Non-Af Amer) > 60 BUN/Creatinine Ratio 26 Glucose 136 H Calculated Osmolality 306 H Lactic Acid 1.5 Calcium 11.5 H - Impressions Impressions Brain MRI 03/26/17 15:40 IMPRESSION: No acute abnormality or metastasis on motion degraded MRI. D/ / Demetrio Kendrick MD / Demetrio Kendrick MD Interpreting Provider: Demetrio Kendrick MD - ABG Interpretation ABG results: ABG ABG pH 7.41 pH Units (7.32-7.45) 03/24/17 19:42 ABG pCO2 44 mmHg (35-45) 03/24/17 19:42 ABG pO2 73 mmHg (85-104) L 03/24/17 19:42 ABG O2 Saturation 95 % (95-98) 03/24/17 19:42 Consult Discharge Plan - Plan Referrals: Frances Reilly MD [Primary Care Provider] - <Aidan Hankins - Last Filed: 03/27/17 08:10> Date of Encounter: 03/27/17 - Time Spent With Patient Total time spent is greater than 50% in coordination of care (as documented) at patient's floor/unit and/or counseling patient: - Constitutional Vitals: Abnormal lab results WBC 13.2 K/mcL (4.3-11.1) H 03/27/17 03:54 Neutrophils # 11.3 K/mcL (1.6-8.9) H 03/27/17 03:54 ABG pO2 73 mmHg (85-104) L 03/24/17 19:42 ABG HCO3 28 mEq/L (21-27) H 03/24/17 19:42 ABG Total CO2 29 mEq/L (20-26) H 03/24/17 19:42 Potassium 3.3 mEq/L (3.5-5.1) L 03/27/17 03:54 Chloride 112 mEq/L (98-107) H 03/27/17 03:54 Glucose 136 mg/dL (70-105) H 03/27/17 03:54 Calculated Osmolality 306 (280-300) H 03/27/17 03:54 Calcium 11.5 mg/dL (8.6-10.3) H 03/27/17 03:54 Venous Ioniz Calcium 1.58 mmol/L (1.15-1.35) H 03/25/17 10:08 Troponin I 0.05 ng/mL (< 0.04) H* 03/25/17 06:44 PTH Intact 9.4 pg/ml (10.0-65.0) L 03/25/17 00:52 Urine Clarity Cloudy (Clear) A 03/24/17 17:28 Urine Blood Trace (Negative) H 03/24/17 17:28 Urine Microscopic WBC 5-15 per hpf (0-3) H 03/24/17 17:28 Ur Squamous Epith Cells Many per lpf (None-Few) H 03/24/17 17:28 Urine Bacteria Many per hpf (None-Few) H 03/24/17 17:28 - Attending Attestation I examined this patient and my medical decision-making was reviewed with the Resident Physician. I agree with the documented findings, disposition and treatment plan as described except to the extent set forth below. Palliative Quality Code Status: 03/26/17 10:07 CODE [Resuscitation Status: Active] [RES] Routine Comment: short term intubatin is ok, no trach no peg Resuscitation Status: DNR-Comfort Care-Arrest - Labs CBC & Chem 7: 03/27/17 03:54 03/27/17 03:54 Labs: Laboratory Results - last 24 hr 03/27/17 03/27/17 03/27/17 03:54 03:54 03:54 WBC 13.2 H RBC 4.56 Hgb 13.3 Hct 40.0 MCV 87.7 MCH 29.2 MCHC 33.3 RDW 13.9 Plt Count 325 MPV 10.1 Immature Gran % 1.0 Seg Neutrophils % 85.7 Lymphocytes % 8.0 Monocytes % 5.1 Eosinophils % 0.0 Basophils % 0.2 Neutrophils # 11.3 H Lymphocytes # 1.1 Monocytes # 0.7 Eosinophils # 0.0 Basophils # 0.0 Sodium 145 Potassium 3.3 L Chloride 112 H Carbon Dioxide 24 BUN 23 Creatinine 0.88 Est GFR ( Amer) > 60 Est GFR (Non-Af Amer) > 60 BUN/Creatinine Ratio 26 Glucose 136 H Calculated Osmolality 306 H Lactic Acid 1.5 Calcium 11.5 H - Impressions Impressions Brain MRI 03/26/17 15:40
--- NOTE | 2017-03-27 18:21 | Internal Med Progress Note ---
Date of Encounter: 03/27/17 Time of Encounter: 13:00 - Assessment and plan (1) Metabolic encephalopathy Current Visit: Yes Status: Acute Assessment and plan: Secondary to sedative medication that she was taking at home as well as hypercalcemia. We will stop sedative medication. Treatment with IV fluids. Correct calcium. (2) Hypercalcemia of malignancy Current Visit: Yes Status: Acute Assessment and plan: IV fluids. Was given one dose of IV Zometa. Follow-up with oncology. (3) Lung nodule, multiple Current Visit: Yes Status: Acute Assessment and plan: Appreciate pulmonary service recommendations. Patient is not a good candidate for bronchoscopy at this time due to poor mental status, poor functional status, advanced dementia, multiple comorbidities and electrolyte imbalance. (4) Bone metastases Current Visit: Yes Status: Acute Assessment and plan: Follow-up with oncology. (5) Severe protein-calorie malnutrition Current Visit: Yes Status: Acute Assessment and plan: Nutrition consult. (6) DVT prophylaxis Current Visit: Yes Status: Acute Assessment and plan: Subcutaneous heparin. (7) Dementia Current Visit: No Status: Chronic Assessment and plan: Patient has very poor prognosis due to multiple comorbidities and suspected metastatic cancer. I discussed this with the family at the bedside. The patient is DNR/DNI. We will discuss options after oncology evaluation. Qualifiers: Dementia type: Parkinson's disease Dementia behavioral disturbance: without behavioral disturbance Qualified Code(s): G20 - Parkinson's disease; F02.80 - Dementia in other diseases classified elsewhere without behavioral disturbance (8) Parkinson disease Current Visit: No Status: Chronic Assessment and plan: Continue with Sinemet. - Subjective Interval history: Patient cannot provide history due to nonverbal state secondary to encephalopathy. - Constitutional Vitals: Temp Pulse Resp BP Pulse Ox 99.0 F 103 17 130/86 92 03/27/17 15:47 03/27/17 15:47 03/27/17 15:47 03/27/17 15:47 03/27/17 15:47 General appearance: Present: cachectic, A&O X 0, no acute distress, underweight - Eye Eye exam: Present: PERRL, conjuntiva pink, sclera anicteric Pupils: Present: PERRL - Respiratory Respiratory exam: Present: CTAB. Absent: accessory muscle use, rales, rhonchi, wheezes - Cardiovascular Cardiovascular exam: Present: RRR, +S1, +S2. Absent: diastolic murmur, gallop, rubs, systolic murmur - GI/Abdominal GI/Abdominal exam: Present: normal bowel sounds, soft, no peritoneal signs. Absent: distended, tenderness - Extremities Exam Extremities exam: Present: warm, radial pulses palpable and symmetrical. Absent : calf tenderness, cyanotic, pedal edema - Skin Skin exam: Present: dry, intact Internal Medicine: Result - Labs CBC & Chem 7: 03/27/17 03:54 03/27/17 03:54 Labs: Short CBC 03/27/17 Range/Units 03:54 WBC 13.2 H (4.3-11.1) K/mcL Hgb 13.3 (11.5-15.4) g/dL Hct 40.0 (35.3-44.9) % Plt Count 325 (140-400) K/mcL Neutrophils # 11.3 H (1.6-8.9) K/mcL BMP 03/27/17 03:54 Sodium 145 Potassium 3.3 L Chloride 112 H Carbon Dioxide 24 BUN 23 Creatinine 0.88 Glucose 136 H Calcium 11.5 H - ABG Interpretation ABG results: ABG ABG pH 7.41 pH Units (7.32-7.45) 03/24/17 19:42 ABG pCO2 44 mmHg (35-45) 03/24/17 19:42 ABG pO2 73 mmHg (85-104) L 03/24/17 19:42 ABG O2 Saturation 95 % (95-98) 03/24/17 19:42 - Impressions Impressions Brain MRI 03/26/17 15:40 IMPRESSION: No acute abnormality or metastasis on motion degraded MRI. D/ / Demetrio Kendrick MD / Demetrio Kendrick MD Interpreting Provider: Demetrio Kendrick MD Consult Discharge Plan - Plan Referrals: Frances Reilly MD [Primary Care Provider] -
[2017-03-27] MEDS: Carbidopa/Levodopa ER 50/200 TABLET PO SCH (22:36)
[2017-03-28] MEDS: D5% in 0.45% NACL 1,000 ML IVC SCH (01:08)
[2017-03-28] MEDS: cefTRIAXone 1,000 MG in Water for inj. (sterile) 10 ML IVP SCH ×2 (03:34→17:05)
[2017-03-28] MEDS: *HR* Heparin 5,000 UNIT/ML VIAL SQ SCH ×2 (05:26→18:33)
[2017-03-28 06:04] LABS: Basophils # 0.1 K/mcL (0.0-0.2); Basophils % 0.4 %; Eosinophils # 0.2 K/mcL (0.0-0.6); Eosinophils % 1.5 %; Hematocrit 37.4 % (35.3-44.9); Hemoglobin 12.3 g/dL (11.5-15.4); Immature Granulocytes % 1.2 % (0-4); Lymphocytes # 1.3 K/mcL (0.6-4.6); Lymphocytes % 11.2 %; Mean Corpuscular HGB Conc 32.9 g/dL (31.6-35.5); Mean Corpuscular Hemoglobin 28.8 pg (28.0-33.3); Mean Corpuscular Volume 87.6 fL (83.0-100.0); Mean Platelet Volume 10.7 fL (9.4-12.4); Monocytes # 0.7 K/mcL (0.0-1.3); Monocytes % 5.8 %; Neutrophils # 9.5 K/mcL (1.6-8.9); Platelet Count 269 K/mcL (140-400); Red Blood Count 4.27 M/mcL (3.82-4.97); Red Cell Distribution Width 13.8 % (11.5-14.5); Segmented Neutrophils % 79.9 %
[2017-03-28 06:14] LABS: BUN/Creatinine Ratio 19 (6-26); Blood Urea Nitrogen 15 mg/dL (8-23); Calcium 9.7 mg/dL (8.6-10.3); Carbon Dioxide 22 mEq/L (23-29); Chloride 109 mEq/L (98-107); Glucose 115 mg/dL (70-105); Osmolality,Calculated 296 (280-300); Potassium 2.5 mEq/L (3.5-5.1); Sodium 142 mEq/L (136-145); eGFR For African Americans > 60 (> 60); eGFR For Non-African Americans > 60 (> 60)
--- NOTE | 2017-03-28 07:48 | Palliative Progress Note ---
Addendum entered and electronically signed by Mode Hannah DO 03/28/17 08:00: The patient's potassium was noted to be low at 2.5. Per nurse note, hospitalist team has been paged and notified. Also, the nurse note indicated that the page was opened. Plan will be per hospitalist team. Original Note: <Moed Hannah - Last Filed: 03/28/17 07:46> Date of Encounter: 03/28/17 Time of Encounter: 07:30 - Assessment and plan (1) Goals of care, counseling/discussion Current Visit: Yes Status: Acute Assessment and plan: Per radiology report, recent CT of abdomen and pelvis showed masses and nodules that could represent additional metastasis or could represent the patient's primary malignancy. There were no family at bedside at this time to discuss findings. Palliative team will continue to follow. (2) Altered mental status Current Visit: Yes Status: Acute Qualifiers: Altered mental status type: somnolence Qualified Code(s): R40.0 - Somnolence (3) Pneumonia Current Visit: Yes Status: Acute Qualifiers: Pneumonia type: due to unspecified organism Laterality: left Lung location: upper lobe of lung Qualified Code(s): J18.1 - Lobar pneumonia, unspecified organism (4) Dementia Current Visit: No Status: Chronic Qualifiers: Dementia type: Parkinson's disease Dementia behavioral disturbance: without behavioral disturbance Qualified Code(s): G20 - Parkinson's disease; F02.80 - Dementia in other diseases classified elsewhere without behavioral disturbance - Time Spent With Patient Total time spent is greater than 50% in coordination of care (as documented) at patient's floor/unit and/or counseling patient: less than 15 minutes - Subjective Interval history: I seen and examined Ms. Hicks at bedside. No family at bedside at this time. Ms. Hicks was still altered on my exam today. She remains unresponsive to verbal commands and communicates with inappropiate words. Per nurse, overnight patient was still unresponsive to verbal commands and she was tachycardic spontaneously throughout the night. Patent was afebrile overnight. Patient was not tachycardic on my exam. - Constitutional Vitals: Abnormal lab results WBC 11.9 K/mcL (4.3-11.1) H 03/28/17 05:28 Neutrophils # 9.5 K/mcL (1.6-8.9) H 03/28/17 05:28 ABG pO2 73 mmHg (85-104) L 03/24/17 19:42 ABG HCO3 28 mEq/L (21-27) H 03/24/17 19:42 ABG Total CO2 29 mEq/L (20-26) H 03/24/17 19:42 Potassium 2.5 mEq/L (3.5-5.1) L* 03/28/17 05:28 Chloride 109 mEq/L (98-107) H 03/28/17 05:28 Carbon Dioxide 22 mEq/L (23-29) L 03/28/17 05:28 Glucose 115 mg/dL (70-105) H 03/28/17 05:28 Venous Ioniz Calcium 1.58 mmol/L (1.15-1.35) H 03/25/17 10:08 Troponin I 0.05 ng/mL (< 0.04) H* 03/25/17 06:44 PTH Intact 9.4 pg/ml (10.0-65.0) L 03/25/17 00:52 Urine Clarity Cloudy (Clear) A 03/24/17 17:28 Urine Blood Trace (Negative) H 03/24/17 17:28 Urine Microscopic WBC 5-15 per hpf (0-3) H 03/24/17 17:28 Ur Squamous Epith Cells Many per lpf (None-Few) H 03/24/17 17:28 Urine Bacteria Many per hpf (None-Few) H 03/24/17 17:28 General appearance: Present: thin. Absent: febrile, cooperative, no acute distress, severe distress Exam: Patient continues to not be alert and oriented. She was resting comfortably, but I woke her up she mumbles words I cannot understand. She does not follow any of my verbal commands. - Head Head exam: Present: atraumatic - Eye Eye exam: Present: PERRL. Absent: conjunctival injection, periorbital tenderness - Neck Neck exam: Present: normal inspection. Absent: lymphadenopathy, tenderness - Respiratory Respiratory exam: Present: CTAB. Absent: accessory muscle use, rales, respiratory distress, rhonchi, wheezes - Cardiovascular Cardiovascular exam: Present: RRR, +S1, +S2. Absent: bradycardia, gallop, rubs , tachycardia - GI/Abdominal GI/Abdominal exam: Present: soft. Absent: distended, guarding, tenderness - Neurological Exam Neurological exam: Present: altered. Absent: alert, oriented X3, facial droop Palliative Quality Palliative Quality: Screen for Code Status: Yes, Screen for Goals of Care: Yes, Screen for Pain: Yes, If Pain Regimen Started, Initiate Bowel Regimen: NA, Screen for Nausea/Vomitting: Yes Code Status: 03/26/17 10:07 CODE [Resuscitation Status: Active] [RES] Routine Comment: short term intubatin is ok, no trach no peg Resuscitation Status: DNR-Comfort Care-Arrest - Labs CBC & Chem 7: 03/28/17 05:28 03/28/17 05:28 Labs: Laboratory Results - last 24 hr 03/28/17 03/28/17 05:28 05:28 WBC 11.9 H RBC 4.27 Hgb 12.3 Hct 37.4 MCV 87.6 MCH 28.8 MCHC 32.9 RDW 13.8 Plt Count 269 MPV 10.7 Immature Gran % 1.2 Seg Neutrophils % 79.9 Lymphocytes % 11.2 Monocytes % 5.8 Eosinophils % 1.5 Basophils % 0.4 Neutrophils # 9.5 H Lymphocytes # 1.3 Monocytes # 0.7 Eosinophils # 0.2 Basophils # 0.1 Sodium 142 Potassium 2.5 L* Chloride 109 H Carbon Dioxide 22 L BUN 15 Creatinine 0.77 Est GFR ( Amer) > 60 Est GFR (Non-Af Amer) > 60 BUN/Creatinine Ratio 19 Glucose 115 H Calculated Osmolality 296 Calcium 9.7 - Impressions Impressions Abdomen/Pelvis CT 03/28/17 14:47 IMPRESSION: 1. The large sacral mass could represent an additional metastasis or could represent the patient's primary malignancy such as a chordoma. 2. Diffuse thickening at the anorectal junction. This could be artifactual, could indicate hemorrhoids, or may represent anorectal carcinoma. 3. Low-density liver lesions and the L1 lesion are consistent with metastatic disease. 4. The soft tissue nodule in the subcutaneous fat of the anterior abdominal wall may also represent a metastasis. 5. There is bilateral hydronephrosis with distention of the urinary bladder. D/ / Ephraim Christianson MD / Ephraim Christianson MD Interpreting Provider: Ephraim Christianson MD - ABG Interpretation ABG results: ABG ABG pH 7.41 pH Units (7.32-7.45) 03/24/17 19:42 ABG pCO2 44 mmHg (35-45) 03/24/17 19:42 ABG pO2 73 mmHg (85-104) L 03/24/17 19:42 ABG O2 Saturation 95 % (95-98) 03/24/17 19:42 Consult Discharge Plan - Plan Referrals: Frances Reilly MD [Primary Care Provider] - <Aidan Hankins - Last Filed: 03/28/17 08:06> Date of Encounter: 03/28/17 - Time Spent With Patient Total time spent is greater than 50% in coordination of care (as documented) at patient's floor/unit and/or counseling patient: - Constitutional Vitals: Abnormal lab results WBC 11.9 K/mcL (4.3-11.1) H 03/28/17 05:28 Neutrophils # 9.5 K/mcL (1.6-8.9) H 03/28/17 05:28 ABG pO2 73 mmHg (85-104) L 03/24/17 19:42 ABG HCO3 28 mEq/L (21-27) H 03/24/17 19:42 ABG Total CO2 29 mEq/L (20-26) H 03/24/17 19:42 Potassium 2.5 mEq/L (3.5-5.1) L* 03/28/17 05:28 Chloride 109 mEq/L (98-107) H 03/28/17 05:28 Carbon Dioxide 22 mEq/L (23-29) L 03/28/17 05:28 Glucose 115 mg/dL (70-105) H 03/28/17 05:28 Venous Ioniz Calcium 1.58 mmol/L (1.15-1.35) H 03/25/17 10:08 Troponin I 0.05 ng/mL (< 0.04) H* 03/25/17 06:44 PTH Intact 9.4 pg/ml (10.0-65.0) L 03/25/17 00:52 Urine Clarity Cloudy (Clear) A 03/24/17 17:28 Urine Blood Trace (Negative) H 03/24/17 17:28 Urine Microscopic WBC 5-15 per hpf (0-3) H 03/24/17 17:28 Ur Squamous Epith Cells Many per lpf (None-Few) H 03/24/17 17:28 Urine Bacteria Many per hpf (None-Few) H 03/24/17 17:28 - Attending Attestation I examined this patient and my medical decision-making was reviewed with the Resident Physician. I agree with the documented findings, disposition and treatment plan as described except to the extent set forth below. Palliative Quality Code Status: 03/26/17 10:07 CODE [Resuscitation Status: Active] [RES] Routine Comment: short term intubatin is ok, no trach no peg Resuscitation Status: DNR-Comfort Care-Arrest - Labs CBC & Chem 7: 03/28/17 05:28 03/28/17 05:28 Labs: Laboratory Results - last 24 hr 03/28/17 03/28/17 05:28 05:28 WBC 11.9 H RBC 4.27 Hgb 12.3 Hct 37.4 MCV 87.6 MCH 28.8 MCHC 32.9 RDW 13.8 Plt Count 269 MPV 10.7 Immature Gran % 1.2 Seg Neutrophils % 79.9 Lymphocytes % 11.2 Monocytes % 5.8 Eosinophils % 1.5 Basophils % 0.4 Neutrophils # 9.5 H Lymphocytes # 1.3 Monocytes # 0.7 Eosinophils # 0.2 Basophils # 0.1 Sodium 142 Potassium 2.5 L* Chloride 109 H Carbon Dioxide 22 L BUN 15 Creatinine 0.77 Est GFR ( Amer) > 60 Est GFR (Non-Af Amer) > 60 BUN/Creatinine Ratio 19 Glucose 115 H Calculated Osmolality 296 Calcium 9.7 - Impressions Impressions Abdomen/Pelvis CT 03/28/17 14:47
[2017-03-28] MEDS: Aspirin Enteric Coated 325 MG Tablet PO SCH (09:37)
[2017-03-28] MEDS: Carbidopa/Levodopa 25/100 TABLET PO SCH ×3 (09:37→23:40)
[2017-03-28] MEDS: 0.9 % Sodium Chloride w KCl 40 MEQ/1,000 ML MLS IVC SCH ×2 (09:45→19:45)
[2017-03-28] MEDS: Pantoprazole 40 MG VIAL IVP SCH (09:45)
--- NOTE | 2017-03-28 10:10 | Internal Med Progress Note ---
Date of Encounter: 03/28/17 Time of Encounter: 10:08 - Assessment and plan (1) Metabolic encephalopathy Current Visit: Yes Status: Acute Assessment and plan: mental status slightly improved today with decrease and calcium level. Secondary to sedative medication that she was taking at home as well as hypercalcemia. We will stop sedative medication. Treatment with IV fluids. Correct calcium. MRI brain shows no evidence of stroke or metastases. (2) Hypercalcemia of malignancy Current Visit: Yes Status: Acute Assessment and plan: IV fluids. Was given one dose of IV Zometa. Calcium is down to 9.7 today from 11.5 yesterday. (3) Lung nodule, multiple Current Visit: Yes Status: Acute Assessment and plan: Appreciate pulmonary service recommendations. Patient is not a good candidate for bronchoscopy at this time due to poor mental status, poor functional status, advanced dementia, multiple comorbidities and electrolyte imbalance. (4) Bone metastases Current Visit: Yes Status: Acute Assessment and plan: Follow-up with oncology. (5) Severe protein-calorie malnutrition Current Visit: Yes Status: Acute Assessment and plan: Nutrition consult. Speech and swallow evaluation when patient is more alert. Will discuss artificial nutrition with family. (6) DVT prophylaxis Current Visit: Yes Status: Acute Assessment and plan: Subcutaneous heparin. (7) Dementia Current Visit: No Status: Chronic Assessment and plan: Patient has very poor prognosis due to multiple comorbidities and suspected metastatic cancer. I discussed this with the family at the bedside. The patient is DNR/DNI. We will discuss options after oncology evaluation. Qualifiers: Dementia type: Parkinson's disease Dementia behavioral disturbance: without behavioral disturbance Qualified Code(s): G20 - Parkinson's disease; F02.80 - Dementia in other diseases classified elsewhere without behavioral disturbance (8) Parkinson disease Current Visit: No Status: Chronic Assessment and plan: Continue with Sinemet. - Subjective Interval history: Patient cannot provide history due to nonverbal state secondary to encephalopathy. Today the patient is more alert, wakes up to voice, answers with yes and no. Follow some basic commands. - Constitutional Vitals: Temp Pulse Resp BP Pulse Ox 98.5 F 89 15 123/86 95 03/28/17 09:29 03/28/17 09:29 03/28/17 09:29 03/28/17 09:29 03/28/17 09:29 General appearance: Present: cachectic, A&O X 0, no acute distress, underweight - Respiratory Respiratory exam: Present: CTAB. Absent: accessory muscle use, rales, rhonchi, wheezes - Cardiovascular Cardiovascular exam: Present: RRR, +S1, +S2. Absent: diastolic murmur, gallop, rubs, systolic murmur - GI/Abdominal GI/Abdominal exam: Present: normal bowel sounds, soft, no peritoneal signs. Absent: distended, tenderness - Extremities Exam Extremities exam: Present: warm, radial pulses palpable and symmetrical. Absent : calf tenderness, cyanotic, pedal edema - Skin Skin exam: Present: dry, intact Internal Medicine: Result - Labs CBC & Chem 7: 03/28/17 05:28 03/28/17 05:28 Labs: Short CBC 03/28/17 Range/Units 05:28 WBC 11.9 H (4.3-11.1) K/mcL Hgb 12.3 (11.5-15.4) g/dL Hct 37.4 (35.3-44.9) % Plt Count 269 (140-400) K/mcL Neutrophils # 9.5 H (1.6-8.9) K/mcL BMP 03/28/17 05:28 Sodium 142 Potassium 2.5 L* Chloride 109 H Carbon Dioxide 22 L BUN 15 Creatinine 0.77 Glucose 115 H Calcium 9.7 - ABG Interpretation ABG results: ABG ABG pH 7.41 pH Units (7.32-7.45) 03/24/17 19:42 ABG pCO2 44 mmHg (35-45) 03/24/17 19:42 ABG pO2 73 mmHg (85-104) L 03/24/17 19:42 ABG O2 Saturation 95 % (95-98) 03/24/17 19:42 - Impressions Impressions Abdomen/Pelvis CT 03/28/17 14:47 IMPRESSION: 1. The large sacral mass could represent an additional metastasis or could represent the patient's primary malignancy such as a chordoma. 2. Diffuse thickening at the anorectal junction. This could be artifactual, could indicate hemorrhoids, or may represent anorectal carcinoma. 3. Low-density liver lesions and the L1 lesion are consistent with metastatic disease. 4. The soft tissue nodule in the subcutaneous fat of the anterior abdominal wall may also represent a metastasis. 5. There is bilateral hydronephrosis with distention of the urinary bladder. D/ / Ephraim Christianson MD / Ephraim Christianson MD Interpreting Provider: Ephraim Christianson MD Consult Discharge Plan - Plan Referrals: Frances Reilly MD [Primary Care Provider] -
[2017-03-28] MEDS: Carbidopa/Levodopa ER 50/200 TABLET PO SCH (23:40)
[2017-03-29] MEDS: cefTRIAXone 1,000 MG in Water for inj. (sterile) 10 ML IVP SCH ×2 (03:46→17:18)
[2017-03-29] MEDS: Acetaminophen 650 MG RECTAL SUPP RC PRN ×2 (04:21→17:28)
[2017-03-29 05:05] LABS: Basophils # 0.1 K/mcL (0.0-0.2); Basophils % 0.5 %; Eosinophils # 0.2 K/mcL (0.0-0.6); Eosinophils % 1.9 %; Hematocrit 36.1 % (35.3-44.9); Hemoglobin 11.9 g/dL (11.5-15.4); Immature Granulocytes % 1.2 % (0-4); Lymphocytes # 1.1 K/mcL (0.6-4.6); Lymphocytes % 10.4 %; Mean Corpuscular Hemoglobin 28.7 pg (28.0-33.3); Mean Platelet Volume 10.7 fL (9.4-12.4); Monocytes # 0.6 K/mcL (0.0-1.3); Monocytes % 5.4 %; Neutrophils # 8.8 K/mcL (1.6-8.9); Platelet Count 244 K/mcL (140-400); Red Blood Count 4.15 M/mcL (3.82-4.97); Red Cell Distribution Width 13.7 % (11.5-14.5); Segmented Neutrophils % 80.6 %
[2017-03-29 05:15] LABS: BUN/Creatinine Ratio 16 (6-26); Blood Urea Nitrogen 11 mg/dL (8-23); Calcium 8.7 mg/dL (8.6-10.3); Carbon Dioxide 23 mEq/L (23-29); Chloride 114 mEq/L (98-107); Glucose 83 mg/dL (70-105); Osmolality,Calculated 299 (280-300); Potassium 3.3 mEq/L (3.5-5.1); Sodium 145 mEq/L (136-145); eGFR For African Americans > 60 (> 60); eGFR For Non-African Americans > 60 (> 60)
[2017-03-29] MEDS: 0.9 % Sodium Chloride w KCl 40 MEQ/1,000 ML MLS IVC SCH (05:39)
[2017-03-29] MEDS: *HR* Heparin 5,000 UNIT/ML VIAL SQ SCH ×2 (05:39→17:18)
[2017-03-29] MEDS: Carbidopa/Levodopa 25/100 TABLET PO SCH ×3 (07:42→20:34)
[2017-03-29] MEDS: Aspirin Enteric Coated 325 MG Tablet PO SCH (07:42)
--- NOTE | 2017-03-29 08:11 | Palliative Progress Note ---
<Jahaira Hannah-Cyndi - Last Filed: 03/29/17 08:06> Date of Encounter: 03/29/17 Time of Encounter: 07:50 - Assessment and plan (1) Goals of care, counseling/discussion Current Visit: Yes Status: Acute Assessment and plan: Palliative team will continue to follow. Current code status is DNR-Comfor Care Arrest. (2) Altered mental status Current Visit: Yes Status: Acute Qualifiers: Altered mental status type: somnolence Qualified Code(s): R40.0 - Somnolence (3) Pneumonia Current Visit: Yes Status: Acute Qualifiers: Pneumonia type: due to unspecified organism Laterality: left Lung location: upper lobe of lung Qualified Code(s): J18.1 - Lobar pneumonia, unspecified organism (4) Dementia Current Visit: No Status: Chronic Qualifiers: Dementia type: Parkinson's disease Dementia behavioral disturbance: without behavioral disturbance Qualified Code(s): G20 - Parkinson's disease; F02.80 - Dementia in other diseases classified elsewhere without behavioral disturbance - Time Spent With Patient Total time spent is greater than 50% in coordination of care (as documented) at patient's floor/unit and/or counseling patient: less than 15 minutes - Subjective Interval history: I seen and examined Ms. Hicks at bedside. No family at bedside at this time. Ms. Hicks was asleep and resting comfortably. She woke up for my exam but appear to still be altered. Per hospitalist note yesterday, patient was more alert, wakes up to voice, answers with yes and no, and follow some basic commands. However, the patient was unable to follow any of my verbal commands on my exam. Per nurse, there were no overnight events except a temperature of 99.7 and episodes of sinus tachycardia. Patient received Tylenol. Vitals were within normal limits on my exam. Patient's heart rate was 86 bpm on my exam. - Constitutional Vitals: Abnormal lab results ABG pO2 73 mmHg (85-104) L 03/24/17 19:42 ABG HCO3 28 mEq/L (21-27) H 03/24/17 19:42 ABG Total CO2 29 mEq/L (20-26) H 03/24/17 19:42 Potassium 3.3 mEq/L (3.5-5.1) L D 03/29/17 04:32 Chloride 114 mEq/L (98-107) H 03/29/17 04:32 Venous Ioniz Calcium 1.58 mmol/L (1.15-1.35) H 03/25/17 10:08 Troponin I 0.05 ng/mL (< 0.04) H* 03/25/17 06:44 PTH Intact 9.4 pg/ml (10.0-65.0) L 03/25/17 00:52 Urine Clarity Cloudy (Clear) A 03/24/17 17:28 Urine Blood Trace (Negative) H 03/24/17 17:28 Urine Microscopic WBC 5-15 per hpf (0-3) H 03/24/17 17:28 Ur Squamous Epith Cells Many per lpf (None-Few) H 03/24/17 17:28 Urine Bacteria Many per hpf (None-Few) H 03/24/17 17:28 General appearance: Present: thin. Absent: febrile, severe distress - Head Head exam: Present: atraumatic - Eye Eye exam: Absent: periorbital swelling Additional comments: Patient would not open her eyes on my exam, even though she was awake and communicating with words I cannot understand. - Neck Neck exam: Present: normal inspection. Absent: lymphadenopathy, tenderness - Respiratory Respiratory exam: Present: CTAB. Absent: accessory muscle use, decreased breath sounds, rales, respiratory distress, rhonchi, wheezes, tachypnea - Cardiovascular Cardiovascular exam: Present: RRR, +S1, +S2. Absent: bradycardia, gallop, rubs , tachycardia Additional comments: Heart rate was 86 bpm on my exam. - GI/Abdominal GI/Abdominal exam: Present: soft. Absent: distended, guarding, organomegaly, tenderness - Extremities Exam Extremities exam: Absent: calf tenderness, joint swelling, pedal edema, tenderness - Neurological Exam Neurological exam: Present: altered. Absent: alert, oriented X3, facial droop Palliative Quality Palliative Quality: Screen for Code Status: Yes, Screen for Goals of Care: Yes, Screen for Pain: Yes, If Pain Regimen Started, Initiate Bowel Regimen: NA, Screen for Nausea/Vomitting: Yes Code Status: 03/26/17 10:07 CODE [Resuscitation Status: Active] [RES] Routine Comment: short term intubatin is ok, no trach no peg Resuscitation Status: DNR-Comfort Care-Arrest - Labs CBC & Chem 7: 03/29/17 04:32 03/29/17 04:32 Labs: Laboratory Results - last 24 hr 03/29/17 03/29/17 04:32 04:32 WBC 10.9 RBC 4.15 Hgb 11.9 Hct 36.1 MCV 87.0 MCH 28.7 MCHC 33.0 RDW 13.7 Plt Count 244 MPV 10.7 Immature Gran % 1.2 Seg Neutrophils % 80.6 Lymphocytes % 10.4 Monocytes % 5.4 Eosinophils % 1.9 Basophils % 0.5 Neutrophils # 8.8 Lymphocytes # 1.1 Monocytes # 0.6 Eosinophils # 0.2 Basophils # 0.1 Sodium 145 Potassium 3.3 L D Chloride 114 H Carbon Dioxide 23 BUN 11 Creatinine 0.68 Est GFR ( Amer) > 60 Est GFR (Non-Af Amer) > 60 BUN/Creatinine Ratio 16 Glucose 83 Calculated Osmolality 299 Calcium 8.7 - ABG Interpretation ABG results: ABG ABG pH 7.41 pH Units (7.32-7.45) 03/24/17 19:42 ABG pCO2 44 mmHg (35-45) 03/24/17 19:42 ABG pO2 73 mmHg (85-104) L 03/24/17 19:42 ABG O2 Saturation 95 % (95-98) 03/24/17 19:42 Consult Discharge Plan - Plan Referrals: Frances Reilly MD [Primary Care Provider] - <Aidan Hankins - Last Filed: 03/29/17 09:45> Date of Encounter: 03/29/17 - Time Spent With Patient Total time spent is greater than 50% in coordination of care (as documented) at patient's floor/unit and/or counseling patient: - Constitutional Vitals: Abnormal lab results ABG pO2 73 mmHg (85-104) L 03/24/17 19:42 ABG HCO3 28 mEq/L (21-27) H 03/24/17 19:42 ABG Total CO2 29 mEq/L (20-26) H 03/24/17 19:42 Potassium 3.3 mEq/L (3.5-5.1) L D 03/29/17 04:32 Chloride 114 mEq/L (98-107) H 03/29/17 04:32 Venous Ioniz Calcium 1.58 mmol/L (1.15-1.35) H 03/25/17 10:08 Troponin I 0.05 ng/mL (< 0.04) H* 03/25/17 06:44 PTH Intact 9.4 pg/ml (10.0-65.0) L 03/25/17 00:52 Urine Clarity Cloudy (Clear) A 03/24/17 17:28 Urine Blood Trace (Negative) H 03/24/17 17:28 Urine Microscopic WBC 5-15 per hpf (0-3) H 03/24/17 17:28 Ur Squamous Epith Cells Many per lpf (None-Few) H 03/24/17 17:28 Urine Bacteria Many per hpf (None-Few) H 03/24/17 17:28 - Attending Attestation I examined this patient and my medical decision-making was reviewed with the Resident Physician. I agree with the documented findings, disposition and treatment plan as described except to the extent set forth below. Awaiting opinions from oncology. Palliative Quality Code Status: 03/26/17 10:07 CODE [Resuscitation Status: Active] [RES] Routine Comment: short term intubatin is ok, no trach no peg Resuscitation Status: DNR-Comfort Care-Arrest - Labs CBC & Chem 7: 03/29/17 04:32 03/29/17 04:32 Labs: Laboratory Results - last 24 hr 03/29/17 03/29/17 04:32 04:32 WBC 10.9 RBC 4.15 Hgb 11.9 Hct 36.1 MCV 87.0 MCH 28.7 MCHC 33.0 RDW 13.7 Plt Count 244 MPV 10.7 Immature Gran % 1.2 Seg Neutrophils % 80.6 Lymphocytes % 10.4 Monocytes % 5.4 Eosinophils % 1.9 Basophils % 0.5 Neutrophils # 8.8 Lymphocytes # 1.1 Monocytes # 0.6 Eosinophils # 0.2 Basophils # 0.1 Sodium 145 Potassium 3.3 L D Chloride 114 H Carbon Dioxide 23 BUN 11 Creatinine 0.68 Est GFR ( Amer) > 60 Est GFR (Non-Af Amer) > 60 BUN/Creatinine Ratio 16 Glucose 83 Calculated Osmolality 299 Calcium 8.7 - ABG Interpretation ABG results: ABG ABG pH 7.41 pH Units (7.32-7.45) 03/24/17 19:42 ABG pCO2 44 mmHg (35-45) 03/24/17 19:42 ABG pO2 73 mmHg (85-104) L 03/24/17 19:42 ABG O2 Saturation 95 % (95-98) 03/24/17 19:42
[2017-03-29] MEDS: Pantoprazole 40 MG VIAL IVP SCH (08:18)
[2017-03-29 09:48] LABS: IFE Reflexed NOT DONE
--- NOTE | 2017-03-29 10:09 | Internal Med Progress Note ---
<Ross Vasquez - Last Filed: 03/29/17 13:48> Date of Encounter: 03/29/17 Time of Encounter: 10:15 - Assessment and plan (1) Metabolic encephalopathy Current Visit: Yes Status: Acute Assessment and plan: Patient's mental status improved from 3 days ago, GCS 12. She able to follow verbal commands but unable to communicate verbally. MRI brain negative for metastasis. Encephalopathy likely secondary to UTI. Continue UTI management and monitor mental status. Continue with IVF with KCl supplement. Palliative continues to be on board. Will need to speak to patient's family in regards to possible hospice care due to patient's poor prognosis. (2) Metastatic neoplastic disease Current Visit: Yes Status: Acute Assessment and plan: CT abd/pelvis with contrasts demonstrates large sacral mass, thickening of anorectal junction, liver lesions, abdominal wall soft tissue nodule, all suggestive of metastatic carcinoma/sarcoma. MRI brain negative for metastasis. Bilateral hydronephrosis with distention of urinary bladder is noted and could be the primary. Sacral mass biopsy can be considered but would not alter the overall care as patient has poor prognosis. Palliative suggests possible palliative radiation to the large sacral mass. Will speak to patient's family in regards to possibility of hospice. (3) Hypercalcemia of malignancy Current Visit: Yes Status: Acute Assessment and plan: Resolved. (4) UTI (urinary tract infection) Current Visit: Yes Status: Acute Assessment and plan: Urine culture positive for E. Coli resistant to Levofloxacin and Trimethoprim/ sulfamethoxazole. Continue with Rocephin day #3. Continue to monitor AM labs. Qualifiers: Urinary tract infection type: site unspecified Hematuria presence: without hematuria Qualified Code(s): N39.0 - Urinary tract infection, site not specified (5) Parkinson disease Current Visit: No Status: Chronic Assessment and plan: Continue home medication (6) DVT prophylaxis Current Visit: Yes Status: Acute (7) Inadequate oral nutritional intake Current Visit: Yes Status: Acute Assessment and plan: Patient is very malnourished and has no PO intake. Continue the patient on D5 0.45% at 75ml/hour and continue to monitor I/Os. NGT not considered due to patient's poor prognosis and possibility of hospice. Nutrition consulted. - Subjective Interval history: PMHx Parkinson's, A.fib, CHF, COPD admitted for aMS, fatigue and myalgia suspicious for PNA. Patient's eyes open to speech, follows verbal commands, communicates with inappropriate words, GCS 12. Per nurse, no overnight events. Code status continues to be DNR-CCA. Per nurse, the patient continues to have no PO intake, no BM since admission. Poor urine output. - Constitutional Vitals: Temp Pulse Resp BP Pulse Ox 99.7 F H 85 15 115/71 95 03/29/17 07:51 03/29/17 07:51 03/29/17 07:51 03/29/17 07:51 03/29/17 07:51 General appearance: Present: cachectic, A&O X 0, no acute distress, underweight. Absent: answers questions appropriately Exam: Patient able to squeeze my hands with command. - Head Head exam: Present: atraumatic, normocephalic - Eye Eye exam: Present: scleral icterus - ENT ENT exam: Present: mucous membranes dry - Neck Neck exam general surgery: Present: supple, trachea midline - Respiratory Respiratory exam: Present: decreased breath sounds - Cardiovascular Cardiovascular exam: Present: distant heart sounds, +S1, +S2 - GI/Abdominal GI/Abdominal exam: Present: bruit, diminished bowel sounds, soft, no peritoneal signs. Absent: guarding, rebound - Extremities Exam Extremities exam: Present: full ROM, radial pulses palpable and symmetrical. Absent: cyanotic, pedal edema - Neurological Exam Neurological exam: Present: speech deficit. Absent: alert Additional comments: Patient able to squeeze my hands at verbal command. - Skin Skin exam: Present: dry, intact. Absent: rash Internal Medicine: Result - Labs CBC & Chem 7: 03/29/17 04:32 03/29/17 04:32 Labs: Short CBC 03/29/17 Range/Units 04:32 WBC 10.9 (4.3-11.1) K/mcL Hgb 11.9 (11.5-15.4) g/dL Hct 36.1 (35.3-44.9) % Plt Count 244 (140-400) K/mcL Neutrophils # 8.8 (1.6-8.9) K/mcL BMP 03/29/17 04:32 Sodium 145 Potassium 3.3 L D Chloride 114 H Carbon Dioxide 23 BUN 11 Creatinine 0.68 Glucose 83 Calcium 8.7 - ABG Interpretation ABG results: ABG ABG pH 7.41 pH Units (7.32-7.45) 03/24/17 19:42 ABG pCO2 44 mmHg (35-45) 03/24/17 19:42 ABG pO2 73 mmHg (85-104) L 03/24/17 19:42 ABG O2 Saturation 95 % (95-98) 03/24/17 19:42 Consult Discharge Plan - Plan Referrals: Frances Reilly MD [Primary Care Provider] - <Young Patel - Last Filed: 03/29/17 22:50> Date of Encounter: 03/29/17 - Assessment and plan (1) Metabolic encephalopathy Current Visit: Yes Status: Acute (2) Hypercalcemia of malignancy Current Visit: Yes Status: Acute (3) Lung nodule, multiple Current Visit: Yes Status: Acute (4) Bone metastases Current Visit: Yes Status: Acute (5) Severe protein-calorie malnutrition Current Visit: Yes Status: Acute (6) DVT prophylaxis Current Visit: Yes Status: Acute (7) Dementia Current Visit: No Status: Chronic Qualifiers: Dementia type: Parkinson's disease Dementia behavioral disturbance: without behavioral disturbance Qualified Code(s): G20 - Parkinson's disease; F02.80 - Dementia in other diseases classified elsewhere without behavioral disturbance (8) Parkinson disease Current Visit: No Status: Chronic - Constitutional Vitals: Temp Pulse Resp BP Pulse Ox 99.0 F 88 17 166/80 96 03/29/17 19:27 03/29/17 19:27 03/29/17 19:27 03/29/17 19:27 03/29/17 19:27 Internal Medicine: Result - Labs CBC & Chem 7: 03/29/17 04:32 03/29/17 04:32 Labs: Short CBC 03/29/17 Range/Units 04:32 WBC 10.9 (4.3-11.1) K/mcL Hgb 11.9 (11.5-15.4) g/dL Hct 36.1 (35.3-44.9) % Plt Count 244 (140-400) K/mcL Neutrophils # 8.8 (1.6-8.9) K/mcL BMP 03/29/17 04:32 Sodium 145 Potassium 3.3 L D Chloride 114 H Carbon Dioxide 23 BUN 11 Creatinine 0.68 Glucose 83 Calcium 8.7 - ABG Interpretation ABG results: ABG ABG pH 7.41 pH Units (7.32-7.45) 03/24/17 19:42 ABG pCO2 44 mmHg (35-45) 03/24/17 19:42 ABG pO2 73 mmHg (85-104) L 03/24/17 19:42 ABG O2 Saturation 95 % (95-98) 03/24/17 19:42 - Attending Attestation I conducted a face to face diagnostic evaluation of this patient and my medical decision-making was reviewed with the Resident Physician. I agree with the documented findings, disposition and treatment plan as described except to the extent set forth below: Patient is no acute distress, awake, confused, minimally verbal. Heart is regular. Lungs are clear. Plan: New diagnosis of widely metastatic cancer. Discussed with palliative care. Family meeting today considering palliative radiation versus hospice care. Young Patel MD
[2017-03-29] MEDS: Potassium Chloride 40 MEQ in D5% in 0.45% NACL 1,000 ML IVC SCH (17:17)
--- NOTE | 2017-03-29 17:19 | Oncology Inp Progress Note ---
<Juliann Adams - Last Filed: 03/30/17 08:42> Date of Encounter: 03/29/17 Time of Encounter: 15:00 (1) Metastatic neoplastic disease Current Visit: Yes Status: Acute Assessment and plan: Dr. Ram had detailed discussion with patients at bedside today regarding recent radiographic findings and goals of care. Patients son would not like to pursue biopsy at this time as it would likely not change treatment given patients continual decline in functional/mental status and overall very poor prognosis. Patients son has had multiple discussions with the palliative team and at this time are interested in pursuing hospice and no further diagnostic workup/cancer treatment. Oncology agrees that this is a reasonable decision and would offer the patient best quality of life at this given time. Introduced the idea of palliative radiation to sacral mass, patient does not appear to be in pain and prior to her admission when she was in better cognition she did not complain of pain, per patients son. Following discussion on risk vs. benefits, the decision was ultimately made to not pursue palliative radiation at this time. The offer was made that if at any time Ms. Hicks began to experience pain to this area and would benefit from radiation, the offer always stands to momentarily halt hospice care for palliative radiation. Patients son will continue to work with the palliative team regarding discharge planning for home with hospice. Patient son was given card with contact information should he have any further needs or questions. Please refer to Dr. Ram's attestation below for further details. Oncology: Subj Interval history: Ms. Hicks is resting in bed, appears to be comfortable at this time. Patients son at bedside. Son reports patients mental status has improved although she continues to be nonverbal and unable to follow commands at this time. Patient will at times open her eyes when spoken to, but quickly drifts back to sleep. She has had almost no oral intake since admission and no BM. - Constitutional Vitals: Vital Signs Temp Pulse Resp BP Pulse Ox 03/29/17 16:26 100.5 F H 111 20 151/75 96 03/29/17 11:39 99.6 F 101 15 161/75 95 03/29/17 07:51 99.7 F H 85 15 115/71 95 03/29/17 04:58 97.5 F L 03/29/17 03:33 99.4 F 101 16 151/86 95 03/29/17 01:07 97.4 F L 93 28 131/81 96 03/28/17 23:10 98.2 F 83 14 160/74 92 03/28/17 19:31 98.3 F 94 14 126/80 95 Intake and Output 03/29/17 03/29/17 03/29/17 07:59 15:59 23:59 Intake Total 1000 / 1000 10 / 10 Output Total 1150 / 1150 300 / 300 Balance -150 / -150 -290 / -290 Intake: IV Fluids 1000 / 1000 10 / 10 KCl 40mEq in 0.9% Sodium 1000 / 1000 Chloride 40 meq In 1,000 ml @ 100 mls/hr IVC .Q10H [facility] Rx#: [id number] Rocephin 1,000 MG In Water for 10 / 10 inj. (sterile) 10 ML @ 300 mls/ hr IVP Q12H [facility] Rx#:[id number] Oral 0 / 0 Output: Catheter 1150 / 1150 300 / 300 Other: Meal NPO Stool Size Moderate Stool Consistency liquid soft Stool Characteristics Mucoid Stool Color Brown Weight 35.879 kg Blood Glucose* 63 Patient Weight 03/29/17 23:59 Weight 35.879 kg General appearance: no acute distress, thin, no febrile - Head Head exam: Present: atraumatic - Respiratory Respiratory exam: Present: decreased breath sounds, CTAB - Cardiovascular Cardiovascular exam: Present: RRR, +S1, +S2 Additional comments: distant heart sounds - GI/Abdominal GI/Abdominal exam: Present: normal bowel sounds, soft. Absent: guarding, tenderness - Extremities Exam Extremities exam: Present: normal inspection. Absent: pedal edema - Neurological Exam Neurological exam: Present: altered - Skin Skin exam: Present: pallor, warm Oncology: Obj Data - Labs CBC & Chem 7: 03/29/17 04:32 03/30/17 04:20 Labs: Laboratory Results - last 24 hr 03/29/17 03/29/17 04:32 04:32 WBC 10.9 RBC 4.15 Hgb 11.9 Hct 36.1 MCV 87.0 MCH 28.7 MCHC 33.0 RDW 13.7 Plt Count 244 MPV 10.7 Immature Gran % 1.2 Seg Neutrophils % 80.6 Lymphocytes % 10.4 Monocytes % 5.4 Eosinophils % 1.9 Basophils % 0.5 Neutrophils # 8.8 Lymphocytes # 1.1 Monocytes # 0.6 Eosinophils # 0.2 Basophils # 0.1 Sodium 145 Potassium 3.3 L D Chloride 114 H Carbon Dioxide 23 BUN 11 Creatinine 0.68 Est GFR ( Amer) > 60 Est GFR (Non-Af Amer) > 60 BUN/Creatinine Ratio 16 Glucose 83 Calculated Osmolality 299 Calcium 8.7 - ABG Interpretation ABG results: ABG ABG pH 7.41 pH Units (7.32-7.45) 03/24/17 19:42 ABG pCO2 44 mmHg (35-45) 03/24/17 19:42 ABG pO2 73 mmHg (85-104) L 03/24/17 19:42 ABG O2 Saturation 95 % (95-98) 03/24/17 19:42 Consult Discharge Plan - Plan Referrals: Frances Reilly MD [Primary Care Provider] - <Kike Ram - Last Filed: 03/30/17 09:38> Date of Encounter: 03/29/17 - Constitutional Vitals: Vital Signs Temp Pulse Resp BP Pulse Ox 03/30/17 08:22 98.9 F 104 16 139/79 96 03/30/17 03:02 97.8 F 99 12 124/81 96 03/29/17 23:58 98.3 F 108 8 123/80 96 03/29/17 19:27 99.0 F 88 17 166/80 96 03/29/17 16:26 100.5 F H 111 20 151/75 96 03/29/17 11:39 99.6 F 101 15 161/75 95 Intake and Output 03/30/17 03/30/17 03/30/17 00:59 08:59 16:59 Intake Total 1010 / 1010 1020 / 1020 Output Total 800 / 800 200 / 200 Balance 210 / 210 820 / 820 Intake: IV Fluids 1010 / 1010 1020 / 1020 KCl 40mEq in 0.9% Sodium 1000 / 1000 Chloride 40 meq In 1,000 ml @ 100 mls/hr IVC .Q10H [facility] Rx#: [id number] KCl 40 MEQ In D5% And 0.45% 1020 / 1020 Nacl 1000 Ml Bag 1,000 ML @ 75 mls/hr IVC .[id number] [facility] Rx#: [id number] Rocephin 1,000 MG In Water for inj. (sterile) 10 ML @ 300 mls/ hr IVP Q12H [facility] Rx#:[id number] Oral 0 / 0 Output: Catheter 800 / 800 200 / 200 Other: Stool Size Moderate Smear Stool Consistency liquid # Bowel Movements 1 # Bowel Movement Diapers 1 Weight 37.648 kg 38.782 kg Blood Glucose* 93 105 Patient Weight 03/31/17 00:59 Weight 38.782 kg Oncology: Obj Data - Labs CBC & Chem 7: 03/29/17 04:32 03/30/17 04:20 Labs: Laboratory Results - last 24 hr 03/29/17 03/29/17 03/30/17 15:44 17:50 00:22 Sodium Potassium Chloride Carbon Dioxide BUN Creatinine Est GFR ( Amer) Est GFR (Non-Af Amer) BUN/Creatinine Ratio Glucose POC Glucose 63 70 93 H Calculated Osmolality Calcium 03/30/17 04:20 Sodium 144 Potassium 3.5 Chloride 113 H Carbon Dioxide 22 L BUN 12 Creatinine 0.69 Est GFR ( Amer) > 60 Est GFR (Non-Af Amer) > 60 BUN/Creatinine Ratio 17 Glucose 96 POC Glucose Calculated Osmolality 298 Calcium 8.4 L - ABG Interpretation ABG results: ABG ABG pH 7.41 pH Units (7.32-7.45) 03/24/17 19:42 ABG pCO2 44 mmHg (35-45) 03/24/17 19:42 ABG pO2 73 mmHg (85-104) L 03/24/17 19:42 ABG O2 Saturation 95 % (95-98) 03/24/17 19:42
[2017-03-29] MEDS: Carbidopa/Levodopa ER 50/200 TABLET PO SCH (20:34)
[2017-03-30] MEDS: *HR* Heparin 5,000 UNIT/ML VIAL SQ SCH ×2 (04:09→17:54)
[2017-03-30] MEDS: cefTRIAXone 1,000 MG in Water for inj. (sterile) 10 ML IVP SCH ×2 (04:09→17:55)
[2017-03-30 05:33] LABS: BUN/Creatinine Ratio 17 (6-26); Blood Urea Nitrogen 12 mg/dL (8-23); Calcium 8.4 mg/dL (8.6-10.3); Carbon Dioxide 22 mEq/L (23-29); Chloride 113 mEq/L (98-107); Glucose 96 mg/dL (70-105); Osmolality,Calculated 298 (280-300); Potassium 3.5 mEq/L (3.5-5.1); Sodium 144 mEq/L (136-145); eGFR For African Americans > 60 (> 60); eGFR For Non-African Americans > 60 (> 60)
[2017-03-30] MEDS: Potassium Chloride 40 MEQ in D5% in 0.45% NACL 1,000 ML IVC SCH ×2 (05:58→19:25)
--- NOTE | 2017-03-30 07:06 | Electrocardiograph Report ---
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
--- NOTE | 2017-03-30 07:06 | Electrocardiograph Report ---
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
[2017-03-30] MEDS: Aspirin Enteric Coated 325 MG Tablet PO SCH (07:36)
[2017-03-30] MEDS: Carbidopa/Levodopa 25/100 TABLET PO SCH ×3 (07:36→19:17)
[2017-03-30] MEDS: Pantoprazole 40 MG VIAL IVP SCH (08:14)
--- NOTE | 2017-03-30 11:12 | Palliative Progress Note ---
<Jahaira Hannah-Cyndi - Last Filed: 03/30/17 11:05> Date of Encounter: 03/30/17 Time of Encounter: 09:10 - Assessment and plan (1) Goals of care, counseling/discussion Current Visit: Yes Status: Acute Assessment and plan: Patient's current code status is DNR-CCA with short term intubation if necessary. The patient's son, Hadley, is the patient's POA. The patient's son expressed that he and his family are still interested in pursuing hospice. Oncology has spoken with the family about the patient's prognosis. Per oncology report, patient's son wants no further diagnostic workup/cancer treatment. Oncology agrees that this is a reasonable decision and would offer the patient best quality of life at this given time. Oncology has also discussed with the family about palliative radiation to the patient's sacral mass. Per oncology report, following discussion on risk versus benefits, the decision was ultimately made to not pursue palliative radiation at this time. The offer was made that if at any time Ms. Hicks began to experience pain to this area and would benefit from radiation, the offer always stands to momentarily halt hospice care for palliative radiation. Palliative team's plan currently is to discharge Ms. Hicks with [facility] hospice when she is ready. Palliative team will continue to follow. (2) Altered mental status Current Visit: Yes Status: Acute Qualifiers: Altered mental status type: somnolence Qualified Code(s): R40.0 - Somnolence (3) Pneumonia Current Visit: Yes Status: Acute Qualifiers: Pneumonia type: due to unspecified organism Laterality: left Lung location: upper lobe of lung Qualified Code(s): J18.1 - Lobar pneumonia, unspecified organism (4) Dementia Current Visit: No Status: Chronic Qualifiers: Dementia type: Parkinson's disease Dementia behavioral disturbance: without behavioral disturbance Qualified Code(s): G20 - Parkinson's disease; F02.80 - Dementia in other diseases classified elsewhere without behavioral disturbance - Time Spent With Patient Total time spent is greater than 50% in coordination of care (as documented) at patient's floor/unit and/or counseling patient: - Subjective Interval history: I seen and examined Ms. Hicks at bedside. No family at bedside at this time. Ms. Hicks was asleep and resting comfortably. She woke up for my exam and appears less altered today. She wakes up to voice and answers with yes and no. She was unable to follow some basic commands this morning, but she was following some commands yesterday. She opens her eyes more now and stated "yes " when I asked if she was just tired. Per nurse, there were no overnight events. Vitals were within normal limits on my exam. - Constitutional Vitals: Abnormal lab results ABG pO2 73 mmHg (85-104) L 03/24/17 19:42 ABG HCO3 28 mEq/L (21-27) H 03/24/17 19:42 ABG Total CO2 29 mEq/L (20-26) H 03/24/17 19:42 Chloride 113 mEq/L (98-107) H 03/30/17 04:20 Carbon Dioxide 22 mEq/L (23-29) L 03/30/17 04:20 POC Glucose 93 (58-89) H 03/30/17 00:22 Calcium 8.4 mg/dL (8.6-10.3) L 03/30/17 04:20 Venous Ioniz Calcium 1.58 mmol/L (1.15-1.35) H 03/25/17 10:08 Troponin I 0.05 ng/mL (< 0.04) H* 03/25/17 06:44 Albumin (PEP) 3.03 g/dL (3.75-5.01) L 03/25/17 00:52 Niemx-1-Wnreyusgb 0.62 g/dL (0.19-0.46) H 03/25/17 00:52 PTH Intact 9.4 pg/ml (10.0-65.0) L 03/25/17 00:52 Urine Clarity Cloudy (Clear) A 03/24/17 17:28 Urine Blood Trace (Negative) H 03/24/17 17:28 Urine Microscopic WBC 5-15 per hpf (0-3) H 03/24/17 17:28 Ur Squamous Epith Cells Many per lpf (None-Few) H 03/24/17 17:28 Urine Bacteria Many per hpf (None-Few) H 03/24/17 17:28 General appearance: Present: thin. Absent: febrile, no acute distress, severe distress - Head Head exam: Present: atraumatic - Eye Eye exam: Present: normal appearance, PERRL. Absent: periorbital swelling, periorbital tenderness - Neck Neck exam: Present: normal inspection. Absent: lymphadenopathy, tenderness - Respiratory Respiratory exam: Present: CTAB. Absent: accessory muscle use, rales, respiratory distress, rhonchi, wheezes, tachypnea - Cardiovascular Cardiovascular exam: Present: RRR, +S1, +S2. Absent: bradycardia, diastolic murmur, gallop, rubs, systolic murmur, tachycardia - GI/Abdominal GI/Abdominal exam: Present: soft. Absent: distended, guarding, tenderness - Extremities Exam Extremities exam: Present: normal inspection. Absent: calf tenderness, pedal edema, tenderness - Neurological Exam Neurological exam: Present: alert (Appears more alert today than yesterday. However, she is still slightly altered. ), altered. Absent: oriented X3, facial droop, speech deficit Palliative Quality Palliative Quality: Screen for Code Status: Yes, Screen for Goals of Care: Yes, Screen for Pain: Yes, If Pain Regimen Started, Initiate Bowel Regimen: NA, Screen for Nausea/Vomitting: Yes Code Status: 03/26/17 10:07 CODE [Resuscitation Status: Active] [RES] Routine Comment: short term intubatin is ok, no trach no peg Resuscitation Status: DNR-Comfort Care-Arrest - Labs CBC & Chem 7: 03/29/17 04:32 03/30/17 04:20 Labs: Laboratory Results - last 24 hr 03/29/17 03/29/17 03/30/17 15:44 17:50 00:22 Sodium Potassium Chloride Carbon Dioxide BUN Creatinine Est GFR ( Amer) Est GFR (Non-Af Amer) BUN/Creatinine Ratio Glucose POC Glucose 63 70 93 H Calculated Osmolality Calcium 03/30/17 04:20 Sodium 144 Potassium 3.5 Chloride 113 H Carbon Dioxide 22 L BUN 12 Creatinine 0.69 Est GFR ( Amer) > 60 Est GFR (Non-Af Amer) > 60 BUN/Creatinine Ratio 17 Glucose 96 POC Glucose Calculated Osmolality 298 Calcium 8.4 L - ABG Interpretation ABG results: ABG ABG pH 7.41 pH Units (7.32-7.45) 03/24/17 19:42 ABG pCO2 44 mmHg (35-45) 03/24/17 19:42 ABG pO2 73 mmHg (85-104) L 03/24/17 19:42 ABG O2 Saturation 95 % (95-98) 03/24/17 19:42 Consult Discharge Plan - Plan Referrals: Frances Reilly MD [Primary Care Provider] - <Aidan Hankins - Last Filed: 03/30/17 12:28> Date of Encounter: 03/30/17 - Time Spent With Patient Total time spent is greater than 50% in coordination of care (as documented) at patient's floor/unit and/or counseling patient: - Constitutional Vitals: Abnormal lab results ABG pO2 73 mmHg (85-104) L 03/24/17 19:42 ABG HCO3 28 mEq/L (21-27) H 03/24/17 19:42 ABG Total CO2 29 mEq/L (20-26) H 03/24/17 19:42 Chloride 113 mEq/L (98-107) H 03/30/17 04:20 Carbon Dioxide 22 mEq/L (23-29) L 03/30/17 04:20 POC Glucose 93 (58-89) H 03/30/17 00:22 Calcium 8.4 mg/dL (8.6-10.3) L 03/30/17 04:20 Venous Ioniz Calcium 1.58 mmol/L (1.15-1.35) H 03/25/17 10:08 Troponin I 0.05 ng/mL (< 0.04) H* 03/25/17 06:44 Albumin (PEP) 3.03 g/dL (3.75-5.01) L 03/25/17 00:52 Lrmoi-4-Ylbqspkgy 0.62 g/dL (0.19-0.46) H 03/25/17 00:52 PTH Intact 9.4 pg/ml (10.0-65.0) L 03/25/17 00:52 Urine Clarity Cloudy (Clear) A 03/24/17 17:28 Urine Blood Trace (Negative) H 03/24/17 17:28 Urine Microscopic WBC 5-15 per hpf (0-3) H 03/24/17 17:28 Ur Squamous Epith Cells Many per lpf (None-Few) H 03/24/17 17:28 Urine Bacteria Many per hpf (None-Few) H 03/24/17 17:28 - Attending Attestation I examined this patient and my medical decision-making was reviewed with the Resident Physician. I agree with the documented findings, disposition and treatment plan as described except to the extent set forth below. plan to meet with son at 1400 Palliative Quality Code Status: 03/26/17 10:07 CODE [Resuscitation Status: Active] [RES] Routine Comment: short term intubatin is ok, no trach no peg Resuscitation Status: DNR-Comfort Care-Arrest - Labs CBC & Chem 7: 03/29/17 04:32 03/30/17 04:20 Labs: Laboratory Results - last 24 hr 03/29/17 03/29/17 03/30/17 15:44 17:50 00:22 Sodium Potassium Chloride Carbon Dioxide BUN Creatinine Est GFR ( Amer) Est GFR (Non-Af Amer) BUN/Creatinine Ratio Glucose POC Glucose 63 70 93 H Calculated Osmolality Calcium 03/30/17 04:20 Sodium 144 Potassium 3.5 Chloride 113 H Carbon Dioxide 22 L BUN 12 Creatinine 0.69 Est GFR ( Amer) > 60 Est GFR (Non-Af Amer) > 60 BUN/Creatinine Ratio 17 Glucose 96 POC Glucose Calculated Osmolality 298 Calcium 8.4 L - ABG Interpretation ABG results: ABG ABG pH 7.41 pH Units (7.32-7.45) 03/24/17 19:42 ABG pCO2 44 mmHg (35-45) 03/24/17 19:42 ABG pO2 73 mmHg (85-104) L 03/24/17 19:42 ABG O2 Saturation 95 % (95-98) 03/24/17 19:42
[2017-03-30] MEDS: Acetaminophen 650 MG RECTAL SUPP RC PRN (12:49)
--- NOTE | 2017-03-30 17:23 | Internal Med Progress Note ---
Date of Encounter: 03/30/17 Time of Encounter: 17:20 - Assessment and plan (1) Metastatic neoplastic disease Current Visit: Yes Status: Acute Assessment and plan: CT abd/pelvis with contrasts demonstrates large sacral mass, thickening of anorectal junction, liver lesions, abdominal wall soft tissue nodule, all suggestive of metastatic carcinoma/sarcoma. MRI brain negative for metastasis. Bilateral hydronephrosis with distention of urinary bladder is noted and could be the primary. Sacral mass biopsy can be considered but would not alter the overall care as patient has poor prognosis. Palliative suggested possible palliative radiation to the large sacral mass. Radiation might be an option if the patient develops pain May go on hospice when everything is arranged (2) Hypokalemia Current Visit: Yes Status: Acute Assessment and plan: Was repleted (3) Parkinson disease Current Visit: No Status: Chronic Assessment and plan: Continue home medication (4) UTI (urinary tract infection) Current Visit: Yes Status: Acute Assessment and plan: Urine culture positive for E. Coli resistant to Levofloxacin and Trimethoprim/ sulfamethoxazole. Continue with Rocephin day #4. Was receiving Rocephin for possible pneumonia/ community-acquired pneumonia Qualifiers: Urinary tract infection type: site unspecified Hematuria presence: without hematuria Qualified Code(s): N39.0 - Urinary tract infection, site not specified (5) Dementia Current Visit: No Status: Chronic Assessment and plan: Patient has very poor prognosis due to multiple comorbidities and suspected metastatic cancer. I The patient is DNR/DNI. Qualifiers: Dementia type: Parkinson's disease Dementia behavioral disturbance: without behavioral disturbance Qualified Code(s): G20 - Parkinson's disease; F02.80 - Dementia in other diseases classified elsewhere without behavioral disturbance (6) Metabolic encephalopathy Current Visit: Yes Status: Acute Assessment and plan: Likely secondary to UTI MRI brain negative for metastasis. Encephalopathy likely secondary to UTI. May discontinue IV fluids if the patient is not on hospice care. Palliative continues to be on board. The patient has very poor prognosis (7) Hypercalcemia of malignancy Current Visit: Yes Status: Acute Assessment and plan: Resolved. (8) Lung nodule, multiple Current Visit: Yes Status: Acute Assessment and plan: Appreciate pulmonary service recommendations. Patient is not a good candidate for bronchoscopy at this time due to poor mental status, poor functional status, advanced dementia, multiple comorbidities and electrolyte imbalance. (9) Bone metastases Current Visit: Yes Status: Acute Assessment and plan: Follow-up with oncology. (10) Severe protein-calorie malnutrition Current Visit: Yes Status: Acute - Subjective Interval history: Nonverbal, lethargic, unable to complete review of systems - Constitutional Vitals: Temp Pulse Resp BP Pulse Ox 98.3 F 115 12 144/90 92 03/30/17 16:41 03/30/17 16:41 03/30/17 16:41 03/30/17 16:41 03/30/17 16:41 General appearance: Present: cachectic, A&O X 0, no acute distress, underweight. Absent: answers questions appropriately - Head Head exam: Present: atraumatic, normocephalic - Eye Eye exam: Present: PERRL, conjuntiva pink, sclera anicteric Pupils: Present: PERRL - Neck Neck exam general surgery: Present: supple, trachea midline. Absent: lymphadenopathy - Respiratory Respiratory exam: Present: decreased breath sounds, CTAB. Absent: accessory muscle use, rales, rhonchi, wheezes - Cardiovascular Cardiovascular exam: Present: RRR, +S1, +S2. Absent: diastolic murmur, gallop, rubs, systolic murmur - GI/Abdominal GI/Abdominal exam: Present: normal bowel sounds, soft, no peritoneal signs. Absent: distended, tenderness - Extremities Exam Extremities exam: Present: warm, radial pulses palpable and symmetrical. Absent : calf tenderness, cyanotic, pedal edema Additional comments: Left ankle swelling - Neurological Exam Neurological exam: Present: CN II-XII intact, no focal deficits. Absent: oriented X3, pronater drift, facial droop, speech deficit - Skin Skin exam: Present: dry, intact Internal Medicine: Result - Labs CBC & Chem 7: 03/29/17 04:32 03/30/17 04:20 Labs: BMP 03/30/17 04:20 Sodium 144 Potassium 3.5 Chloride 113 H Carbon Dioxide 22 L BUN 12 Creatinine 0.69 Glucose 96 Calcium 8.4 L - ABG Interpretation ABG results: ABG ABG pH 7.41 pH Units (7.32-7.45) 03/24/17 19:42 ABG pCO2 44 mmHg (35-45) 03/24/17 19:42 ABG pO2 73 mmHg (85-104) L 01/17/18 19:42 ABG O2 Saturation 95 % (95-98) 03/24/17 19:42 Consult Discharge Plan - Plan Referrals: Frances Reilly MD [Primary Care Provider] -
[2017-03-30] MEDS: Carbidopa/Levodopa ER 50/200 TABLET PO SCH (19:17)
[2017-03-31] MEDS: cefTRIAXone 1,000 MG in Water for inj. (sterile) 10 ML IVP SCH (04:31)
[2017-03-31] MEDS: *HR* Heparin 5,000 UNIT/ML VIAL SQ SCH (05:57)
[2017-03-31 06:07] LABS: BUN/Creatinine Ratio 15 (6-26); Blood Urea Nitrogen 9 mg/dL (8-23); Calcium 8.2 mg/dL (8.6-10.3); Carbon Dioxide 21 mEq/L (23-29); Chloride 109 mEq/L (98-107); Glucose 98 mg/dL (70-105); Osmolality,Calculated 287 (280-300); Potassium 3.8 mEq/L (3.5-5.1); Sodium 139 mEq/L (136-145); eGFR For African Americans > 60 (> 60); eGFR For Non-African Americans > 60 (> 60)
[2017-03-31] MEDS: Aspirin Enteric Coated 325 MG Tablet PO SCH (07:53)
[2017-03-31] MEDS: Carbidopa/Levodopa 25/100 TABLET PO SCH (07:54)
[2017-03-31] MEDS: Pantoprazole 40 MG VIAL IVP SCH (08:03)
[2017-03-31] MEDS: Potassium Chloride 40 MEQ in D5% in 0.45% NACL 1,000 ML IVC SCH (08:07)
[2017-03-31 11:02] VITALS: BP 91/54
--- NOTE | 2017-03-31 12:11 | Discharge Summary ---
Date of Encounter: 03/31/17 Time of Encounter: 12:09 - Discharge Diagnosis (1) Metastatic neoplastic disease Priority: Primary Status: Acute Comments: known hx metastatic carcinoma/sarcoma. Presented with increased fatigue and myalgias. ABD CT showed large sacral mass, thickening of anorectal junction, liver lesions, abdominal wall soft tissue nodule, suggestive of metastatic carcinoma/sarcoma. MRI brain negative for metastasis. Bilateral hydronephrosis with distention of urinary bladder is noted and could be the primary. Case discussed at length with son (WINNIE) with oncology and palliative care and decision made not to move forward with biopsy, radiation, diagnostic workup or cancer treatment at this time. The son made the decision to transition her to home with hospice given her decline in functional and mental status with overall very poor prognosis. Plan for [facility] hosp[facility] at discharge; Rx for oxycodone and Ativan provided for palliative care. Patient is not taking po at this time including medications. Defer resuming home medications to hospice when/if patient improves. (2) UTI (urinary tract infection) Priority: Primary Status: Resolved Comments: Patient presented with symptoms of UTI urine culture withl Escherichia coli sensitive to Rocephin, received 5 days of treatment No further medications required Blood cultures 2 with no growth on final read Qualifiers: Urinary tract infection type: site unspecified Hematuria presence: without hematuria Qualified Code(s): N39.0 - Urinary tract infection, site not specified (3) Parkinson disease Priority: Secondary Status: Chronic Comments: Continue home medications when and if able as per hospice Patient continues to decline in both mental and physical capabilities (4) Dementia Priority: Secondary Status: Chronic Comments: History patient is at baseline with slow decline, unable to take PO during the admission Qualifiers: Dementia type: Parkinson's disease Dementia behavioral disturbance: without behavioral disturbance Qualified Code(s): G20 - Parkinson's disease; F02.80 - Dementia in other diseases classified elsewhere without behavioral disturbance - Discharge Medications Prescriptions: LORazepam Oral Conc [Ativan Oral Conc] 0.5 - 1 mg PO Q4H PRN #30 mls PRN Reason: Anxiety/restlessness OxyCODONE CONC 10 - 15 mg PO Q4H PRN #30 mls PRN Reason: Pain Home Medications: Carbidopa/Levodopa 25/100 [Sinemet 25/100] 2 each PO TID 02/28/16 [History] Carbidopa/Levodopa ER 50/200 [Sinemet ER 50-200 Tab] 1 each PO HS 02/28/16 [ History] Docusate [Colace] 100 mg PO BID PRN 02/28/16 [History] Donepezil [Aricept] 10 mg PO HS 02/28/16 [History] Atorvastatin [Lipitor] 40 mg PO HS tablet 03/18/16 [Rx] Nitroglycerin 0.4 mg SL Q5MIN PRN #0 tab.subl 03/18/16 [Rx] DiphenhydraMINE [Benadryl] 50 mg PO Q8HR PRN 08/24/16 [History] Escitalopram [Lexapro] 10 mg PO DAILY 08/24/16 [History] Aspirin Enteric Coated [Aspirin EC] 325 mg PO DAILY 03/24/17 [History] Omeprazole [PriLOSEC] 20 mg PO BIDAC 03/24/17 [History] OxyCODONE Immed Rel [Roxicodone 10 MG] 15 mg PO Q4HR PRN 03/24/17 [History] hydrOXYzine HCl [Hydroxyzine HCl] 25 mg PO TID PRN 03/24/17 [History] LORazepam Oral Conc [Ativan Oral Conc] 0.5 - 1 mg PO Q4H PRN #30 mls 03/31/17 [ Rx] OxyCODONE CONC 10 - 15 mg PO Q4H PRN #30 mls 03/31/17 [Rx] Allergies/Adverse Reactions: 3 Allergy/AdvReac Type Severity Reaction Status Date / Time fentanyl Allergy Vomiting Verified 10/31/14 09:49 ondansetron Allergy Headache Verified 10/31/14 09:49 [From Zofran (as hydrochloride)] Procedures/tests Complete & Pending: Procedures Performed prior 72 hours Category Date Time Status CT abd pelvis w iv no oral [CT] Routine Cat Scan 03/28/17 14:47 Completed Date of admission: 03/25/17 03:53 Primary care physician: Frances Reilly Consults: 03/25/17 13:25 Consult to Palliative Care [CONS] Routine Comment: Consulting Provider: [facility] [place] Reason for Consult: 71F history of Parkinson's, dementia, Afib, CHF, COPD presenents with altered mental status and pneumonia. Decreased PO and fluid intake. New findngs of pulmonary nodules on CT. No documented code status. Call Completed: Yes 03/26/17 13:12 Consult to Pulmonology [CONS] Routine Consulting Provider: [facility] [place] Reason for Consult: 71F PMHx Parkinson's, Afib, CHF, COPD presented for aMS with CT finding of scattered bilateral pulmonar nodules concerning for metastatic disease. Patient has poor prognosis. Please evaluate for possible bronchoscopy with biopsy. Thank you. Call Completed: Yes 03/26/17 13:16 Consult to Oncology [CONS] Routine Consulting Provider: [facility] [place] Reason for Consult: 71F PMHx Parkinson's, Afib, CHF, COPD presented for aMS with CT finding of scattered bilateral pulmonar nodules concerning for metastatic disease vs primary. Patient has poor prognosis, currently DNR-CCA. Please evaluate for possible treatment options to determine whether brochoscopy with biopsy is reasonable. Thank you. Call Completed: Yes 03/29/17 14:20 Consult to Nutrition [CONS] Routine Comment: Consulting Provider: NUTRITION Reason for Dietary Consult: Other Discharging clinician: Amber Negrete Anticipated date of discharge: 03/31/17 - Patient Status Disposition: Hospice - Home Condition: Serious Functional capacity at discharge: bed bound Overall status at discharge: patient is not back to baseline - Discharge Instructions Instructions: Hospice Care (GEN) Follow Up With: Frances Reilly MD [Primary Care Provider] - - Diet and Activity Activity: other (bed rest) Diet: other (NPO until or if mentation improves) Interval History: Patient seen at bedside today. Due to the level of her dementia was unable to obtain any information from the patient she did not follow simple commands and did not verbally interact. Patient is new to me. I did review of the chart to obtain the information. Patient appears to be at her baseline. She is comfortable and in no distress, planned to discharge home to hospice as per the plan in the chart Hospital course: Please see the assessment and plan for the hospital course and plan of care - Time Spent with Patient Total time spent providing and/or coordinating discharge services: Less than 30 minutes - Constitutional Vitals: Temp Pulse Resp BP Pulse Ox 98.3 F 104 13 91/54 96 03/31/17 11:00 03/31/17 11:00 03/31/17 11:00 03/31/17 11:00 03/31/17 11:00 General appearance: Present: cachectic, A&O X 0, no acute distress, underweight. Absent: answers questions appropriately - Head Head exam: Present: atraumatic, normocephalic - Eye Eye exam: Present: conjuntiva pink, sclera anicteric - Neck Neck exam general surgery: Present: supple, trachea midline. Absent: tenderness - Respiratory Respiratory exam: Present: CTAB. Absent: accessory muscle use, rales, rhonchi, wheezes - Cardiovascular Cardiovascular exam: Present: RRR, +S1, +S2. Absent: diastolic murmur, gallop, rubs, systolic murmur - GI/Abdominal GI/Abdominal exam: Present: normal bowel sounds, soft, no peritoneal signs. Absent: distended, tenderness - Extremities Exam Extremities exam: Present: warm, radial pulses palpable and symmetrical. Absent : calf tenderness, cyanotic, pedal edema - Neurological Exam Neurological exam: Absent: oriented X3 Additional comments: dementia, mumbling during exam, nonverbal, does not follow commands, baseline per the chart - Skin Skin exam: Present: dry, intact, warm
--- NOTE | 2017-03-31 13:03 | Palliative Progress Note ---
Date of Encounter: 03/31/17 Time of Encounter: 11:30 - Assessment and plan (1) Cancer associated pain Current Visit: Yes Status: Acute Assessment and plan: Will write prescription for liquid Oxycodone for pain on discharge as she has not been taking oral meds well here. (2) Goals of care, counseling/discussion Current Visit: Yes Status: Acute Assessment and plan: Will most likely be discharged today - to go home with family caring for her and [facility] (3) Parkinson disease Current Visit: No Status: Chronic (4) Metastatic neoplastic disease Current Visit: Yes Status: Acute - Time Spent With Patient Total time spent is greater than 50% in coordination of care (as documented) at patient's floor/unit and/or counseling patient: 25 - 35 minutes - Subjective Interval history: Patient awake and alert, nonverbal. Does not follow commands. Appears comfortable. No family present - Constitutional Vitals: Abnormal lab results ABG pO2 73 mmHg (85-104) L 03/24/17 19:42 ABG HCO3 28 mEq/L (21-27) H 03/24/17 19:42 ABG Total CO2 29 mEq/L (20-26) H 03/24/17 19:42 Chloride 109 mEq/L (98-107) H 03/31/17 04:53 Carbon Dioxide 21 mEq/L (23-29) L 03/31/17 04:53 Calcium 8.2 mg/dL (8.6-10.3) L 03/31/17 04:53 Venous Ioniz Calcium 1.58 mmol/L (1.15-1.35) H 03/25/17 10:08 Troponin I 0.05 ng/mL (< 0.04) H* 03/25/17 06:44 Albumin (PEP) 3.03 g/dL (3.75-5.01) L 03/25/17 00:52 Xkfgg-8-Cmuupgzki 0.62 g/dL (0.19-0.46) H 03/25/17 00:52 PTH Intact 9.4 pg/ml (10.0-65.0) L 03/25/17 00:52 Urine Clarity Cloudy (Clear) A 03/24/17 17:28 Urine Blood Trace (Negative) H 03/24/17 17:28 Urine Microscopic WBC 5-15 per hpf (0-3) H 03/24/17 17:28 Ur Squamous Epith Cells Many per lpf (None-Few) H 03/24/17 17:28 Urine Bacteria Many per hpf (None-Few) H 03/24/17 17:28 General appearance: Present: no acute distress - Respiratory Respiratory exam: Present: decreased breath sounds, CTAB - Cardiovascular Cardiovascular exam: Present: +S1, +S2 - GI/Abdominal GI/Abdominal exam: Present: distended, soft - Extremities Exam Extremities exam: Present: normal capillary refill, normal inspection - Neurological Exam Neurological exam: Present: alert Additional comments: Nonverbal. Does not follow commands - Skin Skin exam: Present: dry, pallor, warm Palliative Quality Palliative Quality: Screen for Code Status: Yes, Screen for Goals of Care: Yes, Screen for Pain: Yes, If Pain Regimen Started, Initiate Bowel Regimen: NA, Screen for Nausea/Vomitting: Yes Code Status: 03/26/17 10:07 CODE [Resuscitation Status: Active] [RES] Routine Comment: short term intubatin is ok, no trach no peg Resuscitation Status: DNR-Comfort Care-Arrest - Labs CBC & Chem 7: 03/29/17 04:32 03/31/17 04:53 Labs: Laboratory Results - last 24 hr 03/30/17 03/30/17 03/30/17 08:27 12:24 16:07 Sodium Potassium Chloride Carbon Dioxide BUN Creatinine Est GFR ( Amer) Est GFR (Non-Af Amer) BUN/Creatinine Ratio Glucose POC Glucose 105 H 98 H 89 Calculated Osmolality Calcium 03/31/17 04:53 Sodium 139 Potassium 3.8 Chloride 109 H Carbon Dioxide 21 L BUN 9 Creatinine 0.60 Est GFR ( Amer) > 60 Est GFR (Non-Af Amer) > 60 BUN/Creatinine Ratio 15 Glucose 98 POC Glucose Calculated Osmolality 287 Calcium 8.2 L - ABG Interpretation ABG results: ABG ABG pH 7.41 pH Units (7.32-7.45) 03/24/17 19:42 ABG pCO2 44 mmHg (35-45) 03/24/17 19:42 ABG pO2 73 mmHg (85-104) L 03/24/17 19:42 ABG O2 Saturation 95 % (95-98) 03/24/17 19:42 Consult Discharge Plan - Plan Instructions: Hospice Care (GEN) Referrals: Frances Reilly MD [Primary Care Provider] - Prescriptions: LORazepam Oral Conc [Ativan Oral Conc] 0.5 - 1 mg PO Q4H PRN #30 mls PRN Reason: Anxiety/restlessness OxyCODONE CONC 10 - 15 mg PO Q4H PRN #30 mls PRN Reason: Pain
--- NOTE | 2017-03-31 13:59 | Physician Discharge Referral ---
Home Health/Hosp Referral Info Transfer to: Hospice Attending Provider: abdirizak escalante Provider in Charge Post Discharge: New Order Clerk - Diagnosis (1) Metastatic neoplastic disease Status: Acute (2) UTI (urinary tract infection) Status: Resolved (3) Parkinson disease Status: Chronic (4) Dementia Status: Chronic - Respiratory Orders None Smoking Cessation: Smoking cessation has been advised. For more information, call the [place] Tobacco Quit Line at 0-722-AMCY-NOW. - Diet/Nutrition Diet/Nutrition: List: patient unable to take PO at this time, refer to hospice staff - Activity Activity Orders: Bedrest - Services Needed Following services are medically necessary services: Nursing, Home Health Aide - Transfer Medications Prescriptions: LORazepam Oral Conc [Ativan Oral Conc] 0.5 - 1 mg PO Q4H PRN #30 mls PRN Reason: Anxiety/restlessness OxyCODONE CONC 10 - 15 mg PO Q4H PRN #30 mls PRN Reason: Pain Home Medications: Carbidopa/Levodopa 25/100 [Sinemet 25/100] 2 each PO TID 02/28/16 [History] Carbidopa/Levodopa ER 50/200 [Sinemet ER 50-200 Tab] 1 each PO HS 02/28/16 [ History] Docusate [Colace] 100 mg PO BID PRN 02/28/16 [History] Donepezil [Aricept] 10 mg PO HS 02/28/16 [History] Atorvastatin [Lipitor] 40 mg PO HS tablet 03/18/16 [Rx] Nitroglycerin 0.4 mg SL Q5MIN PRN #0 tab.subl 03/18/16 [Rx] DiphenhydraMINE [Benadryl] 50 mg PO Q8HR PRN 08/24/16 [History] Escitalopram [Lexapro] 10 mg PO DAILY 08/24/16 [History] Aspirin Enteric Coated [Aspirin EC] 325 mg PO DAILY 03/24/17 [History] Omeprazole [PriLOSEC] 20 mg PO BIDAC 03/24/17 [History] OxyCODONE Immed Rel [Roxicodone 10 MG] 15 mg PO Q4HR PRN 03/24/17 [History] hydrOXYzine HCl [Hydroxyzine HCl] 25 mg PO TID PRN 03/24/17 [History] LORazepam Oral Conc [Ativan Oral Conc] 0.5 - 1 mg PO Q4H PRN #30 mls 03/31/17 [ Rx] OxyCODONE CONC 10 - 15 mg PO Q4H PRN #30 mls 03/31/17 [Rx] Allergies/Adverse Reactions: 3 Allergy/AdvReac Type Severity Reaction Status Date / Time fentanyl Allergy Vomiting Verified 10/31/14 09:49 ondansetron Allergy Headache Verified 10/31/14 09:49 [From Zofran (as hydrochloride)] Certification: Further, I certify that my clinical findings support that this patient is homebound (i.e. absences from home require considerable and taxing effort and are for medical reasons or anabaptism services or infrequently or short duration when for other reasons) because: Homebound Reason: Leaving home requires considerable and taxing effort due to condition Attestation: My signature below is to certify that this patient is under my care and that I, or nurse practitioner, or a physician's server service assistant working with me, has a face-to -face encounter with this patient.
== END 2017-03-31 16:34 | disposition hospice, home (50) | DRG 139 ==
LOC: EMEROO 16:05 → 3BNU 16:05 → SUATTDRO 03-25 03:53
PROVIDERS: ADMIT Pediatrics; ATTEND Internal Medicine